=== PATIENT | female | born 1940 | race Caucasian/White ===

== ENCOUNTER 2018-07-23 13:27 | Outpatient (CLI) | payer MEDICARE, OTHER, SELFPAY ==
--- NOTE | 2018-07-23 11:10 | DI.RAD_ITS ---
SYMPTOMS/DIAGNOSIS: SHORTNESS OF BREATH, COPD, J44.9 PA AND LATERAL CHEST: Comparison 02/19/17 and 09/08/17. The heart size and pulmonary vasculature are within normal limits. The lungs appear hyperinflated suggesting underlying COPD. No focal infiltrates, effusions or pneumothoraces are identified. There is a question of a nodular density to the left of the hilum. This may represent a summation of shadows but pulmonary nodule can not be excluded. CT scan should be considered for further evaluation. Degenerative changes are seen in the spine. IMPRESSION: 1. Question of a pulmonary nodule in the left mid lung. CT scan is recommended for further evaluation. 2. COPD.
== END 2018-07-23 13:47 ==
PROVIDERS: PCP Family Medicine; Visit Provider Family Medicine
DX: R06.02 Shortness of breath (principal); J44.9 Chronic obstructive pulmonary disease, unspecified; R91.8 Other nonspecific abnormal finding of lung field
CPT/HCPCS: 71046

== ENCOUNTER 2018-07-25 12:24 | Outpatient (CLI) | payer MEDICARE, OTHER, SELFPAY ==
[2018-07-25 14:01] LABS: CREATININE 0.98 mg/dL (0.55-1.02); Estimated GFR 55.03 (mL/min/1.73m2)
== END 2018-07-25 12:44 ==
PROVIDERS: PCP Family Medicine; Visit Provider Family Medicine
DX: R91.1 Solitary pulmonary nodule (principal); Z13.89 Encounter for screening for other disorder
CPT/HCPCS: 36415; 82565

== ENCOUNTER 2018-07-28 01:36 | Outpatient (CLI) | payer MEDICARE, OTHER, SELFPAY ==
--- NOTE | 2018-07-28 14:49 | DI.CT_ITS ---
SYMPTOM/DIAGNOSIS: F/U ABNL FINDINGS ON XRAY, LUNG NODULE CHEST CT: CT scan of the chest was performed following the uneventful administration of intravenous contrast material. Comparison chest xray is 07/23/18. The thoracic aorta is of normal caliber. No aneurysmal dilatation is seen. Heart size is within normal limits. No significant pericardial effusion is present. No significant thoracic adenopathy is appreciated. No pleural effusion or pneumothorax is identified. Centrilobular emphysematous changes are present in the lungs. There are infiltrates seen in the lower lobes. These areas may represent atelectasis or pneumonia or scarring. No pulmonary nodules are appreciated. The tracheobronchial tree is unremarkable. Dependent atelectatic changes are seen in the lung bases. There is patient motion artifact present. Upper abdominal images show the patient is status post cholecystectomy. There is mild dilatation of the extrahepatic bile ducts, similar to the prior examination. This likely reflects post cholecystectomy change. Degenerative changes are seen in the spine. IMPRESSION: 1. No evidence of a pulmonary nodule or thoracic adenopathy. 2. Centrilobular emphysema. 3. Infiltrates in the lower lobes bilaterally. This likely reflects atelectasis or scarring. Pneumonia cannot be entirely excluded. Please correlate clinically.
[2018-07-28] MEDS: Omnipaque 350 MG/ML 100 ML BTL IV (15:14)
== END 2018-07-28 01:56 ==
PROVIDERS: PCP Family Medicine; Visit Provider Family Medicine
DX: R91.8 Other nonspecific abnormal finding of lung field (principal); J43.8 Other emphysema
CPT/HCPCS: 71260; J3490

== ENCOUNTER 2018-08-22 03:06 | Outpatient (CLI) | payer MEDICARE, OTHER, SELFPAY ==
[2018-08-22] MEDS: Inhaler, Assist Device 1 EACH MC (10:54)
[2018-08-22] MEDS: Albuterol HFA 18 GM 200 PUFF INH IH (10:56)
--- NOTE | 2018-08-22 11:40 | PFT_ITS ---
PULMONARY FUNCTION TEST REPORT DATE OF SERVICE: August 22, 2018 REQUESTING PROVIDER: Ramila Tapia M.D. Spirometry shows moderately severe obstructive airways disease with significant bronchodilator response. Lung volumes show no evidence of restriction. Diffusion capacity moderately reduced, even when corrected to alveolar volume. Airways resistance elevated. IMPRESSION: Overall moderately severe obstructive airways disease with significant bronchodilator response. The diffusion capacity measurement was poorly calibrated, therefore should not be counted. Clinical correlation recommended. When this study was compared to previous ones from 12/14/05, 07/04/12, 02/01/15 and 08/30/16, the patient has a relatively stable FVC and an overall 270 cc's decline in FEV1, but again overall relatively stable. VJ/dml D/
== END 2018-08-22 03:26 ==
PROVIDERS: PCP Family Medicine; Visit Provider Family Medicine
DX: J44.9 Chronic obstructive pulmonary disease, unspecified (principal)
CPT/HCPCS: 94060; 94150; 94726; 94729

== ENCOUNTER 2018-09-15 13:02 | Emergency (ER) | payer MEDICARE, OTHER, SELFPAY ==
[2018-09-15 13:09] VITALS: BP 140/78; PULSE 93; RESP 18; TEMP 36.9; O2SAT 94
--- NOTE | 2018-09-15 14:15 | DI.US_ITS ---
SYMPTOMS/DIAGNOSIS: LEG SWELLING, PAIN BEHIND KNEE RIGHT LOWER EXTREMITY ULTRASOUND: The deep veins of the right lower extremity show normal compression, augmentation and color flow. No evidence of a deep venous thrombus is identified. The saphenofemoral junction appears unremarkable. Note is made of a 3.9 x 1 x 2 cm cyst in the popliteal region consistent with a Lopez's cyst. IMPRESSION: 1. No evidence of a right lower extremity deep venous thrombus. 2. 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 The findings were discussed with the Emergency Department on the date of the examination.
--- NOTE | 2018-09-15 14:15 | DI.RAD_ITS ---
SYMPTOM/DIAGNOSIS: FELL, PAIN LUMBAR SPINE: AP, lateral and bilateral oblique views. Comparison CT scan is 04/05/14. There is again seen a right convex curvature of the lumbar spine. No acute fracture or subluxation is seen. No spondylolysis or spondylolisthesis is present. Mild degenerative changes are seen in the lumbar spine. Suture material is seen within the abdomen. IMPRESSION: No acute abnormality. RIGHT ELBOW: Four views. No priors. No acute fracture or dislocation is seen. No radiopaque foreign bodies are seen in the soft tissues. IMPRESSION: No acute fracture or dislocation.
--- NOTE | 2018-09-15 17:23 | DI.VRAD_ITS ---
EXAM: XR Lumbosacral Spine, 4 or 5 Views EXAM DATE/TIME: 09/15/2018 3:58 PM CLINICAL HISTORY: 78 years old, female; Injury or trauma; Initial encounter; Blunt trauma (contusions or hematomas); Patient HX: Fall, TECHNIQUE: Imaging protocol: XR of the lumbosacral spine, 4 or 5 views. COMPARISON: No relevant prior studies available. FINDINGS: Vertebrae: Moderate dextrocurvature of the lumbar spine centered at L2-3. Multilevel lumbar facet arthropathy. Normal AP alignment. No acute fracture. Soft tissues: Normal. IMPRESSION: No acute abnormality. Dictated and Authenticated by: Roxane Bustamante MD. Ordering:RODRIGO Wallis MD
--- NOTE | 2018-09-15 17:23 | DI.VRAD_ITS ---
EXAM: XR Right Elbow Complete, 3 or more Views EXAM DATE/TIME: 09/15/2018 4:06 PM CLINICAL HISTORY: 78 years old, female; Pain; Elbow; Right; Patient HX: Fall TECHNIQUE: Imaging protocol: XR Right elbow. Views: 3 or more views. COMPARISON: No relevant prior studies available. FINDINGS: Bones/joints: Normal. Soft tissues: Normal. IMPRESSION: No acute abnormality. Dictated and Authenticated by: Roxane Bustamante MD. Ordering:RODRIGO Wallis MD
--- NOTE | 2018-09-15 17:25 | ED.GENADUL_ITS ---
Discharge Plan Disposition Patient Disposition: HOME Condition: Stable Discharge Details Chief Complaint: GenMedical Clinical Impression: Skin tear of elbow without complication, Contusion, multiple sites Primary Care Provider: Ramila Tapia ED Provider: Bimal Wu Home Meds and New Rx's Prescriptions: Continued latanoprost (PF) 0.005 % drops 1 drp OP QPM RF: 0 fluticasone propionate 50 mcg/actuation spray,suspension 2 spray KAY DAILY PRNRF: 0 folic acid 1 mg tablet 1 mg PO EVERY OTHER DAY Qty: 45 RF: 12 cyanocobalamin (vitamin B-12) 1,000 mcg/mL solution 1,000 mcg IM MONTHLY Qty: 3 RF: 12 codeine sulfate 30 mg tablet 30 mg PO QID MDD 4 PRN (Reason: diarrhea) Qty: 120 RF: 0 Lucy Cohesive Seals 1 EACH misc 1 ea Miscellaneous DIR RF: 0 METAMUCIL 283 GM powder 1 tsp PO QID RF: 0 BRITT 1 ea Topical DIR RF: 0 Narcan 4 MG spray,non-aerosol 4 mg NS PRN Qty: 2 RF: 0 albuterol sulfate [ProAir HFA] 8.5 GM HFA aerosol inhaler 1 - 2 puff Inhalation Q6H PRN Qty: 3 RF: 12 BD Blunt Plastic Cannula 17 x 3 mL syringe 1 ea Miscellaneous MONTHLY Qty: 12 RF: 12 Symbicort 160-4.5 mcg/actuation HFA aerosol inhaler 2 puff Inhalation BID Qty: 3 RF: 12 levothyroxine 50 mcg tablet 50 mcg PO DAILY Qty: 90 RF: 12 Spiriva with HandiHaler 18 mcg capsule, w/inhalation device 1 cap Inhalation DAILY Qty: 3 RF: 12 alprazolam 0.5 mg tablet 0.5 mg PO DIRECTED Qty: 100 RF: 0 Discharge Instructions Instructions: Contusion in Adults (ED), Skin Tear (ED) Additional Instructions: Continue to keep your wound clean and dry and if you notice signs of infection return immediately for reassessment. Otherwise continue to take your medication as prescribed and follow-up with your primary care provider as needed for reassessment Referrals: Ramila Tapia MD, [place] [Primary Care Provider] - (As needed for reassessment) Discharge Data Discharge Date/Time-TO BE ENTERED AT DEPARTURE: 09/15/18 17:43 Medical Decision Making Patient presenting the emergency department for chief complaint of fall. Patient states around 2 AM she was attempting to empty her ostomy bag when she was sitting backwards on the toilet and lost her balance slipping and falling backwards. She states that she landed on her right elbow and her buttocks. She states throughout the day she has had some elbow pain, did have a skin tear to the right elbow, and some lower back pain. Patient denies any focal neurological deficits,. Physical exam shows diffuse tenderness to the lower lumbar spine and sacrum but no obvious ecchymosis or swelling, no step-off, no crepitus. Right elbow has tenderness to the olecranon and a moderate-sized skin tear with no further bleeding but elbow does have full range of motion. There is no cervical thoracic tenderness to the back, wrist and hand are appropriate,. Patient also does state that she has noticed some mild swelling to her right ankle and some pain behind her right knee. Patient does have reproducible palpable pain to her right colored is no discoloration to the lower extremity trace swelling is noted to the ankle but is not generalized. Given popliteal space tenderness I do feel that ultrasound imaging is warranted to rule out DVT. given patient's age radiological imaging was ordered for the lumbar spine and the right elbow but otherwise patient denies any head injury, loss of consciousness, neck pain, or chest pain so I do not feel that any other imaging is warranted. For review of imaging showing no acute findings and arm staff appropriately cleaned and dressed skin tear feel that patient has multiple contusions to the fall but no acute fractures. Patient was encouraged to follow-up with her primary care provider as needed for any further reassessment. For discomfort patient was encouraged to use low-dose acetaminophen as needed. Patient was ambulatory in emergency department which I feel is reassuring as well. After discussion of diagnosis and plan of care patient and family have no further needs, questions, or concerns and states clear understanding to return to the emergency department for any worsening symptoms. HPI General Mode of arrival: ambulatory . Date/Time Provider Initiated Documentation: 09/15/18 13:14 . Limitations to Documentation: no limitations . Information obtained by: patient . History of Present Illness 78 year old F presents to the emergency department with the chief complaint of fall, described as mild, with intensity rated at 5. Quality is described as aching, and is localized to the right and upper extremity. Patient started experiencing this hour(s) (12) and it has been constant. No relieving factors improve symptom(s), Patient did receive the following treatments prior to arrival, none Related Data Home Medications Medication Instructions Recorded Confirmed Lucy Cohesive Seals ea 08/11/12 08/14/18 Metamucil 1 tsp PO QID 08/11/12 09/15/18 Narcan 4 mg NS PRN #2 spray 02/18/17 08/14/18 albuterol sulfate [ProAir HFA] 1 - 2 puff INHALATION Q6H PRN #3 10/03/17 09/15/18 inhaler syringe with cannula, disposable #12 ndl 03/19/18 08/14/18 17 x 3 mL latanoprost (PF) 0.005 % eye drops 1 drp OP QPM 05/19/18 09/15/18 budesonide-formoterol HFA 160 2 puff INHALATION BID #3 inhaler 07/05/18 09/15/18 mcg-4.5 mcg/actuation aerosol inhaler levothyroxine 50 mcg tablet 50 mcg PO DAILY #90 tab-cap 07/05/18 09/15/18 tiotropium bromide 18 mcg capsule 1 cap INHALATION DAILY #3 packet 07/16/18 09/15/18 with inhalation device codeine sulfate 30 mg tablet 30 mg PO QID PRN #120 tab MDD 4 08/14/18 08/14/18 cyanocobalamin (vit B-12) 1,000 1,000 mcg IM MONTHLY #3 vial 08/14/18 09/15/18 mcg/mL injection solution fluticasone propionate 50 2 spray KAY DAILY PRN gm 08/14/18 09/15/18 mcg/actuation nasal spray,suspension folic acid 1 mg tablet 1 mg PO EVERY OTHER DAY #45 tab-cap 08/14/18 09/15/18 alprazolam 0.5 mg tablet 0.5 mg PO DIRECTED #100 tab-cap 09/12/18 09/15/18 Previous Rx's Medication Instructions Recorded Narcan 4 mg NS PRN #2 spray 02/18/17 albuterol sulfate [ProAir HFA] 1 - 2 puff INHALATION Q6H PRN #3 10/03/17 inhaler syringe with cannula, disposable #12 ndl 03/19/18 17 x 3 mL budesonide-formoterol HFA 160 2 puff INHALATION BID #3 inhaler 07/05/18 mcg-4.5 mcg/actuation aerosol inhaler levothyroxine 50 mcg tablet 50 mcg PO DAILY #90 tab-cap 07/05/18 tiotropium bromide 18 mcg capsule 1 cap INHALATION DAILY #3 packet 07/16/18 with inhalation device codeine sulfate 30 mg tablet 30 mg PO QID PRN #120 tab MDD 4 08/14/18 cyanocobalamin (vit B-12) 1,000 1,000 mcg IM MONTHLY #3 vial 08/14/18 mcg/mL injection solution folic acid 1 mg tablet 1 mg PO EVERY OTHER DAY #45 tab-cap 08/14/18 alprazolam 0.5 mg tablet 0.5 mg PO DIRECTED #100 tab-cap 09/12/18 Allergies Allergy/AdvReac Type Severity Reaction Status Date / Time Penicillins Allergy Intermediate Verified 09/15/18 13:12 clindamycin AdvReac Mild Verified 09/15/18 13:12 doxycycline AdvReac Mild Verified 09/15/18 13:12 levofloxacin AdvReac Verified 09/15/18 13:12 nitrofurazone AdvReac Stomach Verified 09/15/18 13:12 pains Tetanus Vaccines and Toxoid AdvReac Verified 09/15/18 13:12 General Stated Complaint: GenMedical KAVEH: 3 Review of Systems Constitutional Denies chills, Denies fever(s), Denies frequent falls, Denies headache(s) and Denies malaise ENT Denies vertigo, Denies dizziness, Denies headache(s) and Denies neck pain Cardiovascular Denies chest pain and Denies dyspnea Respiratory Denies dyspnea Musculoskeletal Reports as per HPI, Reports back pain, Reports arthralgias and Denies neck pain Integumentary/Breasts Reports wounds (right elbow skin tear) Neurologic Denies vertigo, Denies dizziness, Denies frequent falls and Denies headache(s) [facility] Medical History Vitamin D deficiency (Chronic 03/19/09) Urinary incontinence (Chronic 09/09/14) Shoulder pain (Chronic 04/18/04) Sensorineural hearing loss, bilateral (Chronic 11/10/13) Pernicious anemia (Chronic) Peripheral vertigo (Chronic 03/26/13) Osteopenia (Chronic) 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, 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) Impaired renal function disorder (Chronic) Gastro-esophageal reflux disease with esophagitis (Chronic) Depressive disorder (Chronic 01/21/13) Cramps, extremity (Chronic 02/18/17) Chronic pain syndrome (Chronic) Chronic night sweats (Chronic 09/16/17) Chronic diarrhea (Chronic) Balance disorder (Chronic 06/02/15) Anxiety (Chronic 02/04/13) Essential hypertension (Chronic 04/17/13) COPD (chronic obstructive pulmonary disease) (Chronic) CAP (community acquired pneumonia) (Resolved) Dysphonia (Resolved 03/18/14) Elev transaminase/LDH (Resolved) External ear conductive hearing loss (Resolved) Hyponatremia (Resolved) Hyponatremia syndrome (Resolved 06/27/15) Impacted cerumen of both ears (Resolved 03/24/15) Mucous polyp of cervix (Resolved) Pneumonia (Resolved) Pulmonary nodule, right (Resolved) Pyloric ulcer associated with Helicobacter pylori (Resolved) Seizure (Resolved) Smoker (Resolved) Subclinical hypothyroidism (Resolved 06/07/15) Surgical History History of colon resection (Resolved) S/P cholecystectomy (Resolved) Cholecystectomy (~1996) Colostomy (~1983) Family History Mother Neoplasm Asthma Sister Neoplasm Asthma Grandmother Stroke Social History Smoking/Tobacco Use Status: Former Tobacco Use Alcohol Intake: current Alcohol Intake frequency: holidays/special occasions only Alcohol type: wine Drug use: Never Substance use type: does not use Caregiver/Support person: Yes Household members: spouse Housing: house Pets and animals: Yes Pets and animals: cat(s) Sexually active: No Do you think of yourself as: straight/heterosexual Current gender identity: female What is your relationship status?: How often do you talk on the phone with friends or family?: three or more times per week How often do you get together with friends or relatives?: twice per week How often do you attend uatsdin or mormonism services?: 4 or more times per year Do you belong to any clubs or organized social groups?: yes Panel score (0-1 are the most socially isolated patients): 4 What type of physical activity do you participate in: other Details: NOT MUCH / SUGGESTIONS PLEASE (OSTOMY IS INLCUDED) Concepción/Mandaeism: Buddhism Special concepción needs: No Do you feel safe at home: Yes Do you feel safe in your relationship?: Yes Exam Const General: cooperative, no acute distress and not ill appearing Orientation: alert, awake and oriented x3 HENMT Head: normal to inspection, normocephalic and atraumatic Resp Effort & Inspection: normal respiratory effort, able to speak in complete sentences and no respiratory distress Auscultation: clear to auscultation bilaterally Cardio Rate: regular rate Rhythm: regular rhythm Heart Sounds: S1 normal and S2 normal Back/Spine/Pelvis Cervical Spine: No cervical spinal tenderness Thoracic/Lumbar Spine: No mass, No paraspinal tenderness, No thoracic spinal tenderness and lumbar spinal tenderness Pelvis: no pain with anterior-posterior compression Sacrum: no ecchymosis, no swelling and tenderness midline Neuro General: alert, awake, oriented x3, moves all extremities and no focal motor deficits Sensory Exam: no sensory deficits noted Extrem Right upper extremity: elbow/forearm Details: tenderness Location: of the olecranon, normal ROM, abrasion (skin tear) and ecchymosis; no crepitus, wrist Details: normal to inspection and hand Details: normal to inspection Course Vital Signs Temperature 36.9 C 09/15/18 13:09 Pulse 93 H 09/15/18 13:09 Respiratory Rate 18 09/15/18 13:09 Blood Pressure 140/78 09/15/18 13:09 Pulse Oximetry 94 L 09/15/18 13:09 Temperature 36.9 C 09/15/18 13:09 Temperature Source Temporal Artery Scan 09/15/18 13:09 Pulse 93 H 09/15/18 13:09 Respiratory Rate 18 09/15/18 13:09 Respiratory Effort 09/15/18 13:28 Blood Pressure 140/78 09/15/18 13:09 Pulse Oximetry 94 L 09/15/18 13:09 Oxygen Delivery Method Room Air 09/15/18 13:09 Oxygen Flow Rate 0 09/15/18 13:09
[2018-09-15 17:29] VITALS: BP 125/56; PULSE 86; RESP 16; TEMP 37.1; O2SAT 96
[2018-09-15] MEDS: Bacitracin 1 PACKET (17:34)
[2018-09-15 17:38] VITALS: BP 125/56; PULSE 86; RESP 16; TEMP 37.1; O2SAT 96
== END 2018-09-15 17:43 | disposition home or self-care (01) ==
PROVIDERS: Emergency Provider Nurse Practitioner Family; PCP Family Medicine
DX: S51.011A Laceration without foreign body of right elbow, initial encounter (principal); M25.561 Pain in right knee; R22.41 Localized swelling, mass and lump, right lower limb; M54.5 Low back pain; W18.11XA Fall from or off toilet without subsequent striking against object, initial encounter; J44.9 Chronic obstructive pulmonary disease, unspecified; I10 Essential (primary) hypertension; Z87.891 Personal history of nicotine dependence
CPT/HCPCS: 99284; 72110; 73080; 93971

== ENCOUNTER 2018-12-16 10:37 | Outpatient (REF) | payer MEDICARE, OTHER, SELFPAY | END 2018-12-16 10:57 | LOC: LBN 10:37 | PROVIDERS: PCP Family Medicine; Visit Provider Family Medicine | DX: N39.0 Urinary tract infection, site not specified (principal) | CPT/HCPCS: 87086 ==

== ENCOUNTER 2019-05-22 01:48 | Outpatient (CLI) | payer MEDICARE, OTHER, SELFPAY ==
[2019-05-22 12:12] LABS: ALT 12 U/L (14-59); AST 20 U/L (15-37); Albumin 3.6 g/dL (3.4-5.0); Alkaline Phosphatase 106 U/L (46-116); Anion Gap 7.3 mmol/L (3-11); BUN 11 mg/dL (7-18); Bilirubin, Total 0.8 mg/dL (0.2-1.0); CO2 30.7 mmol/L (21.0-32.0); Calcium 9.2 mg/dL (8.5-10.1); Chloride 102 mmol/L (98-107); Estimated GFR 53.76 (mL/min/1.73m2); Folate 19.7 ng/mL (8.6-20.0); Glucose 78 mg/dL (74-106); Potassium 3.9 mmol/L (3.5-5.1); Sodium 140 mmol/L (136-145); TSH (W/Ref FT4) 1.92 uIU/mL (0.36-3.74); Total Protein 6.6 g/dL (6.4-8.2); Vitamin B12 932 pg/mL (193-986)
[2019-05-25 06:17] LABS: Vitamin D 25 Total 9.5 ng/ml (30-100)
== END 2019-05-22 02:08 ==
PROVIDERS: PCP Family Medicine; Visit Provider Family Medicine
DX: E55.9 Vitamin D deficiency, unspecified (principal); R53.83 Other fatigue; E03.9 Hypothyroidism, unspecified; D51.0 Vitamin B12 deficiency anemia due to intrinsic factor deficiency; K52.9 Noninfective gastroenteritis and colitis, unspecified; R19.7 Diarrhea, unspecified; K50.90 Crohn's disease, unspecified, without complications
CPT/HCPCS: 36415; 80053; 82306; 82607; 82746; 84443

== ENCOUNTER 2019-06-23 01:59 | Outpatient (CLI) | payer MEDICARE, OTHER, SELFPAY ==
--- NOTE | 2019-06-23 12:46 | DI.MAMMO_ITS ---
EXAM: MG MAMMO SCREENING CLINICAL HISTORY: screening Z12.39. TECHNIQUE: Bilateral full field digital CC and MLO mammographic images were obtained with 3D tomosyn thesis and utilizing computer aided detection (CAD). COMPARISON: Available for comparison. FINDINGS: Masses/Architectural Distortion: None seen. Stable bilateral nodules. Microcalcifications: No suspicious pleomorphic-type are seen. Skin Thickening/Nipple Retraction: None. IMPRESSION: 1. No significant interval change with no specific features of malignancy noted. 2. Unless there is more urgent need, screening mammography is recommended, as per [employer] guidelines. BI-RADS Cat 2 - Benign Findings Breast Density - Category A - Almost entirely fatty A negative radiographic report should not delay biopsy if a dominant or clinically suspicious mass is present. Up to ten percent of cancers are not identified on mammography. A negative report may reinforce clinical impression. Adenosis and dense breasts may obscure an underlying neoplasm. False positive reports average 6 to 10%. Patient will receive a letter notifying them of these results.
== END 2019-06-23 02:19 ==
PROVIDERS: PCP Family Medicine; Visit Provider Family Medicine
DX: Z12.31 Encounter for screening mammogram for malignant neoplasm of breast (principal)
CPT/HCPCS: 77063; 77067

== ENCOUNTER 2019-09-16 02:15 | Outpatient (CLI) | payer MEDICARE, OTHER, SELFPAY ==
--- NOTE | 2019-09-16 12:35 | DI.CT_ITS ---
EXAM: CT CHEST WO CLINICAL HISTORY: CHRONIC OBSTRUCTIVE LUNG DISEASE, J44.9. TECHNIQUE: Imaging protocol: Axial computed tomography images were obtained and coronal and sagittal reformatted images were created and reviewed. COMPARISON: CT chest w from 07/28/2018 FINDINGS: Tracheobronchial tree: Patent where visualized. Mediastinum and Tracy: No dominant adenopathy or fluid collection. Pulmonary parenchyma: No consolidation or dominant measurable mass. Moderately severe centrilobular e mphysematous changes are present. Calcified granuloma is seen in the right lower lobe. There is sca rring in the lung bases bilaterally. Pleura: No effusion or pneumothorax. Heart: The heart is not dilated. No coronary artery calcifications are seen. No pericardial effusion. Aorta: Thoracic aorta non-dilated. Atherosclerosis. Upper abdomen: Status post cholecystectomy. Lymph nodes: Within normal limits. Bones:Degenerative changes. IMPRESSION: 1. Moderately severe centrilobular emphysema. 2. No focal consolidating infiltrates or pulmonary masses. 3. Atherosclerosis. 4. Status post cholecystectomy. RADIATION DOSE DELIVERED: Total DLP Total DLP DATA REPOSITORY: All CT scans at this facility are submitted to the National Radiology Data Registry (NRDR) Dose Index Registry (DIR) with the [employer] (A[employer]). RADIATION OPTIMIZATION: All CT scans at this facility use at least one of these dose optimization te chniques: automated exposure control; mA and/or kV adjustment per patient size (includes targeted exa ms where dose is matched to clinical indication); or iterative reconstruction.
== END 2019-09-16 02:35 ==
PROVIDERS: PCP Family Medicine; Visit Provider Internal Medicine
DX: J44.9 Chronic obstructive pulmonary disease, unspecified (principal); J43.8 Other emphysema; Z90.49 Acquired absence of other specified parts of digestive tract
CPT/HCPCS: 71250

== ENCOUNTER 2019-11-04 02:35 | Outpatient (CLI) | payer MEDICARE, OTHER, SELFPAY ==
--- NOTE | 2019-11-04 10:30 | DI.US_ITS ---
APPROVED REPORT EXAM: Comprehensive 2D, Doppler, and color-flow Echocardiogram Patient Location: Out-Patient Operations Clerk: Paige Dietz RDCS (AE) Indications: Shortness of Breath Other Information Study Quality: Adequate Conclusion Left Ventricle : The left ventricle is normal size. The left ventricular systolic function is normal. The left ventricular ejection fraction is within the normal range. There is normal left ventricular wall thickness. There is normal LV segmental wall motion. The left ventricular diastolic function is normal. LVEF is >55%. Right Ventricle : The right ventricle is normal size. The right ventricular systolic function is norm al. The RVSP is 36.4 mmHg. Atria : The left atrium size is normal. The right atrium size is normal. Valves: There are no hemodynamically significant valvular lesions. Great Vessels : The IVC collapses <50% with inspiration. There is no prior study available for comparison. Wall motion Left Ventricle The left ventricle is normal size. The left ventricular systolic function is normal. The left ventric ular ejection fraction is within the normal range. There is normal left ventricular wall thickness. T here is normal LV segmental wall motion. The left ventricular diastolic function is normal. There is no ventricular septal defect visualized. LVEF is >55%. Right Ventricle The right ventricle is normal size. The right ventricular systolic function is normal. The RVSP is 36 .4 mmHg. Atria The left atrium size is normal. The right atrium size is normal. The interatrial septum is intact wit h no evidence for an atrial septal defect. Aortic Valve Aortic valve is trileaflet. There is no aortic valvular stenosis. No aortic regurgitation is present. Mitral Valve There is mitral annular calcification. No evidence of mitral valve stenosis. Mild mitral regurgitatio n. Tricuspid Valve The tricuspid valve is normal in structure. There is no tricuspid valve stenosis. Mild tricuspid regu rgitation. Pulmonic Valve The pulmonary valve is normal in structure. There is no pulmonic valvular stenosis. There is no pulmo fletcher valvular regurgitation. Great Vessels The aortic root is normal in size. The ascending aorta is normal in size. The IVC collapses <50% with inspiration. Pericardium There is no pericardial effusion. 2D Dimensions IVSD d PLAX 0.84 cm F: 0.6-1.0 LV Vol A2C d MOD 85.9 mL LVPW d PLAX 0.84 cm F: 0.6 - 1.0 LV Vol A4C d MOD 85.8 mL LVID d PLAX 4.38 cm F: 3.8 - 5.2 LA vol/ BSA A2C s A-L 14.2 mL/m2 LVDs 3.20 cm F: 2.2 - 3.5 LA vol/ BSA A4C s A-L 19.7 mL/m2 Ao Root d 2.58 cm F: 2.7 - 3.3 LA Vol/ BSA Biplane s A-L 18.9 mL/m2 RA Area A4C 11.73 cm2 LA Area A4C s MOD 13.06 cm2 RA Vol/ BSA A4C s A-L 16.1 mL/m2 LA Area A2C s MOD 9.82 cm2 Ao Asc Diam d 3.10 cm F: 2.3 - 3.1 LV EF A4C MOD 55.3 % LV EF Teichholz 52.4 % LV EF A2C MOD 56.1 % LVEF (Ashraf's) 53.60 % F: 54 - 74 LV EF Biplane MOD 53.6 % LV Volume 68.83 mL F: 46 - 106 SV 46.48 mL LV Volume Index 40.48 mL/m2 F: 29 - 61 SV Index 27.31 mL/m2 LV Vol Biplane MOD 86.7 mL FS 26.65 % M-Mode TAPSE 2.38 cm (M/F) >1.7 LV Diastology MV E' medial 0.119 (>0.07 m/s) E/A Ratio 0.8 LV E/e MED 7.30 (<14) MV E Vmax 0.87 (0.4-1.3 m/s) MV E' lateral 0.101 (>0.1 m/s) MV A Vmax 1.10 (0.4-1.3 m/s) LV E/e LAT 8.60 (<14) MV E/A Ratio 0.79 MV E/E' medial 7.34 MV E/E' lateral 8.65 Aortic Valve LVOT Area 2.80 cm2 AoV Area Vmax 2.38 cm2 LVOT Vmax 1.05 m/s AoV Area/ BSA (Vmax) 1.40 cm2/m2 LVOT Mean Lawrence. 0.71 m/s PATRICE Mean Lawrence. 2.13 cm2 LVOT Peak Grad 4.4 mmHg PATRICE Mean Lawrence. Index 1.25 cm2/m2 LVOT Mean Grad 2.3 mmHg LVOT VTI 0.222 m LVOT Diam s 1.85 cm AoV Vmax 1.24 m/s Velocity Ratio 0.84 AoV Mean Lawrence. 0.93 m/s AoV Peak Grad 6.2 mmHg LVOT SV 62.19 mL AoV Mean Grad 3.8 mmHg AoV VTI 0.298 m AoV Area VTI 2.09 cm2 AoV Area/ BSA (VTI) 1.23 cm/m2 Mitral Valve MV DT 165 (160-240 msec) MR Vmax 4.96 m/s MV PHT 48 msec MR VTI 1.690 m MV Area PHT 4.60 cm2 MR Peak Grad 98.5 mmHg MR Mean Grad 71.7 mmHg MR PISA Radius 0.36 cm MR EROA 0.06 cm2 MR Aliasing Velocity 0.35 m/s MR PISA 0.80 cm2 Pulmonary Valve PV Vmax 0.97 (0.5-1.5 m/s) RVOT Peak Gr. 2.28 mmHg PV Peak Grad 3.7 mmHg RVOT Mean Gr. 1.10 mmHg PV Mean Grad 2.1 mmHg RVOT VTI 0.158 m PV VTI 0.211 m RVOT Vmax 0.75 m/s Tricuspid Valve TR Peak Grad 28.4 mmHg TR Vmax 2.66 m/s RA Pressure 8.00 mmHg RVSP (TR) 36.4 mmHg
== END 2019-11-04 02:55 ==
PROVIDERS: PCP Family Medicine; Visit Provider Family Medicine
DX: R06.02 Shortness of breath (principal); I10 Essential (primary) hypertension
CPT/HCPCS: 93306

== ENCOUNTER 2019-12-23 03:58 | Outpatient (CLI) | payer MEDICARE, OTHER, SELFPAY ==
[2019-12-23 13:24] LABS: HCT 40.7 % (36.0-46.0); HGB 13.7 g/dL (11.2-15.7); MCH 31.8 pg (27.0-33.0); MCHC 33.7 % (32.0-36.0); MCV 94.4 fL (80-95); MPV 9.6 fL (8.0-11.0); Platelet Count 113 10^3/uL (130-400); RBC 4.31 10^6/uL (3.93-5.22); RDW 12.7 % (11.7-14.6); RDW-SD 44.3 fL; WBC 14.34 10^3/uL (4.4-10.8)
[2019-12-23 14:02] LABS: Iron 85 ug/dL (50-170)
[2019-12-23 14:15] LABS: Ferritin 180 ng/mL (8-252)
== END 2019-12-23 04:18 ==
PROVIDERS: PCP Family Medicine; Visit Provider Family Medicine
DX: D64.9 Anemia, unspecified (principal); R19.7 Diarrhea, unspecified; K50.90 Crohn's disease, unspecified, without complications
CPT/HCPCS: 36415; 85027; 82728; 83540

== ENCOUNTER 2020-03-17 15:50 | Outpatient (REF) | payer MEDICARE, OTHER, SELFPAY ==
[2020-03-17 21:55] LABS: *AMPHETAMINES SCREEN URINE Negative (Negative); *BARBITURATES SCREEN URINE Negative (Negative); *BENZODIAZEPINES SCREEN URINE POSITIVE (Negative); Cannabinoids THC Negative (Negative); Cocaine Screen,Urine Negative (Negative); METHADONE URINE SCREEN Negative (Negative); OPIATES URINE SCREEN POSITIVE (Negative)
[2020-03-17 22:09] LABS: Tricyclic Antidepressants Negative (Negative)
== END 2020-03-17 16:10 ==
LOC: LBN 15:50
PROVIDERS: PCP Family Medicine; Visit Provider Family Medicine
DX: G89.4 Chronic pain syndrome (principal); R30.0 Dysuria
CPT/HCPCS: 80307; 87086

== ENCOUNTER 2020-04-19 08:32 | Outpatient (CLI) | payer MEDICARE, OTHER, SELFPAY ==
[2020-04-22 03:05] LABS: Patient Race White; SARS-CoV-2 RNA Undetected (Undetected); SARS-CoV-2 Specimen Source Nasal
== END 2020-04-19 08:52 ==
PROVIDERS: PCP Family Medicine; Visit Provider Family Medicine
DX: Z20.828 Contact with and (suspected) exposure to other viral communicable diseases (principal)
CPT/HCPCS: U0003

== ENCOUNTER 2020-06-01 04:50 | Outpatient (CLI) | payer MEDICARE, OTHER, SELFPAY ==
[2020-06-01 11:14] LABS: HCT 39.9 % (36.0-46.0); HGB 13.1 g/dL (11.2-15.7); MCH 31.4 pg (27.0-33.0); MCHC 32.8 % (32.0-36.0); MCV 95.7 fL (80-95); MPV 10.1 fL (8.0-11.0); Platelet Count 107 10^3/uL (130-400); RBC 4.17 10^6/uL (3.93-5.22); RDW 12.6 % (11.7-14.6); RDW-SD 44.6 fL; WBC 13.37 10^3/uL (4.4-10.8)
[2020-06-01 12:22] LABS: ALT 22 U/L (14-59); AST 18 U/L (15-37); Albumin 3.6 g/dL (3.4-5.0); Alkaline Phosphatase 107 U/L (46-116); Anion Gap 7.5 mmol/L (3-11); BUN 17 mg/dL (7-18); Bilirubin, Total 0.8 mg/dL (0.2-1.0); CO2 28.5 mmol/L (21.0-32.0); CREATININE 0.91 mg/dL (0.55-1.02); Calcium 9.1 mg/dL (8.5-10.1); Chloride 104 mmol/L (98-107); Estimated GFR 59.79 (mL/min/1.73m2); Glucose 89 mg/dL (74-106); Potassium 3.8 mmol/L (3.5-5.1); Sodium 140 mmol/L (136-145); TSH (W/Ref FT4) 1.35 uIU/mL (0.36-3.74); Total Protein 6.3 g/dL (6.4-8.2)
[2020-06-01 12:25] LABS: Folate > 20.0 ng/mL (8.6-20.0)
[2020-06-02 04:50] LABS: Vitamin D 25 Total 37.3 ng/ml (30-100)
== END 2020-06-01 05:10 ==
PROVIDERS: PCP Family Medicine; Visit Provider Family Medicine
DX: I10 Essential (primary) hypertension (principal); D64.9 Anemia, unspecified; D51.0 Vitamin B12 deficiency anemia due to intrinsic factor deficiency; R19.7 Diarrhea, unspecified; D72.829 Elevated white blood cell count, unspecified; E55.9 Vitamin D deficiency, unspecified; F11.20 Opioid dependence, uncomplicated; R53.83 Other fatigue; J44.9 Chronic obstructive pulmonary disease, unspecified; E03.9 Hypothyroidism, unspecified; K50.90 Crohn's disease, unspecified, without complications; R06.02 Shortness of breath
CPT/HCPCS: 36415; 80053; 82306; 85027; 82746; 84443

== ENCOUNTER 2021-02-25 15:31 | Outpatient (REF) | payer MEDICARE, OTHER, SELFPAY ==
[2021-02-26 14:27] LABS: COVID-19 RT-PCR UVMMC Result Negative (Negative)
== END 2021-02-25 15:32 | disposition home or self-care (01) ==
LOC: LBN 15:31
PROVIDERS: PCP Family Medicine; Visit Provider Physician Assistant
DX: Z20.822 Contact with and (suspected) exposure to COVID-19 (principal)
CPT/HCPCS: U0003; U0005

== ENCOUNTER 2021-05-25 12:25 | Outpatient (REF) | payer MEDICARE, OTHER, SELFPAY ==
[2021-05-26 12:30] LABS: COVID-19 RT-PCR UVMMC Result Negative (Negative)
== END 2021-05-25 12:26 | disposition home or self-care (01) ==
LOC: LBN 12:25
PROVIDERS: PCP Family Medicine; Visit Provider Family Medicine
DX: J44.9 Chronic obstructive pulmonary disease, unspecified (principal); R09.81 Nasal congestion; Z20.822 Contact with and (suspected) exposure to COVID-19
CPT/HCPCS: U0003; U0005

== ENCOUNTER 2021-07-24 18:40 | Outpatient (REF) | payer MEDICARE, OTHER, SELFPAY ==
[2021-07-24 21:36] LABS: Bilirubin Negative (Negative); Blood Moderate (Negative); Clarity Sl Cloudy (Clear); Glucose Negative (Negative); Ketones Negative (Negative); Leukocyte Esterase Small (Negative); Nitrite Negative (Negative); Specific Gravity 1.025 (1.005-1.025); Urobilinogen 0.2 EU/dL (Up TO 0.2)
[2021-07-24 21:43] LABS: Bacteria Few HPF (Negative); C & S Indicated? Yes; Casts Negative LPF (Negative); Crystals Negative HPF (Negative); Epithelial Cells Few HPF (Negative); Mucus Trace (Negative); WBC >50 HPF (0-5)
== END 2021-07-24 18:41 | disposition home or self-care (01) ==
LOC: LBN 18:40
PROVIDERS: PCP Family Medicine; Visit Provider Family Medicine
DX: R35.0 Frequency of micturition (principal)
CPT/HCPCS: 81003; 81015; 87086

== ENCOUNTER 2021-07-26 04:27 | Outpatient (CLI) | payer MEDICARE, OTHER, SELFPAY ==
[2021-07-26 12:04] LABS: HCT 40.2 % (36.0-46.0); HGB 12.9 g/dL (11.2-15.7); MCH 31.3 pg (27.0-33.0); MCHC 32.1 % (32.0-36.0); MCV 97.6 fL (80-95); MPV 9.9 fL (8.0-11.0); Platelet Count 123 10^3/uL (130-400); RBC 4.12 10^6/uL (3.93-5.22); RDW 12.9 % (11.7-14.6); RDW-SD 46.6 fL; WBC 17.27 10^3/uL (4.4-10.8)
[2021-07-26 12:56] LABS: ALT 16 U/L (14-59); AST 19 U/L (15-37); Albumin 3.6 g/dL (3.4-5.0); Alkaline Phosphatase 138 U/L (46-116); Anion Gap 7.3 mmol/L (3-11); BUN 13 mg/dL (7-18); Bilirubin, Total 0.7 mg/dL (0.2-1.0); CO2 28.7 mmol/L (21.0-32.0); CREATININE 0.9 mg/dL (0.55-1.02); Calcium 9.1 mg/dL (8.5-10.1); Chloride 106 mmol/L (98-107); Glucose 85 mg/dL (74-106); Potassium 3.3 mmol/L (3.5-5.1); Sodium 142 mmol/L (136-145); Total Protein 6.5 g/dL (6.4-8.2)
== END 2021-07-26 04:28 | disposition home or self-care (01) ==
LOC: LBO 04:27
PROVIDERS: PCP Family Medicine; Visit Provider Family Medicine
DX: J43.2 Centrilobular emphysema (principal); I10 Essential (primary) hypertension; N25.9 Disorder resulting from impaired renal tubular function, unspecified; R53.83 Other fatigue
CPT/HCPCS: 36415; 80053; 85027; 84443

== ENCOUNTER 2021-08-10 03:58 | Outpatient (CLI) | payer MEDICARE, OTHER, SELFPAY | END 2021-08-10 03:59 | disposition home or self-care (01) | PROVIDERS: PCP Family Medicine; Visit Provider Student in an Organized Health Care Education/Training Program | DX: J44.9 Chronic obstructive pulmonary disease, unspecified (principal); J96.91 Respiratory failure, unspecified with hypoxia | CPT/HCPCS: 94762 ==

== ENCOUNTER 2021-09-03 14:56 | Inpatient (IN) | payer MEDICARE, OTHER, SELFPAY ==
[2021-09-03 15:01] VITALS: BP 184/80; PULSE 100; RESP 20; TEMP 37.2; O2SAT 98
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
--- NOTE | 2021-09-03 15:15 | DI.RAD_ITS ---
Exam(s) XR HAND RT COMPLETE EXAM: XR HAND RT COMPLETE CLINICAL HISTORY: cat bite. TECHNIQUE: 2D digital imaging was performed. COMPARISON: No exams were available for comparison FINDINGS: 3 views There is dorsal soft tissue swelling. No evidence of acute fracture. No radiopaque foreign body. N o radiographic evidence of osteomyelitis. Given the findings here and history one might consider MRI to determine abscess/tenosynovitis presenc e. IMPRESSION: DATA REPOSITORY: RADIATION DOSE DELIVERED:
--- NOTE | 2021-09-03 15:18 | NUR.NOTE ---
Addendum entered by Ling Wolf 09/13/21 12:54: 09/13/21 accessed pt chart to print discharge instructions for IS to compare. Sandra Wolf Addendum entered by Ling Wolf 09/03/21 18:06: Voicemail message left on home phone for [facility] Flor Herbert. [phone] 09/03/21. Ling Wolf Original Note: Nursing Note: Faxed animal bite report to [facility] for follow up. Ling Wolf
[2021-09-03 16:14] LABS: Abs Immature Grans 0.06 10^3/uL (0.0-0.06); Absolute Basophil Count 0.11 10^3/uL (0.0-0.2); Basophils % 0.5; Eosinophils % 0.5; HGB 14.5 g/dL (11.2-15.7); Immature Grans % 0.3; Lymphocytes % 56.7; MCH 31.7 pg (27.0-33.0); MCV 96.1 fL (80-95); MPV 9.9 fL (8.0-11.0); Monocytes % 4.5; Neutrophils % 37.5; Platelet Count 108 10^3/uL (130-400); RBC 4.58 10^6/uL (3.93-5.22); RDW 12.5 % (11.7-14.6); RDW-SD 44.6 fL; WBC 22.05 10^3/uL (4.4-10.8)
[2021-09-03 16:19] LABS: Absolute Eosinophil Count 0.11 10^3/uL (0.0-0.7); Absolute Neutrophil Count 8.27 10^3/uL (1.2-6.7)
[2021-09-03 16:20] LABS: Absolute Monocyte Count 0.99 10^3/uL (0.1-0.8)
--- NOTE | 2021-09-03 16:34 | DI.VRAD_ITS ---
PROCEDURE INFORMATION: Exam: XR Right Hand Exam date and time: 09/03/2021 4:20 PM Age: 81 years old Clinical indication: Swelling; Hand; Right TECHNIQUE: Imaging protocol: XR Right hand. Views: 3 or more views. COMPARISON: CR XR elbow RT complete 09/15/2018 3:36 PM FINDINGS: Bones/joints: No acute fracture or dislocation. Minimal CPPD at the wrist. Soft tissues: Soft tissue swelling. IMPRESSION: Nonspecific soft tissue swelling without acute bony findings. Dictated and Authenticated by: Mumtaz Morocho MD. Ordering:MADHAVI Rice MD
[2021-09-03 16:39] LABS: ALT 20 U/L (14-59); AST 18 U/L (15-37); Albumin 3.7 g/dL (3.4-5.0); Alkaline Phosphatase 144 U/L (46-116); BUN 10 mg/dL (7-18); Bilirubin, Total 1.4 mg/dL (0.2-1.0); CREATININE 0.9 mg/dL (0.55-1.02); Calcium 9.4 mg/dL (8.5-10.1); Chloride 104 mmol/L (98-107); Glucose 88 mg/dL (74-106); Potassium 3.6 mmol/L (3.5-5.1); Sodium 138 mmol/L (136-145); Total Protein 7.2 g/dL (6.4-8.2)
[2021-09-03 17:07] LABS: Diff Comment Diff Reviewed; RBC Morphology Normal
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
[2021-09-03 17:28] LABS: Lactate 0.7 mmol/L (0.6-1.4)
[2021-09-03] MEDS: AMPICILLIN/SULBACTAM 3 GM in Normal Saline 100 ML IVPB (18:23)
[2021-09-03 18:40] VITALS: BP 190/73; PULSE 91; RESP 20; TEMP 36.9; O2SAT 95
[2021-09-03 18:45] VITALS: BP 190/73
[2021-09-03 18:50] VITALS: BP 182/69; PULSE 91; RESP 20; TEMP 36.9; O2SAT 95
[2021-09-03 19:29] LABS: Source Nasal/Nares
[2021-09-03 19:44] LABS: COVID-19 PCR Negative (Negative)
--- NOTE | 2021-09-03 19:49 | NUR.NOTE ---
Pt arrived via stretcher from the ER to room 216 with diagnosis of cellulitis due to a cat bite. See shift assesment for arrival assesment details.
[2021-09-03] MEDS: ERTAPENEM 1 GM in Normal Saline 50 ML IVPB (20:13)
[2021-09-03 20:27] VITALS: BP 176/75; PULSE 91; RESP 20; TEMP 37.3; O2SAT 96
[2021-09-03] MEDS: Budesonide/Formoterol 160/4.5 6 GM 60 PUFF INH IH (21:55)
[2021-09-03] MEDS: Latanoprost 0.005% 2.5 ML BTL OP (21:56)
[2021-09-03] MEDS: Albuterol HFA 8 GM 60 PUFF INH IH (23:43)
--- NOTE | 2021-09-04 | DI.US_ITS ---
Exam(s) US SOFT TISSUE EXTREMITY EXAM: US SOFT TISSUE EXTREMITY CLINICAL HISTORY: right hand cellulitis, ? abscess. TECHNIQUE: Ultrasound was performed using standard protocol. COMPARISON: No exams were available for comparison FINDINGS: Sonographic assessment utilizing grayscale and color Doppler imaging was performed and targeted to th e area of clinical concern. Edema is noted throughout the forearm. There is no drainable collection or evidence of abscess. Vas cular structures not evaluated. IMPRESSION: Cellulitis. No evidence of abscess or drainable collection. DATA REPOSITORY:
[2021-09-04 04:25] VITALS: BP 135/86; PULSE 93; RESP 18; TEMP 37.8; O2SAT 95
[2021-09-04 05:36] VITALS: BP 150/74; PULSE 90; RESP 18; TEMP 37.1; O2SAT 94
[2021-09-04] MEDS: Levothyroxine 50 MCG TAB PO (05:39)
[2021-09-04] MEDS: Albuterol HFA 8 GM 60 PUFF INH IH ×2 (07:21→21:08)
[2021-09-04] MEDS: Budesonide/Formoterol 160/4.5 6 GM 60 PUFF INH IH ×2 (07:22→19:37)
[2021-09-04] MEDS: Tiotropium Bromide-Respimat 10 PUFF INH IH (09:28)
[2021-09-04] MEDS: ALPRAZolam 0.5 MG TAB PO (09:31)
--- NOTE | 2021-09-04 09:43 | W.PM.PROGNOT ---
Date of Service Date of service: 09/04/21 Time of Service: 09:46 Objective Last Vital Signs Temp 37.1 C 09/04/21 05:36 Pulse 90 09/04/21 05:36 Resp 18 09/04/21 05:36 BP 150/74 H 09/04/21 05:36 Pulse Ox 94 09/04/21 05:36 Laboratory Results - last 24 hr 09/03/21 09/03/21 09/03/21 15:30 16:00 16:07 WBC 22.05 H RBC 4.58 Hgb 14.5 Hct 44.0 MCV 96.1 H MCH 31.7 MCHC 33.0 RDW 12.5 Plt Count 108 L MPV 9.9 Immature Gran % 0.3 Neutrophils % 37.5 Lymphocytes % 56.7 Monocytes % 4.5 Eosinophils % 0.5 Basophils % 0.5 Nucleated RBC % 0.0 Absolute Neutrophils 8.27 H Absolute Lymphocytes 12.50 H Absolute Monocytes 0.99 H Absolute Eosinophils 0.11 Absolute Basophils 0.11 RBC Morphology Normal VBG Lactate Sodium Cancelled 138 Potassium Cancelled 3.6 Chloride Cancelled 104 Carbon Dioxide Cancelled 26.0 Anion Gap Cancelled 8.0 BUN Cancelled 10 Creatinine Cancelled 0.9 Estimated GFR/1.73 m2 Cancelled >= 60.00 Glucose Cancelled 88 Calcium Cancelled 9.4 Total Bilirubin Cancelled 1.4 H AST Cancelled 18 ALT Cancelled 20 Alkaline Phosphatase Cancelled 144 H Total Protein Cancelled 7.2 Albumin Cancelled 3.7 COVID-19 Source SARS-CoV-2 (PCR) 09/03/21 09/03/21 17:20 17:30 WBC RBC Hgb Hct MCV MCH MCHC RDW Plt Count MPV Immature Gran % Neutrophils % Lymphocytes % Monocytes % Eosinophils % Basophils % Nucleated RBC % Absolute Neutrophils Absolute Lymphocytes Absolute Monocytes Absolute Eosinophils Absolute Basophils RBC Morphology VBG Lactate 0.7 Sodium Potassium Chloride Carbon Dioxide Anion Gap BUN Creatinine Estimated GFR/1.73 m2 Glucose Calcium Total Bilirubin AST ALT Alkaline Phosphatase Total Protein Albumin COVID-19 Source Nasal/Nares SARS-CoV-2 (PCR) Negative
[2021-09-04 10:14] LABS: Abs Immature Grans 0.06 10^3/uL (0.0-0.06); Absolute Eosinophil Count 0.05 10^3/uL (0.0-0.7); Absolute Lymphocyte Count 9.15 10^3/uL (1.2-3.4); Basophils % 0.2; Eosinophils % 0.3; HCT 38.3 % (36.0-46.0); HGB 12.9 g/dL (11.2-15.7); Immature Grans % 0.3; MCH 31.2 pg (27.0-33.0); MCHC 33.7 % (32.0-36.0); MPV 10.6 fL (8.0-11.0); Monocytes % 4.6; Neutrophils % 42.3; Platelet Count 106 10^3/uL (130-400); RBC 4.14 10^6/uL (3.93-5.22); RDW 12.4 % (11.7-14.6); RDW-SD 42.2 fL; WBC 17.49 10^3/uL (4.4-10.8)
[2021-09-04 10:16] LABS: Absolute Basophil Count 0.03 10^3/uL (0.0-0.2); MCV 92.5 fL (80-95)
[2021-09-04 10:23] LABS: Anion Gap 7.6 mmol/L (3-11); BUN 8 mg/dL (7-18); CO2 26.4 mmol/L (21.0-32.0); CREATININE 0.9 mg/dL (0.55-1.02); Chloride 104 mmol/L (98-107); Glucose 109 mg/dL (74-106); Potassium 3.1 mmol/L (3.5-5.1); Sodium 138 mmol/L (136-145)
[2021-09-04 10:30] LABS: Diff Comment Agrees w/ Instrument
[2021-09-04 10:31] LABS: RBC Morphology Normal
[2021-09-04 10:32] LABS: Lymphocytes % 52.3
--- NOTE | 2021-09-04 14:01 | W.PM.PROGNOT ---
Date of Service Date of service: 09/04/21 Time of Service: 14:01 Assessment and Plan Assessment and plan (1) Cellulitis of hand, right: Start date: 09/04/21 Start time: 14:19 Status: Acute Assessment and plan: Blood cultures still pending; continue ertapenem, US of right hand for abscess is negative, RUE not as warm, decreased swelling, decreased pain 4/10, redness is dissipating, now a dark red 2/3 up the arm circumferential. Will check CBC 09/05/21 (2) Hypokalemia: Status: Acute Assessment and plan: Potassium 3.1, added magnesium to this am's labs - 4 doses of 20 meq potassium ordered; will reassess BMP 09/04/21 am (3) COPD (chronic obstructive pulmonary disease): Status: Chronic Assessment and plan: stable oxygen dependent continue home inhalers. Qualifiers: COPD type: emphysema Emphysema type: centrilobular Qualified Code(s): J43.2 - Centrilobular emphysema (4) Hypothyroidism: Status: Chronic Assessment and plan: continue levothyroxine (5) Anxiety: Status: Chronic Assessment and plan: continue home alprazolam as directed (6) Code status needs review: Status: Acute Assessment and plan: patient previously filled out DNR/DNI paperwork but now having second thoughts and would like to be a full code at this point. will place palliative care consult for further discussion and clarification. (7) Discharge planning issues: Status: Acute Assessment and plan: plan on discharge to home with no services once medically stable. discussed with DR Hubbard Subjective Subjective Patient reports: no new complaints, still having pain, tolerating a regular diet and afebrile Exam Const General: cooperative, healthy appearing, comfortable and no acute distress Nutritional Appearance: thin Orientation: alert and awake [facility] Head: normal to inspection, normocephalic and atraumatic Mouth: moist mucous membranes Eyes General: appearance normal, both eyes and all related structures Conjunctivae: conjunctivae normal Neck Neck: normal visual inspection, trachea midline and supple Resp Effort & Inspection: normal respiratory effort and able to speak in complete sentences Auscultation: diminished lung sounds bilaterally in the lower lung lord Cardio Rate: regular rate Rhythm: regular rhythm Skin General skin exam: erythema (area of erythema to right hand extends to forearm approx 2/3 up, marked ) Neuro General: patient alert, patient awake, moves all extremities and no focal motor deficits Cognition: normal cognition Speech: speech normal Gait: normal gait Motor: muscle tone normal throughout and strength 5/5 throughout Sensory Exam: no sensory deficits noted Extrem General: capillary refill normal and edema (hand) Laterality: right Psych Appearance: grossly normal Mental Status: mental status grossly normal Objective Last Vital Signs Temp 37.1 C 09/04/21 05:36 Pulse 90 09/04/21 05:36 Resp 18 09/04/21 05:36 BP 150/74 H 09/04/21 05:36 Pulse Ox 94 09/04/21 05:36 Laboratory Results - last 24 hr 09/03/21 09/03/21 09/03/21 15:30 16:00 16:07 WBC 22.05 H RBC 4.58 Hgb 14.5 Hct 44.0 MCV 96.1 H MCH 31.7 MCHC 33.0 RDW 12.5 Plt Count 108 L MPV 9.9 Immature Gran % 0.3 Neutrophils % 37.5 Lymphocytes % 56.7 Monocytes % 4.5 Eosinophils % 0.5 Basophils % 0.5 Nucleated RBC % 0.0 Absolute Neutrophils 8.27 H Absolute Lymphocytes 12.50 H Absolute Monocytes 0.99 H Absolute Eosinophils 0.11 Absolute Basophils 0.11 RBC Morphology Normal VBG Lactate Sodium Cancelled 138 Potassium Cancelled 3.6 Chloride Cancelled 104 Carbon Dioxide Cancelled 26.0 Anion Gap Cancelled 8.0 BUN Cancelled 10 Creatinine Cancelled 0.9 Estimated GFR/1.73 m2 Cancelled >= 60.00 Glucose Cancelled 88 Calcium Cancelled 9.4 Total Bilirubin Cancelled 1.4 H AST Cancelled 18 ALT Cancelled 20 Alkaline Phosphatase Cancelled 144 H C-Reactive Protein Total Protein Cancelled 7.2 Albumin Cancelled 3.7 COVID-19 Source SARS-CoV-2 (PCR) 09/03/21 09/03/21 09/04/21 17:20 17:30 10:00 WBC RBC Hgb Hct MCV MCH MCHC RDW Plt Count MPV Immature Gran % Neutrophils % Lymphocytes % Monocytes % Eosinophils % Basophils % Nucleated RBC % Absolute Neutrophils Absolute Lymphocytes Absolute Monocytes Absolute Eosinophils Absolute Basophils RBC Morphology VBG Lactate 0.7 Sodium 138 Potassium 3.1 L Chloride 104 Carbon Dioxide 26.4 Anion Gap 7.6 BUN 8 Creatinine 0.9 Estimated GFR/1.73 m2 >= 60.00 Glucose 109 H Calcium 9.0 Total Bilirubin AST ALT Alkaline Phosphatase C-Reactive Protein 1.90 H Total Protein Albumin COVID-19 Source Nasal/Nares SARS-CoV-2 (PCR) Negative 09/04/21 10:00 WBC 17.49 H RBC 4.14 Hgb 12.9 Hct 38.3 MCV 92.5 D MCH 31.2 MCHC 33.7 RDW 12.4 Plt Count 106 L MPV 10.6 Immature Gran % 0.3 Neutrophils % 42.3 Lymphocytes % 52.3 Monocytes % 4.6 Eosinophils % 0.3 Basophils % 0.2 Nucleated RBC % 0.0 Absolute Neutrophils 7.40 H Absolute Lymphocytes 9.15 H Absolute Monocytes 0.80 Absolute Eosinophils 0.05 Absolute Basophils 0.03 RBC Morphology Normal VBG Lactate Sodium Potassium Chloride Carbon Dioxide Anion Gap BUN Creatinine Estimated GFR/1.73 m2 Glucose Calcium Total Bilirubin AST ALT Alkaline Phosphatase C-Reactive Protein Total Protein Albumin COVID-19 Source SARS-CoV-2 (PCR) Reviewed Pertinent PMH: Yes
--- NOTE | 2021-09-04 14:49 | INITIAL_ITS ---
- If Service Date Differs Date of service: 09/04/21 Time of Service: 14:49 Care Management Initial Assess REASON FOR HOSPITALIZATION:: Cellulites of hand PAST MEDICAL HISTORY/PAST SURGICAL HISTORY:: All Active Problems (Updated 09/04/21 @ 12:46 by Karolina Carrera NP). Discharge planning issues (Acute). Code status needs review (Acute). Cellulitis of hand, right (Acute). Respiratory failure with hypoxia (Acute). Conductive hearing loss, external ear (Acute). Impacted cerumen, bilateral (Acute). Chronic rhinitis (Acute). Leukocytosis (Acute). Thrombocytopenia (Chronic). Anemia (Chronic). DNI (do not intubate) (Acute). Physician orders for life-sustaining treatment (POLST) form indicates patient wish for limited interventions status (Acute). DO NOT INTUBATE. ok with chest compressions and shock. Shortness of breath (Acute). DNI (do not intubate) (Acute). per discussion 08/25/2019. Conductive hearing loss, external ear (Acute). Dysphonia (Acute 03/18/14). Elevation of level of transaminase and lactic acid dehydrogenase (LDH) (Acute). External ear conductive hearing loss (Acute 03/24/15). Mucous polyp of cervix (Acute). Nodule of right lung (Acute 04/05/14). Crohns disease (Chronic 01/21/13). surgery in 1975 w/ removal of intestines and colostomy. on codeine tid chronically to control diarrhea. Hypothyroidism (Chronic). Vitamin D deficiency (Chronic 03/19/09). Urinary incontinence (Chronic 09/09/14). Shoulder pain (Chronic 04/18/04). frozen shoulder. 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 Phonak Ana S V SP (R: [id number]) out of warranty, fit September 2009. Pernicious anemia (Chronic). B12 injections. Peripheral vertigo (Chronic 03/26/13). Osteopenia (Chronic). T-scores-2.0, - 1.3, -1.0; 09/23. 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 on chronic codeine for years to control diarrhea. Only med which works. ENds up in hospital if diarrhea not well controlled. Mixed hearing loss, 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). Phonak Ana S V SP (R: [id number]) out of warranty, fit September 2009. Impaired renal function disorder (Chronic). Gastro-esophageal reflux disease with esophagitis (Chronic). nodule mid portion of vocal cord. Fatigue (Chronic 10/27/13). Depressive disorder (Chronic 01/21/13). Colostomy status (Chronic). Chronic pain syndrome (Chronic). Chronic night sweats (Chronic 09/16/17). Chronic diarrhea (Chronic). CONTROLLED SUBSTANCE AGREEMENT 09/05/15-USES CODEINE. 02/18/17 CONTROLLED SUBSTANCE AGREEMENT~RENEWED. Balance disorder (Chronic 06/02/15). Anxiety (Chronic 02/04/13). Essential hypertension (Chronic 04/17/13). COPD (chronic obstructive pulmonary disease) (Chronic). Medical History . Bilateral impacted cerumen (03/24/15). CAP (community acquired pneumonia). COPD with exacerbation. Cramps, extremity (02/18/17). Dysphonia (03/18/14). Hoarseness. Elev transaminase/LDH. 05/20/83. External ear conductive hearing loss. 03/24/15. Hyponatremia. 11/16/05 w/hospitalization. Hyponatremia (11/16/05). Hyponatremia syndrome (06/27/15). Impacted cerumen (03/18/14). Impacted cerumen of both ears (03/24/15). Mucous polyp of cervix. Pneumonia. HX of LLL. Pneumonia. Pulmonary nodule, right. 04/05/14 repeat negative. Pyloric ulcer associated with Helicobacter pylori. 04/18/06. Pyloric ulcer associated with Helicobacter pylori (04/18/06). Seizure. secondary to decreased calcium, magnesium, and sodium. Seizure. Smoker. quit smoking-2001. Smoker. Subclinical hypothyroidism (06/07/15). NIGHT SWEATS ON MED-JMD. Surgical History . Cholecystectomy (~1996). Colostomy (~1983). CHRON'S DISEASE. History of colectomy. History of colon resection. Chron's disease; colostomy in place. S/P cholecystectomy. 05/20/96. Status post cholecystectomy PREVIOUS FUNCTIONAL STATUS/SOCIAL/FAMILY SUPPORTS:: Aleida lives in [place] with her [employer]. She drives and is independent at baseline. She is independent with her ostomy, although she will need assistance with it until her right hand is functional. CURRENT FUNCTIONAL STATUS:: Aleida was lying in bed when CM met with him. She was alert, oriented and easy to engage in conversation. Aleida requires IV ABX and went down for a US of her right hand this afternoon. ADVANCE DIRECTIVES:: On File, [facility] is Candice Alarcon. Has patient been provided with info about the portal/API?: Yes Did the patient sign up for the portal?: Yes (Prior to admission) CODE STATUS:: Full Code INSURANCE COVERAGE / FINANCIAL ISSUES:: Medicare. [facility] CURRENT HOME/COMMUNITY SERVICES/EQUIPMENT:: Has her own ostomy supplies from home. PRIMARY CARE PHYSICIAN:: [facility] PATIENT/FAMILY EDUCATION NEEDS:: Review discharge instructions, limitations, medications and plan to follow up with community providers. ask me three. TRANSPORTATION:: via private vehicle with family. PLAN:: Aleida requires wound management, evaluation, IV ABX and has cultures pending. Repeat labs will be done in the morning. Anticipate, Aleida will discharge home when medically ready per M.D. She will follow up with community providers and discharge plan of care as prescribed.
[2021-09-04 15:06] LABS: Lab Add On Test DONE
[2021-09-04] MEDS: Potassium Chloride 20 MEQ TABCR PO ×2 (15:11→16:19)
[2021-09-04 15:15] LABS: Magnesium 1.6 mg/dL (1.8-2.4)
[2021-09-04 15:30] VITALS: BP 135/86; PULSE 80; RESP 18; TEMP 37.8; O2SAT 95
[2021-09-04 16:50] VITALS: TEMP 37.4
[2021-09-04] MEDS: ERTAPENEM 1 GM in Normal Saline 50 ML IVPB (19:37)
[2021-09-04] MEDS: Normal Saline Flush 10 ML SYR IVP (19:38)
[2021-09-04] MEDS: Latanoprost 0.005% 2.5 ML BTL OP (21:07)
[2021-09-04 22:39] VITALS: BP 108/68; PULSE 97; RESP 20; TEMP 37.3; O2SAT 87
[2021-09-04 22:42] VITALS: O2SAT 93
[2021-09-05] MEDS: Levothyroxine 50 MCG TAB PO (06:10)
[2021-09-05 06:37] LABS: Abs Immature Grans 0.05 10^3/uL (0.0-0.06); Absolute Basophil Count 0.06 10^3/uL (0.0-0.2); Absolute Neutrophil Count 6.08 10^3/uL (1.2-6.7); Basophils % 0.3; Eosinophils % 0.6; HGB 13.1 g/dL (11.2-15.7); Immature Grans % 0.3; MCHC 32.8 % (32.0-36.0); MCV 94.8 fL (80-95); MPV 10.7 fL (8.0-11.0); Neutrophils % 32.2; Platelet Count 100 10^3/uL (130-400); RBC 4.22 10^6/uL (3.93-5.22); RDW 12.3 % (11.7-14.6); RDW-SD 43.1 fL; WBC 18.89 10^3/uL (4.4-10.8)
[2021-09-05 06:40] LABS: Absolute Eosinophil Count 0.11 10^3/uL (0.0-0.7); Absolute Lymphocyte Count 11.64 10^3/uL (1.2-3.4); Absolute Monocyte Count 0.94 10^3/uL (0.1-0.8)
[2021-09-05 06:44] LABS: Anion Gap 8.8 mmol/L (3-11); BUN 16 mg/dL (7-18); CO2 26.2 mmol/L (21.0-32.0); Calcium 9.1 mg/dL (8.5-10.1); Chloride 104 mmol/L (98-107); Estimated GFR 53.35 (mL/min/1.73m2); Glucose 87 mg/dL (74-106); Potassium 3.6 mmol/L (3.5-5.1); Sodium 139 mmol/L (136-145)
[2021-09-05 06:57] LABS: Diff Comment Agrees w/ Instrument; Lymphocytes % 61.6; RBC Morphology Normal
[2021-09-05 07:25] VITALS: BP 124/71; PULSE 94; RESP 20; TEMP 37.2; O2SAT 92
[2021-09-05] MEDS: Budesonide/Formoterol 160/4.5 6 GM 60 PUFF INH IH ×2 (07:30→21:22)
[2021-09-05] MEDS: Tiotropium Bromide-Respimat 10 PUFF INH IH (07:31)
[2021-09-05] MEDS: Potassium Chloride 20 MEQ TABCR PO ×2 (08:54→12:36)
[2021-09-05] MEDS: MAGNESIUM SULFATE 2 GM/50 ML BAG IVPB (08:56)
[2021-09-05] MEDS: Normal Saline Flush 10 ML SYR IVP ×4 (08:56→21:27)
--- NOTE | 2021-09-05 08:58 | W.PM.PROGNOT ---
Date of Service Date of service: 09/05/21 Time of Service: 08:15 Assessment and Plan Assessment and plan (1) Hypomagnesemia: Status: Acute Assessment and plan: Magnesium = 1.6 Supplementation ordered will recheck level in am (2) Cellulitis of hand, right: Status: Acute Assessment and plan: bit by her cat 3 days ago, placed on Augmentin, reports worsening significantly over past 24 hours. blood cultures no growth at 24 hours; WBC 18.9 trending up from 17.49 Will stop Ertapenem change back to Unasyn Will continue acidophillus PO Elevate as much as possible above heart; redness to upper arm due to dependent position (3) COPD (chronic obstructive pulmonary disease): Status: Chronic Assessment and plan: No exacerbation overnight oxygen dependent, will continue continue home regimen: budesonide/formoterol (Symbicort), albuterol, tiotropium bromide inhalers. Qualifiers: COPD type: emphysema Emphysema type: centrilobular Qualified Code(s): J43.2 - Centrilobular emphysema (4) Hypothyroidism: Status: Chronic Assessment and plan: will continue home dose of levothyroxine 50 mcg oral daily AM (5) Anxiety: Status: Chronic Assessment and plan: will continue alprazolam 0.5 mg oral PRN as per home regimen (6) Code status needs review: Status: Acute Assessment and plan: patient previously filled out DNR/DNI paperwork but now having second thoughts and would like to be a full code at this point. will place palliative care consult for further discussion and clarification; consult still pending (7) Pain: Status: Acute Assessment and plan: Pain 2/10 to right hand with use, 0/10 when not mobilized. Ibuprofen oral PRN (8) Colostomy care: Status: Acute Assessment and plan: Will continue home management with Codeine/APA 30/300 mg to decrease GI motility (9) Discharge planning issues: Status: Acute Assessment and plan: plan on discharge to home with no services; probable discharge 24 to 48 hours on oral antibiotics. I have independently evaluated patient and am in agreement with documentation and assessment and plan discussed with DR Hubbard Subjective Subjective Patient reports: no new complaints, still having pain, tolerating a regular diet and afebrile Exam Const General: cooperative, healthy appearing, comfortable and no acute distress Nutritional Appearance: thin Orientation: alert and awake HENOR Head: normal to inspection, normocephalic and atraumatic Mouth: moist mucous membranes Eyes General: appearance normal, both eyes and all related structures Alignment and Position: alignment normal and position normal Neck Neck: normal visual inspection Chest Chest: normal inspection of the chest Resp Effort & Inspection: normal respiratory effort, able to speak in complete sentences and no cough Auscultation: diminished lung sounds bilaterally in the lower lung lord Cardio Jugular venous pressure: no JVD Rate: regular rate Rhythm: regular rhythm Heart Sounds: S1 normal and S2 normal Pulses: radial pulses present and dorsalis pedis present GI Inspection: other (Colostomy in place to ABD; patent.) Palpation: soft and nontender Auscultation: normal bowel sounds Skin General skin exam: dry skin and ecchymosis (to left leg with bumping into stuff) Neuro General: patient alert, patient awake, moves all extremities and no focal motor deficits Cognition: normal cognition Speech: speech normal Gait: normal gait Motor: muscle tone normal throughout and strength 5/5 throughout Sensory Exam: no sensory deficits noted Extrem General: edema (hand) Laterality: right Right upper extremity: full ROM, normal capillary refill, edema (position dependent.) and elbow/forearm (redness that is position dependent) Details: warmth Psych Appearance: grossly normal Mental Status: mental status grossly normal Speech and Movement: speech and movement normal Mood: congruent mood Affect: normal affect Attitude: cooperative Thought Process: normal Thought Content: normal Insight: insight good Judgment: judgment good Objective Last Vital Signs Temp 99.0 F 09/05/21 07:25 Pulse 94 H 09/05/21 07:25 Resp 20 09/05/21 07:25 BP 124/71 09/05/21 07:25 Pulse Ox 92 09/05/21 07:25 Laboratory Results - last 24 hr 09/04/21 09/04/21 09/04/21 10:00 10:00 10:00 WBC 17.49 H RBC 4.14 Hgb 12.9 Hct 38.3 MCV 92.5 D MCH 31.2 MCHC 33.7 RDW 12.4 Plt Count 106 L MPV 10.6 Immature Gran % 0.3 Neutrophils % 42.3 Lymphocytes % 52.3 Monocytes % 4.6 Eosinophils % 0.3 Basophils % 0.2 Nucleated RBC % 0.0 Absolute Neutrophils 7.40 H Absolute Lymphocytes 9.15 H Absolute Monocytes 0.80 Absolute Eosinophils 0.05 Absolute Basophils 0.03 RBC Morphology Normal Sodium 138 Potassium 3.1 L Chloride 104 Carbon Dioxide 26.4 Anion Gap 7.6 BUN 8 Creatinine 0.9 Estimated GFR/1.73 m2 >= 60.00 Glucose 109 H Calcium 9.0 Magnesium C-Reactive Protein 1.90 H Add-On Test Request DONE 09/04/21 09/05/21 09/05/21 10:00 06:10 06:10 WBC 18.89 H RBC 4.22 Hgb 13.1 Hct 40.0 MCV 94.8 MCH 31.0 MCHC 32.8 RDW 12.3 Plt Count 100 L MPV 10.7 Immature Gran % 0.3 Neutrophils % 32.2 Lymphocytes % 61.6 Monocytes % 5.0 Eosinophils % 0.6 Basophils % 0.3 Nucleated RBC % 0.0 Absolute Neutrophils 6.08 Absolute Lymphocytes 11.64 H Absolute Monocytes 0.94 H Absolute Eosinophils 0.11 Absolute Basophils 0.06 RBC Morphology Normal Sodium 139 Potassium 3.6 Chloride 104 Carbon Dioxide 26.2 Anion Gap 8.8 BUN 16 D Creatinine 1.0 Estimated GFR/1.73 m2 53.35 Glucose 87 Calcium 9.1 Magnesium 1.6 L C-Reactive Protein Add-On Test Request
[2021-09-05] MEDS: ALPRAZolam 0.5 MG TAB PO (09:17)
[2021-09-05 10:10] LABS: C-Reactive Protein 1.98 mg/dL (0.0-0.3)
[2021-09-05] MEDS: AMPICILLIN/SULBACTAM 3 GM in Normal Saline 100 ML IVPB ×3 (10:16→21:24)
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
--- NOTE | 2021-09-05 14:23 | CHAPLAIN ---
Aleida was in a chair by the window when I visited. She is a member of the [employer] in [place] and hasn't attended regularly since LANCE. She was close to the previous compounder sterile products and does not know the current one as well. Aleida's cat bit her recently and the bite became infected so she was brought in to have IV antibiotics, and she may go home tomorrow. She's in touch with her daughter who works at the [employer]. Aleida's , who is in his early nineties, is home alone. He doesn't drive so he has not been able to visit or get to some of the places he would like go.
[2021-09-05 14:42] VITALS: BP 114/63; PULSE 79; RESP 17; TEMP 37.3; O2SAT 90
[2021-09-05] MEDS: Folic Acid 1 MG TAB PO (17:26)
--- NOTE | 2021-09-05 17:53 | CMPROGNOTE_ITS ---
- If Service Date Differs Date of service: 09/05/21 Time of Service: 17:53 Care Management Progress Note S/O:Aleida was lying in bed when CM met with him. She was alert, oriented and easy to engage in conversation. Aleida requires hospitalization for IV ABX. Anticipate she will discharge home tomorrow. A: 81 year old female admitted to [facility] on 09/03/21 for cellulites Right hand P: Aleida requires wound management, evaluation, IV ABX and has cultures pending. Anticipate, Aleida will discharge home when medically ready per M.D. She will follow up with community providers and discharge plan of care as prescribed.
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
[2021-09-05] MEDS: Albuterol HFA 8 GM 60 PUFF INH IH (21:23)
[2021-09-05] MEDS: Latanoprost 0.005% 2.5 ML BTL OP (21:26)
[2021-09-05 23:21] VITALS: BP 101/52; PULSE 91; RESP 20; TEMP 37.1; O2SAT 92
[2021-09-06] MEDS: AMPICILLIN/SULBACTAM 3 GM in Normal Saline 100 ML IVPB ×2 (03:58→10:54)
[2021-09-06] MEDS: Levothyroxine 50 MCG TAB PO (06:09)
[2021-09-06] MEDS: Normal Saline Flush 10 ML SYR IVP ×4 (07:36→19:46)
[2021-09-06] MEDS: Tiotropium Bromide-Respimat 10 PUFF INH IH (07:50)
[2021-09-06] MEDS: Budesonide/Formoterol 160/4.5 6 GM 60 PUFF INH IH ×2 (07:50→19:46)
[2021-09-06 08:25] VITALS: BP 109/66; PULSE 82; RESP 20; TEMP 36.6; O2SAT 91
--- NOTE | 2021-09-06 09:31 | PDOC.CMPRO ---
- If Service Date Differs Date of service: 09/06/21 Time of Service: 09:31 Care Management Progress Note S/O: Aleida was sitting up in bed when CM met with her. She was alert, oriented and easy to engage in conversation. Aleida will transition to oral abx today. Anticipate she will discharge home later this evening or tomorrow. Hospitalist will consult Dr. Smith today. A: 81 year old female admitted to [facility] on 09/03/21 for cellulites Right hand P: Aleida requires wound management, evaluation, IV ABX and has cultures pending. Anticipate, Aleida will discharge home when medically ready per M.D. She will follow up with community providers and discharge plan of care as prescribed.
[2021-09-06] MEDS: ALPRAZolam 0.5 MG TAB PO (10:18)
[2021-09-06] MEDS: Ketorolac 15 MG/ML VIAL IVP (12:47)
[2021-09-06 15:11] VITALS: BP 108/61; PULSE 82; RESP 20; TEMP 37.2; O2SAT 91
--- NOTE | 2021-09-06 18:40 | W.PM.PROGNOT ---
Date of Service Date of service: 09/06/21 Time of Service: 18:41 Assessment and Plan Assessment and plan (1) Cellulitis of hand, right: Status: Acute Assessment and plan: bit by her cat, improving significantly on unasyn. downstepped to augmentin today. . blood cultures negative to date elevate as much as possible above heart. continue pain management, will add toradol. orthopedics following (2) COPD (chronic obstructive pulmonary disease): Status: Chronic Assessment and plan: stable oxygen dependent continue home inhalers. Qualifiers: COPD type: emphysema Emphysema type: centrilobular Qualified Code(s): J43.2 - Centrilobular emphysema (3) Hypothyroidism: Status: Chronic Assessment and plan: continue levothyroxine (4) Anxiety: Status: Chronic Assessment and plan: continue home alprazolam as directed (5) Code status needs review: Status: Acute Assessment and plan: patient previously filled out DNR/DNI paperwork but now having second thoughts and would like to be a full code at this point. will place palliative care consult for further discussion and clarification. full code per her wishes (6) Discharge planning issues: Status: Acute Assessment and plan: plan on discharge to home with no services tomorrow is she remains stable on oral augmentin. will f/u outpatient with Dr Smith discussed with DR Hubbard Subjective Subjective Patient reports: no new complaints, feels better, tolerating liquids well, tolerating a regular diet and afebrile Interval history since last seen: decreased erythema and edema. now reporting increased pain at site now swelling improved. moving hand well, good ROM and strength. Exam Const General: cooperative, healthy appearing, comfortable and no acute distress Nutritional Appearance: thin Orientation: alert and awake [facility] Head: normal to inspection, normocephalic and atraumatic Mouth: moist mucous membranes Eyes General: appearance normal, both eyes and all related structures Neck Neck: normal visual inspection Resp Effort & Inspection: normal respiratory effort and able to speak in complete sentences Auscultation: diminished lung sounds bilaterally in the lower lung lord Cardio Rate: regular rate Rhythm: regular rhythm Skin General skin exam: erythema (markedly improved, with decreased swelling. ) and no fluctuance Neuro General: patient alert, patient awake, moves all extremities and no focal motor deficits Cognition: normal cognition Speech: speech normal Gait: normal gait Motor: muscle tone normal throughout and strength 5/5 throughout Sensory Exam: no sensory deficits noted Extrem General: edema (hand) Laterality: right Psych Appearance: grossly normal Mental Status: mental status grossly normal Objective Last Vital Signs Temp 37.2 C 09/06/21 15:11 Pulse 82 09/06/21 15:11 Resp 20 09/06/21 15:11 BP 108/61 09/06/21 15:11 Pulse Ox 91 L 09/06/21 15:11
[2021-09-06] MEDS: Amoxicillin 875/Clav. 125 TAB PO (19:46)
[2021-09-06] MEDS: Albuterol HFA 8 GM 60 PUFF INH IH (19:46)
[2021-09-06] MEDS: Latanoprost 0.005% 2.5 ML BTL OP (22:02)
[2021-09-06 23:20] VITALS: BP 123/66; PULSE 82; RESP 20; TEMP 36.6; O2SAT 92
[2021-09-07] MEDS: Levothyroxine 50 MCG TAB PO (06:16)
[2021-09-07 06:52] LABS: HCT 41.6 % (36.0-46.0); HGB 13.6 g/dL (11.2-15.7); MCH 31.6 pg (27.0-33.0); MCHC 32.7 % (32.0-36.0); MCV 96.7 fL (80-95); MPV 10.7 fL (8.0-11.0); Platelet Count 142 10^3/uL (130-400); RDW 12.2 % (11.7-14.6); RDW-SD 43.7 fL; WBC 19.69 10^3/uL (4.4-10.8)
[2021-09-07 07:05] LABS: BUN 32 mg/dL (7-18); CREATININE 1.1 mg/dL (0.55-1.02); Calcium 9.2 mg/dL (8.5-10.1); Chloride 101 mmol/L (98-107); Estimated GFR 47.79 (mL/min/1.73m2); Glucose 90 mg/dL (74-106); Potassium 4.4 mmol/L (3.5-5.1); Sodium 133 mmol/L (136-145)
[2021-09-07 07:08] LABS: Absolute Lymphocyte Count 12.01 10^3/uL (1.2-3.4); Absolute Neutrophil Count 7.48 10^3/uL (1.2-6.7); Atypical Lymphocytes % 5
[2021-09-07] MEDS: Tiotropium Bromide-Respimat 10 PUFF INH IH (07:08)
[2021-09-07] MEDS: Budesonide/Formoterol 160/4.5 6 GM 60 PUFF INH IH (07:08)
[2021-09-07 07:09] LABS: Diff Comment Manual Differential; RBC Morphology Normal
[2021-09-07] MEDS: Normal Saline Flush 10 ML SYR IVP (07:33)
[2021-09-07] MEDS: Amoxicillin 875/Clav. 125 TAB PO (07:33)
[2021-09-07 07:54] VITALS: BP 115/65; PULSE 76; RESP 20; TEMP 36.3; O2SAT 98
[2021-09-07] MEDS: ALPRAZolam 0.5 MG TAB PO (09:28)
--- NOTE | 2021-09-07 10:58 | W.PM.DS.N ---
Date of service: 09/07/21 Time of Service: 10:59 DS: Diagnosis Discharge Diagnosis (1) Cat bite of right hand: Status: Acute (2) Cellulitis of hand, right: Status: Acute Asessment and Plan: Improving - home on oral abx (3) Anxiety: Status: Chronic Asessment and Plan: Decreased; situational (4) Hypomagnesemia: Status: Acute Asessment and Plan: last magnesium 2.0 (5) COPD (chronic obstructive pulmonary disease): Status: Chronic Asessment and Plan: stable (6) Hypothyroidism: Status: Chronic Asessment and Plan: stable (7) Pain: Status: Acute Asessment and Plan: Discussed - no decisions Discharge Plan Disposition Patient Disposition: HOME Condition: Improving Discharge Details Reason For Visit: Cellulitis Hand Bite Admit Date/Time: 09/03/21 17:27 Admit Provider: Dwayne Hubbard Attending Provider: Dwayne Hubbard Primary Care Provider: Ramila Tapia [facility] Hospital Course: Ms Woodson is an 81 y/o female who presented to [facility] ED on 09/03/2021 c/o 2d prior being bitten on the right hand by her own healthy, vaccinated cat. She went to [facility] care and was put on Augmentin. She had only 2 doses, and developed increased pain, redness, swelling and overall feeling unwell. In the ED, her WBC was 22,000, lactate was negative, BC were collected. Xray and US neg for abscess, no FB, no margo abnormality. She was given Unasyn in the ED, admitted for IV abx. Abx was changed to ertipenem on admission, and the following day it was changed back to Unasyn per orthopedic recommendations. Blood cultures remained negative. She improved and was started on Augmentin on 09/06/21. Her leucocytosis is chronic and is not felt to represent failure of antibiotics. She continues to improve and will be discharged home on Augmentin for 10 days. She will need to follow up with her PCP in 1-2 weeks. She should have a repeat CBC w/ diff as an outpatient upon completion of her antibiotics. PCP to consider a referral to hematology if leucocytosis persists. Home Meds and New Rx's Prescriptions: New ibuprofen 200 mg tablet 400 mg PO Q6H PRN (Reason: pain) Qty: 30 0RF Continued latanoprost (PF) 0.005 % drops 1 drp OP QPM 0RF budesonide-formoterol [Symbicort] 160-4.5 mcg/actuation HFA aerosol inhaler 2 puff Inhalation BID Qty: 3 12RF alprazolam 0.5 mg tablet 0.5 mg PO DIRECTED Qty: 180 1RF Rx Instructions: 1 TAB QAM; 0.5 TAB PM PRN cyanocobalamin (vitamin B-12) 1,000 mcg/mL solution 1,000 mcg IM MONTHLY Qty: 3 12RF Rx Instructions: dispense with needles BRITT POUCH See Rx Instructions topical .COMPLEX Qty: 30 4RF Rx Instructions: 1 topical; levothyroxine 50 mcg tablet 50 mcg PO DAILY Qty: 90 12RF (DME) BD Blunt Plastic Cannula 17 x 3 mL syringe 1 ea Miscellaneous MONTHLY Qty: 12 12RF Rx Instructions: 25 guage X 1 ULTRA FINE;903941 Spiriva with HandiHaler 18 mcg capsule, w/inhalation device 1 cap Inhalation DAILY Qty: 90 12RF (DME) Lucy Cohesive Seals 1 EACH misc 1 ea Miscellaneous DIR 0RF Label Comments: #[id number] CODE; V44.3 Rx Instructions: 323635 V44.3 BRITT 1 ea Topical DIR 0RF Rx Instructions: DRAINABLE POUCH; 3228; V44.3 folic acid 1 mg tablet 1 mg PO EVERY OTHER DAY Qty: 45 12RF acetaminophen-codeine 300-30 mg tablet 1 tab PO Q6H Qty: 120 3RF Rx Instructions: chronic diarrhea. albuterol sulfate 90 mcg/actuation HFA aerosol inhaler 2 puff inhalation Q8H Qty: 8.5 4RF Rx Instructions: Must be HFA. J44.9 ergocalciferol (vitamin D2) 1,250 mcg (50,000 unit) capsule 50,000 unit PO QWEEK Qty: 13 4RF Rx Instructions: Must be gel capsule amoxicillin-pot clavulanate 875-125 mg tablet 1 tab PO BID 0RF Discharge Instructions Instructions: Cellulitis (DC) Additional Instructions: Return to the ED with any fever, increased redness, swelling or pain. Finish antibiotics as prescribed. Follow up with PCP in 1-2 weeks. Stand Alone Forms: Nursing Discharge Form Referrals: Antwan Green MD [ [facility] STAFF PHYSICIAN] - 09/12/21 2:00 pm Activity:: Activity as Tolerated Equipment/Supplies:: No Equipment Needed Diet:: As Tolerated Discharge Orders Discharge Orders: Discharge Order (Routine); Ordered 09/07/21 Ordered By: Sheri Amor Other Ambulatory Orders: Complete Blood Count w/Diff (Routine) Timeframe: 2 Weeks Facility: [facility] - Location: Laboratory Outpatient Ordered By: Sheri Amor DS: Summary Time Spent with Patient providing and/or coordinating discharge services: Greater than 30 minutes Status at Discharge Functional status at discharge: independent ambulation Overall status at discharge: patient is progressing back to baseline Mental Status: mental status grossly normal Speech and Movement: speech and movement normal Mood: congruent mood Affect: normal affect Exam Const General: cooperative, healthy appearing, comfortable and no acute distress Nutritional Appearance: thin Orientation: alert and awake HENMT Head: normal to inspection, normocephalic and atraumatic Mouth: moist mucous membranes Eyes General: appearance normal, both eyes and all related structures Conjunctivae: conjunctivae normal Neck Neck: normal visual inspection, trachea midline and supple Chest Chest: normal inspection of the chest Resp Effort & Inspection: normal respiratory effort and able to speak in complete sentences Auscultation: diminished lung sounds bilaterally in the lower lung lord Cardio Rate: regular rate Rhythm: regular rhythm Skin General skin exam: turgor normal and erythema (area of erythema to right hand disipating - now at wrist ) Neuro General: patient alert, patient awake, moves all extremities and no focal motor deficits Cognition: normal cognition Speech: speech normal Gait: normal gait Motor: muscle tone normal throughout and strength 5/5 throughout Sensory Exam: no sensory deficits noted Extrem General: full ROM, capillary refill normal and edema (right dorsal hand now only slight) Laterality: right Psych Appearance: grossly normal Mental Status: mental status grossly normal Speech and Movement: speech and movement normal Mood: congruent mood Affect: normal affect DS: Data Vitals/I&O Vitals and I&O: Vital Signs Temperature 36.3 C L 09/07/21 07:54 Temperature Source Tympanic 09/07/21 07:54 Pulse 76 09/07/21 07:54 Pulse Rhythm Regular 09/07/21 07:39 Respiratory Rate 20 09/07/21 07:54 Respiratory Effort Non-Labored 09/07/21 07:39 Respiratory Depth Normal 09/07/21 07:39 Respiratory Pattern Normal 09/07/21 07:39 Blood Pressure 115/65 09/07/21 07:54 Blood Pressure Position Sitting 09/03/21 15:01 Pulse Oximetry 98 09/07/21 07:54 Oxygen Delivery Method Nasal Cannula 09/07/21 07:54 Oxygen Flow Rate 2 09/07/21 07:54 Pain Level 0 09/07/21 07:54 Comment 09/04/21 05:36 Intake & Output 09/06/21 09/06/21 09/07/21 11:59 23:59 11:59 Intake Total 580 / 920 340 / 920 480 / 480 Balance 580 / 920 340 / 920 480 / 480 Intake: IV 100 / 200 100 / 200 Oral 480 / 720 240 / 720 480 / 480 Other: Urine Color Yellow Yellow Urine Odor Normal Comment Could not measure void voided independently Voiding Methods Toilet Toilet Toilet Data Completed and Pending Labs on day of discharge: Labs from last 24 hours 09/07/21 09/07/21 06:25 06:25 WBC 19.69 H RBC 4.30 Hgb 13.6 Hct 41.6 MCV 96.7 H MCH 31.6 MCHC 32.7 RDW 12.2 Plt Count 142 MPV 10.7 Immature Gran % 0.0 Neutrophils % 38.0 Lymphocytes % 56.0 Atypical Lymphs % 5 Monocytes % 1.0 Eosinophils % 0.0 Basophils % 0.0 Nucleated RBC % 0.0 Absolute Neutrophils 7.48 H Absolute Lymphocytes 12.01 H Absolute Monocytes 0.20 Absolute Eosinophils 0.00 Absolute Basophils 0.00 RBC Morphology Normal Sodium 133 L Potassium 4.4 D Chloride 101 Carbon Dioxide 27.0 Anion Gap 5.0 BUN 32 H D Creatinine 1.1 H Estimated GFR/1.73 m2 47.79 Glucose 90 Calcium 9.2 Magnesium 2.0 Preliminary micro results at discharge 09/03/21 18:05 Blood Culture - Preliminary Blood NO GROWTH 72 HOURS 09/03/21 17:20 Blood Culture - Preliminary Blood NO GROWTH 72 HOURS Additional Comments Additional comments: XR R hand: There is dorsal soft tissue swelling.? No evidence of acute fracture.? No radiopaque foreign body.? No radiographic evidence of osteomyelitis. Given the findings here and history one might consider MRI to determine abscess/tenosynovitis presence. US RUE: Cellulitis.? No evidence of abscess or drainable collection.? ? PFSH All Active Problems (Updated 09/07/21 @ 11:40 by Sheri Amor NP) Cat bite of right hand (Acute) Colostomy care (Acute) Pain (Acute) Cellulitis of right upper extremity (Acute) Hypomagnesemia (Acute) Hypokalemia (Acute) Discharge planning issues (Acute) Code status needs review (Acute) Cellulitis of hand, right (Acute) Respiratory failure with hypoxia (Acute) Conductive hearing loss, external ear (Acute) Impacted cerumen, bilateral (Acute) Chronic rhinitis (Acute) Leukocytosis (Acute) Thrombocytopenia (Chronic) Anemia (Chronic) DNI (do not intubate) (Acute) Physician orders for life-sustaining treatment (POLST) form indicates patient wish for limited interventions status (Acute) DO NOT INTUBATE ok with chest compressions and shock Shortness of breath (Acute) DNI (do not intubate) (Acute) per discussion 08/25/2019 Conductive hearing loss, external ear (Acute) Dysphonia (Acute 03/18/14) Elevation of level of transaminase and lactic acid dehydrogenase (LDH) (Acute) External ear conductive hearing loss (Acute 03/24/15) Mucous polyp of cervix (Acute) Nodule of right lung (Acute 04/05/14) Crohns disease (Chronic 01/21/13) surgery in 1975 w/ removal of intestines and colostomy on codeine tid chronically to control diarrhea Hypothyroidism (Chronic) Vitamin D deficiency (Chronic 03/19/09) Urinary incontinence (Chronic 09/09/14) Shoulder pain (Chronic 04/18/04) frozen shoulder Sensorineural hearing loss, bilateral (Chronic 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 Only med which works. ENds up in hospital if diarrhea not well controlled Mixed hearing loss, 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) Phonak Ana S V SP (R: [id number]) out of warranty, fit September 2009. Impaired renal function disorder (Chronic) Gastro-esophageal reflux disease with esophagitis (Chronic) nodule mid portion of vocal cord Fatigue (Chronic 10/27/13) Depressive disorder (Chronic 01/21/13) Colostomy status (Chronic) Chronic pain syndrome (Chronic) Chronic night sweats (Chronic 09/16/17) Chronic diarrhea (Chronic) CONTROLLED SUBSTANCE AGREEMENT 09/05/15-USES CODEINE 02/18/17 CONTROLLED SUBSTANCE AGREEMENT~RENEWED Balance disorder (Chronic 06/02/15) Anxiety (Chronic 02/04/13) Essential hypertension (Chronic 04/17/13) COPD (chronic obstructive pulmonary disease) (Chronic) Medical History Bilateral impacted cerumen (03/24/15) CAP (community acquired pneumonia) COPD with exacerbation Cramps, extremity (02/18/17) Dysphonia (03/18/14) Hoarseness Elev transaminase/LDH 05/20/83 External ear conductive hearing loss 03/24/15 Hyponatremia 11/16/05 w/hospitalization Hyponatremia (11/16/05) Hyponatremia syndrome (06/27/15) Impacted cerumen (03/18/14) Impacted cerumen of both ears (03/24/15) Mucous polyp of cervix Pneumonia HX of LLL Pneumonia Pulmonary nodule, right 04/05/14 repeat negative Pyloric ulcer associated with Helicobacter pylori 04/18/06 Pyloric ulcer associated with Helicobacter pylori (04/18/06) 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 Seizure Smoker quit smoking-2001 Smoker Subclinical hypothyroidism (06/07/15) NIGHT SWEATS ON MED-JMD Surgical History Cholecystectomy (~1996) Colostomy (~1983) CHRON'S DISEASE History of colectomy History of colon resection Chron's disease; colostomy in place S/P cholecystectomy 05/20/96 Status post cholecystectomy Family History Mother , 76 Neoplasm OVARIAN Asthma Cancer Sister Asthma Breast cancer Maternal Grandmother Stroke AT CHILDBIRTH Daughter No problems noted. Social History Smoking/Tobacco Use Status: Former Tobacco Use tobacco type: cigarettes Tobacco: How many years used: 40 Second Hand Exposure: Yes Smoking risk assessment performed?: Yes Alcohol Intake: current Alcohol Intake frequency: holidays/special occasions only Alcohol type: wine Drug use: Never Substance use type: does not use Household members: spouse Housing: house Communication Needs: Hard of Hearing Do you need help understanding health information?: Never Pets and animals: Yes Pets and animals: cat(s) Sexually active: No Do you think of yourself as: straight/heterosexual Current gender identity: female What is your relationship status?: How often do you talk on the phone with friends or family?: three or more times per week How often do you get together with friends or relatives?: decline to answer How often do you attend yarsanism or scientology services?: decline to answer Do you belong to any clubs or organized social groups?: no Panel score (0-1 are the most socially isolated patients): 2 What type of physical activity do you participate in: walking Duration: < 15 minutes/day Frequency: 1-2 times per week Concepción/Zoroastrianism: Jehovah'S Witness Special concepción needs: No Seatbelt use: always Helmet use: No Drive intox or ride w/intox stake driver: No Do you feel safe at home: Yes Do you feel safe in your relationship?: Yes Victim of physical abuse: No Victim of emotional abuse: Yes (sometimes)
[2021-09-07] MEDS: Bacitracin 1 PACKET (12:50)
--- NOTE | 2021-09-07 16:40 | PDOC.CMDIS ---
- If Service Date Differs Date of service: 09/07/21 Time of Service: 16:40 LACE Index Scoring Tool - Questions: Length of Stay (in days): 4 - 6 Acuity (Admit via E.D.?): Yes Comorbidities: Chronic Pulmonary Disease E.D. Visits: 1 - Answers: Total Score: 10 Risk of Readmission: High Risk Care Management Discharge Reason for Hospitalization: Cellulites of hand Discharge Plan: Aleida returned home today with no new services. She drove herself home, as her car is in the parking lot. She will follow up with her PCP and discharge plan of care. She is happy to be going home. Patient/Family Education Needs: Review discharge instructions regarding activity levels and medications, discussion of self care needs including ask me three.
== END 2021-09-07 13:28 | disposition home or self-care (01) | DRG 603 ==
LOC: ER 16:21 → MS 18:33
PROVIDERS: Nurse Practitioner Acute Care; Nurse Practitioner Family; Physician Assistant; Admitting Provider Internal Medicine; Emergency Provider Physician Assistant; PCP Family Medicine; Visit Provider Internal Medicine
DX: L03.113 Cellulitis of right upper limb (principal); F11.20 Opioid dependence, uncomplicated; S61.451S Open bite of right hand, sequela; J43.2 Centrilobular emphysema; F41.9 Anxiety disorder, unspecified; Z66 Do not resuscitate; Z99.81 Dependence on supplemental oxygen; D69.6 Thrombocytopenia, unspecified; D64.9 Anemia, unspecified; E55.9 Vitamin D deficiency, unspecified; R32 Unspecified urinary incontinence; H90.6 Mixed conductive and sensorineural hearing loss, bilateral; F32.9 Major depressive disorder, single episode, unspecified; I10 Essential (primary) hypertension; G89.4 Chronic pain syndrome; K21.00 Gastro-esophageal reflux disease with esophagitis, without bleeding; Z93.3 Colostomy status; E87.6 Hypokalemia; W55.01XD Bitten by cat, subsequent encounter
CPT/HCPCS: 36410; 36415; 76881; 80048; 80053; 87040; 87635; 94640; 96374; 99223; 99285; 73130; 83605; 83735; 85025; 86140; 99233; 99239; J0295; J1335; J1885

== ENCOUNTER 2021-10-03 02:02 | Outpatient (CLI) | payer MEDICARE, OTHER, SELFPAY ==
[2021-10-03 14:37] LABS: Abs Immature Grans 0.03 10^3/uL (0.0-0.06); Absolute Basophil Count 0.06 10^3/uL (0.0-0.2); Absolute Eosinophil Count 0.17 10^3/uL (0.0-0.7); Absolute Lymphocyte Count 9.46 10^3/uL (1.2-3.4); Absolute Neutrophil Count 5.43 10^3/uL (1.2-6.7); Basophils % 0.4; Eosinophils % 1.1; HCT 39.4 % (36.0-46.0); HGB 12.8 g/dL (11.2-15.7); Immature Grans % 0.2; Lymphocytes % 60.3; MCH 31.7 pg (27.0-33.0); MCHC 32.5 % (32.0-36.0); MCV 98 fL (80-95); MPV 10.1 fL (8.0-11.0); Monocytes % 3.4; Neutrophils % 34.6; Platelet Count 114 10^3/uL (130-400); RBC 4.04 10^6/uL (3.93-5.22); RDW 12.8 % (11.7-14.6); RDW-SD 45.9 fL; WBC 15.69 10^3/uL (4.4-10.8)
[2021-10-03 15:17] LABS: Absolute Monocyte Count 0.53 10^3/uL (0.1-0.8)
[2021-10-03 15:18] LABS: Diff Comment Diff Reviewed; RBC Morphology Normal
[2021-10-03 15:48] LABS: Anion Gap 7.4 mmol/L (3-11); BUN 17 mg/dL (7-18); CO2 26.6 mmol/L (21.0-32.0); CREATININE 0.9 mg/dL (0.55-1.02); Calcium 8.8 mg/dL (8.5-10.1); Chloride 105 mmol/L (98-107); Glucose 80 mg/dL (74-106); Potassium 4.1 mmol/L (3.5-5.1); Sodium 139 mmol/L (136-145)
== END 2021-10-03 02:03 | disposition home or self-care (01) ==
LOC: LBO 02:02
PROVIDERS: PCP Family Medicine; Visit Provider Family Medicine
DX: D72.829 Elevated white blood cell count, unspecified (principal); L03.113 Cellulitis of right upper limb; S61.451A Open bite of right hand, initial encounter; W55.01XA Bitten by cat, initial encounter
CPT/HCPCS: 36415; 80048; 85025

== ENCOUNTER 2021-11-24 21:10 | Emergency (ER) | payer MEDICARE, OTHER, SELFPAY ==
[2021-11-24] VITALS (10 sets, daily range): BP systolic 162; BP diastolic 68–80; PULSE 101–143; RESP 12–28; TEMP 36.2; O2SAT 90–99
--- NOTE | 2021-11-24 21:15 | RT.EKG_ITS ---
APPROVED REPORT Exam: Resting ECG Reason for Exam: sob Patient Location: E HR:104 bpm ECG Measurements Heart Rate 104 AXIS MS 142 P 89 QRSd 82 QRS 32 QT 331 T 79 QTc 436 Conclusion Sinus tachycardia...rate> 99 Probable left atrial enlargement...P >50mS, <-0.10mV V1 Nonspecific T abnormalities, lateral leads...T <-0.10mV, I aVL V5 V6 sinus tach, normal axis, normal intverals, consider inferiorlateral st depressions
--- NOTE | 2021-11-24 21:30 | DI.RAD_ITS ---
Exam(s) XR PORTABLE CHEST AP EXAM: XR PORTABLE CHEST AP CLINICAL HISTORY: sob, hx of copd TECHNIQUE: 2D digital imaging was performed of the chest. One image was obtained. An AP view was ob tained. COMPARISON: CR Chest from 07/23/2018 FINDINGS: MEDIASTINUM: Normal. HEART: Normal. PULMONARY VASCULATURE: Normal. LUNGS: Linear atelectasis seen in the lung bases. The lungs are otherwise clear. PLEURAL SPACE: No pleural effusion or pneumothorax. BONE:Within normal limits for the patient's age. OTHER FINDINGS:Normal. IMPRESSION: No definite acute pulmonary findings. Follow-up as clinically appropriate. DATA REPOSITORY: RADIATION DOSE DELIVERED:
[2021-11-24] MEDS: Ipratropium 0.5 MG/2.5 ML UPD VIAL UPD (21:43)
[2021-11-24] MEDS: Albuterol 2.5 MG/3 ML INH SOLN VIAL UPD (21:44)
[2021-11-24] MEDS: Dexamethasone 10 MG/ML VIAL IVP (21:59)
[2021-11-24] MEDS: Normal Saline 500 ML 1000 ML IV (22:06)
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
[2021-11-24 22:25] LABS: HCT 41.6 % (36.0-46.0); HGB 13.9 g/dL (11.2-15.7); MCH 31.5 pg (27.0-33.0); MCHC 33.4 % (32.0-36.0); MCV 94 fL (80-95); MPV 10.6 fL (8.0-11.0); Nucleated RBC 0.1 % (0.0-0.3); RBC 4.41 10^6/uL (3.93-5.22); RDW 12.9 % (11.7-14.6); WBC 24.64 10^3/uL (4.4-10.8)
[2021-11-24 22:30] LABS: INR 1.1 (0.9-1.1); PTT Activated 25.9 sec (21.0-27.5); Prothrombin Time 10.7 sec (9.3-11.0)
[2021-11-24 22:36] LABS: ALT 22 U/L (14-59); AST 22 U/L (15-37); Albumin 3.5 g/dL (3.4-5.0); Alkaline Phosphatase 122 U/L (46-116); Anion Gap 8.8 mmol/L (3-11); BUN 18 mg/dL (7-18); Bilirubin, Total 1.5 mg/dL (0.2-1.0); CO2 29.2 mmol/L (21.0-32.0); CREATININE 1.1 mg/dL (0.55-1.02); Calcium 9.2 mg/dL (8.5-10.1); Chloride 103 mmol/L (98-107); Estimated GFR 47.79 (mL/min/1.73m2); Glucose 129 mg/dL (74-106); Potassium 3.3 mmol/L (3.5-5.1); Sodium 141 mmol/L (136-145); Total Protein 6.7 g/dL (6.4-8.2)
[2021-11-24 22:40] LABS: Absolute Monocyte Count 0.25 10^3/uL (0.1-0.8); Absolute Neutrophil Count 13.55 10^3/uL (1.2-6.7); Atypical Lymphocytes % 5; Bands % 1; Diff Comment Manual Differential; Metamyelocytes % 1
[2021-11-24 22:41] LABS: Platelet Count 86 10^3/uL (130-400)
[2021-11-24 22:42] LABS: Troponin I < 50 ng/L (<or=60)
[2021-11-24 23:03] LABS: NT-proBNP 210 pg/mL (<300)
--- NOTE | 2021-11-24 23:05 | DI.VRAD_ITS ---
PROCEDURE INFORMATION: Exam: XR Chest Exam date and time: 11/24/2021 10:11 PM Age: 81 years old Clinical indication: Other: SOB, HX of copd TECHNIQUE: Imaging protocol: Radiologic exam of the chest. Views: 1 view. COMPARISON: CT CHEST WO 09/16/2019 12:31 PM FINDINGS: Lungs: Lungs are adequately inflated. There are streaky opacities within the medial lung bases. Otherwise no focal consolidation or pulmonary edema. Pleural spaces: No visible pleural effusion. No pneumothorax. Heart/Mediastinum: Cardiomediastinal contours within normal limits. Diaphragm: Mild asymmetric elevation of the right hemidiaphragm, appears similar to comparison given differences in imaging technique. Bones/joints: No acute osseous finding. IMPRESSION: 1. Streaky opacities within the medial lung bases favored to represent subsegmental atelectasis and/or scarring but nonspecific. 2. Otherwise no acute findings. Dictated and Authenticated by: Lui Mayen MD. Ordering:ISA Hsu MD
--- NOTE | 2021-11-24 23:26 | W.EDPROG ---
Date of service: 11/24/21 Time of Service: 23:32 Medical Decision Making pt signed out to me pending reassessment, labs show no acute findings, xray shows small pleural effusions no obvious infiltrate. She is currently sleeping and awakens easily when I enter the room. She states she feels better and requests discharge, is currently on 2L and states she normally runs at this and has o2 at home she states she can use. She will f/u with her pcp and return precautions given Sign Out Sign Out Data: Sign Out Comment: pending labs, reassessment of respiratory status (COPD exac.) Last updated by Shadi Klein MD at 11/24/21 23:02 Discharge Plan Disposition Patient Disposition: HOME Condition: Stable Discharge Details Clinical Impression: Shortness of breath, Asthma exacerbation in COPD Primary Care Provider: Ramial Tapia ED Provider: Ernie Amin Home Meds and New Rx's Prescriptions: New azithromycin 250 mg tablet 250 mg PO DAILY 4 Days Qty: 4 0RF Rx Instructions: start on day 2 of therapy prednisone 20 mg tablet 60 mg PO DAILY 4 Days Qty: 12 0RF Continued latanoprost (PF) 0.005 % drops 1 drp OP QPM alprazolam 0.5 mg tablet 0.5 mg PO DIRECTED Qty: 180 1RF Rx Instructions: 1 TAB QAM; 0.5 TAB PM PRN cyanocobalamin (vitamin B-12) 1,000 mcg/mL solution 1,000 mcg IM MONTHLY Qty: 3 12RF Rx Instructions: dispense with needles BRITT POUCH See Rx Instructions topical .COMPLEX Qty: 30 4RF Rx Instructions: 1 topical; levothyroxine 50 mcg tablet 50 mcg PO DAILY Qty: 90 12RF (DME) BD Blunt Plastic Cannula 17 x 3 mL syringe 1 ea Miscellaneous MONTHLY Qty: 12 12RF Rx Instructions: 25 guage X 1 ULTRA FINE;[id number] Spiriva with HandiHaler 18 mcg capsule, w/inhalation device 1 cap Inhalation DAILY Qty: 90 12RF (DME) Lucy Cohesive Seals 1 EACH misc 1 ea Miscellaneous DIR Label Comments: #[id number] CODE; V44.3 Rx Instructions: 891269 V44.3 BRITT 1 ea Topical DIR 0RF Rx Instructions: DRAINABLE POUCH; 3228; V44.3 folic acid 1 mg tablet 1 mg PO EVERY OTHER DAY Qty: 45 12RF acetaminophen-codeine 300-30 mg tablet 1 tab PO Q6H Qty: 120 3RF Rx Instructions: chronic diarrhea. ergocalciferol (vitamin D2) 1,250 mcg (50,000 unit) capsule 50,000 unit PO QWEEK Qty: 13 4RF Rx Instructions: Must be gel capsule budesonide-formoterol [Symbicort] 160-4.5 mcg/actuation HFA aerosol inhaler 2 puff Inhalation BID Qty: 3 12RF albuterol sulfate 90 mcg/actuation HFA aerosol inhaler 2 puff inhalation Q8H Qty: 8.5 4RF Rx Instructions: Must be HFA. J amoxicillin-pot clavulanate 875-125 mg tablet 1 tab PO BID ibuprofen 200 mg tablet 400 mg PO Q6H PRN (Reason: pain) Qty: 30 0RF Discharge Instructions Instructions: COPD (Chronic Obstructive Pulmonary Disease) (ED) Additional Instructions: You were treated for a COPD exacerbation with good improvement follow up with your primary care provider within 1 week if you feel more ill, have worsening trouble breathing or chest pain return to the emergency department
[2021-11-25] MEDS: Azithromycin 250 MG TAB 500 MG PO (00:01)
--- NOTE | 2021-11-25 11:45 | NUR.NOTE ---
Nursing Note: Prescriptions called in to [facility], due to [facility] not open.
== END 2021-11-24 23:58 | disposition home or self-care (01) ==
PROVIDERS: Emergency Medicine; Emergency Provider Emergency Medicine; PCP Family Medicine
DX: J45.901 Unspecified asthma with (acute) exacerbation (principal); J44.9 Chronic obstructive pulmonary disease, unspecified; R06.02 Shortness of breath; D69.6 Thrombocytopenia, unspecified
CPT/HCPCS: 36415; 80053; 93005; 96361; 96374; 99284; 71045; 83880; 84484; 85025; 85610; 85730; 93010; J1100; J7613; J7644

== ENCOUNTER 2021-11-29 05:58 | Inpatient (IN) | payer MEDICARE, OTHER, SELFPAY ==
[2021-11-29] VITALS (186 sets, daily range): BP systolic 139–180; BP diastolic 58–95; PULSE 88–124; RESP 8–31; TEMP 37–38.1; O2SAT 90–100
--- NOTE | 2021-11-29 05:45 | RT.EKG_ITS ---
APPROVED REPORT Exam: Resting ECG Reason for Exam: short of breath Patient Location: E HR:115 bpm ECG Measurements Heart Rate 115 AXIS KS 145 P 84 QRSd 78 QRS 23 QT 311 T 79 QTc 430 Conclusion Sinus tachycardia...rate> 99 Probable left atrial enlargement...P >50mS, <-0.10mV V1
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
[2021-11-29] MEDS: Albuterol/Ipratropium 3 ML UPD VIAL UPD ×3 (06:20→11:57)
[2021-11-29 06:41] LABS: Abs Immature Grans 0.29 10^3/uL (0.0-0.06); HGB 13.9 g/dL (11.2-15.7); MCH 31.3 pg (27.0-33.0); MCHC 33.1 % (32.0-36.0); MCV 95 fL (80-95); MPV 10.3 fL (8.0-11.0); RBC 4.44 10^6/uL (3.93-5.22); RDW 12.9 % (11.7-14.6); RDW-SD 44.5 fL
[2021-11-29 06:44] LABS: WBC 38.41 10^3/uL (4.4-10.8)
[2021-11-29 07:02] LABS: ALT 27 U/L (14-59); AST 18 U/L (15-37); Albumin 3.2 g/dL (3.4-5.0); Alkaline Phosphatase 120 U/L (46-116); Anion Gap 6.5 mmol/L (3-11); BUN 16 mg/dL (7-18); CO2 27.5 mmol/L (21.0-32.0); CREATININE 0.8 mg/dL (0.55-1.02); Calcium 9.6 mg/dL (8.5-10.1); Chloride 101 mmol/L (98-107); Glucose 113 mg/dL (74-106); NT-proBNP 824 pg/mL (<300); Potassium 3.6 mmol/L (3.5-5.1); Sodium 135 mmol/L (136-145); Total Protein 6.8 g/dL (6.4-8.2); Troponin I < 50 ng/L (<or=60)
--- NOTE | 2021-11-29 07:02 | DI.RAD_ITS ---
Exam(s) XR PORTABLE CHEST AP EXAM: XR PORTABLE CHEST AP CLINICAL HISTORY: cough, sob. TECHNIQUE: 2D digital imaging was performed. COMPARISON: CR,XR XR PORTABLE CHEST AP from 11/24/2021 FINDINGS: Single AP portable view. Heart size is upper normal. The mediastinum is not widened. COPD findings. However, there are no obvious confluent infiltrates nor pleural effusions. No pneumo thorax. IMPRESSION: No confluent infiltrates. No pleural effusions. No pulmonary edema. DATA REPOSITORY: RADIATION DOSE DELIVERED: All CT scans at this facility use at least one of these dose optimization techniques: automated exposure control; mA and/or kV adjustment per patient size (includes targeted e xams where dose is matched to clinical indication); or iterative reconstruction.
[2021-11-29 07:16] LABS: COVID-19 PCR Negative (Negative); Influenza A PCR Negative (Negative); Influenza B PCR Negative (Negative); RSV PCR Negative (Negative)
[2021-11-29 07:17] LABS: Absolute Basophil Count 0.38 10^3/uL (0.0-0.2); Absolute Eosinophil Count 0.38 10^3/uL (0.0-0.7); Absolute Lymphocyte Count 21.51 10^3/uL (1.2-3.4); Absolute Monocyte Count 3.46 10^3/uL (0.1-0.8); Absolute Neutrophil Count 12.68 10^3/uL (1.2-6.7); Bands % 2; Diff Comment Manual Differential; Platelet Count 147 10^3/uL (130-400); RBC Morphology Normal
--- OUTSIDE RECORDS SUMMARY | 2021-11-29 08:56 | XMS_ITS | Encounter Summary ---
:1940 Author Organization [place] [id number] Care Team Providers Name Role Phone Ramila Tapia MD Primary Care Provider Encounter Details Date Type Department Care Team Description 04/02/2016 Office Visit Ophthalmology at [facility] C Rhys Paz, S/P cataract [facility] [place] [address] [place] [address] intraocular lens, OPHTHALMOLOGY right DEPT. [place], [place] [address] Social History Tobacco Use Types Packs/Day Years Used Date Former Smoker Cigarettes 0.5 Quit: 06/21/19 02 Alcohol Use Standard Drinks/Week Comments No 0 (1 standard drink = 0.6 oz pure alcoho l) Sex Assigned at Date Recorded Not on file documented as of this encounter Progress Notes Rhys Paz MD - 04/02/2016 12:30 PM EST Assessment/Plan: 1. 1 week s/p CE/IOL OD Doing well with normal postop appearance Suture removal (topical proparacaine, BD gtts, sterile Supersharp blade, jewellers forceps. No complications) Stop Vigamox drops Decrease prednisolone and ketorolac drops to 2x/day for 2 weeks and d/c 2. 1 month s/p CE/IOL OS Doing well off drops with a normal post operative appearance. 3. PXF glaucoma OU - low IOP Continue Eleno dickinson/steffen per Dr. Evans Follow up: 1 month DMM, for final postop visit and glasses Rx documented in this encounter Plan of Treatment Not on filedocumented as of this encounter Visit Diagnoses Diagnosis S/P cataract extraction and insertion of intraocular lens, right documented in this encounter Care Teams Vp Cardiovascular Relationship Specialty Start Date End Date Ramila Tapia MD PCP - General 04/11/[address] [place] [address] documented as of this encounter
--- OUTSIDE RECORDS SUMMARY | 2021-11-29 08:56 | XMS_ITS | Encounter Summary ---
:1940 Author Organization [facility] [place] [address] Care Team Providers Name Role Phone Ramila Tapia MD Primary Care Provider Reason for Visit Reason Comments Pre-op Exam Encounter Details Date Type Department Care Team Description 03/27/2016 Office Visit Internal Medicine at [facility], Robert Garcia, CKD (chronic kidney [facility] MD disease), unspecified [facility] [place] GENERAL INTERNAL [id number] MEDICINE [phone] [place], [place] [address] (Wo rk) Social History Tobacco Use Types Packs/Day Years Used Date Former Smoker Cigarettes 0.5 Quit: 06/21/19 02 Alcohol Use Standard Drinks/Week Comments No 0 (1 standard drink = 0.6 oz pure alcoho l) Sex Assigned at Date Recorded Not on file documented as of this encounter Last Filed Vital Signs Vital Sign Reading Time Taken Comments Blood Pressure 118/70 03/27/2016 10:48 AM EST Pulse 81 03/27/2016 10:11 AM EST Temperature 36.6 ??C (97.9 ??F) 03/27/2016 10:11 AM EST Respiratory Rate 18 03/27/2016 10:11 AM EST Oxygen Saturation 99% 03/27/2016 10:11 AM EST Inhaled Oxygen Concentration - - Weight 69.2 kg (152 lb 9.6 oz) 03/27/2016 10:11 AM EST Height 160 cm (5' 2.99) 03/27/2016 10:11 AM EST Body Mass Index 27.04 03/27/2016 10:11 AM EST documented in this encounter Progress Notes Robert Zapata MD - 03/27/2016 10:30 AM EST [facility] Clinic Note Patient Active Problem List Diagnosis Code ??? Eczematous dermatitis L30.9 HPI: Aleida Woodson is a 75 y.o. female with a PMH of Crohn's disease, COPD and KRISTEN on CPAP presenting to clinic today for pre-operative evaluation prior to cataract surgery this afternoon. Aleida has a history of Crohn's disease s/p colectomy with end ileostomy many years ago. She has COPD (not on home O2) for which she is on flovent, spiriva, and albuterol as needed. She uses albuterol prior to using her maintenance inhalers to aid absorption, but rarely uses it for rescue (~1 time in the last year). She is on CPAP for obstructive sleep apnea. She is not terribly active at baseline,but is able to walk up a flight of stairs, though she experiences some shortness of breath and has to rest afterwards. She denies chest pain or palpitations. No history of chronic kidney disease of hypertension. She quit smoking in 2001. She denies etoh or illicit drug use. PHQ9 Depression Screening: No flowsheet data found. Review of Systems (positives bolded) Constitutional: appetite change, fatigue, fevers, chills, night sweats, unexpected weight change. HEENT: visual changes, oral irritation, sores, dysphagia, odynophagia, tinnitus, hearing problems. Respiratory: cough, wheeze, shortness of breath. Cardiovascular: chest pain, paroxysmal nocturnal dyspnea, dyspnea on exertion, orthopnea, palpitations, leg swelling, calf cramping Gastrointestinal: heartburn, abdominal pain, nausea, vomitting, diarrhea, constipation, blood in stool, melena. Genitourinary: dysuria, urgency, frequency, hematuria Skin: rash. Muskuloskeletal: arthralgia, myalgia. Neurological: headaches, dizziness, lightheadedness, tingling, numbness, weakness, facial weakness, speech abnormalities, Hematological: adenopathy, easy bruising Current Facility-Administered Medications on File Prior to Visit Medication Dose Route Frequency Provider Last Rate Last Dose ??? sodium chloride 0.9 % flush 5 mL 5 mL Intravenous Q12H Rhys Paz MD ??? sodium chloride 0.9 % flush 5-20 mL 5-20 mL Intravenous Q1 Min PRN Rhys Paz MD ??? lidocaine (XYLOCAINE) 10 mg/mL (1 %) injection 3 mg 0.3 mL Subcutaneous Once PRN Rhys Paz MD ??? lactated ringers infusion 1,000 mL 1,000 mL Intravenous Continuous Rhys Paz MD 100 mL/hr at 03/27/16 1215 1,000 mL at 03/27/16 1215 ??? labetalol (NORMODYNE,TRANDATE) injection 2.5 mg 2.5 mg Intravenous Q5 Min PRN Rhys Paz MD ??? atropine injection 0.4 mg 0.4 mg Intravenous Q5 Min PRN Rhys Paz MD ??? [COMPLETED] cyclopentolate (CYCLODRYL) 1 % ophthalmic solution 1 drop 1 drop Right Eye Q5 Min Rhys Paz MD 1 drop at 03/27/16 1224 ??? [COMPLETED] PHENYLephrine (MYDFRIN) 2.5 % ophthalmic solution 1 drop 1 drop Right Eye Q5 Min Rhys Paz MD 1 drop at 03/27/16 1216 ??? [] moxifloxacin (VIGAMOX) 0.5 % ophthalmic solution 1 drop 1 drop Right Eye Q5 Min Rhys Paz MD ??? [COMPLETED] prednisoLONE acetate (PRED FORTE) 1 % ophthalmic suspension 1 drop 1 drop Right Eye Once Rhys Paz MD 1 drop at 03/27/16 1228 ??? [COMPLETED] ketorolac tromethamine (ACULAR) 0.5 % ophthalmic solution 1 drop 1 drop Right Eye Once Rhys Paz MD 1 drop at 03/27/16 1231 ??? midazolam (PF) (VERSED) 1 mg/mL multi-dose injection 0.25-1 mg 0.25-1 mg Intravenous Q5 Min PRN Rhys Paz MD ??? fentaNYL 50 mcg/mL multi-dose injection 25 mcg Intravenous Q5 Min PRN Rhys Paz MD ??? naloxone (NARCAN) injection 0.1 mg 0.1 mg Intravenous Q2 Min PRN Rhys Paz MD Current Outpatient Prescriptions on File Prior to Visit Medication Sig Dispense Refill ??? bimatoprost (LUMIGAN) 0.01 % Drops Place 1 drop into both eyes nightly. ??? tiotropium (SPIRIVA WITH HANDIHALER) 18 mcg Capsule, w/Inhalation Device Inhale 18 mcg into the lungs daily. ??? fluticasone (FLOVENT HFA) 110 mcg/actuation HFA Aerosol Inhaler Inhale 1 puff into the lungs 2 times daily. ??? codeine 30 mg tablet 30mg, PO, Four times daily ??? ALPRAZolam (XANAX) 0.5 mg tablet 0.5mg, PO, Once daily ??? folic acid (FOLVITE) 1 mg tablet 1MG, PO, Every other day ??? cyanocobalamin, vitamin B-12, 1,000 mcg/mL injection 1000MCG/1ML, IM, Q MONTH ??? albuterol (PROVENTIL HFA;VENTOLIN HFA) 90 mcg/Actuation inhaler ??? Psyllium (METAMUCIL) Powd ??? [DISCONTINUED] fluticasone-salmeterol (ADVAIR DISKUS) 250-50 mcg/dose diskus inhaler 1 Disk(s), Inh, Twice daily (Patient not taking: No sig reported) VITAL SIGNS: Blood pressure 118/70, pulse 81, temperature 36.6 ??C (97.9 ??F), temperature source Oral, resp. rate 18, height 160 cm (5' 2.99), weight 69.2 kg (152 lb 9.6 oz), SpO2 99 %. Last 3 BP's: BP Readings from Last 3 Encounters: 03/27/16 141/82 03/27/16 118/70 02/28/16 136/67 PHYSICAL EXAM: Gen: Pleasant elderly female, NAD HEENT: MMM CV: RRR, no m/g/r Pulm: CTAB Abd: soft, nt, nd, Nabs Ext: WWP Neuro: No focal deficits grossly BMP results Recent Labs 03/27/16 1120 NA 137 K 3.4* CL 98 CO2 26 BUN 11 CREATININE 0.98 ASSESSMENT/PLAN: Orders Placed This Encounter Procedures ??? Basic Metabolic Panel (non-fasting) 1. CKD (chronic kidney disease), unspecified stage Aleida Woodson is a 75 y.o. female with a PMH of Crohn's disease, COPD and KRISTEN on CPAP presenting to clinic today for pre-operative evaluation prior to cataract surgery this afternoon. She is doing welland has no worrying symptoms that would put her at increased german-operative risk. She does have mildsystemic disease, but her COPD is well controlled. She reportedly had kidney impairment in her OSH records but her Cr on our check is normal. She is overall a low risk candidate for this low risk surgery (german-operative cardiac risk < 0.5% and respiratory failure risk <0.2%). RTC as needed. ROBERT ZAPATA MD PGY-3 Luisana Nick MD - 03/27/2016 10:30 AM EST The case was discussed at the time of the visit or immediately after the visit. The assessment and plan were formulated in discussion with me and I agree with them as documented. I have reviewed the history, physical exam, assessment and plan with the resident. Major issues discussed today: 75 year old woman here for 2nd cataract repair, scheduled for this morning, had prior cataract done 33 days ago but preop from pcp , seen by outside pcp ROS: walks without chest pain although can have exertional dyspnea if does not use prn albuterol PMH: COPD on prn albuterol, flovent and spiriva KRISTEN on cpap Crohn's total colectomy with ileostomy Anxiety on xanax OA: codeine Transaminitis Mild CKD Malabsorption on im B12, po folic acid SH: smoker, quit in 2001 PE: BP 118/70 (BP Location (NBP): Left arm) Pulse 81 Temp 36.6 ??C (97.9 ??F) (Oral) Resp 18 Ht 160 cm (5' 2.99) Wt 69.2 kg (152 lb 9.6 oz) SpO2 99% BMI 27.04 kg/m2 EKG from prior preop NSR without acute ST-T wave changes No labs available Plan: 1. Pre-op for cataract: Low risk for low risk surgery. Would check creat stat prior to surgery today Follow up with pcp documented in this encounter Plan of Treatment Not on filedocumented as of this encounter Procedures Procedure Name Priority Date/Time Associated Diagnosis Comme nts BASIC METABOLIC Routine 03/27/2016 11:20 AM CKD (chronic kidne y Results for this PANEL (NON-FASTING) EST disease), procedur e are in unspecified stage the result s section. documented in this encounter Results (ABNORMAL) Basic Metabolic Panel (non-fasting) (03/27/2016 11:20 AM EST) athologist Signature Glucose Lvl 97 65 - 199 [facility] mg/dL [facility] Comment: Diabetes: >=200 mg/dL plus symp toms BUN 11 8 - 18 mg/dL [facility] Creatinine 0.98 0.70 - 1.20 mg/dL [facility] Comment: Please note that the pediatric reference intervals supplied above were not validated at [facility]. Results from pediatri c patients should be interpreted in conjunction to the patient's age, height and muscle mass. Sodium 137 135 - 145 mmol/L [facility] Potassium 3.4 (L) 3.5 - 5.0 mmol/L [facility] Comment: Please note: ??Patients with WBC >100,00 0 may have falsely elevated Potassium levels. ??For accurate Potassium quantif ication in these patients send serum separator tube (gold top) for subsequent determinations. ??Contact the Clinical Chemistry Laboratory if there are any qu estions. Chloride 98 98 - 107 mmol/L [facility] CO2 26 22 - 31 mmol/L [facility] Anion Gap 13 5 - 15 mmol/L [facility] Calcium 9.3 8.5 - 10.5 mg/dL [facility] Estimated GFR 55 (L) >=60 [facility] Comment: This estimated GFR (eGFR) value was calc ulated using the MDRD equation which has been validated on patients between t he ages of 18 and 70. The MDRD should not be used to assess kidney function in patients < 18 years of age or in patients with extremes of body mass, or in patients with acute kidney failure. This value should be multiplied by 1.2 f or patients. For further information please copy and past e the following links into your internet browser. http://Encoding.com/DHnkdep http://Encoding.com/DHMCnkf Specimen Anatomical Collection Method Collection Time Receive d Time (Source) Location / / Volume Laterality Blood specimen 03/27/2016 11:20 6 (specimen) AM EST 11:28 AM EST Resulting Agency Comment Spec In Lab Luisana Nick MD CHEMISTRY ORDERABLES Performing Organization Address City/State/[place] [address] documented in this encounter Visit Diagnoses Diagnosis CKD (chronic kidney disease), unspecifie d stage documented in this encounter Care Teams Human Resources Benefits Coordinator Relationship Specialty Start Date End Date Ramila Tapia MD PCP - General 04/11/[address] [place] [address] documented as of this encounter
--- OUTSIDE RECORDS SUMMARY | 2021-11-29 08:56 | XMS_ITS | Encounter Summary ---
:1940 [place] [address] Care Team Providers Name Role Phone Ramila Tapia MD Primary Care Provider Reason for Visit Reason Comments Post Op CE/IOL OD 1day s/p Encounter Details Date Type Department Care Team Description 03/28/2016 Office Visit Ophthalmology at [facility] C Rhys Paz, S/P cataract [facility] [place] [address] [place] [address] intraocular lens, [facility] [place] [id number] Social History Tobacco Use Types Packs/Day Years Used Date Former Smoker Cigarettes 0.5 Quit: 06/21/19 02 Alcohol Use Standard Drinks/Week Comments No 0 (1 standard drink = 0.6 oz pure alcoho l) Sex Assigned at Date Recorded Not on file documented as of this encounter Progress Notes Rhys Paz MD - 03/28/2016 12:45 PM EST Assessment/Plan: 1. 1 day s/p cataract surgery OD Doing well with a normal post operative appearance. - Prednisolone acetate 1% 3x/d in operative eye - Moxifloxicin 3x/d in operative eye - Ketorolac 3x/d in operative eye - Post op precaution sheet reviewed and given to patient 2. 4 weeks s/p cataract surgery OS Doing well off drops 3. PXF glaucoma OU - good IOP Continue [facility] hs/hs Follow up: - 1 week DMM, sooner as needed. - Refract (prelim), dilate prn documented in this encounter Plan of Treatment Not on filedocumented as of this encounter Visit Diagnoses Diagnosis S/P cataract extraction and insertion of intraocular lens, right documented in this encounter Care Teams Driller And Reamer Relationship Specialty Start Date End Date Ramila Tapia MD PCP - General 04/11/[address] [place] [address] documented as of this encounter
--- OUTSIDE RECORDS SUMMARY | 2021-11-29 08:56 | XMS_ITS | Encounter Summary ---
:1940 Author Organization [facility] [place] [address] Care Team Providers Name Role Phone Ramila Tapia MD Primary Care Provider Reason for Visit Reason Comments Post Op Encounter Details Date Type Department Care Team Description 04/16/2016 Office Visit Ophthalmology at [facility] C Rhys Paz, Pseudophakia of both [facility] eyes (OS - 02/28/16 & [facility] OD - 03/27/16) [place] [address] CENTER [phone] OPHTHALMOLOGY DEPT. [place], [place] [address] Social History Tobacco Use Types Packs/Day Years Used Date Former Smoker Cigarettes 0.5 Quit: 06/21/19 02 Alcohol Use Standard Drinks/Week Comments No 0 (1 standard drink = 0.6 oz pure alcoho l) Sex Assigned at Date Recorded Not on file documented as of this encounter Progress Notes Rhys Paz MD - 04/16/2016 1:15 PM EST Assessment/Plan: 1. 1 month s/p CE/IOL OD Doing well with normal post-op appearance, off drops 2. 2 month s/p CE/IOL OS Doing well off drops with a normal post operative appearance. 3. PXF glaucoma Good IOP on drops OTC readers. Counselled re safety and possible PCO in future. Follow up: With Dr. Evans in 4 months. Patient to call for appointment documented in this encounter Plan of Treatment Not on filedocumented as of this encounter Visit Diagnoses Diagnosis Pseudophakia of both eyes (OS - 02/28/16 & OD - 03/27/16) Lens replaced by other means documented in this encounter Care Teams Industrial Cook Relationship Specialty Start Date End Date Ramila Tapia MD PCP - General 04/11/[address] [place] [address] documented as of this encounter
--- OUTSIDE RECORDS SUMMARY | 2021-11-29 08:56 | XMS_ITS | Clinical Summary ---
:1940 Author Organization [facility] Address [address] [place] [address] Care Team Providers Name Role Phone Unavailable Primary Care Provider Unavailable Social History Tobacco Use Types Packs/Day Years Used Date Never Assessed Sex Assigned at Date Recorded Not on file Plan of Treatment Health Maintenance Due Date Last Done Comments Fall Risk Screening 2006
--- OUTSIDE RECORDS SUMMARY | 2021-11-29 08:56 | XMS_ITS | Encounter Summary ---
:1940 Author Organization [facility] [place] [address] Care Team Providers Name Role Phone Ramila Tapia MD Primary Care Provider Reason for Visit Reason Comments Post Op 1 week post-operative exam Encounter Details Date Type Department Care Team Description 03/05/2016 Office Visit Ophthalmology at [facility] C Rhys Paz, Age-related nuclear cataract of right eye; [facility] S/P cataract extraction and insertion of intraocular lens, [place] [address] [place] [address] OPHTHALMOLOGY DEPT. [place], [place] [address] Social History Tobacco Use Types Packs/Day Years Used Date Former Smoker Quit: 06/21/19 16 Alcohol Use Standard Drinks/Week Comments No 0 (1 standard drink = 0.6 oz pure alcoho l) Sex Assigned at Date Recorded Not on file documented as of this encounter Progress Notes Rhys Paz MD - 03/05/2016 12:30 PM EDT Assessment/Plan: 1. 1 week s/p CE/IOL OS Doing well with normal postop appearance Stop Vigamox drops Decrease prednisolone and ketorolac drops to 2x/day for 2 weeks and d/c 2. Cataract OD - visually significant Re-reviewed R/B/Alt to cataract surgery, chance of complications, option of waiting. Lens options and refractive target reviewed. Questions answered. Ms. Woodson expresses understanding, requests cataract surgery OD. 3. PXF glaucoma Continue [facility] hs/hs Follow up: Cataract surgery right eye, 2 weeks documented in this encounter Plan of Treatment Not on filedocumented as of this encounter Visit Diagnoses Diagnosis Age-related nuclear cataract of right ey e Senile nuclear sclerosis S/P cataract extraction and insertion of intraocular lens, left documented in this encounter Care Teams Munitions Handler Relationship Specialty Start Date End Date Ramila Tapia MD PCP - General 04/11/[address] [place] [address] documented as of this encounter
--- OUTSIDE RECORDS SUMMARY | 2021-11-29 08:56 | XMS_ITS | Encounter Summary ---
:1940 Author Organization [place] [address] Care Team Providers Name Role Phone Ramila Tapia MD Primary Care Provider Reason for Visit Reason Comments Procedure Here for POM, anticipating C E Encounter Details Date Type Department Care Team Description 12/20/2015 Procedure visit Ophthalmology at [facility] C Combined forms of [facility] D rivlion [place] [address] both eyes [phone] Social History Tobacco Use Types Packs/Day Years Used Date Former Smoker Quit: 06/21/19 16 Alcohol Use Standard Drinks/Week Comments No 0 (1 standard drink = 0.6 oz pure alcoho l) Sex Assigned at Date Recorded Not on file documented as of this encounter Miscellaneous Notes Addendum Note - Dhara De La Cruz MD - 12/26/2015 8:12 AM EDT Addended by: DHARA DE LA CRUZ on: 12/26/2015 08:12 AM Modules accepted: Level of Service documented in this encounter Plan of Treatment Not on filedocumented as of this encounter Procedures Procedure Name Priority Date/Time Associated Comments Diagnosis [id number] CALC Routine 12/20/2015 1:27 PM Combined for ms of Results for this BY LASER INTERFEROMETRY EDT age-related proc edure are in - OU - BOTH EYES cataract of both the res ults eyes section. documented in this encounter Results [id number] CALC BY LASER [id number] EYES (12/20/2015 1:27 PM EDT) Anatomical Region Laterality Modality Other Specimen (Source) Anatomical Location Collection Method / Collectio n Time Received Time / Laterality Volume Narrative 12/26/2015 8:12 AM EDT POM reviewed. IOLMaster: ??good quality scans K's: ?? 0.71 D cyl OD, 0.40D cyl OS See paper POM form for IOL calculations. Average IOL-M K's OD ??41.72 @ ??113 / 4 2.35 @ 023 ?OS ??42.51 @ 175 / 43.16 @ 085 Lenstar K's ?OD 41.60 @ 114 / 42.31 @ 024 ?OS 42.3 8 @ 171 / 42.78 @ 081 Target: OD ??-0.25 ?OS ??-0.25 HWTW: OD 12.9 ?OS 13.0 ACD: OD 3.20 ?OS 3.47 Axial Length ? IOL-M ??OD 24.08 ? OS 24.04 ??Lenstar or ?OD 24.08 ?? 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
--- OUTSIDE RECORDS SUMMARY | 2021-11-29 08:56 | XMS_ITS | Encounter Summary ---
:1940 Author Organization [facility] [place] [address] Care Team Providers Name Role Phone Ramila Tapia MD Primary Care Provider Reason for Visit Reason Comments Skin Problem Encounter Details Date Type Department Care Team Description 04/23/2011 Office Visit Dermatology Fernando Wolf, Irritant dermatitis [address] [facility] (Primary Dx) [address] [place], [place] DERMATOLOGY [address] [place] [address] [phone] (Wo rk) Social History Tobacco Use Types Packs/Day Years Used Date Never Smoker Sex Assigned at Date Recorded Not on file documented as of this encounter Progress Notes Fernando Wolf MD - 04/23/2011 5:27 PM EST Problem: Ileostomy inflammation. Aleida follows up after last being seen in September of 2008. She had some good initial results with the Clobetasol Gel that I gave her. She comes back because she is again getting inflammation at about the 9 o'clock position of the stoma and has been unable to clear this with her current products. However upon further questioning she has not been using the Clobetasol Gel much at all. In fact she shows me the tube that she has had since 2008 and the tube is mostly still full. The patient has not been able to heal this area using Triamcinolone 0.1% Cream and Nystatin Powder. The patient is fully aware of and does comply with sensitive skincare precautions when she cleanses the area around the stoma using fragrance free soap and minimizing mechanical abrasion of this site, et cetera. She changes her stoma bag once every two days. Physical examination reveals an erythema at about the 9 o'clock position of the ileostomy today. Assessment & Plan: Peristomal inflammation in a patient with a history of Crohn's disease. a. Patient's Crohn's disease is currently inactive. b. Do not think that the ileostomy inflammation represents extra cutaneous Crohn's. c. Recommended that today this be injected with Kenalog 5mg/cc and I discussed the safety of using the Clobetasol Gel more liberally for short busts as necessary. d. After obtaining patient consent, 1cc of 5mg/cc Kenalog was injected. The patient tolerated well. e. RTC p.r.n. Copy: Ramila Tapia MD documented in this encounter Plan of Treatment Not on filedocumented as of this encounter Visit Diagnoses Diagnosis Irritant dermatitis - Primary Contact dermatitis and other eczema, due to unspecified cause documented in this encounter Care Teams Senior Support Analyst Relationship Specialty Start Date End Date Ramila Tapia MD PCP - General 04/11/[address] [place] [address] documented as of this encounter
--- OUTSIDE RECORDS SUMMARY | 2021-11-29 08:56 | XMS_ITS | Encounter Summary ---
:1940 Author Organization [place] [address] Care Team Providers Name Role Phone Ramila Tapia MD Primary Care Provider Reason for Visit Reason Onset Date Comments Other 03/26/2016 Nury from [facility] Manage ment @ [place] would like a call when a resolution has been made to this as well. She can be contacted @ [phone] Encounter Details Date Type Department Care Team Description 03/26/[address] [facility] [place]ys Paz, Other (Nury from [facility] Bashir simpson MD Management @ [place] [address] [place] [address] would like [phone] DR a call when a OPHTHALMOLOGY resolution has been DEPT. made to this as well. [place], [place] [address] She can be contacted @ [phone] ) (Work) Social History Tobacco Use Types Packs/Day Years Used Date Former Smoker Quit: 06/21/19 16 Alcohol Use Standard Drinks/Week Comments No 0 (1 standard drink = 0.6 oz pure alcoho l) Sex Assigned at Date Recorded Not on file documented as of this encounter Miscellaneous Notes Telephone Encounter - Karina Torre - 03/26/2016 2:52 PM EST Called internal medicine, pt will have a PREOP tomorrow 03/27 at 1015am, relayed info to patient. Telephone Encounter - Sara Tillman - 03/26/2016 12:14 PM EST Nury from Care Management @ [place] would like a call when a resolution has been made to this as well. She can be contacted @ [phone] Telephone Encounter - Karina Torre - 03/26/2016 11:37 AM EST Pt had preop 02/19 for cataract surgery scheduled for 02/27 & 03/27. I called patients primary care office to get pt in today or tomorrow am, they are unable to fit patient in. documented in this encounter Plan of Treatment Not on filedocumented as of this encounter Visit Diagnoses Not on filedocumented in this encounter Care Teams Client Server Developer Relationship Specialty Start Date End Date Ramila Tapia MD PCP - General 04/11/[address] [place] [address] documented as of this encounter
--- OUTSIDE RECORDS SUMMARY | 2021-11-29 08:56 | XMS_ITS | Encounter Summary ---
:1940 Author Organization [facility] [place] [address] Care Team Providers Name Role Phone Ramila Tapia MD Primary Care Provider Encounter Details Date Type Department Care Team Description 02/28/2016 Hospital Encounter [facility] MD [facility]-related cataract [facility] [place] [phone] Social History Tobacco Use Types Packs/Day Years Used Date Former Smoker Quit: 06/21/19 16 Alcohol Use Standard Drinks/Week Comments No 0 (1 standard drink = 0.6 oz pure alcoho l) Sex Assigned at Date Recorded Not on file documented as of this encounter Last Filed Vital Signs Vital Sign Reading Time Taken Comments Blood Pressure 136/67 02/28/2016 12:45 PM EDT Pulse 82 02/28/2016 12:45 PM EDT Temperature 36.8 ??C (98.2 ??F) 02/28/2016 12:45 PM EDT Respiratory Rate 14 02/28/2016 12:45 PM EDT Oxygen Saturation 96% 02/28/2016 12:45 PM EDT Inhaled Oxygen Concentration - - Weight 68 kg (150 lb) 02/28/2016 11:04 AM EDT Height 160 cm (5' 3) 02/28/2016 11:04 AM EDT Body Mass Index 26.57 02/28/2016 11:04 AM EDT documented in this encounter Discharge Instructions Discharge Mary Camarena RN - 02/28/2016 11:17 AM EDT Home Care Instructions after Cataract Surgery Do not remove the eye patch or shield, unless instructed to do so. Take it easy today. Avoid strenuous activities. Bring your eye drops and the Eye Care Kit with you to each visit after your surgery. Resume all your regular medicines. It is normal to have a scratchy sensation or mild pain in your eye. If you develop vomiting or severe pain not relieved with medication please call. Your appointment with Dr. Paz is in the Eye Clinic Desk 4-I tomorrow. You may have received medication before and/or during your procedure, which affect your judgement and reaction time therefore for the next 24 hours: You may be unsteady on your feet, be careful on stairs. Do not smoke if you are alone. Do not drink alcoholic beverages. Do not drive or operate any type of machinery. Do not make important legal decisions. If you are having any problems or additional concerns or questions please call: [phone] 8am to 5pm. After 5pm, please call [phone] and ask for opthalmology MD power generation technician. documented in this encounter Medications at Time of Discharge Medication Sig Dispensed Refills Start Date End Date bimatoprost (LUMIGAN) Place 1 drop into 0 0.01 % Drops both eyes nightly. tiotropium (SPIRIVA WITH Inhale 18 mcg into 0 HANDIHALER) 18 mcg the lungs daily. Capsule, w/Inhalation Device fluticasone (FLOVENT HFA) Inhale 1 puff into 0 110 mcg/actuation HFA the lungs 2 times Aerosol Inhaler daily. codeine 30 mg tablet 30mg, PO, Four times 0 06/17 daily ALPRAZolam (XANAX) 0.5 mg 0.5mg, PO, Once 0 06/17 tablet daily folic acid (FOLVITE) 1 mg 1MG, PO, Every other 0 06/17/2006 tablet day cyanocobalamin, vitamin 1000MCG/1ML, IM, Q 0 05/21 B-12, 1,000 mcg/mL MONTH injection albuterol (PROVENTIL 0 06/17/2006 HFA;VENTOLIN HFA) 90 mcg/Actuation inhaler Psyllium (METAMUCIL) Powd 0 06/17/2006 fluticasone-salmeterol 1 Disk(s), Inh, 0 06/17/19 07 03/27/2016 (ADVAIR DISKUS) 250-50 Twice daily mcg/dose diskus inhaler documented as of this encounter Progress Notes Mary Woodson RN - 02/28/2016 12:50 PM EDT Pt tolerated procedure well but extremely anxious during entire case. Mary Woodson RN - 02/28/2016 12:18 PM EDT Pt instructed to squeeze RN's hand if having pain, need to cough, etc. Pt instructed not to talk during procedure. Pain assessment unable to verbalize (non-verbal) but will indicate pain with hand squeeze, ask surgeon to pause and verbally assess pt. Mary Woodson RN - 02/28/2016 11:21 AM EDT Discharge instructions and medications reviewed with patient and escort. All questions answered and written copy sent home with patient. documented in this encounter H&P Notes Rhys Paz MD - 02/28/2016 11:27 AM EDT Aleida Woodson was examined in the preoperative area. She reports no new symptoms or other change in her health since her preoperative history and physical exam was performed less than 30 days ago. Her exam reveals no significant changes. She is breathing comfortably, without cyanosis or use of accessory muscles. Vital signs are within acceptable parameters. The eyes are quiet without discharge or other signs of active infection. Mal: 2 ASA: 2 The sedation plan was reviewed with Aleida Woodson and she expressed understanding and agreement. Rhys Paz MD - 02/28/2016 11:27 AM EDT See H&P from Dr. Tapia documented in this encounter Miscellaneous Notes Op Note - Rhys Paz MD - 02/28/2016 12:43 PM EDT Pre-op diagnosis: 1. Nuclear sclerotic cataract, left eye 2. Pseudoexfoliation Glaucoma, left eye Post-op diagnosis: Same Surgeon: Rhys Paz MD Name of procedure: Phacoemulsification of cataract with posterior chamber intraocular lens implant, left eye Anesthesia: Subtenons retrobulbar block, IV sedation Description of procedure: The left eye was marked preoperatively. A latex-free procedure was performed. The patient was brought into the operating suite, positioned in the supine position, and the patient's identity was verified by the surgeon and operative team. Monitors were placed by the clearing supervisor. Topical anaesthetic was placed in the left eye. The patient's left eye was prepped with Betadine, including a drop of Betadine in the cul-de-sac. The eye was draped in the usual fashion for intraocular surgery, isolating the eyelashes from the surgical field. An open wire lid speculum was placed. The operating microscope was positioned. A buttonhole incision was made in conjunctiva and tenons capsule in the inferonasal quadrant. Bleeders cauterized. Subtenons retrobulbar anesthesia was administered through a cannula with 2.5cc of 2% lidocaine mixed 50-50 with 0.75% bupivicaine. Adequate anesthesia was obtained. A limbal stab incision was made at 2:00. The eye was entered through clear cornea at the 95 degree meridian with a 2.4mm keratome. Viscoat and then Provisc was instilled in the AC in an Arshinoff-shelltechnique. A continuous curvilinear capsulorhexis was made with a cystotome. The lens was loosened with hydrodissection. The nucleus was emulsified with the phacoemulsification handpiece in a sikktj-ugb-xmyqgut fashion. Residual cortical material was removed with the automated irrigation/aspiration unit. The posterior capsule was vacuum-polished. The capsular bag was inflated with viscoelastic. An Chavo Model SN60WF posterior chamber lens with a 6mm acrylic optic was inspected and found to be without defects, placed in the [place] III hygiene assistant cartridge, and injected into the capsular bag without difficulty. The lens was secure and well- centered. Viscoelastic was thoroughly removed with the irrigation/aspiration handpiece. The anterior chamber was filled with BSS to normal intraocular pressure. The corneal phaco wound was closed with 10-0 nylon; the knot was buried. Miostat was instilled in the AC. The wounds were checked for leakage and there was none. A subconjunctival injection of dexamethasone was given inferiorly. One drop of Vigamox, Cosopt, and Maxitrol ointment were instilled, followedby a patch and shield over the operated eye. The patient was taken to [facility] in stable condition. Lens: Chavo SN60WF +21.5 diopter PCIOL EBL <1cc Specimen Removed: None (cataract emulsified, not saved as specimen) Drains: None Surgical Closure: Primary Complications: None Attestation: I performed this procedure without the involvement of a resident. 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 Start day of surgery, Day of Surgery (Day of Procedure), Routine Given 02/28/2016 11:23 AM EDT 1 drop Given 02/28/2016 11:12 AM EDT 1 drop ketorolac tromethamine (ACULAR) 0.5 % Given 02/28/2016 11:12 AM EDT 1 drop ophthalmic solution 1 drop 1 drop, Left Eye, ONCE, 1 dose, On Sat02/28/16 at 1115, 1 drop to the operative eye once, start on day of surgery, Day of Surgery (Day of Procedure), Routine lactated ringers infusion 1,000 New Bag 02/28/2016 11:33 AM ED T 1,000 mLs 100 mL/hr mL 1,000 mL, at 100 mL/hr, Intravenous, CONTINUOUS, Starting on Sat02/28/16 at 1115, Until Sat02/28/16 at 1253, Day of Surgery (Day of Procedure) moxifloxacin (VIGAMOX) 0.5 % ophthalmic Given 02/28/2016 11:32 A M EDT 1 drop solution 1 drop 1 drop, Left Eye, EVERY 5 MIN, 3 doses, First dose on Sat02/28/16 at 1115, Last dose on Sat02/28/16 at 1125, 1 drop to the operative eye every 5 minutes times 3. Start on the day of surgery., Day of Surgery (Day of Procedure), Routine Given 02/28/2016 11:23 AM EDT 1 drop Given 02/28/2016 11:12 AM EDT 1 drop PHENYLephrine (MYDFRIN) 2.5 % ophthalmic Given 02/28/2016 11:32 AM EDT 1 drop solution 1 drop 1 drop, Left Eye, EVERY 5 MIN, 3 doses, First dose on Sat02/28/16 at 1115, Last dose on Sat02/28/16 at 1125, 1 drop to the operative eye every 5 minutes times 3. Start on the day of surgery., Day of Surgery (Day of Procedure), Routine Given 02/28/2016 11:23 AM EDT 1 drop Given 02/28/2016 11:12 AM EDT 1 drop prednisoLONE acetate (PRED FORTE) 1 % Given 02/28/2016 11:12 AM EDT 1 drop ophthalmic suspension 1 drop 1 drop, Left Eye, ONCE, 1 dose, On Sat02/28/16 at 1115, 1 drop to the operative eye once, start on day of surgery, Day of Surgery (Day of Procedure), Routine documented in this encounter Active and Recently Administered Medications Times are shown in EDT. Scheduled Medication Order 02/26/2016 02/27/2016 02/28/2016 cyclopentolate (CYCLODRYL) 1 % ophthalmic solution 1 drop (COMPL ETED) 1112 (Given - Provider: Mary Woodson RN)1123 (Given - Provider: Mary Woodson RN)1132 (Given - Provider: Mary Woodson RN) 1 drop, Left Eye, EVERY 5 MIN, 3 doses, First dose on Sat02/28/16 at 1115, Last dose on Sat02/28/16 at 1125, 1 drop to the operative eye every 5 minutes times 3. Start day of surgery, Day of Surgery (Day of Procedure), Routine ketorolac tromethamine (ACULAR) 0.5 % ophthalmic solution 1 drop (COMPLETED) 111 (Given - Provider: Mary Woodson RN) 1 drop, Left Eye, ONCE, 1 dose, 02/17 at 1115, 1 drop to the operative eye once, start on day of surgery, Day of Surgery (Day of Procedure), Routine moxifloxacin (VIGAMOX) 0.5 % ophthalmic solution 1 drop (COMPLET ED) 1112 (Given - Provider: Mary Woodson RN)1123 (Given - Provider: Mary Woodson RN)1132 (Given - Provider: Mary Woodson RN) 1 drop, Left Eye, EVERY 5 MIN, 3 doses, First dose on Sat02/28/16 at 1115, Last dose on Sat02/28/16 at 1125, 1 drop to the operative eye every 5 minutes times 3. Start on the day of surgery., Day of Surgery (Day of Procedure), Routine PHENYLephrine (MYDFRIN) 2.5 % ophthalmic solution 1 drop (COMPLE PAPO) 1112 (Given - Provider: Mary Woodson RN)1123 (Given - Provider: Mary Woodson RN)1132 (Given - Provider: Mary Woodson RN) 1 drop, Left Eye, EVERY 5 MIN, 3 doses, First dose on Sat02/28/16 at 1115, Last dose on Sat02/28/16 at 1125, 1 drop to the operative eye every 5 minutes times 3. Start on the day of surgery., Day of Surgery (Day of Procedure), Routine prednisoLONE acetate (PRED FORTE) 1 % ophthalmic suspension 1 drop (COMPLETED) 1112 (Given - Provider: Sharri Hartmann N) 1 drop, Left Eye, ONCE, 1 dose, 02/17 at 1115, 1 drop to the operative eye once, start on day of surgery, Day of Surgery (Day of Procedure), Routine sodium chloride 0.9 % flush 5 mL 1115 (Due) 5 mL, Intravenous, EVERY 12 HOURS, First dose on Sat02/28/16 at 1115, Until Discontinued, Day of Surgery (Day of Procedure), Routine Continuous Medication Order 02/26/2016 02/27/2016 02/28/2016 lactated ringers infusion 1,000 mL 1133 (New Bag - Provider: Mary Woodson RN)1248 (Stopped - Provider: Mary Woodson RN) 1,000 mL, at 100 mL/hr, Intravenous, CON TINUOUS, Starting Sat02/28/16 at 1115, Until Sat02/28/16 at 1253, Day of Surgery (Day of Procedure) PRN Medication Order 02/26/2016 02/27/2016 02/28/2016 acetaminophen (TYLENOL) tablet 650 mg 650 mg, Oral, ONCE PRN, 1 dose, Starting Sat02/28/16 at 1251, Until Sat02/28/16 at 1457, Pain, Maximum dose of acetaminophen is 4000 mg from all sources in 24 hours., Recovery (Recovery-Hospital Unit), Routine atropine injection 0.4 mg 0.4 mg, Intravenous, EVERY 5 MIN PRN, 2 doses, Starting Sat02/28/16 at 1054, Until Sat02/28/16 at 1253, for heart rate less than 40 beats per minute, For 2 doses, Intra-Operative (Intra-Procedure), Routine fentaNYL 50 mcg/mL multi-dose injection 1223 (Given - Provider: Mary Woodson RN)1230 (Given - Provider: Mary Woodson RN) 25 mcg, Intravenous, EVERY 5 MIN PRN, St arting e 02/28/16 at 1054, Until 02/28/16 at 1253, Pain, For use in the Operating Room (OR), [facility]patient [facility] Center ([facility])C, or Special Procedure Room o nly under direct provider supervision an d verbal order. Hold for respiratory rate less than 8 breaths per minute. (maximum dose 100 mcg), Intra-Operative (Intra-Procedure), Routine labetalol (NORMODYNE,TRANDATE) injection 2.5 mg 2.5 mg, Intravenous, EVERY 5 MIN PRN, 4 doses, Starting e 02/28/16 at 1054, Until 02/28/16 at 1253, High Blood Pressure, systolic blood pressure greater than 180 mmHg, Hold for heart rate less aubrie n 55 beats per minute. Call MD if ineffe ctive after 4 doses., Intra-Operative (Intra-Procedure), Routine lidocaine (XYLOCAINE) 10 mg/mL (1 %) injection 3 mg 3 mg (0.3 mL), Subcutaneous, ONCE PRN, 1 dose, Starting e 02/28/16 at 1054, Until 02/28/16 at 1253, for discomfort with PIV insertion, Day of Surgery (Day of Procedure), Routine midazolam (PF) (VERSED) 1 mg/mL multi-dose injection 0.25-1 mg 1215 (Given - Provider: Mary Woodson RN)1220 (Given - Provider: Mary Woodson RN)1225 (Given - Provider: Mary Woodson RN)1230 (Given - Provider: Mary Woodson RN)1236 (Given - Provider: Mary Woodson RN) 0.25-1 mg, Intravenous, EVERY 5 MIN PRN, Starting e 02/28/16 at 1054, Until 02/28/16 at 1253, Anxiety, For use in the Operating Room (OR), [facility] Center ([facility]) or Special Procedure room only with direct provider supervision a nd verbal order. Hold for delirium/agitation. (Maximum dose 4 mg), Intra-Operative (Intra-Procedure), Routine naloxone (NARCAN) injection 0.1 mg 0.1 mg, Intravenous, EVERY 2 MIN PRN, St arting e 02/28/16 at 1054, Until Sat02/28/16 at 1253, Opioid Reversal, For opiate induced oversedation or respiratory depression. (maximum dose of 0.8 mg), Intra-Operative (Intra- Procedure), Routine sodium chloride 0.9 % flush 5-20 mL 5-20 mL, Intravenous, EVERY 1 MIN PRN, S tarting Sat02/28/16 at 1054, Until Sat02/28/16 at 1253, flush, Flush pertains to all indwelling lines. Flush per protocol found in the job aid using the link pr ovided on this medication record., Day of Surgery (Day of Proced ure), Routine documented in this encounter Care Teams Contour Sander Relationship Specialty Start Date End Date Ramila Tapia MD PCP - General 04/11/[address] [place] [address] [address] [facility] [address] [place] [address] documented as of this encounter
--- OUTSIDE RECORDS SUMMARY | 2021-11-29 08:56 | XMS_ITS | Encounter Summary ---
:1940 [place] [address] Care Team Providers Name Role Phone Ramila Tapia MD Primary Care Provider Encounter Details Date Type Department Care Team Description 02/28/2016 Surgery Outpatient Surgery Ayan Paz MD CATARACT EXTRACTION, [facility] EXTRACAPSULAR, WITH [facility] DR LENS INSERTION, [facility] OPHTHALMOLOGY DEPT. (WRVU 03.27) [place] [address] [place] [address] [phone] Social History Tobacco Use Types Packs/Day Years Used Date Former Smoker Quit: 06/21/19 16 Alcohol Use Standard Drinks/Week Comments No 0 (1 standard drink = 0.6 oz pure alcoho l) Sex Assigned at Date Recorded Not on file documented as of this encounter Last Filed Vital Signs Vital Sign Reading Time Taken Comments Blood Pressure 151/68 02/28/2016 11:04 AM EDT Pulse 79 02/28/2016 11:04 AM EDT Temperature 36.9 ??C (98.4 ??F) 02/28/2016 11:04 AM EDT Respiratory Rate 20 02/28/2016 11:04 AM EDT Oxygen Saturation 94% 02/28/2016 11:04 AM EDT Inhaled Oxygen Concentration - - Weight [...] or additional concerns or questions please call: [phone] 8am to 5pm. After 5pm, please call [phone] and ask for opthalmology MD electronic sensing equipment assembler. documented in this encounter Medications at Time [...] operative team. Monitors were placed by the ultrasound technologist sonographer. Topical anaesthetic was placed in the left [...] emulsified with the phacoemulsification handpiece in a qasulo-mos-vhzzesw fashion. Residual cortical material was removed with the automated irrigation/aspiration unit. The posterior capsule was vacuum-polished. The capsular bag was inflated with viscoelastic. An Chavo Model SN60WF posterior chamber lens with a 6mm acrylic optic was inspected and found to be without defects, placed in the [place] III groundskeeper cartridge, and injected into the capsular bag [...] and combined forms of senile catar act Combined forms of age-related cataract o f [...] Given 02/28/2016 11:12 AM EDT 1 drop fentaNYL 50 mcg/mL multi-dose injection Given 02/28/2016 12:30 PM EDT 25 mcg 25 mcg, Intravenous, EVERY 5 MIN PRN, Starting on Sat02/28/16 at 1054, Until Sat02/28/16 at 1253, Pain, For use in the Operating Room (OR), [facility] ([facility])C, or Special Procedure Room only under direct provider supervision and verbal order. Hold for respiratory rate less than 8 breaths per minute. (maximum dose 100 mcg), Intra-Operative (Intra-Procedure), Routine Given 02/28/2016 12:23 PM EDT 25 mcg ketorolac tromethamine (ACULAR) 0.5 % Given 02/28/2016 [...] 1253, Day of Surgery (Day of Procedure) midazolam (PF) (VERSED) 1 mg/mL multi-dose Given 02/28/2016 12:36 PM EDT 0.5 mg injection 0.25-1 mg 0.25-1 mg, Intravenous, EVERY 5 MIN PRN, Starting on Sat02/28/16 at 1054, Until Sat02/28/16 at 1253, Anxiety, For use in the Operating Room (OR), [facility]patient [facility] Center ([facility]) or Special Procedure room only with direct provider supervision and verbal order. Hold for delirium/agitation. (Maximum dose 4 mg), Intra-Operative (Intra-Procedure), Routine Given 02/28/2016 12:30 PM EDT 0.5 mg Given 02/28/2016 12:25 PM EDT 0.5 mg moxifloxacin (VIGAMOX) 0.5 % ophthalmic Given 02/28/2016 [...] 0.5 % ophthalmic solution 1 drop (COMPLETED) 1112 (Given - Provider: Mary Woodson RN) 1 [...] % ophthalmic solution 1 drop (COMPLE PAPO) 111 (Given - Provider: Mary Woodson RN)1123 (Given [...] 1 % ophthalmic suspension 1 drop (COMPLETED) 111 (Given - Provider: Sharri Hartmann) 1 drop, Left Eye, ONCE, 1 dose, [...] Intravenous, EVERY 5 MIN PRN, St arting Sat02/28/16 at 1054, Until Sat02/28/16 at 1253, Pain, For use in the Operating Room (OR), [facility] ([facility])C, or Special Procedure Room o nly under direct provider supervision an d verbal order. Hold for respiratory rate less than 8 breaths per minute. (maximum dose 100 mcg), Intra-Operative (Intra-Procedure), Routine labetalol (NORMODYNE,TRANDATE) injection 2.5 mg 2.5 mg, Intravenous, EVERY 5 MIN PRN, 4 doses, Starting Sat02/28/16 at 1054, Until Sat02/28/16 at 1253, High Blood Pressure, systolic blood pressure greater than 180 mmHg, Hold for heart rate less aubrie n 55 beats per minute. Call MD if ineffe ctive after 4 doses., Intra-Operative (Intra-Procedure), Routine lidocaine (XYLOCAINE) 10 mg/mL (1 %) injection 3 mg 3 mg (0.3 mL), Subcutaneous, ONCE PRN, 1 dose, Starting 02/28/16 at 1054, Until 02/28/16 at 1253, for discomfort with PIV insertion, Day of Surgery (Day of Procedure), Routine midazolam (PF) (VERSED) 1 mg/mL multi-dose injection 0.25-1 mg 1215 (Given - Provider: Mary Woodson, [place])1220 (Given - Provider: Mary Woodson, RN)1225 (Given - Provider: Mary Woodson, RN)1230 (Given - Provider: Mary Woodson RN)1236 [...] 02/28/16 at 1054, Until 02/28/16 at 1253, Opioid Reversal, For opiate induced oversedation or respiratory depression. (maximum dose of 0.8 mg), Intra-Operative (Intra- Procedure), Routine sodium chloride 0.9 % flush 5-20 mL 5-20 mL, Intravenous, EVERY 1 MIN PRN, S tarting e 02/28/16 at 1054, Until 02/28/16 at 1253, flush, Flush pertains to all indwelling lines. Flush per protocol found in the job aid using the link pr ovided on this medication record., Day of Surgery (Day of Proced ure), Routine documented in this encounter Care Teams Accounts Specialist Relationship Specialty Start Date End Date Ramila Tapia MD PCP - General 04/11/[address] [place] [address] documented as of this encounter
--- OUTSIDE RECORDS SUMMARY | 2021-11-29 08:56 | XMS_ITS | Encounter Summary ---
:1940 Author Organization [facility] [place] [address] Care Team Providers Name Role Phone Ramila Tapia MD Primary Care Provider Encounter Details Date Type Department Care Team Description 03/27/2016 Surgery Outpatient Surgery Ayan Paz MD CATARACT EXTRACTION, [facility] EXTRACAPSULAR, W/ [facility] DR INSERTION (WRVU 8.52) [facility] OPHTHALMOLOGY DEPT. [place] [id number] [place] [phone] Social History Tobacco Use Types Packs/Day Years Used Date Former Smoker Cigarettes 0.5 Quit: 06/21/19 02 Alcohol Use Standard Drinks/Week Comments No 0 (1 standard drink = 0.6 oz pure alcoho l) Sex Assigned at Date Recorded Not on file documented as of this encounter Last Filed Vital Signs Vital Sign Reading Time Taken Comments Blood Pressure 147/74 03/27/2016 1:29 PM EST Pulse 94 03/27/2016 1:29 PM EST Temperature 36.8 ??C (98.2 ??F) 03/27/2016 12:02 PM EST Respiratory Rate 12 03/27/2016 1:29 PM EST Oxygen Saturation 100% 03/27/2016 1:29 PM EST Inhaled Oxygen Concentration - - Weight 69.4 kg (153 lb) 03/27/2016 12:02 PM EST Height 160 cm (5' 3) 03/27/2016 12:02 PM EST Body Mass Index 27.1 03/27/2016 12:02 PM EST documented in this encounter Discharge Instructions Discharge InstructionsPamela Anne RN - 03/27/2016 11:52 AM EST Home Care Instructions after Cataract Surgery Do [...] or additional concerns or questions please call: [phone] 8am to 5pm. After 5pm, please call [phone] and ask for opthalmology MD exceptional student education aide. documented in this encounter Medications at Time of Discharge Medication Sig Dispensed Refills Start Date End Date bimatoprost (LUMIGAN) 0.01 Place 1 drop into 0 % Drops both eyes nightly. tiotropium (SPIRIVA WITH Inhale 18 mcg into 0 HANDIHALER) 18 mcg the lungs daily. Capsule, w/Inhalation Device fluticasone (FLOVENT HFA) Inhale 1 puff into 0 110 mcg/actuation HFA the lungs 2 times Aerosol Inhaler daily. codeine 30 mg tablet 30mg, PO, Four times 0 06/17 daily ALPRAZolam (XANAX) 0.5 mg 0.5mg, PO, Once daily 0 06/17/2006 tablet folic acid (FOLVITE) 1 mg 1MG, PO, Every other 0 06/17/2006 tablet day cyanocobalamin, vitamin 1000MCG/1ML, IM, Q 0 05/21 B-12, 1,000 mcg/mL MONTH injection albuterol (PROVENTIL 0 06/17/2006 HFA;VENTOLIN HFA) 90 mcg/Actuation inhaler Psyllium (METAMUCIL) Powd 0 06/17/2006 documented as of this encounter H&P Notes Rhys Paz MD - 03/27/2016 12:59 PM EST See H&P from Marko Zapata MD (Luisana Nick, attending) - done today Mal: 2 ASA: 2 ?? The sedation plan was reviewed with Aleida Tadeo Chintan and she expressed understanding and agreement. She has cataract OD; today's is her second cataract surgery. Rhys Paz MD - 03/27/2016 12:58 PM EST See H&P from Marko Zapata MD (Luisana Nick, attending) - done today documented in this encounter Miscellaneous Notes Op Note - Rhys Paz MD - 03/27/2016 1:36 PM EST Pre-op diagnosis: 1. Nuclear sclerotic cataract, right eye 2. Pseudoexfoliation Glaucoma, right eye Post-op diagnosis: Same Surgeon: Rhys Paz MD Name of procedure: Phacoemulsification of cataract with posterior chamber intraocular lens implant, right eye Anesthesia: Subtenons retrobulbar block, IV sedation Description of procedure: The right eye was marked preoperatively. A latex-free procedure was performed. The patient was brought into the operating suite, positioned in the supine position, and the patient's identity was verified by the surgeon and operative team. Monitors were placed by the milk powder grinder. Topical anaesthetic was placed in the right eye. The patient's right eye was prepped with Betadine, including a drop of Betadine in the cul-de-sac. The eye was draped in the usual fashion for intraocular surgery, isolating the eyelashes from the surgical field. An open wire lid speculum was placed. Theoperating microscope was positioned. A buttonhole incision was made in conjunctiva and tenons capsule in the inferonasal quadrant. Bleeders cauterized. Subtenons retrobulbar anesthesia was administered through a cannula with 2.0cc of 2% lidocaine mixed 50-50 with 0.75% [...] emulsified with the phacoemulsification handpiece in a jiyvyl-ziw-waqysqe fashion. Residual cortical material was removed with the automated irrigation/aspiration unit. The posterior capsule was vacuum-polished. The capsular bag was inflated with viscoelastic. An Chavo Model SN60WF posterior chamber lens with a 6mm acrylic optic was inspected and found to be without defects, placed in the [place] III relief mate cartridge, and injected into the capsular bag [...] Recovery in stable condition. Lens: Chavo SN60WF +22.0 diopter PCIOL EBL <1cc Specimen Removed: None (cataract emulsified, not saved as specimen) Drains: None Surgical Closure: Primary Complications: None Attestation: I performed this procedure without the involvement of a resident. 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 Start day of surgery, Day of Surgery (Day of Procedure), Routine Given 03/27/2016 12:21 PM EST 1 drop Given 03/27/2016 12:17 PM EST 1 drop fentaNYL 50 mcg/mL multi-dose injection Given 03/27/2016 1:17 PM EST 25 mcg 25 mcg, Intravenous, EVERY 5 MIN PRN, Starting on Sat03/27/16 at 1152, Until Sat03/27/16 at 1344, Pain, For use in the Operating Room (OR), Outpatient Surgical Center (OSXC)C, or Special Procedure Room only under direct provider supervision and verbal order. Hold for respiratory rate less than 8 breaths per minute. (maximum dose 100 mcg), Intra-Operative (Intra-Procedure), Routine Given 03/27/2016 1:11 PM EST 25 mcg ketorolac tromethamine (ACULAR) 0.5 % Given 03/27/2016 12:31 PM EST 1 drop ophthalmic solution 1 drop 1 drop, Right Eye, ONCE, 1 dose, On Sat03/27/16 at 1215, 1 drop to the operative eye once, start on day of surgery, Day of Surgery (Day of Procedure), Routine lactated ringers infusion 1,000 New Bag 03/27/2016 12:15 PM ES T 1,000 mLs 100 mL/hr mL 1,000 mL, at 100 mL/hr, Intravenous, CONTINUOUS, Starting on Sat03/27/16 at 1215, Until Sat03/27/16 at 1344, Day of Surgery (Day of Procedure) midazolam (PF) (VERSED) 1 mg/mL multi-dose Given 03/27/2016 1:20 PM EST 1 mg injection 0.25-1 mg 0.25-1 mg, Intravenous, EVERY 5 MIN PRN, Starting on Sat03/27/16 at 1152, Until Sat03/27/16 at 1344, Anxiety, For use in the Operating Room (OR), Outpatient Surgery Center (OSC) or Special Procedure room only with direct provider supervision and verbal order. Hold for delirium/agitation. (Maximum dose 4 mg), Intra-Operative (Intra-Procedure), Routine Given 03/27/2016 1:10 PM EST 1 mg moxifloxacin (VIGAMOX) 0.5 % ophthalmic Given 03/27/2016 12:43 P M EST 1 drop solution 1 drop 1 drop, Right Eye, EVERY 5 MIN, 3 doses, First dose on Sat03/27/16 at 1215, Last dose on Sat03/27/16 at 1225, 1 drop to the operative eye every 5 minutes times 3. Start on the day of surgery., Day of Surgery (Day of Procedure), Routine Given 03/27/2016 12:36 PM EST 1 drop Given 03/27/2016 12:31 PM EST 1 drop PHENYLephrine (MYDFRIN) 2.5 % ophthalmic Given 03/27/2016 12:16 PM EST 1 drop solution 1 drop 1 drop, Right Eye, EVERY 5 MIN, 3 doses, First dose on Sat03/27/16 at 1215, Last dose on Sat03/27/16 at 1225, 1 drop to the operative eye every 5 minutes times 3. Start on the day of surgery., Day of Surgery (Day of Procedure), Routine Given 03/27/2016 12:13 PM EST 1 drop Given 03/27/2016 12:08 PM EST 1 drop prednisoLONE acetate (PRED FORTE) 1 % Given 03/27/2016 12:28 PM EST 1 drop ophthalmic suspension 1 drop 1 drop, Right Eye, ONCE, 1 dose, On Sat03/27/16 at 1215, 1 drop to the operative eye once, start on day of surgery, Day of Surgery (Day of Procedure), Routine documented in this encounter Active and Recently Administered Medications Due to Daylight Saving Time, this section may contain times in both EDT and EST. Scheduled Medication Order 03/25/2016 03/26/2016 03/27/2016 cyclopentolate (CYCLODRYL) 1 % ophthalmic solution 1 drop (COMPL ETED) 1217 (Given - Provider: Ros Knight RN)1221 (Given - Provider: Ros Knight RN)1224 (Given - Provider: Ros Knight RN) 1 drop, Right Eye, EVERY 5 MIN, 3 doses, First dose on Sat03/27/16 at 1215, Last dose on Sat03/27/16 at 1225, 1 drop to the operative eye every 5 minutes times 3. Start day of surgery, Day of Surgery (Day of Procedure), Routine ketorolac tromethamine (ACULAR) 0.5 % ophthalmic solution 1 drop (COMPLETED) 1231 (Given - Provider: Ros Knight RN) 1 drop, Right Eye, ONCE, 1 dose, 01/02 at 1215, 1 drop to the operative eye once, start on day of surgery, Day of Surgery (Day of Procedure), Routine moxifloxacin (VIGAMOX) 0.5 % ophthalmic solution 1 drop (COMPLET ED) 1231 (Given - Provider: Ros Knight RN)1236 (Given - Provider: Ros Knight RN)1243 (Given - Provider: Ros Knight RN) 1 drop, Right Eye, EVERY 5 MIN, 3 doses, First dose on Sat03/27/16 at 1215, Last dose on Sat03/27/16 at 1225, 1 drop to the operative eye every 5 minutes times 3. Start on the day of surgery., Day of Surgery (Day of Procedure), Routine PHENYLephrine (MYDFRIN) 2.5 % ophthalmic solution 1 drop (COMPLE PAPO) 1208 (Given - Provider: Ros Knight RN)1213 (Given - Provider: Ros Knight RN)1216 (Given - Provider: Ros Knight RN) 1 drop, Right Eye, EVERY 5 MIN, 3 doses, First dose on Sat03/27/16 at 1215, Last dose on Sat03/27/16 at 1225, 1 drop to the operative eye every 5 minutes times 3. Start on the day of surgery., Day of Surgery (Day of Procedure), Routine prednisoLONE acetate (PRED FORTE) 1 % ophthalmic suspension 1 drop (COMPLETED) 1228 (Given - Provider: Ros canseco, RN) 1 drop, Right Eye, ONCE, 1 dose, 01/02 at 1215, 1 drop to the operative eye once, start on day of surgery, Day of Surgery (Day of Procedure), Routine sodium chloride 0.9 % flush 5 mL 1215 (Due) 5 mL, Intravenous, EVERY 12 HOURS, First dose on Sat03/27/16 at 1215, Until Discontinued, Day of Surgery (Day of Procedure), Routine Continuous Medication Order 03/25/2016 03/26/2016 03/27/2016 lactated ringers infusion 1,000 mL 1215 (New Bag - Provider: Ros Knight RN) 1,000 mL, at 100 mL/hr, Intravenous, CON TINUOUS, Starting Sat03/27/16 at 1215, Until Sat03/27/16 at 1344, Day of Surgery (Day of Procedure) PRN Medication Order 03/25/2016 03/26/2016 03/27/2016 acetaminophen (TYLENOL) tablet 650 mg 650 mg, Oral, ONCE PRN, 1 dose, Starting Sat03/27/16 at 1340, Until Sat03/27/16 at 1552, Pain, Maximum dose of acetaminophen is 4000 mg from all sources in 24 hours., Recovery (Recovery-Hospital Unit), Routine atropine injection 0.4 mg 0.4 mg, Intravenous, EVERY 5 MIN PRN, 2 doses, Starting Sat03/27/16 at 1152, Until Sat03/27/16 at 1344, for heart rate less than 40 beats per minute, For 2 doses, Intra-Operative (Intra-Procedure), Routine fentaNYL 50 mcg/mL multi-dose injection 1311 (Given - Provider: Ros Knight RN)1317 (Given - Provider: Ros Knight, CLAYTON) 25 mcg, Intravenous, EVERY 5 MIN PRN, St arting Sat03/27/16 at 1152, Until Sat03/27/16 at 1344, Pain, For use in the Operating Room (OR), Outpatient Surgical Center (OSXC)C, or Special Procedure Room onl y under direct provider supervision and verbal order. Hold for respiratory rate less than 8 breaths per minute. (maximum dose 100 mcg), Intra-Operative (Intra- Procedure), Routine labetalol (NORMODYNE,TRANDATE) injection 2.5 mg 2.5 mg, Intravenous, EVERY 5 MIN PRN, 4 doses, Starting e 03/27/16 at 1152, Until e 03/27/16 at 1344, High Blood Pressure, systolic blood pressure greater than 180 mmHg, Hold for heart rate less than 55 beats per minute. Call MD if ineffect nishi after 4 doses., Intra-Operative (Intra-Procedure), Routine lidocaine (XYLOCAINE) 10 mg/mL (1 %) injection 3 mg 3 mg (0.3 mL), Subcutaneous, ONCE PRN, 1 dose, Starting e 03/27/16 at 1152, Until Sat03/27/16 at 1344, for discomfort with PIV insertion, Day of Surgery (Day of Procedure), Routine midazolam (PF) (VERSED) 1 mg/mL multi-dose injection 0.25-1 mg 1310 (Given - Provider: Ros Knight RN)1320 (Given - Provider: Ros Knight RN) 0.25-1 mg, Intravenous, EVERY 5 MIN PRN, Starting e 03/27/16 at 1152, Until e 03/27/16 at 1344, Anxiety, For use in the Operating Room (OR), Outpatient Surgery Center (OSC) or Special Procedure room o nly with direct provider supervision and verbal order. Hold for delirium/agitation. (Maximum dose 4 mg), Intra-Operative (Intra-Procedure), Routine naloxone (NARCAN) injection 0.1 mg 0.1 mg, Intravenous, EVERY 2 MIN PRN, St arting e 03/27/16 at 1152, Until 03/27/16 at 1344, Opioid Reversal, For opiate induced oversedation or respiratory depression. (maximum dose of 0.8 mg), Intra-Operative (Intra-Procedure), Routine sodium chloride 0.9 % flush 5-20 mL 5-20 mL, Intravenous, EVERY 1 MIN PRN, S tarting 03/27/16 at 1152, Until 03/27/16 at 1344, flush, Flush pertains to all indwelling lines. Flush per protocol found in the job aid using the link prov ided on this medication record., Day of Surgery (Day of Procedur e), Routine documented in this encounter Care Teams Oral Surgery Technician Relationship Specialty Start Date End Date Ramila Tapia MD PCP - General 04/11/[address] [place] [address] [address] [facility] [address] [place] [address] documented as of this encounter
--- OUTSIDE RECORDS SUMMARY | 2021-11-29 08:56 | XMS_ITS | Encounter Summary ---
:1940 Author Organization [place] [id number] Care Team Providers Name Role Phone Ramila Tapia MD Primary Care Provider Reason for Visit Reason Comments Post Op CE IOL OS FOR FIRST EYE Encounter Details Date Type Department Care Team Description 02/29/2016 Office Visit Ophthalmology [facility] Rhys Paz, S/P [facility] MD extraction and [facility] [place] [address] intraocular lens, OPHTHALMOLOGY left DEPT. [place], [place] [address] Social History Tobacco Use Types Packs/Day Years Used Date Former Smoker Quit: 06/21/19 16 Alcohol Use Standard Drinks/Week Comments No 0 (1 standard drink = 0.6 oz pure alcoho l) Sex Assigned at Date Recorded Not on file documented as of this encounter Progress Notes Rhys Paz MD - 02/29/2016 12:38 PM EDT Assessment/Plan: 1. 1 day s/p cataract surgery OS Doing well with a normal post operative appearance except corneal edema. - Prednisolone acetate 1% 6x/d in operative eye - Moxifloxicin 3x/d in operative eye - Ketorolac 3x/d in operative eye - Post op precaution sheet reviewed and given to patient 2. Cataract OD Anticipate CE/IOL 3 weeks 3. PXF glaucoma - good IOP Continue Lumigan hs/hs 4. Anxiety - pt tearful yesterday and today Follow up: - 1 week DMM, sooner as needed. - Refract (prelim), dilate prn, and consent 2nd eye surgery - suture removal documented in this encounter Plan of Treatment Not on filedocumented as of this encounter Visit Diagnoses Diagnosis S/P cataract extraction and insertion of intraocular lens, left documented in this encounter Care Teams Adjustment Examiner Relationship Specialty Start Date End Date Ramila Tapia MD PCP - General 04/11/[address] [place] [address] documented as of this encounter
--- OUTSIDE RECORDS SUMMARY | 2021-11-29 08:56 | XMS_ITS | Encounter Summary ---
:1940 Author Organization [facility] [place] [address] Care Team Providers Name Role Phone Ramila Tapia MD Primary Care Provider Reason for Referral Consultation (Routine) - Closed Specialty Diagnoses / Procedures Referred By Contact Refer red To Contact Hematology and Diagnoses Leukocytosis, unspecified type Thrombocytopenia, unspecified Antwan Green [facility] [address]k On[address] [address] [place] [address] Phone: Fax: Referral ID Status Reason Start Date Expiration Date Visits V isits Requested Authorized [id number] Closed Consult, Test 10/14/2021 10/14/2022 6 6 & Treat PCP Updated and/or Approved Encounter Details Date Type Department Care Team Description 10/14/2021 Transcribe Orders eDH Incoming Maco Green is, unspecified type; Referrals MD Antwan Thrombocytopenia, unspecified [phone] [place] [phone] Social History Tobacco Use Types Packs/Day Years Used Date Former Smoker Cigarettes 0.5 Quit: 06/21/19 02 Alcohol Use Standard Drinks/Week Comments No 0 (1 standard drink = 0.6 oz pure alcoho l) Sex Assigned at Date Recorded Not on file documented as of this encounter Plan of Treatment Scheduled Referrals Name Type Priority Associated Diagnoses Order S chedule Referral to Outpatient Referral Routine Leukocytosis, Ordered : Hematology and unspecified type 10/14/2021 Oncology Thrombocytopenia, unspecified documented as of this encounter Visit Diagnoses Diagnosis Leukocytosis, unspecified type Thrombocytopenia, unspecified documented in this encounter Care Teams Telecommunicator Supervisor Relationship Specialty Start Date End Date Ramila Tapia MD PCP - General 04/11/[address] [place] [address] documented as of this encounter
--- OUTSIDE RECORDS SUMMARY | 2021-11-29 08:56 | XMS_ITS | Encounter Summary ---
:1940 Author Organization [facility] [place] [address] Care Team Providers Name Role Phone Ramila Tapia MD Primary Care Provider Reason for Visit Reason Comments Skin Check Encounter Details Date Type Department Care Team Description 06/30/2013 Office Visit Dermatology at [facility] Eczemat oukeila dermatitis Eric OLEA (Primary Dx) [address] [facility] Joe B DERMATOLOGY [place], [place] [id number] [phone] Social History Tobacco Use Types Packs/Day Years Used Date Never Smoker Sex Assigned at Date Recorded Not on file documented as of this encounter Progress Notes Fernando Wolf MD - 06/30/2013 11:39 AM EST Problem: Abdominal dermatitis. Aleida follows up after last seeing me in April of 2011. She states that she, for a number of months, has had an itchy rash on the right abdomen and on the right breast. Both of these sites are distant from her ostomy site. She has only had one further episode of mild eczema there. Dr. Tapia was able to treat this with intralesional Kenalog injection and the area has been quiescent since. Her Crohn's disease is currently inactive. The patient states that she has been using some hydrocortisone cream to the rash site without benefit and thinks that she may have also been using triamcinolone cream, although I see no reference in Dr. Tapia's notes to triamcinolone. Physical examination today reveals a pleasant 72-year-old woman who has a localized 5 cm patch of eczematous dermatitis on the right lower abdomen, between two vertically oriented earlier surgical scars. She has a patchy dermatitis also of the right nipple. She complains that both of these areas feel quite itchy. Assessment and Plan: 1. Eczematous dermatitis. a. Patient given a prescription of clobetasol ointment to apply b.i.d. to affected areas until they clear and then hold, 30 grams dispensed with one refill. b. Unclear as to the trigger for eczema, but I am quite happy for her that she does not have any peristomal inflammation/dermatitis at this time. Return to clinic here p.r.n. COPY: Ramila Tapia M.D. documented in this encounter Plan of Treatment Not on filedocumented as of this encounter Visit Diagnoses Diagnosis Eczematous dermatitis - Primary Contact dermatitis and other eczema, due to unspecified cause documented in this encounter Care Teams Medical Secretary Receptionist Relationship Specialty Start Date End Date Ramila Tapia MD PCP - General 04/11/[address] [place] [address] [address] [place] [address] documented as of this encounter
--- OUTSIDE RECORDS SUMMARY | 2021-11-29 08:56 | XMS_ITS | Encounter Summary ---
:1940 Author Organization [facility] [place] [address] Care Team Providers Name Role Phone Ramila Tapia MD Primary Care Provider Encounter Details Date Type Department Care Team Description 03/27/2016 Hospital Encounter Outpatient Surgery Do nick Paz MD [facility] OPHTHALMOLOGY DEPT. [place] [id number] [place] [phone] Social History Tobacco Use Types Packs/Day Years Used Date Former Smoker Cigarettes 0.5 Quit: 06/21/19 02 Alcohol Use Standard Drinks/Week Comments No 0 (1 standard drink = 0.6 oz pure alcoho l) Sex Assigned at Date Recorded Not on file documented as of this encounter Last Filed Vital Signs Vital Sign Reading Time Taken Comments Blood Pressure 143/71 03/27/2016 1:38 PM EST Pulse 92 03/27/2016 1:38 PM EST Temperature 36.6 ??C (97.9 ??F) 03/27/2016 1:38 PM EST Respiratory Rate 12 03/27/2016 1:38 PM EST Oxygen Saturation 99% 03/27/2016 1:38 PM EST Inhaled Oxygen Concentration - - [...] or additional concerns or questions please call: [phone] 8am to 5pm. After 5pm, please call [phone] and ask for opthalmology MD reconstructive dentist. documented in this encounter Medications at Time [...] Woodson and she expressed understanding and agreement. She has cataract OD; today's is her second cataract surgery. Rhys Paz MD - 03/27/2016 12:58 PM EST See H&P from aMrko Zapata MD (Luisana Nick, attending) - done [...] operative team. Monitors were placed by the evaporator supervisor. Topical anaesthetic was placed in the right [...] emulsified with the phacoemulsification handpiece in a [id number]-[id number] fashion. Residual cortical material was removed with the automated irrigation/aspiration unit. The posterior capsule was vacuum-polished. The capsular bag was inflated with viscoelastic. An Chavo Model [id number] posterior chamber lens with a 6mm acrylic optic was inspected and found to be without defects, placed in the [place] III stick inserter cartridge, and injected into the capsular bag [...] eyes documented in this encounter Visit Diagnoses Not on filedocumented in this encounter Administered Medications Inactive Administered [...] Given 03/27/2016 12:17 PM EST 1 drop ketorolac tromethamine (ACULAR) 0.5 % Given 03/27/2016 [...] 1344, Day of Surgery (Day of Procedure) moxifloxacin (VIGAMOX) 0.5 % ophthalmic Given 03/27/2016 [...] Provider: Ros Knight RN)1224 (Given - Provider: oRs Knight RN) 1 drop, Right Eye, EVERY [...] Ros Knight RN)1216 (Given - Provider: Ros Knight, [place]) 1 drop, Right Eye, EVERY 5 MIN, 3 doses, First dose on Sat03/27/16 at 1215, Last dose on Sat03/27/16 at 1225, 1 drop to the operative eye every 5 minutes times 3. Start on the day of surgery., Day of Surgery (Day of Procedure), Routine prednisoLONE acetate (PRED FORTE) 1 % ophthalmic suspension 1 drop (COMPLETED) 1228 (Given - Provider: Ros canseco RN) 1 drop, Right Eye, ONCE, 1 [...] Ros Knight RN)1317 (Given - Provider: Ros Knight RN) 25 mcg, Intravenous, EVERY 5 MIN [...] EVERY 5 MIN PRN, 4 doses, Starting Sat03/27/16 at 1152, Until Sat03/27/16 at 1344, High Blood Pressure, systolic blood pressure greater than 180 mmHg, Hold for heart rate less than 55 beats per minute. Call MD if ineffect nishi after 4 doses., Intra-Operative (Intra-Procedure), Routine lidocaine (XYLOCAINE) 10 mg/mL (1 %) injection 3 mg 3 mg (0.3 mL), Subcutaneous, ONCE PRN, 1 dose, Starting Sat03/27/16 at 1152, Until Sat03/27/16 at 1344, for discomfort with PIV insertion, Day of Surgery (Day of Procedure), Routine midazolam (PF) (VERSED) 1 mg/mL multi-dose injection 0.25-1 mg 1310 (Given - Provider: Ros Knight RN)1320 (Given - Provider: Eneroliza J Knight, RN) 0.25-1 mg, Intravenous, EVERY 5 MIN PRN, Starting e 03/27/16 at 1152, Until 03/27/16 at 1344, Anxiety, For use in [...] EVERY 1 MIN PRN, S tarting e 03/27/16 at 1152, Until 03/27/16 at 1344, flush, Flush pertains to all indwelling lines. Flush per protocol found in the job aid using the link prov ided on this medication record., Day of Surgery (Day of Procedur e), Routine documented in this encounter Care Teams [employer] Member Other Ranks Relationship Specialty Start Date End Date Ramila Tapia MD PCP - General 04/11/[address] [place] [address] [address] [place] [address] documented as of this encounter
--- OUTSIDE RECORDS SUMMARY | 2021-11-29 08:57 | XMS_ITS | Encounter Summary ---
:1940 Author Organization [facility] Address [address] [place] [address] Care Team Providers Name Role Phone Unavailable Primary Care Provider Unavailable Encounter Details Date Type Department Care Team Description 02/25/2021 Lab Requisition [facility] Outr Resulting Lab, Pathology & Laboratory Provider [facility] [address] [id number] Social History Tobacco Use Types Packs/Day Years Used Date Never Assessed Sex Assigned at Date Recorded Not on file documented as of this encounter Plan of Treatment Not on filedocumented as of this encounter Procedures Procedure Name Priority Date/Time Associated Diagnosis Comme nts COVID-19 TEST [facility] Today 02/25/2021 11:00 LAB PCR EDT COVID-19 TESTING Routine 02/25/2021 11:00 Results for this EDT procedure are i n the results section. documented in this encounter Results COVID-19 TEST [facility] PCR (02/25/2021 11:00 EDT) Specimen Swab - Entire nasopharynx (body structur e) Performing Organization Address City/State/ZIP Code Phon e Number [facility] [address] [place] [address] SERVICES COVID-19 TESTING (02/25/2021 11:00 EDT) COVID-19 rt-PCR Negative Negative [facility] Result Comment: CENTER [facility]ORY This test has not been FDA c leared or approved. This test has been authorized by FDA under an EUA for use by authorized laboratories. This test has been authorized only for detection of nucleic acid fro SERVICES m 2019-nCoV, not for any oth er viruses or pathogens. This test is only authorized for the duration of the declaration that circumstances exist justifying the authorization of emergency use of in vitro d iagnostic tests for detectio n and/or diagnosis of 2019-nCoV under section 564(b)(1) of Act, 21 U.S.C ?? 360bbb-3(b) (1), unless the authorization is terminated or revoked sooner. Negative results do not prec lude 2019-nCoV infection and should not be used as the sole basis for treatment or other patient management decisions. Negative results must be combined with clinical observa tions, patient history, and epidemiological informatio n. Performed on the NovoDynamicsher Fusion instrument Performing Lab [place] [facility] SERVICES Specimen Swab Performing Organization Address City/State/ZIP Code Phon e Number [facility] [address] [place] [address] SERVICES documented in this encounter Visit Diagnoses Not on filedocumented in this encounter
--- OUTSIDE RECORDS SUMMARY | 2021-11-29 08:57 | XMS_ITS | Encounter Summary ---
:1940 Author Organization [facility] Address [address] [place] [address] Care Team Providers Name Role Phone Unavailable Primary Care Provider Unavailable Encounter Details Date Type Department Care Team Description 09/17/2006 Results Only [facility] - Ramila Tapia MD [employer] [address] [facility] [address] [place] [address] [place], [place] [phone] (Wo rk) Social History Tobacco Use Types Packs/Day Years Used Date Never Assessed Sex Assigned at Date Recorded Not on file documented as of this encounter Plan of Treatment Not on filedocumented as of this encounter Procedures Procedure Name Priority Date/Time Associated Diagnosis Comme nts CYTOPATHOLOGY Routine 09/17/2006 0:00 EDT Results for this procedure are i n the results section . documented in this encounter Results CYTOPATHOLOGY (09/17/2006 0:00 EDT) Pathology Report: CYTOPATHOLOGY REPORT [facility] Reports generated via electronic interface contain amarilys ginal data; however they are lacking the format of the original re port. Caution should be taken when reading/interpreting unfo rmatted reports. Name: ? ALEIDA WOODSON ? Accession #: ? [id number] : ? 1940 (Age: 66) ??F ?Collect Date: ? 05/0 05/2006 Location: ? [facility] ? Receive Date : ? 09/19/2006 Provider: ?RAMILA TAPIA MD Copy to: ? Specimen/Source: ?ThinPrep Pap Test, E ndocervix, processed on AMT ThinPrep Imaging System, with manual evaluation Last Menstrual Period: ? Other: ? HPVA - HPV testing requested if ASC-US on the current ThinPrep Pap test. ? SPECIMEN ADEQUACY ? Satisfactory for Evaluation - assessment of transformation zone component not appl icable ( e.g. atrophy, vaginal sample, hysterectomy) GENERAL CATEGORIZATION ? Negative for Intraepithelial Lesion or Malignan cy ? Document reviewed and electronically signed by: ? SHAKA Coates(ASCP) ? Report Date: ??09/23/2006 14:52 End of Report Specimen Performing Organization Address City/State/ZIP Code Phon e Number [facility] [address] [place] [address] SERVICES [facility] [address] [place] [phone] documented in this encounter Visit Diagnoses Not on filedocumented in this encounter
--- NOTE | 2021-11-29 09:05 | W.EDPROG ---
Date of service: 11/29/21 Time of Service: 09:06 Medical Decision Making 81-year-old female signed out to me by my colleague Dr. Ranegl Evans. Please refer to his HPI, physical exam, assessment and plan. Pending x-ray results at time of signout. Concern was for CHF exacerbation, COPD exacerbation, and potential infectious etiology. Patient had been on steroids and azithromycin outpatient. Work-up has returned and demonstrates a much higher than normal white count for the patient with the bandemia of 2 bands. Electrolytes stable, renal function good, proBNP 800 which is also high for the patient. Troponin normal. EKG unremarkable per Dr. Evans. COVID, flu, RSV are all negative. Chest x-ray is equivocal. On my review there does appear to be a small amount of vascular congestion, no large infiltrate, however the patient does have mild crackles on exam. After 2 breathing treatments patient was feeling better, she was initially hypoxic in the high 80s, she is now currently 93% on 3 to 4 L. She states that she does not always use her 2 L of oxygen at home, but over the last day or 2 she has needed this at all times. I suspect that the patient's symptomatology is a mixed clinical picture. I suspect there is still a component of mild CHF, COPD, and bronchitis and/or early pneumonia. Patient does have multiple antibiotic allergies, will enhance therapy to include Levaquin which she states she has tolerated intravenously before without complication or upset stomach issues. We will give 20 mg of IV Lasix for mild diuresis. Kidney function normal. We will continue on oxygenation. Discussed the case with the hospitalist Dr. Diez, he agrees with the assessment and plan. Patient will be admitted. I have extensively reviewed the treatment plan with the patient. I have addressed all patient concerns at this time. I have also discussed the plan with the admitting physician and they agree with the current assessment and plan and have agreed to assume responsibility for the patient. All parties demonstrate verbal understanding and agreement with our assessment and plan at this time. The documentation in this chart was dictated using [email or web address] dictation software. Please excuse any dictation errors. FINDINGS: Single AP portable view. Heart size is upper normal. The mediastinum is not widened. COPD findings. However, there are no obvious confluent infiltrates nor pleural effusions. No pneumothorax. IMPRESSION: No confluent infiltrates. No pleural effusions. No pulmonary edema. Sign Out Sign Out Data: Sign Out Comment: COPD vs CHF, CXR and lab results Last updated by Rangel Evans MD at 11/29/21 07:12 Discharge Plan Disposition Patient Disposition: [facility] INPATIENT Condition: Stable Discharge Details Clinical Impression: COPD exacerbation, CHF exacerbation, Bronchitis, Hypoxemia Primary Care Provider: Ramila Tapia ED Provider: Lauri Brian Home Meds and New Rx's Prescriptions: No Action latanoprost (PF) 0.005 % drops 1 drp OP QPM alprazolam 0.5 mg tablet 0.5 mg PO DIRECTED Qty: 180 1RF Rx Instructions: 1 TAB QAM; 0.5 TAB PM PRN cyanocobalamin (vitamin B-12) 1,000 mcg/mL solution 1,000 mcg IM MONTHLY Qty: 3 12RF Rx Instructions: dispense with needles BRITT POUCH See Rx Instructions topical .COMPLEX Qty: 30 4RF Rx Instructions: 1 topical; levothyroxine 50 mcg tablet 50 mcg PO DAILY Qty: 90 12RF (DME) BD Blunt Plastic Cannula 17 x 3 mL syringe 1 ea Miscellaneous MONTHLY Qty: 12 12RF Rx Instructions: 25 guage X 1 ULTRA FINE;[id number] Spiriva with HandiHaler 18 mcg capsule, w/inhalation device 1 cap Inhalation DAILY Qty: 90 12RF (DME) Lucy Cohesive Seals 1 EACH misc 1 ea Miscellaneous DIR Label Comments: #[id number] CODE; V44.3 Rx Instructions: 018816 V44.3 BRITT 1 ea Topical DIR 0RF Rx Instructions: DRAINABLE POUCH; 3228; V44.3 folic acid 1 mg tablet 1 mg PO EVERY OTHER DAY Qty: 45 12RF acetaminophen-codeine 300-30 mg tablet 1 tab PO Q6H Qty: 120 3RF Rx Instructions: chronic diarrhea. ergocalciferol (vitamin D2) 1,250 mcg (50,000 unit) capsule 50,000 unit PO QWEEK Qty: 13 4RF Rx Instructions: Must be gel capsule budesonide-formoterol [Symbicort] 160-4.5 mcg/actuation HFA aerosol inhaler 2 puff Inhalation BID Qty: 3 12RF albuterol sulfate 90 mcg/actuation HFA aerosol inhaler 2 puff inhalation Q8H Qty: 8.5 4RF Rx Instructions: Must be HFA. J amoxicillin-pot clavulanate 875-125 mg tablet 1 tab PO BID ibuprofen 200 mg tablet 400 mg PO Q6H PRN (Reason: pain) Qty: 30 0RF
--- NOTE | 2021-11-29 09:06 | PDOC.ERCMIN ---
- If Service Date Differs Date of service: 11/29/21 Time of Service: 09:06 Care Management Initial Assess REASON FOR HOSPITALIZATION:: COPD, CHF, bronchitis. PAST MEDICAL HISTORY/PAST SURGICAL HISTORY:: Active Problems: Asthma exacerbation in COPD (Acute), COPD exacerbation (Acute), CHF exacerbation (Acute), Bronchitis (Acute),. Hypoxemia (Acute), Cat bite of right hand (Acute), Colostomy care (Acute), Pain (Acute), Cellulitis of right upper extremity (Acute),. Respiratory failure with hypoxia (Acute), Conductive hearing loss, external ear (Acute), Impacted cerumen, bilateral (Acute), Chronic rhinitis (Acute),. Leukocytosis (Acute), Thrombocytopenia (Chronic), Anemia (Chronic), Physician orders for life-sustaining treatment (POLST) form indicates patient wish for limited interventions status (Acute) - DO NOT INTUBATE - ok with chest compressions and shock, Shortness of breath (Acute),. DNI (do not intubate) (Acute) - per discussion 08/25/2019, Conductive hearing loss, external ear (Acute), Dysphonia (Acute 03/18/14), Elevation of level of transaminase and lactic acid dehydrogenase (LDH) (Acute),. 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 Only med which works. Ends up in hospital if diarrhea not well controlled, Mixed hearing loss, 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) - Phonak Ana S V SP (R: [id number]) out of warranty, fit September 2009, Impaired renal function disorder (Chronic), Gastro-esophageal reflux disease with esophagitis (Chronic) - nodule mid portion of vocal cord, Fatigue (Chronic 10/27/13), Depressive disorder (Chronic 01/21/13), Chronic pain syndrome (Chronic), Chronic night sweats (Chronic 09/16/17), Chronic diarrhea (Chronic) - CONTROLLED SUBSTANCE AGREEMENT 09/05/15-USES CODEINE - 02/18/17 CONTROLLED SUBSTANCE AGREEMENT~RENEWED, Balance disorder (Chronic 06/02/15), and Essential hypertension (Chronic 04/17/13). Medical History: Anxiety (02/04/13), Bilateral impacted cerumen (03/24/15), CAP (community acquired pneumonia), COPD (chronic obstructive pulmonary disease), COPD with exacerbation, Cramps, extremity (02/18/17), Crohns disease (01/21/13) - surgery in 1975 w/ removal of intestines and colostomy - on codeine tid chronically to control diarrhea, DNI (do not intubate), Dysphonia (03/18/14) - Hoarseness,. Elev transaminase/LDH - 05/20/83, External ear conductive hearing loss -. 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 HX of LLL, Pneumonia, Pulmonary nodule, right - 04/05/14 repeat negative, Pyloric ulcer associated with Helicobacter pylori - 04/18/06, Pyloric ulcer associated with Helicobacter pylori (04/18/06), Seizure -. secondary to decreased calcium, magnesium, and sodium, Seizure, Smoker - quit smoking-2001, and Subclinical hypothyroidism (06/07/15) - NIGHT SWEATS ON MED-JMD. Surgical History: Cholecystectomy (~1996), Colostomy (~1983) - CHRON'S DISEASE, History of colectomy, History of colon resection - Chron's disease; colostomy in place, S/P cholecystectomy - 05/20/96, and Status post cholecystectomy. PREVIOUS FUNCTIONAL STATUS/SOCIAL/FAMILY SUPPORTS:: Aleida lives in [place] with her Elvis. She has an adult daughter, Candice, who lives nearby and is supportive. Aleida also has two adult grandsons and a 6-year-old granddaughter who she enjoys spending time with. 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 She enjoys reading and sewing. She is independent with her ADLs and ostomy care and still drives. CURRENT FUNCTIONAL STATUS:: Aleida is lying in bed when CM meets with her. She is pleasant and easily engages in conversation. She talks about her health issues and getting an ostomy in 1983. She also talks about her family and shares how much she misses her parents who have been for years. ADVANCE DIRECTIVES:: On file; daughter Candice Alarcon is appointed as Health Care Agent. COLST form also on file. Has patient been provided with info about the portal/API?: Yes Did the patient sign up for the portal?: Yes (Previously enrolled) CODE STATUS:: DNI INSURANCE COVERAGE / FINANCIAL ISSUES:: Medicare and [facility]. CURRENT HOME/COMMUNITY SERVICES/EQUIPMENT:: No home or community services. Aleida gets her ostomy supplies from [employer]. She also has oxygen which she uses as needed. Aleida is unable to recall the company that provides the oxygen but says it is out of [place], [place]. She has an [employer] portable oxygen concentrator, a cane, walking stick, tub seat and grab bars, dentures and hearing aids. PRIMARY CARE PHYSICIAN:: Ramila Tapia MD ([facility]). POTENTIAL DISCHARGE NEEDS:: Follow up appointments with PCP and pulmonology. PATIENT/FAMILY EDUCATION NEEDS:: Review discharge instructions re medication, limitation, and follow up plan of care; discuss Ask Me Three and self management. ANTICIPATED BARRIERS TO DISCHARGE:: No anticipated barriers at this time. TRANSPORTATION:: Via private vehicle with family. PLAN:: Aleida will likely be discharged home with no new services when medically cleared by provider. She will follow up with her PCP, weatherseal technician, and plan of care as prescribed. She will be transported home by family via private vehicle when ready. will continue to support Aleida and any discharge planning needs.
[2021-11-29] MEDS: Furosemide 20 MG/2 ML VIAL IVP (09:28)
[2021-11-29] MEDS: levoFLOXacin 750 MG/150 ML BAG 100 MG IVPB (09:30)
[2021-11-29] MEDS: Enoxaparin 40 MG/0.4 ML SYR SC (12:35)
[2021-11-29] MEDS: predniSONE 20 MG TAB 40 MG PO (15:43)
[2021-11-29] MEDS: Acetaminophen 325 MG TAB PO (15:43)
[2021-11-29] MEDS: guaiFENesin 600 MG TABCR PO ×2 (15:44→20:20)
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
[2021-11-29] MEDS: Budesonide/Formoterol 160/4.5 6 GM 60 PUFF INH IH (20:20)
[2021-11-29] MEDS: Latanoprost 0.005% 2.5 ML BTL 1 ML OP (22:22)
[2021-11-30] VITALS (10 sets, daily range): BP systolic 156–178; BP diastolic 76–84; PULSE 82–97; RESP 4–22; TEMP 36.8–37.7; O2SAT 91–99
[2021-11-30] MEDS: Normal Saline Flush 10 ML SYR IVP (06:05)
[2021-11-30] MEDS: Levothyroxine 50 MCG TAB PO (06:06)
[2021-11-30 06:30] LABS: HCT 39.3 % (36.0-46.0); HGB 13.5 g/dL (11.2-15.7); MCH 31.3 pg (27.0-33.0); MCHC 34.4 % (32.0-36.0); MCV 91 fL (80-95); MPV 10.1 fL (8.0-11.0); Platelet Count 144 10^3/uL (130-400); RBC 4.32 10^6/uL (3.93-5.22); RDW 12.4 % (11.7-14.6); RDW-SD 41.2 fL
[2021-11-30 06:40] LABS: Anion Gap 10.3 mmol/L (3-11); BUN 28 mg/dL (7-18); CO2 28.7 mmol/L (21.0-32.0); CREATININE 1.1 mg/dL (0.55-1.02); Calcium 9.2 mg/dL (8.5-10.1); Chloride 100 mmol/L (98-107); Estimated GFR 47.79 (mL/min/1.73m2); Glucose 120 mg/dL (74-106); Potassium 3.6 mmol/L (3.5-5.1); Sodium 139 mmol/L (136-145)
[2021-11-30 06:53] LABS: WBC 32.75 10^3/uL (4.4-10.8)
--- NOTE | 2021-11-30 06:58 | NUR.NOTE ---
Nursing Note: Critical value, read back, WBC 32.75, notified.
[2021-11-30 07:02] LABS: Absolute Lymphocyte Count 14.41 10^3/uL (1.2-3.4); Absolute Monocyte Count 1.64 10^3/uL (0.1-0.8); Absolute Neutrophil Count 16.38 10^3/uL (1.2-6.7)
[2021-11-30 07:03] LABS: Diff Comment Manual Differential; Metamyelocytes % 1; RBC Morphology Normal
[2021-11-30] MEDS: Tiotropium Bromide-Respimat 10 PUFF INH 2 PUFF IH (07:35)
[2021-11-30] MEDS: Budesonide/Formoterol 160/4.5 6 GM 60 PUFF INH IH ×2 (07:35→19:49)
[2021-11-30] MEDS: Pantoprazole 40 MG TABCR PO (08:42)
[2021-11-30] MEDS: guaiFENesin 600 MG TABCR PO ×2 (08:42→19:48)
[2021-11-30] MEDS: Enoxaparin 40 MG/0.4 ML SYR SC (08:43)
[2021-11-30] MEDS: predniSONE 20 MG TAB 40 MG PO (08:43)
--- NOTE | 2021-11-30 09:28 | PDOC.CMPRO ---
- If Service Date Differs Date of service: 11/30/21 Time of Service: 09:28 Care Management Progress Note S/O: Aleida is being closely monitored and treated with steroids and IV abx. Cultures are pending. Aleida uses Supplemental O2 at baseline and is currently 96% on 2L NC. A: 81 year old female admitted to [facility] on 11/29/21 for COPD, CHF, bronchitis. P: Aleida will likely be discharged home with no new services when medically cleared by provider. She will follow up with her PCP, insurance instructor, and plan of care as prescribed. She will be transported home by family via private vehicle when ready. CM will continue to support Aleida and any discharge planning needs.
[2021-11-30 09:43] LABS: Lab Add On Test DONE
[2021-11-30 10:17] LABS: Procalcitonin 4.3 ng/mL
--- NOTE | 2021-11-30 12:26 | W.PM.PROGNOT ---
Date of Service Date of service: 11/30/21 Time of Service: 12:26 Assessment and Plan Assessment and plan (1) Asthma exacerbation in COPD: Status: Acute Assessment and plan: Due to acute bronchitis, present on admission. Does have an elevated procalcitonin, so there is a role for abx - continue levofloxacin. Await sputum cx. Continue prn xopenex; I have also scheduled ipratropium in addition to spiriva. Continue symbicort. Add prn lorazepam. Add humidification to O2. (2) Bronchitis: Status: Acute Assessment and plan: As above (3) Hypoxemia: Status: Chronic Assessment and plan: The patient is normally on 2L of O2 at home and is on 2L of O2 right now. doing better. Add humidification to O2. WIll need exercise oximetry on d/c. (4) Anxiety: Assessment and plan: Prn lorazepam (the patient has not taken any xanax here). (5) DVT prophylaxis: Status: Acute Assessment and plan: Sc enoxaparin (6) Discharge planning issues: Status: Acute Assessment and plan: DNI. C/s PT. Subjective Subjective Interval history since last seen: Continues to report shortness of breath - this is actually worse than yesterday. Feels anxious when she feels this way. Breathing is worse on ambulation. States her abdomen feels funny in epigastrium - it always dose, per patient, but she has been belching, and we discussed how she might have GERD, especially now that she is on steroids. No abdominal pain. Ate a little bit and is about to try lunch. Feels cold. Describes stress in her life associated with her daughter going through a separation/custody over granddaughter. Agrees to having a prn dose of anxiety medicine if she decides she wants it. 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 Extremities: no edema BLEs Objective Last Vital Signs Temp 36.8 C 11/30/21 07:21 Pulse 85 11/30/21 07:21 Resp 20 11/30/21 07:21 BP 168/84 H 11/30/21 07:21 Pulse Ox 96 11/30/21 07:41 Laboratory Results - last 24 hr 11/30/21 11/30/21 11/30/21 06:18 06:18 06:18 WBC 32.75 H* RBC 4.32 Hgb 13.5 Hct 39.3 MCV 91 D MCH 31.3 MCHC 34.4 RDW 12.4 Plt Count 144 MPV 10.1 Immature Gran % 0.0 Neutrophils % 50.0 Lymphocytes % 44.0 Monocytes % 5.0 Eosinophils % 0.0 Basophils % 0.0 Metamyelocytes % 1 Nucleated RBC % 0.0 Absolute Neutrophils 16.38 H Absolute Lymphocytes 14.41 H Absolute Monocytes 1.64 H Absolute Eosinophils 0.00 Absolute Basophils 0.00 RBC Morphology Normal Sodium 139 Potassium 3.6 Chloride 100 Carbon Dioxide 28.7 Anion Gap 10.3 BUN 28 H Creatinine 1.1 H Estimated GFR/1.73 m2 47.79 Glucose 120 H Calcium 9.2 Procalcitonin Add-On Test Request DONE 11/30/21 06:18 WBC RBC Hgb Hct MCV MCH MCHC RDW Plt Count MPV Immature Gran % Neutrophils % Lymphocytes % Monocytes % Eosinophils % Basophils % Metamyelocytes % Nucleated RBC % Absolute Neutrophils Absolute Lymphocytes Absolute Monocytes Absolute Eosinophils Absolute Basophils RBC Morphology Sodium Potassium Chloride Carbon Dioxide Anion Gap BUN Creatinine Estimated GFR/1.73 m2 Glucose Calcium Procalcitonin 4.3 Add-On Test Request
[2021-11-30] MEDS: Ipratropium 0.5 MG/2.5 ML UPD VIAL UPD ×3 (12:44→19:49)
[2021-11-30] MEDS: Levalbuterol 0.63 MG/3 ML UPD VIAL UPD (12:45)
[2021-11-30] MEDS: Sodium Chloride-Nasal SPRAY-ADULT 44 ML BTL NS ×3 (13:12→19:48)
--- NOTE | 2021-11-30 16:41 | CHAPLAIN ---
Aleida was up in the chair when I visited. She said she is feeling a little better. She easily engaged in conversation telling me about her daughter, six year old grand daughter and two adult grandsons. Her is 92 and lives at home with her. She really enjoys the company of her family. Aleida is a member of the [employer] in [place]. Because of her COPD and weaken immune system, she said she is fearful of being inside the bahai building because of COVID, but assured me that she still loves the Lord. We talked about not needing to be inside a bahai for that. I gave her a prayer shawl. I will continue to visit.
[2021-11-30] MEDS: Latanoprost 0.005% 2.5 ML BTL 1 ML OP (21:41)
[2021-12-01] VITALS (12 sets, daily range): BP systolic 130–159; BP diastolic 73–92; PULSE 88–96; RESP 2–18; TEMP 36.8–37.7; O2SAT 91–94
[2021-12-01] MEDS: Acetaminophen 325 MG TAB PO (02:12)
[2021-12-01] MEDS: Calcium Carbonate *TUMS* 500 MG CHEW PO (02:12)
[2021-12-01] MEDS: Levothyroxine 50 MCG TAB PO (06:21)
[2021-12-01] MEDS: predniSONE 20 MG TAB 40 MG PO (07:56)
[2021-12-01] MEDS: Enoxaparin 40 MG/0.4 ML SYR SC (07:56)
[2021-12-01] MEDS: Pantoprazole 40 MG TABCR PO (07:56)
[2021-12-01] MEDS: ALPRAZolam 0.5 MG TAB PO (07:56)
[2021-12-01] MEDS: guaiFENesin 600 MG TABCR PO ×2 (07:56→20:29)
[2021-12-01 07:57] LABS: HGB 14.7 g/dL (11.2-15.7); MCH 31.1 pg (27.0-33.0); MCHC 34.2 % (32.0-36.0); MCV 91 fL (80-95); MPV 9.7 fL (8.0-11.0); Platelet Count 135 10^3/uL (130-400); RBC 4.73 10^6/uL (3.93-5.22); RDW 12.5 % (11.7-14.6); RDW-SD 41.8 fL
[2021-12-01] MEDS: Sodium Chloride-Nasal SPRAY-ADULT 44 ML BTL NS ×4 (07:57→20:31)
[2021-12-01 08:18] LABS: Absolute Lymphocyte Count 12.12 10^3/uL (1.2-3.4); Absolute Neutrophil Count 27.07 10^3/uL (1.2-6.7); Atypical Lymphocytes % 19
[2021-12-01 08:19] LABS: Absolute Monocyte Count 1.21 10^3/uL (0.1-0.8); Diff Comment Manual Differential; RBC Morphology Normal
[2021-12-01 08:20] LABS: Anion Gap 7.9 mmol/L (3-11); BUN 36 mg/dL (7-18); CO2 31.1 mmol/L (21.0-32.0); Calcium 9.5 mg/dL (8.5-10.1); Chloride 100 mmol/L (98-107); Estimated GFR 53.35 (mL/min/1.73m2); Glucose 93 mg/dL (74-106); Magnesium 1.7 mg/dL (1.8-2.4); Sodium 139 mmol/L (136-145)
[2021-12-01] MEDS: Tiotropium Bromide-Respimat 10 PUFF INH 2 PUFF IH (08:28)
[2021-12-01] MEDS: Budesonide/Formoterol 160/4.5 6 GM 60 PUFF INH IH ×2 (08:28→20:31)
[2021-12-01] MEDS: Potassium Chloride 20 MEQ TABCR 40 MEQ PO ×2 (09:22→20:29)
--- NOTE | 2021-12-01 09:35 | PDOC.CMPRO ---
- If Service Date Differs Date of service: 12/01/21 Time of Service: 09:35 Care Management Progress Note S/O: Aleida is being closely monitored and treated with steroids and IV abx. Cultures are pending. Aleida uses Supplemental O2 at baseline and is currently 91% on 2L NC. Aleida will need exercise oximetry prior to discharge. A: 81 year old female admitted to [facility] on 11/29/21 for COPD, CHF, bronchitis. P: Aleida will likely be discharged home with no new services when medically cleared by provider. She will follow up with her PCP, rewinder operator helper, and plan of care as prescribed. She will be transported home by family via private vehicle when ready. CM will continue to support Aleida and any discharge planning needs.
[2021-12-01] MEDS: MAGNESIUM SULFATE 2 GM/50 ML BAG IVPB (09:56)
[2021-12-01] MEDS: levoFLOXacin 750 MG/150 ML BAG 100 MG IVPB (10:09)
[2021-12-01] MEDS: Normal Saline Flush 10 ML SYR IVP (11:06)
[2021-12-01] MEDS: Ipratropium 0.5 MG/2.5 ML UPD VIAL UPD ×3 (13:44→20:30)
--- NOTE | 2021-12-01 16:05 | PT.INIE ---
Date of service: 12/01/21 Time of Service: 16:05 PT Notes Visit Reasons: COPD,CHF,Bronchitis Physical Therapy Inpatient Initial Evaluation Date: 12/01/2021 Referring Doctor: Stephanie Sarmiento MD PT Orders: PT CONSULT: Limited ability Precautions: Fall. Standard. Activity as tolerated. Patient Profile/Admitting Diagnosis: Aleida is an 81-year-old female who presented to the ED on 11/29/2021 due to worsening cough and shortness of breath patient is diagnosed with COPD exacerbation, asthma, bronchitis, hypoxemia, requiring 2 L of oxygen per minute, and anxiety.. PMHX: All Active Problems?(Updated 11/29/21 @ 09:05 by Lauri Brian DO) Asthma exacerbation in COPD (Acute) COPD exacerbation (Acute) CHF exacerbation (Acute) Bronchitis (Acute) Hypoxemia (Acute) Cat bite of right hand (Acute) Colostomy care (Acute) Pain (Acute) Cellulitis of right upper extremity (Acute) Respiratory failure with hypoxia (Acute) Conductive hearing loss, external ear (Acute) Impacted cerumen, bilateral (Acute) Chronic rhinitis (Acute) Leukocytosis (Acute) Thrombocytopenia (Chronic) Anemia (Chronic) Physician orders for life-sustaining treatment (POLST) form indicates patient wish for limited interventions status (Acute) DO NOT INTUBATE ok with chest compressions and shock Shortness of breath (Acute) DNI (do not intubate) (Acute) per discussion 08/25/2019Conductive hearing loss, external ear (Acute) Dysphonia (Acute 03/18/14) Elevation of level of transaminase and lactic acid dehydrogenase (LDH) (Acute) External ear conductive hearing loss (Acute 03/24/15) Mucous polyp of cervix (Acute) Nodule of right lung (Acute 04/05/14) Vitamin D deficiency (Chronic 03/19/09) Urinary incontinence (Chronic 09/09/14) Shoulder pain (Chronic 04/18/04) frozen shoulder Sensorineural hearing loss, 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 Only med which works.? ENds up in hospital if diarrhea not well controlled Mixed hearing loss, 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) Phonak Ana S V SP (R: [id number]) out of warranty, fit September 2009. Impaired renal function disorder (Chronic) Gastro-esophageal reflux disease with esophagitis (Chronic) nodule mid portion of? vocal cord Fatigue (Chronic 10/27/13) Depressive disorder (Chronic 01/21/13) Chronic pain syndrome (Chronic) Chronic night sweats (Chronic 09/16/17) Chronic diarrhea (Chronic) CONTROLLED SUBSTANCE AGREEMENT? 09/05/15-USES CODEINE 02/18/17 CONTROLLED SUBSTANCE AGREEMENT~RENEWED Balance disorder (Chronic 06/02/15) Essential hypertension (Chronic 04/17/13) Medical History? Anxiety (02/04/13) Bilateral impacted cerumen (03/24/15) CAP (community acquired pneumonia) COPD (chronic obstructive pulmonary disease) COPD with exacerbation Cramps, extremity (02/18/17) Crohns disease (01/21/13) surgery in 1975 w/ removal of intestines and colostomy on codeine tid chronically to control diarrhea DNI (do not intubate) Dysphonia (03/18/14) Hoarseness Elev transaminase/LDH 05/20/83External ear conductive hearing loss 03/24/15Hypokalemia Hypomagnesemia Hyponatremia 11/16/05 w/hospitalizationHyponatremia (11/16/05) Hyponatremia syndrome (06/27/15) Hypothyroidism Impacted cerumen (03/18/14) Impacted cerumen of both ears (03/24/15) Mucous polyp of cervix Pneumonia HX of LLLPneumonia Pulmonary nodule, right 04/05/14 repeat negativePyloric ulcer associated with Helicobacter pylori 04/18/06Pyloric ulcer associated with Helicobacter pylori (04/18/06) 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 Seizure Smoker quit smoking-2001 Subclinical hypothyroidism (06/07/15) NIGHT SWEATS ON MED-JMD Surgical History? Cholecystectomy (~1996) Colostomy (~1983) CHRON'S DISEASE History of colectomy History of colon resection Chron's disease; colostomy in place S/P cholecystectomy Social History/Home Situation: Lives with in a private ranch-style home with 2 steps to enter. Independent with all mobility ADLs without assistive device. Occasionally uses a single-point cane for outdoors Equipment Owned/DME: [facility], [facility] Subjective: Agreeable to PT consult. Reports mild shortness of breath with in room ambulation of 20 feet x 2 without an assistive device. Uses to use a walker for energy conservation. Objective: General Observation: Supine in bed. On oxygen supplementation via NC. Mental Status: Alert and oriented as to person, place, time, and purpose. Able to pay attention, focus, and respond appropriately. Pain: Denies Vital Signs: WNL as closely monitored by nursing staff. ROM: Right Upper Extremity: Shoulder Flexion lacks last 25% of AROM. Shoulder abduction lacks last 25% of AZUL. Elbow flexion WFL. Wrist flexion WFL. Functional opening and closing of hand WFL. Left Upper Extremity: Shoulder Flexion lacks last 25% of AROM. Shoulder abduction lacks last 25% of AZUL. Elbow flexion WFL. Wrist flexion WFL. Functional opening and closing of hand WFL. Right Lower Extremity: Hip flexion WFL. Hip abduction WFL. Knee flexion WFL. Ankle dorsiflexion WFL. Ankle plantarflexion WFL. Left Lower Extremity: Hip flexion WFL. Hip abduction WFL. Knee flexion WFL. Ankle dorsiflexion WFL. Ankle plantarflexion WFL. Strength: Right Upper Extremity: Shoulder flexors 3-/5. Shoulder abductors 3-/5. Elbow flexors 4-/5. Elbow extensors 4-/5. Black Pickler strong. Left Upper Extremity: Shoulder flexors 3-/5. Shoulder abductors 3-/5. Elbow flexors 4-/5. Elbow extensors 4-/5. Black Pickler strong. Right Lower Extremity: Hip flexors 4-/5. Hip abductors 4-/5. Knee flexors 4-/5. Knee extensors 54-5. Ankle dorsiflexors 4-/5. Ankle plantarflexors 4-/5. Left Lower Extremity: Hip flexors 4-/5. Hip abductors 4-/5. Knee flexors 4-/5. Knee extensors 54-5. Ankle dorsiflexors 4-/5. Ankle plantarflexors 4-/5. Bed Mobility/Transfers: Rolling independent Supine to sit independent Sit to supine independent Sit to stand independent Stand to sit independent Bed to reclining chair supervision Reclining chair to bed supervision Gait: Instructed patient with level surface ambulation of 20 feet +20 feet requiring standby assist. Risa decreased. Mild SOB that subsided with rest. Insisted on not using front wheeled walker for the walk Balance: Static Sitting: Normal Dynamic Sitting: Normal Static Standing: Good Dynamic Standing: Fair Special Tests: Mobility Limitations Standardized Measure [facility] AM-PAC 6 clicks Basic Mobility Inpatient Short Form: Raw Score: 21 CMS Score: 29% deficit Informed Consent/Education: Patient was instructed in purpose of PT consult and plan of care. Agreeable to proceed with established PT POC to achieve personal goals. Assessment: Patient presents with clinical signs and symptoms consistent with current/admitting diagnoses that have resulted to mobility limitations, gait instability, generalized weakness, and overall ADL decline as demonstrated by the following impairment level findings: 1. Decreased strength to B UE/LE major muscle groups 2. Impaired sitting/standing balance 3. Impaired activity tolerance 4. Limitation of joint range of motion in B shoulders 5. Shortness of breath 6. Swelling Impairments are contributing to the following functional limitations: 1. Decline in bed mobility skills 2. Decline in transfer skills 3. Difficulty with ambulation without assistive device and physical assistance 4. Increased completion time for mobility ADL performance 5. Increased risk for falls 6. Difficulty with managing steps alone safely Patient is assessed as a 45754 moderate complexity based on the following: History: 81-year-old female with past medical history as indicated above Examination: Demonstrable impairment in strength, balance, and mobility level with underlying impairments and functional limitations as exhibited above as well as deficit score of 29% utilizing the [facility] Mobility Inpatient Short Form Presentation: Evolving Decision Makin moderate complexity Goals: Goals X1 week 1. Bed-Chair independent with no AD 2. Chair-Bed independent with no AD 3. Independent gait on level surface with use of no AD for at least 100 feet without report of pain nor dyspnea 4. Independent stair negotiation while holding onto B rails for at least 5 steps without report of pain nor dyspnea 5. Good static and dynamic standing balance/tolerance Plan of Care/Treatment Plan: 1-2x/day, 7 days/week x 1 week. Plan of care has been reviewed with the [employer] HELPER providing the service under Physical Therapy direction. Initiate Physical Therapy intervention for pain management as needed, strengthening, bed mobility, transfers, gait, stairs, balance training, and use of assistive device. With DISCHARGE RECOMMENDATIONS: [X] Home with no services. Home when medically cleared by hospitalist. No services needed at this time. Refuses use front wheeled walker for energy conservation at this time. [] Home with services [specify] [] Home with outpatient PT [] [] SNF for continued rehabilitation [] [] [facility] [] [] SNF versus LTC based on ability to participate and progress [] TREATMENT CODE/TIME: 9716 2 x 25 minutes, 30485 x 16 minutes beginning at 16:05 PM. Thank you for the opportunity to participate in the care of this patient. Marilee Brooks PT, DPT, CLT [facility] [place], [place]
--- NOTE | 2021-12-01 16:32 | PGE_ITS ---
Date of Service Date of service: 12/01/21 Time of Service: 16:32 Assessment and Plan Assessment and plan (1) Asthma exacerbation in COPD: Status: Acute Assessment and plan: Does have an elevated procalcitonin, continue levofloxacin. Sputum - moderate white cells, rare epithelli, few mixed gram + Continue prn xopenex, continue scheduled ipratropium in addition to spiriva. Co ntinue symbicort. Has not taken any prn lorazepam. (2) Bronchitis: Status: Acute Assessment and plan: As above (3) Hypoxemia: Status: Chronic Assessment and plan: The patient is normally on 2L of O2 at home and is on 2L of O2 right now. WIll need exercise oximetry on d/c. (4) DVT prophylaxis: Status: Acute Assessment and plan: Subcutaneous enoxaparin (5) Discharge planning issues: Status: Acute Assessment and plan: DNI. PT Subjective Subjective Patient reports: no new complaints Interval history since last seen: Reports poor sleep. Reports decreased appetite. Breathing is better. Reports a nonproductive cough. Reports back pain from the bed. No CP, nausea. Good ostomy output. Exam Narrative Exam Narrative: Aleida states she is improving; she is able to speak full sentences and able to eat with out becoming short of breath. Const General: cooperative, comfortable, no acute distress and frail appearing HENME Head: normal to inspection Eyes General: appearance normal, both eyes and all related structures Neck Neck: normal visual inspection Chest Chest: normal inspection of the chest Resp Effort & Inspection: normal respiratory effort and able to speak in complete sentences Cardio Jugular venous pressure: no JVD GI Inspection: normal to inspection Palpation: soft Auscultation: normal bowel sounds General: bimanual renal exam normal bilaterally Back/Spine/Pelvis Back: no CVA tenderness Skin General skin exam: no rashes or lesions noted Neuro General: patient alert, patient awake and patient oriented x3 Extrem General: normal to inspection Objective Last Vital Signs Temp 37.5 C 12/01/21 14:21 Pulse 88 12/01/21 14:21 Resp 18 12/01/21 14:21 BP 130/80 12/01/21 14:21 Pulse Ox 92 12/01/21 14:21 Laboratory Results - last 24 hr 12/01/21 12/01/21 07:18 07:18 WBC 40.40 H* RBC 4.73 Hgb 14.7 Hct 43.0 MCV 91 MCH 31.1 MCHC 34.2 RDW 12.5 Plt Count 135 MPV 9.7 Immature Gran % 0.0 Neutrophils % 67.0 Lymphocytes % 11.0 Atypical Lymphs % 19 Monocytes % 3.0 Eosinophils % 0.0 Basophils % 0.0 Nucleated RBC % 0.0 Absolute Neutrophils 27.07 H Absolute Lymphocytes 12.12 H Absolute Monocytes 1.21 H Absolute Eosinophils 0.00 Absolute Basophils 0.00 RBC Morphology Normal Sodium 139 Potassium 3.0 L Chloride 100 Carbon Dioxide 31.1 Anion Gap 7.9 BUN 36 H Creatinine 1.0 Estimated GFR/1.73 m2 53.35 Glucose 93 Calcium 9.5 Magnesium 1.7 L Reviewed Pertinent PMH: Yes
--- NOTE | 2021-12-01 17:15 | CHAPLAIN ---
Aleida said she believes she is getting better. She explained that being in the hospital makes her anxious, so that adds not feeling well. She seems to be well supported by family, her daughter and grandsons, especially. Aleida said her is older, and his son dropped into to bring chicken soup for his dad and will be checking on him. Aleida is a member of the [facility] [employer], although she hasn't attended due to COVID and concerns for her respiratory issues.
[2021-12-01] MEDS: Latanoprost 0.005% 2.5 ML BTL 1 ML OP (22:56)
[2021-12-02] VITALS (8 sets, daily range): BP systolic 143–148; BP diastolic 76–81; PULSE 89–106; RESP 2–24; TEMP 36.9–37.5; O2SAT 92–98
[2021-12-02] MEDS: Levothyroxine 50 MCG TAB PO (05:54)
[2021-12-02] MEDS: Calcium Carbonate *TUMS* 500 MG CHEW PO (05:55)
[2021-12-02 06:48] LABS: HCT 48.1 % (36.0-46.0); HGB 16.8 g/dL (11.2-15.7); MCH 31.5 pg (27.0-33.0); MCHC 34.9 % (32.0-36.0); MCV 90 fL (80-95); MPV 9.7 fL (8.0-11.0); Platelet Count 144 10^3/uL (130-400); RBC 5.34 10^6/uL (3.93-5.22); RDW 12.8 % (11.7-14.6); RDW-SD 42.5 fL
[2021-12-02 07:07] LABS: Anion Gap 9.2 mmol/L (3-11); BUN 41 mg/dL (7-18); CO2 28.8 mmol/L (21.0-32.0); CREATININE 1.1 mg/dL (0.55-1.02); Calcium 9.7 mg/dL (8.5-10.1); Chloride 99 mmol/L (98-107); Estimated GFR 47.79 (mL/min/1.73m2); Glucose 112 mg/dL (74-106); Potassium 3.9 mmol/L (3.5-5.1); Sodium 137 mmol/L (136-145)
[2021-12-02 07:08] LABS: Absolute Monocyte Count 0.55 10^3/uL (0.1-0.8); Absolute Neutrophil Count 36.26 10^3/uL (1.2-6.7); WBC 54.94 10^3/uL (4.4-10.8)
[2021-12-02 07:09] LABS: Absolute Lymphocyte Count 18.13 10^3/uL (1.2-3.4); Atypical Lymphocytes % 11; Diff Comment Manual Differential; RBC Morphology Normal
[2021-12-02] MEDS: Budesonide/Formoterol 160/4.5 6 GM 60 PUFF INH IH ×2 (07:40→20:26)
[2021-12-02] MEDS: Ipratropium 0.5 MG/2.5 ML UPD VIAL UPD ×4 (07:40→20:26)
[2021-12-02] MEDS: Tiotropium Bromide-Respimat 10 PUFF INH 2 PUFF IH (07:40)
[2021-12-02 07:46] LABS: Procalcitonin 1.8 ng/mL
[2021-12-02] MEDS: Enoxaparin 40 MG/0.4 ML SYR SC (08:15)
[2021-12-02] MEDS: ALPRAZolam 0.5 MG TAB PO (08:15)
[2021-12-02] MEDS: guaiFENesin 600 MG TABCR PO ×2 (08:15→20:26)
[2021-12-02] MEDS: Potassium Chloride 20 MEQ TABCR 40 MEQ PO (08:15)
[2021-12-02] MEDS: predniSONE 20 MG TAB 40 MG PO (08:15)
[2021-12-02] MEDS: Pantoprazole 40 MG TABCR PO (08:15)
[2021-12-02] MEDS: Sodium Chloride-Nasal SPRAY-ADULT 44 ML BTL NS ×3 (08:16→20:26)
--- NOTE | 2021-12-02 09:54 | PGE_ITS ---
Date of Service Date of service: 12/02/21 Time of Service: 09:54 Assessment and Plan Assessment and plan (1) Asthma exacerbation in COPD: Status: Acute Assessment and plan: Improving. Procalcitonin decreasing 4.3 to 1.8; Afebrile, continue levofloxacin (day 4). Sputum - moderate white cells, rare epithelli, few mixed gram + Expiratory wheezes; continue prn xopenex, continue scheduled ipratropium in addition to spiriva. Continue symbicort. At baseline oxygen requirement. (2) Bronchitis: Status: Acute Assessment and plan: As above (3) Hypoxemia: Status: Chronic Assessment and plan: The patient is normally on 2L of O2 at home and is on 2L of O2 right now. SPO2 98% - will titrate O2 down. Willl need exercise oximetry on d/c. (4) Leukocytosis: Status: Acute Assessment and plan: WBC 38 on 11/29 - 54 on 12/02 ? CML - await pathology review of the diff. Consider intpatient vs outpatient consult with jw. Was previously referred as outpatient, but was not interested in follow up. (5) DVT prophylaxis: Status: Acute Assessment and plan: Subcutaneous enoxaparin (6) Discharge planning issues: Status: Acute Assessment and plan: DNI. PT Plan to go home Saturday if continues to improve PT does not recommend home health services. Discussed with Dr Sarmiento Subjective Subjective Patient reports: no new complaints, voiding w/o difficulty, shortness of breath and other (with exertion.) Exam Narrative Exam Narrative: Hospital day 2 COPD; improving, decreased WOB, VSS, SPO2 2 LPM NC, continues to have SOB with exertion. Const General: cooperative, comfortable, no acute distress and frail appearing [facility] Head: normal to inspection Eyes General: appearance normal, both eyes and all related structures Neck Neck: normal visual inspection Chest Chest: normal inspection of the chest Resp Effort & Inspection: normal respiratory effort, able to speak in complete sentences and audible wheezes (Expiratory - bilateral) Cardio Jugular venous pressure: no JVD Rate: tachycardic Rhythm: regular rhythm Heart Sounds: S1 normal and S2 normal GI Inspection: normal to inspection Palpation: soft Auscultation: normal bowel sounds General: bimanual renal exam normal bilaterally Other: voiding Back/Spine/Pelvis Back: no CVA tenderness Skin General skin exam: no rashes or lesions noted Neuro General: patient alert, patient awake and patient oriented x3 Extrem General: normal to inspection Objective Last Vital Signs Temp 37.5 C 12/02/21 07:30 Pulse 98 H 12/02/21 07:42 Resp 19 12/02/21 07:42 BP 148/76 H 12/02/21 07:30 Pulse Ox 98 12/02/21 07:42 Laboratory Results - last 24 hr 12/02/21 12/02/21 12/02/21 06:25 06:25 06:25 WBC 54.94 H* RBC 5.34 H Hgb 16.8 H D Hct 48.1 H MCV 90 MCH 31.5 MCHC 34.9 RDW 12.8 Plt Count 144 MPV 9.7 Immature Gran % 0.0 Neutrophils % 66.0 Lymphocytes % 22.0 Atypical Lymphs % 11 Monocytes % 1.0 Eosinophils % 0.0 Basophils % 0.0 Nucleated RBC % 0.0 Absolute Neutrophils 36.26 H Absolute Lymphocytes 18.13 H Absolute Monocytes 0.55 Absolute Eosinophils 0.00 Absolute Basophils 0.00 RBC Morphology Normal Sodium 137 Potassium 3.9 Chloride 99 Carbon Dioxide 28.8 Anion Gap 9.2 BUN 41 H Creatinine 1.1 H Estimated GFR/1.73 m2 47.79 Glucose 112 H Calcium 9.7 Magnesium 2.0 Procalcitonin 1.8 Reviewed Pertinent PMH: Yes Objective Narrative Objective Narrative: No accessory muscle use; wheezes clear with nebs
--- NOTE | 2021-12-02 12:28 | PT.INTREAT ---
PT Notes Visit Reasons: COPD,CHF,Bronchitis Inpatient Physical Therapy Treatment Note [facility] Date: 12/02/21 SUBJECTIVE: I dont even know what they are treating me for. OBJECTIVE: BED MOBILITY/TRANSFERS Supine-sit: I Sit-supine: I Sit-stand: I Stand-sit:I Bed-Chair:SBA GAIT Assistive Device: no device Weight bearing: full Assist: SBA Distance: 15' THEREX: global LE strength in chair including AP's, LAQ, heel slides, SLR and hip abd x 10 ea. ASSESSMENT: tolerated session well. relatively independent with mobility. PLAN: will continue to work on endurance and strength TREATMENT CODE/TIME: 15 min 46525x4
[2021-12-02] MEDS: Levalbuterol 0.63 MG/3 ML UPD VIAL UPD (13:12)
[2021-12-02] MEDS: Simethicone 80 MG CHEW 160 MG PO (17:31)
[2021-12-02 18:51] LABS: C Diff PCR Negative (Negative)
[2021-12-02] MEDS: Latanoprost 0.005% 2.5 ML BTL 1 ML OP (22:27)
--- NOTE | 2021-12-03 | DI.RAD_ITS ---
Exam(s) XR ABDOMEN FLAT UPRIGHT EXAM: XR ABDOMEN FLAT UPRIGHT CLINICAL HISTORY: Bilat upper quad abdominal pain; colostomy. TECHNIQUE: 2D digital imaging was performed. COMPARISON: CR ABD FLAT UPRIGHT PA CHEST from 11/21/2010 FINDINGS: 3 views Multiples densities from anterior abdominal wall hernia repair. Scoliosis convex right. Bowel gas p attern is nonspecific in the supine position. No free air evident on the upright view. No obvious b owel obstruction. If clinically indicated follow-up CT scan can be performed IMPRESSION: DATA REPOSITORY: RADIATION DOSE DELIVERED:
[2021-12-03 00:10] VITALS: BP 148/69; PULSE 83; RESP 16; TEMP 37.1; O2SAT 95
[2021-12-03] MEDS: Levothyroxine 50 MCG TAB PO (06:17)
[2021-12-03 06:33] LABS: HCT 50.1 % (36.0-46.0); HGB 16.7 g/dL (11.2-15.7); MCH 30.9 pg (27.0-33.0); MCHC 33.3 % (32.0-36.0); MCV 93 fL (80-95); MPV 10.2 fL (8.0-11.0); Platelet Count 171 10^3/uL (130-400); RDW-SD 43.9 fL
[2021-12-03 06:38] LABS: WBC 71.63 10^3/uL (4.4-10.8)
[2021-12-03 06:44] LABS: Absolute Neutrophil Count 40.83 10^3/uL (1.2-6.7)
[2021-12-03 06:45] LABS: Absolute Lymphocyte Count 27.94 10^3/uL (1.2-3.4); Absolute Monocyte Count 1.43 10^3/uL (0.1-0.8); Atypical Lymphocytes % 1; Diff Comment Manual Differential; Other Cells % 2; RBC Morphology Normal
[2021-12-03 06:46] LABS: Anion Gap 10.4 mmol/L (3-11); BUN 52 mg/dL (7-18); CO2 25.6 mmol/L (21.0-32.0); CREATININE 1.3 mg/dL (0.55-1.02); Calcium 9.8 mg/dL (8.5-10.1); Chloride 98 mmol/L (98-107); Estimated GFR 39.41 (mL/min/1.73m2); Glucose 125 mg/dL (74-106); Magnesium 2.1 mg/dL (1.8-2.4); Potassium 4.7 mmol/L (3.5-5.1); Sodium 134 mmol/L (136-145)
[2021-12-03 07:30] VITALS: BP 121/76; PULSE 96; RESP 22; TEMP 36.6; O2SAT 93
[2021-12-03] MEDS: Tiotropium Bromide-Respimat 10 PUFF INH 2 PUFF IH (08:06)
[2021-12-03] MEDS: Budesonide/Formoterol 160/4.5 6 GM 60 PUFF INH IH ×2 (08:06→19:33)
[2021-12-03 08:13] VITALS: PULSE 88; PULSE 90; RESP 18; RESP 2; RESP 8; O2SAT 94; O2SAT 98
[2021-12-03] MEDS: Ipratropium 0.5 MG/2.5 ML UPD VIAL UPD ×2 (08:13→19:33)
[2021-12-03] MEDS: guaiFENesin 600 MG TABCR PO ×2 (08:58→19:45)
[2021-12-03] MEDS: Enoxaparin 40 MG/0.4 ML SYR SC (08:58)
[2021-12-03] MEDS: Pantoprazole 40 MG TABCR PO (08:58)
[2021-12-03] MEDS: ALPRAZolam 0.5 MG TAB PO (08:58)
[2021-12-03] MEDS: Sodium Chloride-Nasal SPRAY-ADULT 44 ML BTL NS ×4 (08:59→19:33)
[2021-12-03] MEDS: levoFLOXacin 750 MG/150 ML BAG 100 MG IVPB (10:20)
--- NOTE | 2021-12-03 11:47 | DI.VRAD_ITS ---
PROCEDURE INFORMATION: Exam: XR Abdomen Exam date and time: 12/03/2021 11:19 AM Age: 81 years old Clinical indication: Other: Bilat upper quad abdominal pain; Prior surgery; Surgery date: 6+ months; Surgery type: Colostomy-1984 TECHNIQUE: Imaging protocol: Radiologic exam of the abdomen. Views: 2 Views. Upright and supine views. COMPARISON: CR XR PORTABLE CHEST AP 11/29/2021 6:47 AM FINDINGS: Tubes, catheters and devices: Surgical clips noted within the abdomen and pelvis. Gastrointestinal tract: Normal. No bowel dilation. Intraperitoneal space: Normal. No free air. Bones/joints: Dextroscoliosis. IMPRESSION: No acute findings. Dictated and Authenticated by: Kenan Morales MD. Ordering:JAYSHREE Wade MD
--- NOTE | 2021-12-03 12:24 | PT.INTREAT ---
PT Notes Visit Reasons: COPD,CHF,Bronchitis Inpatient Physical Therapy Treatment Note [facility] Date: 12/03/21 SUBJECTIVE: I feel like an old lady today. I'd like to push myself with walking today. OBJECTIVE: BED MOBILITY/TRANSFERS Supine-sit: I Sit-supine: I Sit-stand: I Stand-sit:I Bed-Chair:SBA GAIT Assistive Device: pushed IV pole Weight bearing: full Assist: CGA Distance: approx 200' in room, making several laps from door to window. ASSESSMENT: tolerated session well. Required standing rest breaks leaning against the wall after each pass. Slightly unsteady but no LOB. PLAN: will continue to work on endurance and strength TREATMENT CODE/TIME: 15 min [id number]
--- NOTE | 2021-12-03 13:58 | W.PM.PROGNOT ---
Date of Service Date of service: 12/03/21 Time of Service: 13:58 Assessment and Plan Assessment and plan (1) Asthma exacerbation in COPD: Status: Acute Assessment and plan: Improving. Afebrile, continue levofloxacin (day 5). Sputum - moderate white cells, rare epithelli, few mixed gram + Expiratory wheezes; continue prn xopenex, continue scheduled ipratropium in addition to spiriva. Continue symbicort. At baseline oxygen requirement continues to be stable on 2 lpm nc (2) Bronchitis: Status: Acute Assessment and plan: As above (3) Hypoxemia: Status: Chronic Assessment and plan: The patient is normally on 2L of O2 at home and is on 2L with SPO2 95-98%, will attempt to tritrate down Willl need exercise oximetry on d/c. (4) Leukocytosis: Status: Acute Assessment and plan: WBC 71.63: ?CML - await pathology review of the diff. Consider outpatient consult with jw. Was previously referred as outpatient, but was not interested in follow up. (5) High output ileostomy: Status: Acute Assessment and plan: Large output from iliostomy - > 2000/24h - loperamide prn; started her back on tylenol with codeine that she normally takes AC & HS @ home; Abd xray negative; C-diff negative (6) DVT prophylaxis: Status: Acute Assessment and plan: Subcutaneous enoxaparin (7) Discharge planning issues: Status: Acute Assessment and plan: DNI. PT Plan to go home Saturday if continues to improve PT does not recommend home health services. Discussed with Dr Sarmiento Subjective Subjective Interval history since last seen: Hospital day 4 COPD; improving, decreased WOB, VSS, SPO2 2 LPM NC, continues to have SOB with exertion, working with PT, using IS and acapella.Aleida reports she slept well last night. Continued abdominal pain fullness above her ililostomy site band like. She reports she has not taken her usually scheduled Tylenol w Codeine. Abdominal xray negative. On reassessment she had improved and pain had dissipated. She reports the output from her ililostomy was again more volume than usual but she feels with restarting the tylenol with codeine it should decrease. Exam Narrative Exam Narrative: General: Awake, alert, conversant - speaking in full sentences without increased WOB HEENT: EOMI, MMM Heart: RRR, no m/r/g Lungs: Expiratory wheezing bilaterally. Abdomen: soft, nontender, nondistended; iliostomy LLQ. Extremities: no edema BLEs Const General: cooperative, comfortable, no acute distress and frail appearing [facility] Head: normal to inspection Eyes General: appearance normal, both eyes and all related structures Neck Neck: normal visual inspection Chest Chest: normal inspection of the chest Resp Effort & Inspection: normal respiratory effort, able to speak in complete sentences and audible wheezes (Expiratory - bilateral) Cardio Jugular venous pressure: no JVD Rate: tachycardic Rhythm: regular rhythm Heart Sounds: S1 normal and S2 normal GI Inspection: normal to inspection Palpation: soft Auscultation: normal bowel sounds Other: voiding Back/Spine/Pelvis Back: no CVA tenderness Skin General skin exam: no rashes or lesions noted Neuro General: patient alert, patient awake and patient oriented x3 Extrem General: normal to inspection Objective Last Vital Signs Temp 36.6 C 12/03/21 07:30 Pulse 90 12/03/21 08:13 Resp 18 12/03/21 08:13 BP 121/76 12/03/21 07:30 Pulse Ox 98 12/03/21 08:13 Laboratory Results - last 24 hr 12/02/21 12/03/21 12/03/21 17:58 06:10 06:10 WBC 71.63 H* RBC 5.40 H Hgb 16.7 H Hct 50.1 H MCV 93 MCH 30.9 MCHC 33.3 RDW 13.0 Plt Count 171 MPV 10.2 Immature Gran % 0.0 Neutrophils % 57.0 Lymphocytes % 38.0 Atypical Lymphs % 1 Monocytes % 2.0 Eosinophils % 0.0 Basophils % 0.0 Other Cells % 2 Nucleated RBC % 0.0 Absolute Neutrophils 40.83 H Absolute Lymphocytes 27.94 H Absolute Monocytes 1.43 H Absolute Eosinophils 0.00 Absolute Basophils 0.00 RBC Morphology Normal Sodium 134 L Potassium 4.7 Chloride 98 Carbon Dioxide 25.6 Anion Gap 10.4 BUN 52 H Creatinine 1.3 H Estimated GFR/1.73 m2 39.41 Glucose 125 H Calcium 9.8 Magnesium 2.1 Stl C.difficile Tox PCR Negative Reviewed Pertinent PMH: Yes
[2021-12-03 15:35] VITALS: BP 100/65; PULSE 94; RESP 16; TEMP 36.6; O2SAT 94
[2021-12-03] MEDS: Loperamide 2 MG CAP PO (15:35)
[2021-12-03] MEDS: Lactated Ringers 250 ML IV (18:12)
[2021-12-03] MEDS: Normal Saline Flush 10 ML SYR IVP (19:33)
[2021-12-03] MEDS: Latanoprost 0.005% 2.5 ML BTL 1 ML OP (19:33)
[2021-12-03 20:03] VITALS: RESP 8
[2021-12-03 23:27] VITALS: BP 133/68; PULSE 95; RESP 20; TEMP 36.7; O2SAT 93
[2021-12-04] VITALS (7 sets, daily range): BP systolic 110; BP diastolic 69; PULSE 83–108; RESP 8–20; TEMP 36.7; O2SAT 86–94
[2021-12-04] MEDS: Levothyroxine 50 MCG TAB PO (07:33)
[2021-12-04] MEDS: guaiFENesin 600 MG TABCR PO (07:33)
[2021-12-04] MEDS: ALPRAZolam 0.5 MG TAB PO (07:34)
[2021-12-04] MEDS: Pantoprazole 40 MG TABCR PO (07:34)
[2021-12-04] MEDS: Enoxaparin 40 MG/0.4 ML SYR SC (07:34)
[2021-12-04 07:59] LABS: HCT 45.1 % (36.0-46.0); HGB 15.2 g/dL (11.2-15.7); MCH 30.8 pg (27.0-33.0); MCHC 33.7 % (32.0-36.0); MCV 91 fL (80-95); MPV 10.7 fL (8.0-11.0); Platelet Count 149 10^3/uL (130-400); RBC 4.94 10^6/uL (3.93-5.22); RDW 12.9 % (11.7-14.6); RDW-SD 42.6 fL
[2021-12-04 08:00] LABS: Anion Gap 7.5 mmol/L (3-11); BUN 53 mg/dL (7-18); CO2 26.5 mmol/L (21.0-32.0); CREATININE 1.3 mg/dL (0.55-1.02); Chloride 96 mmol/L (98-107); Estimated GFR 39.41 (mL/min/1.73m2); Glucose 91 mg/dL (74-106); Potassium 4.2 mmol/L (3.5-5.1); Sodium 130 mmol/L (136-145)
[2021-12-04 08:04] LABS: WBC 59.12 10^3/uL (4.4-10.8)
[2021-12-04 08:16] LABS: Absolute Lymphocyte Count 23.65 10^3/uL (1.2-3.4); Absolute Neutrophil Count 34.88 10^3/uL (1.2-6.7); Atypical Lymphocytes % 3
[2021-12-04 08:17] LABS: Diff Comment Manual Differential; RBC Morphology Normal
[2021-12-04] MEDS: Tiotropium Bromide-Respimat 10 PUFF INH 2 PUFF IH (08:34)
[2021-12-04] MEDS: Budesonide/Formoterol 160/4.5 6 GM 60 PUFF INH IH (08:35)
[2021-12-04] MEDS: Ipratropium 0.5 MG/2.5 ML UPD VIAL UPD ×2 (08:35→13:09)
--- NOTE | 2021-12-04 09:08 | PDOC.CMPRO ---
- If Service Date Differs Date of service: 12/04/21 Time of Service: 09:08 Care Management Progress Note S/O: Aleida is being closely monitored and treated with steroids and IV abx. Cultures are pending. Aleida uses Supplemental O2 at baseline and is currently 91% on 2L NC. Aleida will need exercise oximetry prior to discharge. A: 81 year old female admitted to [facility] 11/29/21 for COPD, CHF, bronchitis. P: Aleida will likely be discharged home with no new services when medically cleared by provider. She will follow up with her PCP, finance insurance manager, and plan of care as prescribed. She will be transported home by family via private vehicle when ready. CM will continue to support Aleida and any discharge planning needs.
[2021-12-04 09:33] LABS: Lab Add On Test DONE
--- NOTE | 2021-12-04 11:36 | PGE_ITS ---
Date of Service Date of service: 12/04/21 Time of Service: 11:36 Assessment and Plan Assessment and plan (1) Bronchitis: Status: Acute Assessment and plan: Exp wheezes, SOB w exertions, continue inhalers, nebs, steroids, abx - use IS (2) Hypoxemia: Status: Chronic Assessment and plan: The patient is normally on 2L of O2 at home and is on 2L with SPO2 >90% here. Willl need exercise oximetry on d/c. (3) Leukocytosis: Status: Acute Assessment and plan: WBC 71.63: ?CML - pathology review of the diff. will follow up with PCP out patient with results Consider outpatient consult with heme - continues to decline Was previously referred as outpatient, but was not interested in follow up. (4) High output ileostomy: Status: Acute Assessment and plan: iliostomy output has decreased and thickened, she reports this is back to it's usual output and consistency. Subjective Subjective Patient reports: no new complaints, feels better, tolerating a regular diet and shortness of breath (not increased) Interval history since last seen: Exercise oximetry was performed, up to 4 lpm with walking to maintain SPO2 > 92%. Continues to be stable @ 2 LPM when at rest. She states she is anxious to go home, she lives with her . Her iliostomy output has decreased and the liquid has thickened. Exam Narrative Exam Narrative: General: Awake, alert, conversant - speaking in full sentences without increased WOB HEENT: EOMI, MMM Heart: RRR, no m/r/g Lungs: Expiratory wheezing bilaterally. Abdomen: soft, nontender, nondistended; iliostomy LLQ. Extremities: no edema BLEs Const General: cooperative, comfortable, no acute distress and frail appearing [facility] Head: normal to inspection Eyes General: appearance normal, both eyes and all related structures Neck Neck: normal visual inspection Chest Chest: normal inspection of the chest Resp Effort & Inspection: normal respiratory effort, able to speak in complete sentences and audible wheezes (Expiratory - bilateral) Cardio Jugular venous pressure: no JVD Rate: tachycardic Rhythm: regular rhythm Heart Sounds: S1 normal and S2 normal GI Inspection: normal to inspection Palpation: soft Auscultation: normal bowel sounds Other: voiding Back/Spine/Pelvis Back: no CVA tenderness Skin General skin exam: no rashes or lesions noted Neuro General: patient alert, patient awake and patient oriented x3 Extrem General: normal to inspection Objective Last Vital Signs Temp 36.7 C 12/04/21 07:40 Pulse 83 12/04/21 07:40 Resp 20 12/04/21 07:40 BP 110/69 12/04/21 07:40 Pulse Ox 94 12/04/21 07:40 Laboratory Results - last 24 hr 12/04/21 12/04/21 12/04/21 06:42 06:42 06:42 WBC 59.12 H* RBC 4.94 Hgb 15.2 Hct 45.1 MCV 91 MCH 30.8 MCHC 33.7 RDW 12.9 Plt Count 149 MPV 10.7 Immature Gran % 0.0 Neutrophils % 59.0 Lymphocytes % 37.0 Atypical Lymphs % 3 Monocytes % 0.0 Eosinophils % 0.0 Basophils % 0.0 Nucleated RBC % 0.0 Absolute Neutrophils 34.88 H Absolute Lymphocytes 23.65 H Absolute Monocytes 0.00 L Absolute Eosinophils 0.00 Absolute Basophils 0.00 RBC Morphology Normal Sodium 130 L Potassium 4.2 Chloride 96 L Carbon Dioxide 26.5 Anion Gap 7.5 BUN 53 H Creatinine 1.3 H Estimated GFR/1.73 m2 39.41 Glucose 91 Calcium 9.0 Add-On Test Request DONE 12/04/21 Unknown WBC RBC Hgb Hct MCV MCH MCHC RDW Plt Count MPV Immature Gran % Neutrophils % Lymphocytes % Atypical Lymphs % Monocytes % Eosinophils % Basophils % Nucleated RBC % Absolute Neutrophils Absolute Lymphocytes Absolute Monocytes Absolute Eosinophils Absolute Basophils RBC Morphology Sodium Potassium Chloride Carbon Dioxide Anion Gap BUN Creatinine Estimated GFR/1.73 m2 Glucose Calcium Add-On Test Request Cancelled Reviewed Pertinent PMH: Yes
--- NOTE | 2021-12-04 12:07 | DSE_ITS ---
Date of service: 12/04/21 Time of Service: 12:07 DS: Diagnosis Discharge Diagnosis (1) Bronchitis: Status: Acute (2) Hypoxemia: Status: Chronic (3) Leukocytosis: Status: Acute (4) High output ileostomy: Status: Acute Discharge Plan Disposition Patient Disposition: HOME Condition: Stable Discharge Details Reason For Visit: COPD,CHF,Bronchitis Admit Date/Time: 11/29/21 09:25 Admit Provider: Shadi Mccullough Attending Provider: Shadi Mccullough Primary Care Provider: Ramila Tapia [facility] Course Hospital Course: This is an 81 yo female with a PMH of COPD, asthma, chronic diastolic CHF with pulmonary hypertension, chronic leucocytosis, that the patient chose not to work up in the past, depression/anxiety, anemia, HTN.? She presented to the [facility] Emergency Department via EMS on 11/29/21 with approximately 1 day of increased coughing with thick sputum. Her SPO2 was 88%. No hemoptysis.? She endorsed shortness of breath. ? She uses 2L supplemental O2 at home on an as needed basis, and her oxygen requirement in the ED was also 2L.? A chest xray in the ED showed no infiltrates, effusions or edema.? WBC count was elevated at 38.41.? Hgb normal. Na 135. K normal.? Troponin neg.? NTProBNP 824; normal range for her age.? The patient was diagnosed with bronchitis with COPD exacerbation. She was admitted to the medical surgical unit under the hospitalist service. Her procalcitoinin was elevated and she was started on levofloxacin, steroids, scheduled and prn nebs. Her anxiety was treated with prn benzodiazepines. Her WBC was significantly elevated throughout her stay. She has evidence of smudge cells on her peripheral smear. Per recommendation of pathology, I did order a CLL flow cytrometry; it is a send out test. She did have a referral to Heme specialist at [facility] in the past and declined. She states she does not want to have it looked in to. She lives with her and was eager to go home. She was at her baseline resting SPO2 on 2 LPM NC, >90%, however with exertion she required 4 LPM to maintain her SPO2 greater than 90%. She has been using the incentive spirometer and working her way up a little more each time. She states she will use it at home. Her WBC's did decline during her stay, they went from 71-59 prior to departure. She was encouraged to follow up with her PCP regarding the results of the CLL flow cytometry and options. She will follow up with pulmonology, she is an established patient of their's. She was discharged with one day left of levofloxacin and to continue pantoprazole due to some reports of epigastric discomfort on this admission. Discussed with Dr Sarmiento Patient care and documentation 45 min Home Meds and New Rx's Prescriptions: New pantoprazole 40 mg Tablet,Delayed Release (Dr/Ec) 40 mg PO DAILY@30 Qty: 14 0RF levofloxacin 750 mg tablet 750 mg PO DAILY Qty: 1 0RF Rx Instructions: Take 12/05/2021 Continued latanoprost (PF) 0.005 % drops 1 drp OP QPM alprazolam 0.5 mg tablet 0.5 mg PO DIRECTED Qty: 180 1RF Rx Instructions: 1 TAB QAM; 0.5 TAB PM PRN cyanocobalamin (vitamin B-12) 1,000 mcg/mL solution 1,000 mcg IM MONTHLY Qty: 3 12RF Rx Instructions: dispense with needles BRITT POUCH See Rx Instructions topical .COMPLEX Qty: 30 4RF Rx Instructions: 1 topical; levothyroxine 50 mcg tablet 50 mcg PO DAILY Qty: 90 12RF Spiriva with HandiHaler 18 mcg capsule, w/inhalation device 1 cap Inhalation DAILY Qty: 90 12RF BRITT 1 ea Topical DIR 0RF Rx Instructions: DRAINABLE POUCH; 3228; V44.3 folic acid 1 mg tablet 1 mg PO EVERY OTHER DAY Qty: 45 12RF acetaminophen-codeine 300-30 mg tablet 1 tab PO Q6H Qty: 120 3RF Rx Instructions: chronic diarrhea. ergocalciferol (vitamin D2) 1,250 mcg (50,000 unit) capsule 50,000 unit PO QWEEK Qty: 13 4RF Rx Instructions: Must be gel capsule budesonide-formoterol [Symbicort] 160-4.5 mcg/actuation HFA aerosol inhaler 2 puff Inhalation BID Qty: 3 12RF albuterol sulfate 90 mcg/actuation HFA aerosol inhaler 2 puff inhalation Q8H Qty: 8.5 4RF Rx Instructions: Must be HFA. J Discontinued azithromycin 250 mg tablet See Rx Instructions PO .COMPLEX Qty: 6 0RF Rx Instructions: For 250 mg dose pack: take 500 mg today (day 1), then 250 mg for 4 days (days 2-5) PO prednisone 20 mg tablet See Rx Instructions PO DAILY Qty: 11 0RF Rx Instructions: 2 tabs daily for 3 days; 1 tab daily for 3 days; 0.5 tab daily for 4 days amoxicillin-pot clavulanate 875-125 mg tablet 1 tab PO BID ibuprofen 200 mg tablet 400 mg PO Q6H PRN (Reason: pain) Qty: 30 0RF No Action (DME) BD Blunt Plastic Cannula 17 x 3 mL syringe 1 ea Miscellaneous MONTHLY Qty: 12 12RF Rx Instructions: 25 guage X 1 ULTRA FINE;864529 (DME) Lucy Cohesive Seals 1 EACH misc 1 ea Miscellaneous DIR Label Comments: #[id number] CODE; V44.3 Rx Instructions: 583182 V44.3 Discharge Instructions Instructions: How to Use an Incentive Spirometer (DC), Using Oxygen at Home (DC), Chronic Lung Disease and Infection Prevention (DC), Pulse Oximetry (DC), Energy Conservation Techniques (DC), Nutrition Guidelines for People with COPD (DC) Additional Instructions: Respiratory therapy has increased your oxygen to 4 LPM with exertion. Continue 2 LPM when at rest. Use the insentive spirometer. Stand Alone Forms: Nursing Discharge Form Referrals: Ramila Tapia [place], [place] [Primary Care Provider] - (Please call to make a follow up appointment for 2 weeks Increased WBC during in-patient visit - CLL flow cytology pending. Declined heme referral ) Haydee Daly MD [ [facility] STAFF PHYSICIAN] - (1-2 weeks) Activity:: Activity as Tolerated Equipment/Supplies:: Oxygen (L/min Below) Diet:: As Tolerated Discharge Orders Discharge Orders: Discharge Order (Routine); Ordered 12/04/21 Ordered By: Sheri Amor Discharge Data Discharge Date/Time-TO BE ENTERED AT DEPARTURE: 12/04/21 14:08 DS: Summary Time Spent with Patient providing and/or coordinating discharge services: Less than 30 minutes Status at Discharge Functional status at discharge: independent ambulation Overall status at discharge: patient is progressing back to baseline Mental Status: mental status grossly normal Speech and Movement: speech and movement normal Mood: congruent mood Affect: normal affect Exam Narrative Exam Narrative: General: Awake, alert, conversant - speaking in full sentences without increased WOB HEENT: EOMI, MMM Heart: RRR, no m/r/g Lungs: Expiratory wheezing bilaterally. (decreased) Abdomen: soft, nontender, nondistended; iliostomy LLQ. Extremities: no edema BLEs Const General: cooperative, comfortable, no acute distress and frail appearing [facility] Head: normal to inspection Eyes General: appearance normal, both eyes and all related structures Neck Neck: normal visual inspection Chest Chest: normal inspection of the chest Resp Effort & Inspection: normal respiratory effort, able to speak in complete sentences and audible wheezes (Expiratory - bilateral) Cardio Jugular venous pressure: no JVD Rate: tachycardic Rhythm: regular rhythm Heart Sounds: S1 normal and S2 normal GI Inspection: normal to inspection Palpation: soft Auscultation: normal bowel sounds Other: voiding Back/Spine/Pelvis Back: no CVA tenderness Skin General skin exam: no rashes or lesions noted Neuro General: patient alert, patient awake and patient oriented x3 Extrem General: normal to inspection Psych Mental Status: mental status grossly normal Speech and Movement: speech and movement normal Mood: congruent mood Affect: normal affect DS: Data Vitals/I&O Vitals and I&O: Vital Signs Temperature 36.7 C 12/04/21 07:40 Temperature Source Tympanic 12/04/21 07:40 Pulse 83 12/04/21 07:40 Pulse Rhythm Regular 12/04/21 10:32 Respiratory Rate 20 12/04/21 07:40 Respiratory Effort Short of Breath 12/04/21 10:32 Respiratory Depth Normal 12/04/21 10:32 Respiratory Pattern Normal 12/04/21 10:32 Blood Pressure 110/69 12/04/21 07:40 Blood Pressure Position Sitting 11/29/21 05:57 Pulse Oximetry 94 12/04/21 07:40 Oxygen Delivery Method Nasal Cannula 12/04/21 08:35 Oxygen Flow Rate 2 12/04/21 08:35 Pain Level 0 12/03/21 23:27 Comment 11/30/21 16:15 Intake & Output 12/03/21 12/04/21 12/04/21 23:59 11:59 23:59 Intake Total 490 / 1190 Output Total 1100 / 1700 400 / 400 Balance -610 / -510 -400 / -400 Weight 57.9 kg Intake: IV 250 / 400 Oral 240 / 790 Output: Urine 450 / 750 300 / 300 Stool 650 / 950 100 / 100 Other: Urine Color Yellow Yellow Comment voids independently Voiding Methods Toilet Data Completed and Pending Labs on day of discharge: Labs from last 24 hours 12/04/21 12/04/21 12/04/21 Unknown 06:42 06:42 WBC RBC Hgb Hct MCV MCH MCHC RDW Plt Count MPV Immature Gran % Neutrophils % Lymphocytes % Atypical Lymphs % Monocytes % Eosinophils % Basophils % Nucleated RBC % Absolute Neutrophils Absolute Lymphocytes Absolute Monocytes Absolute Eosinophils Absolute Basophils RBC Morphology Sodium Potassium Chloride Carbon Dioxide Anion Gap BUN Creatinine Estimated GFR/1.73 m2 Glucose Calcium Lymph/Leukemia Panel Pending Add-On Test Request Cancelled DONE 12/04/21 12/04/21 06:42 06:42 WBC 59.12 H* RBC 4.94 Hgb 15.2 Hct 45.1 MCV 91 MCH 30.8 MCHC 33.7 RDW 12.9 Plt Count 149 MPV 10.7 Immature Gran % 0.0 Neutrophils % 59.0 Lymphocytes % 37.0 Atypical Lymphs % 3 Monocytes % 0.0 Eosinophils % 0.0 Basophils % 0.0 Nucleated RBC % 0.0 Absolute Neutrophils 34.88 H Absolute Lymphocytes 23.65 H Absolute Monocytes 0.00 L Absolute Eosinophils 0.00 Absolute Basophils 0.00 RBC Morphology Normal Sodium 130 L Potassium 4.2 Chloride 96 L Carbon Dioxide 26.5 Anion Gap 7.5 BUN 53 H Creatinine 1.3 H Estimated GFR/1.73 m2 39.41 Glucose 91 Calcium 9.0 Lymph/Leukemia Panel Add-On Test Request PFSH All Active Problems (Updated 12/05/21 @ 00:08 by LUCIANA GREY) High output ileostomy (Acute) COPD exacerbation (Acute) CHF exacerbation (Acute) Bronchitis (Acute) Hypoxemia (Chronic) Cat bite of right hand (Acute) Colostomy care (Acute) Pain (Acute) Cellulitis of right upper extremity (Acute) Respiratory failure with hypoxia (Acute) Conductive hearing loss, external ear (Acute) Impacted cerumen, bilateral (Acute) Chronic rhinitis (Acute) Leukocytosis (Acute) Thrombocytopenia (Chronic) Anemia (Chronic) Physician orders for life-sustaining treatment (POLST) form indicates patient wish for limited interventions status (Acute) DO NOT INTUBATE ok with chest compressions and shock Shortness of breath (Acute) DNI (do not intubate) (Acute) per discussion 08/25/2019 Conductive hearing loss, external ear (Acute) Dysphonia (Acute 03/18/14) Elevation of level of transaminase and lactic acid dehydrogenase (LDH) (Acute) External ear conductive hearing loss (Acute 03/24/15) Mucous polyp of cervix (Acute) Nodule of right lung (Acute 04/05/14) Vitamin D deficiency (Chronic 03/19/09) Urinary incontinence (Chronic 09/09/14) Shoulder pain (Chronic 04/18/04) frozen shoulder Sensorineural hearing loss, 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 Only med which works. ENds up in hospital if diarrhea not well controlled Mixed hearing loss, 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) Phonak Ana S V SP (R: [id number]) out of warranty, fit September 2009. Impaired renal function disorder (Chronic) Gastro-esophageal reflux disease with esophagitis (Chronic) nodule mid portion of vocal cord Fatigue (Chronic 10/27/13) Depressive disorder (Chronic 01/21/13) Chronic pain syndrome (Chronic) Chronic night sweats (Chronic 09/16/17) Chronic diarrhea (Chronic) CONTROLLED SUBSTANCE AGREEMENT 09/05/15-USES CODEINE 02/18/17 CONTROLLED SUBSTANCE AGREEMENT~RENEWED Balance disorder (Chronic 06/02/15) Essential hypertension (Chronic 04/17/13) Medical History Anxiety (02/04/13) Bilateral impacted cerumen (03/24/15) CAP (community acquired pneumonia) COPD (chronic obstructive pulmonary disease) COPD with exacerbation Cramps, extremity (02/18/17) Crohns disease (01/21/13) surgery in 1975 w/ removal of intestines and colostomy on codeine tid chronically to control diarrhea DNI (do not intubate) Dysphonia (03/18/14) Hoarseness Elev transaminase/LDH 05/20/83 External ear conductive hearing loss 03/24/15 Hypokalemia Hypomagnesemia Hyponatremia 11/16/05 w/hospitalization Hyponatremia (11/16/05) Hyponatremia syndrome (06/27/15) Hypothyroidism Impacted cerumen (03/18/14) Impacted cerumen of both ears (03/24/15) Mucous polyp of cervix Pneumonia HX of LLL Pneumonia Pulmonary nodule, right 04/05/14 repeat negative Pyloric ulcer associated with Helicobacter pylori 04/18/06 Pyloric ulcer associated with Helicobacter pylori (04/18/06) 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 Seizure Smoker quit smoking-2001 Smoker Subclinical hypothyroidism (06/07/15) NIGHT SWEATS ON MED-JMD Surgical History Cholecystectomy (~1996) Colostomy (~1983) CHRON'S DISEASE History of colectomy History of colon resection Chron's disease; colostomy in place S/P cholecystectomy 05/20/96 Status post cholecystectomy Family History Mother , 76 Neoplasm OVARIAN Asthma Cancer Sister Asthma Breast cancer Maternal Grandmother Stroke AT CHILDBIRTH Daughter No problems noted. Social History Smoking/Tobacco Use Status: Former Tobacco Use tobacco type: cigarettes Tobacco: How many years used: 40 Second Hand Exposure: Yes Smoking risk assessment performed?: Yes Alcohol Intake: current Alcohol Intake frequency: holidays/special occasions only Alcohol type: wine Drug use: Never Substance use type: does not use Household members: spouse Housing: house Communication Needs: Hard of Hearing Do you need help understanding health information?: Never Pets and animals: Yes Pets and animals: cat(s) Sexually active: No Do you think of yourself as: straight/heterosexual Current gender identity: female What is your relationship status?: How often do you talk on the phone with friends or family?: three or more times per week How often do you get together with friends or relatives?: decline to answer How often do you attend latter-day or lutheran services?: decline to answer Do you belong to any clubs or organized social groups?: no Panel score (0-1 are the most socially isolated patients): 2 What type of physical activity do you participate in: walking Duration: < 15 minutes/day Frequency: 1-2 times per week Concepción/Anabaptism: Religious Special concepción needs: No Seatbelt use: always Helmet use: No Drive intox or ride w/intox intermodal owner operator truck driver: No Do you feel safe at home: Yes Do you feel safe in your relationship?: Yes Victim of physical abuse: No Victim of emotional abuse: Yes (sometimes)
--- NOTE | 2021-12-04 12:54 | PT.INTREAT ---
Date of service: 12/04/21 Time of Service: 11:38 PT Notes Visit Reasons: COPD,CHF,Bronchitis Inpatient Physical Therapy Treatment Note [facility] Date: 12/04/2021 PRECAUTIONS: Activity as tolerated, fall SUBJECTIVE: Aleida is pleasant and agreeable to participating in PT. She reports that she is feeling a little better today. She reports that she is feeling weaker than her baseline. OBJECTIVE: PAIN: No c/o pain BED MOBILITY/TRANSFERS Sit-stand: S Stand-sit: S GAIT Assistive Device: No AD Weight bearing: Full Assist: Supervision Distance: 200' Deviation: Slow pacing, occasional holding wall for stability, no path deviation, standing rest x3 due to fatigue and minimal SOB, 2L O2. VITALS: Attempted to monitor HR and SaO2, but was unable to attain reliable reading. ASSESSMENT: Patient tolerated session well with minimal complaint of increased fatigue with gait training. Patient was able to tolerate a progression in gait distance, requiring supervision only for transfers and gait training, and several standing rests due to fatigue and minimal SOB. PLAN: Continue with global strengthening and general conditioning for continued progression toward baseline level of function. TREATMENT CODE/TIME: 19 minutes; [id number] (11:38)
--- NOTE | 2021-12-04 16:50 | PDOC.CMDIS ---
- If Service Date Differs Date of service: 12/04/21 Time of Service: 16:50 LACE Index Scoring Tool - Questions: Length of Stay (in days): 4 - 6 Acuity (Admit via E.D.?): Yes Comorbidities: Chronic Pulmonary Disease E.D. Visits: 3 - Answers: Total Score: 12 Risk of Readmission: High Risk Care Management Discharge Reason for Hospitalization: COPD, CHF, bronchitis. Discharge Plan: Aleida is discharged home via private vehicle with family. New RX for lovofloxacin is printed and new RX for pantoprazole is transmitted to [facility]. No new [facility] services are ordered at time of discharge. Please call your PCP and Pulmonary office to schedule follow up appointments, within the next 1-2 weeks. 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 ask me three.
--- NOTE | 2021-12-04 18:35 | PT.INDS ---
Date of service: 12/04/21 PT Notes Visit Reasons: COPD,CHF,Bronchitis Physical Therapy Inpatient Discharge Summary Date: 12/04/2021 Dates of service: 12/01/2021 through 12/04/2021 This is a clinical summary of care provided for the duration of dates listed above. No charge was made in the completion of this documentation. Referring Doctor: Stephanie Sarmiento MD PT Orders: PT CONSULT: Limited ability Precautions: Fall. Standard. Activity as tolerated. Patient Profile/Admitting Diagnosis: Aleida is an 81-year-old female who presented to the ED on 11/29/2021 due to worsening cough and shortness of breath patient is diagnosed with COPD exacerbation, asthma, bronchitis, hypoxemia, requiring 2 L of oxygen per minute, and anxiety..? PMHX: All Active Problems?(Updated 11/29/21 @ 09:05 by Lauri Brian DO) Asthma exacerbation in COPD (Acute) COPD exacerbation (Acute) CHF exacerbation (Acute) Bronchitis (Acute) Hypoxemia (Acute) Cat bite of right hand (Acute) Colostomy care (Acute) Pain (Acute) Cellulitis of right upper extremity (Acute) Respiratory failure with hypoxia (Acute) Conductive hearing loss, external ear (Acute) Impacted cerumen, bilateral (Acute) Chronic rhinitis (Acute) Leukocytosis (Acute) Thrombocytopenia (Chronic) Anemia (Chronic) Physician orders for life-sustaining treatment (POLST) form indicates patient wish for limited interventions status (Acute) DO NOT INTUBATE ok with chest compressions and shock Shortness of breath (Acute) DNI (do not intubate) (Acute) per discussion 08/25/2019Conductive hearing loss, external ear (Acute) Dysphonia (Acute 03/18/14) Elevation of level of transaminase and lactic acid dehydrogenase (LDH) (Acute) External ear conductive hearing loss (Acute 03/24/15) Mucous polyp of cervix (Acute) Nodule of right lung (Acute 04/05/14) Vitamin D deficiency (Chronic 03/19/09) Urinary incontinence (Chronic 09/09/14) Shoulder pain (Chronic 04/18/04) frozen shoulder Sensorineural hearing loss, bilateral (Chronic 11/10/13) Karyna Perez S Heath SP (R: [id number]) out of warranty, fit September 2009. 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 Only med which works.? ENds up in hospital if diarrhea not well controlled Mixed hearing loss, 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) Phonak Ana S V SP (R: [id number]) out of warranty, fit September 2009. Impaired renal function disorder (Chronic) Gastro-esophageal reflux disease with esophagitis (Chronic) nodule mid portion of? vocal cord Fatigue (Chronic 10/27/13) Depressive disorder (Chronic 01/21/13) Chronic pain syndrome (Chronic) Chronic night sweats (Chronic 09/16/17) Chronic diarrhea (Chronic) CONTROLLED SUBSTANCE AGREEMENT? 09/05/15-USES CODEINE 02/18/17 CONTROLLED SUBSTANCE AGREEMENT~RENEWED Balance disorder (Chronic 06/02/15) Essential hypertension (Chronic 04/17/13) Medical History? Anxiety (02/04/13) Bilateral impacted cerumen (03/24/15) CAP (community acquired pneumonia) COPD (chronic obstructive pulmonary disease) COPD with exacerbation Cramps, extremity (02/18/17) Crohns disease (01/21/13) surgery in 1975 w/ removal of intestines and colostomy on codeine tid chronically to control diarrhea DNI (do not intubate) Dysphonia (03/18/14) Hoarseness Elev transaminase/LDH 05/20/83External ear conductive hearing loss 03/24/15Hypokalemia Hypomagnesemia Hyponatremia 11/16/05 w/hospitalizationHyponatremia (11/16/05) Hyponatremia syndrome (06/27/15) Hypothyroidism Impacted cerumen (03/18/14) Impacted cerumen of both ears (03/24/15) Mucous polyp of cervix Pneumonia HX of LLLPneumonia Pulmonary nodule, right 04/05/14 repeat negativePyloric ulcer associated with Helicobacter pylori 04/18/06Pyloric ulcer associated with Helicobacter pylori (04/18/06) 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 Seizure Smoker quit smoking-2001 Subclinical hypothyroidism (06/07/15) NIGHT SWEATS ON MED-JMD Surgical History? Cholecystectomy (~1996) Colostomy (~1983) CHRON'S DISEASE History of colectomy History of colon resection Chron's disease; colostomy in place S/P cholecystectomy Social History/Home Situation: Lives with in a private ranch-style home with 2 steps to enter.? Independent with all mobility ADLs without assistive device.? Occasionally uses a single-point cane for outdoors Equipment Owned/DME: [facility], [facility] Subjective: NT. See most recent INDEPENDENT DISTRIBUTOR notes. Objective: General Observation: NT. See most recent INDEPENDENT DISTRIBUTOR notes. Mental Status: NT. See most recent INDEPENDENT DISTRIBUTOR notes. Pain: NT. See most recent INDEPENDENT DISTRIBUTOR notes. Vital Signs: NT. See most recent INDEPENDENT DISTRIBUTOR notes. ROM: Right Upper Extremity: ? Shoulder Flexion lacks last 25% of AROM. Shoulder abduction lacks last 25% of AZUL. Elbow flexion WFL. Wrist flexion WFL. Functional opening and closing of hand WFL. Left Upper Extremity:? Shoulder Flexion lacks last 25% of AROM. Shoulder abduction lacks last 25% of AZUL. Elbow flexion WFL. Wrist flexion WFL. Functional opening and closing of hand WFL. Right Lower Extremity: Hip flexion WFL. Hip abduction WFL. Knee flexion WFL. Ankle dorsiflexion WFL. Ankle plantarflexion WFL. Left Lower Extremity: Hip flexion WFL. Hip abduction WFL. Knee flexion WFL. Ankle dorsiflexion WFL. Ankle plantarflexion WFL. Strength: Right Upper Extremity: Shoulder flexors 3-/5. Shoulder abductors 3-/5. Elbow flexors 4-/5. Elbow extensors 4-/5. Insurance Special Agent strong. Left Upper Extremity: Shoulder flexors 3-/5. Shoulder abductors 3-/5. Elbow flexors 4-/5. Elbow extensors 4-/5. Insurance Special Agent strong. Right Lower Extremity: Hip flexors 4-/5. Hip abductors 4-/5. Knee flexors 4-/5. Knee extensors 54-5. Ankle dorsiflexors 4-/5. Ankle plantarflexors 4-/5. Left Lower Extremity: Hip flexors 4-/5. Hip abductors 4-/5. Knee flexors 4-/5. Knee extensors 54-5. Ankle dorsiflexors 4-/5. Ankle plantarflexors 4-/5. Bed Mobility/Transfers: Rolling independent Supine to sit independent Sit to supine independent Sit to stand independent Stand to sit independent Bed to reclining chair supervision Reclining chair to bed supervision Gait: Instructed patient with level surface ambulation of 200 feet requiring supervision. Risa decreased.? Mild SOB that subsided with rest.? Insisted on not using front wheeled walker for the walk. Balance: Static Sitting: Normal Dynamic Sitting: Normal Static Standing: Good Dynamic Standing: Fair Assessment: Patient presents with clinical signs and symptoms consistent with current/admitting diagnoses that have resulted to mobility limitations, gait instability, generalized weakness, and overall ADL decline as demonstrated by the following impairment level findings: 1.? Decreased strength to B UE/LE major muscle groups 2.? Impaired sitting/standing balance 3.? Impaired activity tolerance 4.? Limitation of joint range of motion in B shoulders 5.? Shortness of breath 6.? Swelling Impairments are contributing to the following functional limitations: 1.? Decline in bed mobility skills 2.? Decline in transfer skills 3.? Difficulty with ambulation without assistive device and physical assistance 4.? Increased completion time for mobility ADL performance 5.? Increased risk for falls 6.? Difficulty with managing steps alone safely Goals: Goals X1 week 1. Bed-Chair independent with no AD NOT MET 2. Chair-Bed independent with no AD NOT MET 3. Independent gait on level surface with use of no AD for at least 100 feet without report of pain nor dyspnea NOT MET 4. Independent stair negotiation while holding onto B rails for at least 5 steps without report of pain nor dyspnea NOT MET 5. Good static and dynamic standing balance/tolerance NOT MET With DISCHARGE RECOMMENDATIONS: [X] ? Home with no services.? Home when medically cleared by hospitalist.? No services needed at this time.? Refuses use front wheeled walker for energy conservation at this time. [] ? Home with services [specify] [] ? Home with outpatient PT [] [] ? SNF for continued rehabilitation [] [] ? Group Home Care [] [] ? SNF versus LTC based on ability to participate and progress [] TREATMENT CODE/TIME: [place] Thank you for the opportunity to participate in the care of this patient. Marilee Brooks PT, DPT, CLT [facility], [place]
[2021-12-08 12:47] LABS: Leukemia/Lymphoma by FC (Blood (See below)
== END 2021-12-04 14:08 | disposition home or self-care (01) | DRG 202 ==
LOC: ER 09:05 → MS 10:47
PROVIDERS: Emergency Medicine; Internal Medicine; Nurse Practitioner Family; Admitting Provider Family Medicine; Emergency Provider Student in an Organized Health Care Education/Training Program; PCP Family Medicine; Visit Provider Family Medicine
DX: J20.9 Acute bronchitis, unspecified (principal); F11.20 Opioid dependence, uncomplicated; J44.0 Chronic obstructive pulmonary disease with (acute) lower respiratory infection; K94.13 Enterostomy malfunction; J44.1 Chronic obstructive pulmonary disease with (acute) exacerbation; R09.02 Hypoxemia; I11.0 Hypertensive heart disease with heart failure; F32.A Depression, unspecified; F41.9 Anxiety disorder, unspecified; I50.9 Heart failure, unspecified; Z99.81 Dependence on supplemental oxygen; D64.9 Anemia, unspecified; D69.6 Thrombocytopenia, unspecified; R74.01 Elevation of levels of liver transaminase levels; E55.9 Vitamin D deficiency, unspecified; R32 Unspecified urinary incontinence; D51.0 Vitamin B12 deficiency anemia due to intrinsic factor deficiency; K21.00 Gastro-esophageal reflux disease with esophagitis, without bleeding; N28.9 Disorder of kidney and ureter, unspecified; G89.4 Chronic pain syndrome; Z87.891 Personal history of nicotine dependence
CPT/HCPCS: 36415; 80048; 80053; 84145; 87493; 87637; 88185; 93005; 94640; 96365; 96375; 97110; 97162; 97530; 99285; J1650; 71045; 74019; 83735; 83880; 84484; 85025; 87070; 87205; 88184; 88189; 93010; 94664; 94760; 99222; 99232; 99239; J1941; J1956; J7512; J7614; J7620; J7644

== ENCOUNTER 2022-01-24 04:14 | Outpatient (CLI) | payer MEDICARE, OTHER, SELFPAY ==
[2022-01-24 12:19] LABS: Abs Immature Grans 0.03 10^3/uL (0.0-0.06); HCT 36.8 % (36.0-46.0); HGB 12.5 g/dL (11.2-15.7); MCH 32.4 pg (27.0-33.0); MCV 95 fL (80-95); MPV 9.6 fL (8.0-11.0); RBC 3.86 10^6/uL (3.93-5.22); RDW 13.2 % (11.7-14.6); WBC 14.97 10^3/uL (4.4-10.8)
[2022-01-24 12:27] LABS: Prothrombin Time 10.5 sec (9.3-11.0)
[2022-01-24 13:01] LABS: ALT 21 U/L (14-59); AST 34 U/L (15-37); Albumin 3.5 g/dL (3.4-5.0); Alkaline Phosphatase 100 U/L (46-116); Anion Gap 2.6 mmol/L (3-11); BUN 11 mg/dL (7-18); Bilirubin, Total 0.8 mg/dL (0.2-1.0); CO2 29.4 mmol/L (21.0-32.0); Calcium 9.5 mg/dL (8.5-10.1); Chloride 103 mmol/L (98-107); Estimated GFR 56.95 (mL/min/1.73m2); Glucose 98 mg/dL (74-106); LDH 132 U/L (81-234); Potassium 3.9 mmol/L (3.5-5.1); Sodium 135 mmol/L (136-145); TSH (W/Ref FT4) 0.86 uIU/mL (0.36-3.74); Total Protein 6.6 g/dL (6.4-8.2)
[2022-01-24 13:02] LABS: Absolute Basophil Count 0.15 10^3/uL (0.0-0.2); Absolute Eosinophil Count 0.45 10^3/uL (0.0-0.7); Absolute Lymphocyte Count 7.34 10^3/uL (1.2-3.4); Absolute Neutrophil Count 5.99 10^3/uL (1.2-6.7); Atypical Lymphocytes % 1; Platelet Count 114 10^3/uL (130-400)
[2022-01-24 13:03] LABS: RBC Morphology Normal
[2022-01-24 13:04] LABS: Diff Comment Manual Differential
[2022-01-25 11:33] LABS: IgA 224 mg/dL (85-499); IgG 756 mg/dL (610-1,616); IgM 84 mg/dL (35-242)
[2022-01-25 14:56] LABS: Albumin 61.2 % (55.8-66.1); Albumin g/dL 3.7 g/dL (3.6-5.2)
== END 2022-01-24 04:15 | disposition home or self-care (01) ==
LOC: LBO 04:14
PROVIDERS: PCP Family Medicine; Visit Provider Family Medicine
DX: D72.829 Elevated white blood cell count, unspecified (principal); E87.1 Hypo-osmolality and hyponatremia; I50.9 Heart failure, unspecified
CPT/HCPCS: 36415; 80053; 82784; 83615; 84165; 84443; 85025; 85610

== ENCOUNTER → 2022-02-14 02:13 | Outpatient (CLI) | payer MEDICARE, OTHER, SELFPAY ==
--- NOTE | 2022-02-14 10:30 | DI.US_ITS ---
APPROVED REPORT EXAM: Comprehensive 2D, Doppler, and color-flow Echocardiogram Patient Location: Out-Patient Publication Specialist: Paige Dietz RDCS (AE) Indications: Edema, CHF Other Information Study Quality: Fair. Technically limited study due to body habitus. Conclusion Technically difficult but adequate study Normal left ventricular wall thickness and chamber size. Estimated ejection fraction is 55%. Wall m otion appears normal Grossly normal right ventricular size and systolic function Both atria are normal in size The aortic valve is probably trileaflet without stenosis or regurgitation Mild mitral annular calcification. Mild mitral regurgitation Normal tricuspid valve with trace to mild regurgitation. Estimated right ventricular systolic pressu re is 37 mmHg Wall motion Left Ventricle The left ventricle is normal size. The left ventricular systolic function is normal. The left ventric ular ejection fraction is within the normal range. There is normal left ventricular wall thickness. T here is normal LV segmental wall motion. There is no ventricular septal defect visualized. LVEF is 55 %. Right Ventricle Right ventricle is grossly normal in size. Right ventricular systolic function is grossly normal. The RVSP is 36.7mmHg. Atria The left atrium size is normal. The right atrium size is normal. The interatrial septum is intact wit h no evidence for an atrial septal defect. Aortic Valve The aortic valve is normal in structure. Aortic valve is probably trileaflet. There is no aortic valv ular stenosis. No aortic regurgitation is present. Mitral Valve Mild mitral annular calcification. No evidence of mitral valve stenosis. Mild mitral regurgitation. Tricuspid Valve The tricuspid valve is normal in structure. There is no tricuspid valve stenosis. Trace tricuspid reg urgitation. Pulmonic Valve Pulmonic valve is not well visualized. There is no pulmonic valvular stenosis. There is no pulmonic v alvular regurgitation. Great Vessels The aortic root is normal in size. The ascending aorta is normal in size. IVC is normal in size and c ollapses >50% with inspiration. Pericardium There is no pericardial effusion. 2D Dimensions IVSD d PLAX 0.79 cm F: 0.6-1.0 LV Vol A2C d MOD 66.6 mL LVPW d PLAX 0.78 cm F: 0.6 - 1.0 LV Vol A4C d MOD 67.0 mL LVID d PLAX 4.25 cm F: 3.8 - 5.2 LV EF A4C MOD 55.1 % LVDs 3.05 cm F: 2.2 - 3.5 LV EF A2C MOD 55.8 % Ao Root d 2.78 cm F: 2.7 - 3.3 LV EF Biplane MOD 55.9 % RA Area A4C 7.10 cm2 SV 38.03 mL RA Vol/ BSA A4C s A-L 7.1 mL/m2 SV Index 23.77 mL/m2 Ao Asc Diam d 3.11 cm F: 2.3 - 3.1 LV EF Teichholz 54.4 % LVEF (Ashraf's) 55.91 % F: 54 - 74 LV Volume 55.27 mL F: 46 - 106 LV Volume Index 34.54 mL/m2 F: 29 - 61 LV Vol Biplane MOD 68.0 mL FS 27.90 % M-Mode TAPSE 2.61 cm (M/F) >1.7 LV Diastology MV E' medial 0.090 (>0.07 m/s) E/A Ratio 1.0 LV E/e MED 10.15 (<14) MV E Vmax 0.92 (0.4-1.3 m/s) MV E' lateral 0.103 (>0.1 m/s) MV A Vmax 0.95 (0.4-1.3 m/s) LV E/e LAT 8.95 (<14) MV E/A Ratio 0.92 MV E/E' medial 10.18 MV E/E' lateral 8.97 Aortic Valve LVOT Area 2.73 cm2 AoV Area Vmax 2.22 cm2 LVOT Vmax 1.28 m/s AoV Area/ BSA (Vmax) 1.39 cm2/m2 LVOT Mean Lawrence. 0.85 m/s PATRICE Mean Lawrence. 2.17 cm2 LVOT Peak Grad 6.5 mmHg PATRICE Mean Lawrence. Index 1.36 cm2/m2 LVOT Mean Grad 3.4 mmHg LVOT VTI 0.259 m LVOT Diam s 1.85 cm AoV Vmax 1.57 m/s Velocity Ratio 0.81 AoV Mean Lawrence. 1.07 m/s AoV Peak Grad 9.9 mmHg LVOT SV 70.74 mL AoV Mean Grad 5.2 mmHg AoV VTI 0.323 m AoV Area VTI 2.19 cm2 AoV Area/ BSA (VTI) 1.37 cm/m2 Mitral Valve MV DT 191 (160-240 msec) MV PHT 55 msec MV Area PHT 3.98 cm2 MV VTI 0.312 m MV Area VTI 2.27 (4.0-6.0 cm2) Pulmonary Valve PV Vmax 0.96 (0.5-1.5 m/s) RVOT Peak Gr. 2.63 mmHg PV Peak Grad 3.7 mmHg RVOT Mean Gr. 1.35 mmHg PV Mean Grad 2.1 mmHg RVOT VTI 0.157 m PV VTI 0.195 m RVOT Vmax 0.81 m/s Tricuspid Valve TR Peak Grad 33.6 mmHg TR Vmax 2.90 m/s RA Pressure 3.00 mmHg RVSP (TR) 36.7 mmHg
== END ==
PROVIDERS: PCP Family Medicine; Visit Provider Family Medicine
DX: I50.9 Heart failure, unspecified (principal); R60.9 Edema, unspecified
CPT/HCPCS: 93306

== ENCOUNTER 2022-04-05 13:30 | Outpatient (CLI) | payer MEDICARE, OTHER, SELFPAY ==
[2022-04-05 13:16] LABS: Abs Immature Grans 0.05 10^3/uL (0.0-0.06); HCT 39.5 % (36.0-46.0); MCH 32.3 pg (27.0-33.0); MCHC 32.9 % (32.0-36.0); MCV 98 fL (80-95); MPV 10.2 fL (8.0-11.0); Platelet Count 117 10^3/uL (130-400); RBC 4.02 10^6/uL (3.93-5.22); RDW 13.2 % (11.7-14.6); RDW-SD 47.7 fL; WBC 19.33 10^3/uL (4.4-10.8)
[2022-04-05 13:27] LABS: ALT 20 U/L (14-59); AST 20 U/L (15-37); Albumin 3.6 g/dL (3.4-5.0); Alkaline Phosphatase 128 U/L (46-116); Anion Gap 5.5 mmol/L (3-11); BUN 22 mg/dL (7-18); Bilirubin, Total 0.5 mg/dL (0.2-1.0); CO2 28.5 mmol/L (21.0-32.0); CREATININE 1.2 mg/dL (0.55-1.02); Calcium 9.6 mg/dL (8.5-10.1); Chloride 106 mmol/L (98-107); Estimated GFR 45.76 (mL/min/1.73m2); Glucose 99 mg/dL (74-106); LDH 148 U/L (81-234); Potassium 4.5 mmol/L (3.5-5.1); Sodium 140 mmol/L (136-145); Total Protein 6.9 g/dL (6.4-8.2)
[2022-04-05 13:36] LABS: Absolute Eosinophil Count 0.39 10^3/uL (0.0-0.7); Absolute Lymphocyte Count 12.18 10^3/uL (1.2-3.4); Absolute Monocyte Count 0.77 10^3/uL (0.1-0.8); Absolute Neutrophil Count 5.99 10^3/uL (1.2-6.7); Atypical Lymphocytes % 18; Bands % 0
[2022-04-05 13:37] LABS: Diff Comment Manual Differential; RBC Morphology Normal
[2022-04-06 11:05] LABS: IgA 243 mg/dL (85-499); IgG 677 mg/dL (610-1616); IgM 108 mg/dL (35-242)
[2022-04-06 12:37] LABS: Albumin 61.2 % (55.8-66.1); Albumin g/dL 3.9 g/dL (3.6-5.2); Total Protein 6.4 g/dL (6.3-8.2)
== END 2022-04-05 13:31 | disposition home or self-care (01) ==
LOC: LBO 13:36
PROVIDERS: PCP Family Medicine; Visit Provider Internal Medicine Hematology & Oncology
DX: C91.10 Chronic lymphocytic leukemia of B-cell type not having achieved remission (principal)
CPT/HCPCS: 36415; 80053; 82784; 83615; 84165; 85025

== ENCOUNTER 2022-05-06 11:41 | Emergency (ER) | payer MEDICARE, OTHER, SELFPAY ==
[2022-05-06] VITALS (24 sets, daily range): BP systolic 143–190; BP diastolic 68–98; PULSE 82–103; RESP 8–39; TEMP 36.6–36.7; O2SAT 97–100
--- NOTE | 2022-05-06 11:45 | RT.EKG_ITS ---
APPROVED REPORT Exam: Resting ECG Reason for Exam: increased sob Patient Location: E HR:94 bpm ECG Measurements Heart Rate 94 AXIS MO 137 P 82 QRSd 82 QRS 18 QT 354 T 60 QTc 443 Conclusion Sinus rhythm...normal P axis, V-rate 60- 99 Physician: no stemi
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
[2022-05-06 13:14] LABS: HCT 38.3 % (36.0-46.0); HGB 12.5 g/dL (11.2-15.7); MCH 31.6 pg (27.0-33.0); MCHC 32.6 % (32.0-36.0); MCV 97 fL (80-95); MPV 10.4 fL (8.0-11.0); Platelet Count 100 10^3/uL (130-400); RBC 3.95 10^6/uL (3.93-5.22); RDW 13.1 % (11.7-14.6); WBC 15.44 10^3/uL (4.4-10.8)
[2022-05-06 13:27] LABS: PTT Activated 26.7 sec (21.0-27.5); Prothrombin Time 10.2 sec (9.3-11.0)
[2022-05-06 13:35] LABS: ALT 22 U/L (14-59); AST 27 U/L (15-37); Albumin 3.5 g/dL (3.4-5.0); Alkaline Phosphatase 132 U/L (46-116); Anion Gap 6.7 mmol/L (3-11); BUN 16 mg/dL (7-18); Bilirubin, Total 0.9 mg/dL (0.2-1.0); CO2 28.3 mmol/L (21.0-32.0); Calcium 9.4 mg/dL (8.5-10.1); Chloride 105 mmol/L (98-107); Estimated GFR 56.95 (mL/min/1.73m2); Glucose 88 mg/dL (74-106); Lipase 77 U/L (73-393); NT-proBNP 185 pg/mL (<300); Potassium 3.7 mmol/L (3.5-5.1); Sodium 140 mmol/L (136-145); Total Protein 6.6 g/dL (6.4-8.2); Troponin I < 50 ng/L (<or=60)
[2022-05-06 13:48] LABS: Absolute Lymphocyte Count 7.72 10^3/uL (1.2-3.4); Absolute Monocyte Count 0.15 10^3/uL (0.1-0.8); Absolute Neutrophil Count 7.57 10^3/uL (1.2-6.7)
[2022-05-06 13:49] LABS: Diff Comment Manual Differential; RBC Morphology Normal
[2022-05-06 13:50] LABS: D-Dimer 741 ng/mlFEU (<500)
[2022-05-06] MEDS: Sulfameth/Trimeth DS, 2 TABS/BTL 1 TAB PO (15:20)
[2022-05-06] MEDS: Sulfameth/Trimeth DS TAB 1 TAB PO (15:20)
--- NOTE | 2022-05-06 19:13 | NUR.NOTE ---
Requisition faxed to [facility] for RLE venous US to be done 05/07/22. Patient will f/u in ED after test.Nursing Note:
== END 2022-05-06 15:27 | disposition home or self-care (01) ==
PROVIDERS: Emergency Provider Physician Assistant; PCP Family Medicine
DX: L03.115 Cellulitis of right lower limb (principal); J44.0 Chronic obstructive pulmonary disease with (acute) lower respiratory infection; I11.0 Hypertensive heart disease with heart failure; I50.9 Heart failure, unspecified; G40.909 Epilepsy, unspecified, not intractable, without status epilepticus; J45.901 Unspecified asthma with (acute) exacerbation; J18.9 Pneumonia, unspecified organism; J44.1 Chronic obstructive pulmonary disease with (acute) exacerbation; Z87.891 Personal history of nicotine dependence; Z87.19 Personal history of other diseases of the digestive system; Z86.718 Personal history of other venous thrombosis and embolism
CPT/HCPCS: 36415; 80053; 83690; 87637; 93005; 99283; 83880; 84484; 85025; 85379; 85610; 85730; 93010; 99282

== ENCOUNTER → 2022-05-07 08:48 | Outpatient (CLI) | payer MEDICARE, OTHER, SELFPAY ==
--- NOTE | 2022-05-07 | DI.US_ITS ---
Exam(s) US LOWER EXTREMITY VENOUS RT EXAM: US LOWER EXTREMITY VENOUS RT CLINICAL HISTORY: RLE PAIN/SWELLING. TECHNIQUE: Lower extremity venous ultrasound performed using grayscale, color-flow, and spectral Do ppler analysis. COMPARISON: No exams were available for comparison FINDINGS: The common femoral, femoral and popliteal veins demonstrate normal compressibility, augmentation, and color Doppler. The posterior tibial veins are patent. No saphenous vein thrombosis or other superfi cial venous thrombosis is seen. No hematoma or Lopez's cyst is seen. Calf edema noted. IMPRESSION: Calf edema. No evidence of DVT. DATA REPOSITORY:
== END ==
PROVIDERS: PCP Family Medicine; Visit Provider Physician Assistant
DX: M79.661 Pain in right lower leg (principal); R60.0 Localized edema; M79.89 Other specified soft tissue disorders
CPT/HCPCS: 93971

== ENCOUNTER 2022-05-07 12:30 | Emergency (ER) | payer MEDICARE, OTHER, SELFPAY ==
[2022-05-07 12:38] VITALS: BP 138/65; PULSE 91; RESP 18; TEMP 36.8; O2SAT 97
[2022-05-07 12:57] VITALS: BP 137/75; PULSE 86; RESP 20; TEMP 36.9; O2SAT 95
[2022-05-07 14:30] VITALS: BP 140/74; PULSE 68; RESP 20; TEMP 37.4; O2SAT 96
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
--- NOTE | 2022-05-07 14:44 | NUR.NOTE ---
Nursing Note: Referral faxed to PCP for right lower extremity cellulitis within 1 week.
== END 2022-05-07 14:53 | disposition home or self-care (01) ==
PROVIDERS: Emergency Provider Student in an Organized Health Care Education/Training Program; PCP Family Medicine
DX: L03.115 Cellulitis of right lower limb (principal)

== ENCOUNTER 2022-06-18 02:55 | Outpatient (CLI) | payer MEDICARE, OTHER, SELFPAY | END 2022-06-18 02:56 | disposition home or self-care (01) | LOC: LBO 02:55 | PROVIDERS: PCP Family Medicine; Visit Provider Family Medicine | DX: F32.89 Other specified depressive episodes (principal) | CPT/HCPCS: 36415; 84439; 84443 ==

== ENCOUNTER 2022-07-07 16:04 | Outpatient (REF) | payer MEDICARE, OTHER, SELFPAY ==
[2022-07-07 16:23] LABS: Abs Immature Grans 0.05 10^3/uL (0.0-0.06); Absolute Basophil Count 0.11 10^3/uL (0.0-0.2); Absolute Lymphocyte Count 14.87 10^3/uL (1.2-3.4); Basophils % 0.5; Eosinophils % 1.4; HCT 43.4 % (36.0-46.0); Immature Grans % 0.2; Lymphocytes % 68.9; MCH 31.2 pg (27.0-33.0); MCHC 32.3 % (32.0-36.0); MCV 97 fL (80-95); MPV 10.8 fL (8.0-11.0); Monocytes % 3.8; Neutrophils % 25.2; Platelet Count 142 10^3/uL (130-400); RBC 4.49 10^6/uL (3.93-5.22); RDW 12.9 % (11.7-14.6); RDW-SD 46.5 fL; WBC 21.58 10^3/uL (4.4-10.8)
[2022-07-07 16:24] LABS: ESR 9 mm/hr (0-30)
[2022-07-07 16:24] LABS: Absolute Monocyte Count 0.82 10^3/uL (0.1-0.8); Absolute Neutrophil Count 5.44 10^3/uL (1.2-6.7); Diff Comment Agrees w/ Instrument
[2022-07-07 16:25] LABS: RBC Morphology Normal
[2022-07-07 16:40] LABS: ALT 19 U/L (14-59); AST 26 U/L (15-37); Albumin 4.1 g/dL (3.4-5.0); Alkaline Phosphatase 182 U/L (46-116); BUN 18 mg/dL (7-18); Bilirubin, Total 0.8 mg/dL (0.2-1.0); CREATININE 1.1 mg/dL (0.55-1.02); Chloride 98 mmol/L (98-107); Glucose 97 mg/dL (74-106); Potassium 4.5 mmol/L (3.5-5.1); Sodium 135 mmol/L (136-145); TSH (W/Ref FT4) 8.32 uIU/mL (0.36-3.74); Total Protein 6.8 g/dL (6.4-8.2)
[2022-07-07 16:56] LABS: FREE T4 0.82 ng/dL (0.76-1.46)
[2022-07-07 21:29] LABS: Lab Add On Test DONE
== END 2022-07-07 16:05 | disposition home or self-care (01) ==
LOC: LBN 16:04
PROVIDERS: PCP Family Medicine; Visit Provider Nurse Practitioner Family
DX: E03.9 Hypothyroidism, unspecified (principal); B99.9 Unspecified infectious disease
CPT/HCPCS: 80053; 85652; 86141; 84439; 84443; 85025; 86140

== ENCOUNTER 2022-07-09 12:25 | Outpatient (CLI) | payer MEDICARE, OTHER, SELFPAY ==
--- NOTE | 2022-07-09 08:15 | DI.US_ITS ---
Exam(s) US LOWER EXTREMITY VENOUS LT EXAM: US LOWER EXTREMITY VENOUS LT CLINICAL HISTORY: evaluate DVT, LT LEG SWELLING, M79.89 OTHER SPECIFIED SOFT TISSUE DISORDER. TECHNIQUE: Lower extremity venous ultrasound performed using grayscale, color-flow, and spectral Do ppler analysis. COMPARISON: No exams were available for comparison FINDINGS: The common femoral, femoral and popliteal veins demonstrate normal compressibility, augmentation, and color Doppler. The posterior tibial veins are patent. No saphenous vein thrombosis or other superfi cial venous thrombosis is seen. No hematoma or Lopez's cyst is seen. IMPRESSION: Negative lower extremity ultrasound. No evidence of DVT. DATA REPOSITORY:
== END 2022-07-09 12:45 ==
LOC: DI 12:26
PROVIDERS: PCP Family Medicine; Visit Provider Nurse Practitioner Family
DX: M79.89 Other specified soft tissue disorders (principal); R22.42 Localized swelling, mass and lump, left lower limb
CPT/HCPCS: 93971

== ENCOUNTER 2022-07-13 00:52 | Outpatient (CLI) | payer MEDICARE, OTHER, SELFPAY ==
--- NOTE | 2022-07-13 | DI.US_ITS ---
Exam(s) US BREAST RT LIMITED MG MAMMO DIAGNOSTIC BI EXAM: MAMMO DIAGNOSTIC BI CLINICAL HISTORY: Right breast rash,NIPPLE DISCHARGE,N64.52. COMPARISON: 2013 through 2019 TECHNIQUE: Craniocaudal and mediolateral oblique Full Field Digital Mammography views of both breast s with Computer Aided Diagnosis followed by Tomosynthesis and right breast ultrasound. FINDINGS: Mammography/Tomosynthesis: Masses/Architectural Distortion: None seen. Microcalcifications: No suspicious pleomorphic-type are seen. Skin Thickening/Nipple Retraction: New skin thickening seen in the subareolar region. Right breast US: Echotexture: Normal appearance of the glandular tissue. Shadowing: No suspicious foci. Cyst: None. Solid lesions: None seen. Ductal dilation: Mild subareolar ductal dilatation. Thickening and hyperemia of the subareolar skin. IMPRESSION: 1. No evidence of malignancy is noted. 2. Clinical follow-up of right breast skin thickening recommended. . BI-RADS Category 2 - Benign Findings Breast Density - Category B - Scattered areas of fibroglandular density A negative radiographic report should not delay biopsy if a dominant or clinically suspicious mass is present. Up to ten percent of cancers are not identified on mammography. A negative report may reinforce clinical impression. Adenosis and dense breasts may obscure an underlying neoplasm. False positive reports average 6 to 10%. Patient will receive a letter notifying them of these results.
== END 2022-07-13 01:12 ==
LOC: DI 00:52
PROVIDERS: PCP Family Medicine; Visit Provider Family Medicine
DX: N64.52 Nipple discharge (principal); R92.8 Other abnormal and inconclusive findings on diagnostic imaging of breast
CPT/HCPCS: 76642; 77062; 77066; G0279

== ENCOUNTER 2022-10-23 13:53 | Outpatient (CLI) | payer MEDICARE, OTHER, SELFPAY ==
[2022-10-23 13:02] LABS: Abs Immature Grans 0.06 10^3/uL (0.0-0.06); Absolute Basophil Count 0.08 10^3/uL (0.0-0.2); Absolute Lymphocyte Count 11.63 10^3/uL (1.2-3.4); Absolute Neutrophil Count 6.91 10^3/uL (1.2-6.7); Basophils % 0.4; Eosinophils % 0.6; HCT 39.9 % (36.0-46.0); HGB 13.1 g/dL (11.2-15.7); Immature Grans % 0.3; Lymphocytes % 60.4; MCH 31.3 pg (27.0-33.0); MCHC 32.8 % (32.0-36.0); MCV 95 fL (80-95); MPV 9.3 fL (8.0-11.0); Monocytes % 2.4; Neutrophils % 35.9; Platelet Count 140 10^3/uL (130-400); RBC 4.19 10^6/uL (3.93-5.22); RDW 13.8 % (11.7-14.6); RDW-SD 48.1 fL; WBC 19.26 10^3/uL (4.4-10.8)
[2022-10-23 13:04] LABS: Absolute Eosinophil Count 0.12 10^3/uL (0.0-0.7); Absolute Monocyte Count 0.46 10^3/uL (0.1-0.8)
[2022-10-23 13:54] LABS: Diff Comment Agrees w/ Instrument; RBC Morphology Normal
== END 2022-10-23 13:54 | disposition home or self-care (01) ==
LOC: LBO 13:55
PROVIDERS: PCP Family Medicine; Visit Provider Internal Medicine Hematology & Oncology
DX: C91.10 Chronic lymphocytic leukemia of B-cell type not having achieved remission (principal)
CPT/HCPCS: 36415; 85025

== ENCOUNTER 2022-12-06 13:02 | Emergency (ER) | payer MEDICARE, OTHER, SELFPAY ==
[2022-12-06 13:10] VITALS: BP 157/73; PULSE 85; RESP 18; TEMP 36.9; O2SAT 96
--- NOTE | 2022-12-06 13:30 | DI.RAD_ITS ---
Exam(s) XR ELBOW LT COMPLETE EXAM: XR ELBOW LT COMPLETE CLINICAL HISTORY: Fall. TECHNIQUE: 2D digital imaging was performed. Three views. COMPARISON: No exams were available for comparison FINDINGS: BONES: No acute fracture is present. No bony destructive lesion is seen. JOINTS: The elbow is normally aligned. No joint effusion is seen. SOFT TISSUE: Normal. IMPRESSION: Unremarkable radiographs of the left elbow. DATA REPOSITORY: RADIATION DOSE DELIVERED:
--- NOTE | 2022-12-06 13:30 | DI.RAD_ITS ---
Exam(s) XR PELVIS AP EXAM: XR PELVIS AP CLINICAL HISTORY: Fall. TECHNIQUE: 2D digital imaging was performed. One image was obtained. COMPARISON: No exams were available for comparison FINDINGS: BONES: No acute fracture is present. No bony destructive lesion is seen. JOINTS: No dislocation present. The sacroiliac joints are well maintained. SOFT TISSUE: Suture material seen in the soft tissues. IMPRESSION: There is no acute fracture or dislocation. DATA REPOSITORY: RADIATION DOSE DELIVERED:
--- NOTE | 2022-12-06 13:30 | DI.CT_ITS ---
Exam(s) CT HEAD CERV SPINE FACIAL WO EXAM: CT HEAD CERV SPINE FACIAL WO CLINICAL HISTORY: Fall, Head Injury. TECHNIQUE: Imaging Protocol: Axial computed tomography images with coronal and sagittal reformatted images were created and reviewed COMPARISON: No exams were available for comparison FINDINGS: CT Head: Ventricles and Extra axial spaces: Normal in size and morphology for the patient's age. Hemorrhage: None. Cerebral parenchyma: There is no acute territorial infarct. There are areas of decreased attenuation consistent with small vessel ischemic disease. 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 Midline shift: None. Brainstem/Cerebellum: Normal. Calvarium: Normal. Visualized Paranasal sinuses/Mastoids: Clear. Soft Tissues: Unremarkable. CT Face: Facial Bones: No definite fracture is noted in facial bones. Sinuses and Mastoids: Unremarkable. Globes, extraocular muscles, optic nerves and retrobulbar fat: Normal. Upper aerodigestive tract: Normal. Mandible and bilateral temporomandibular joints: Normal. Soft tissues: There is mild soft tissue swelling over the left cheek. CT Cervical Spine: Bones: No acute fracture or subluxation. Degenerative changes are seen in the spine. Soft Tissues: Unremarkable. Lung Apices: Clear. IMPRESSION: 1. No acute intracranial process. 2. No acute fracture or subluxation in the cervical spine. 3. No acute facial fracture. 4. Soft tissue swelling over the left cheek. 5. Findings were discussed with the emergency department at 3:07 p.m. on 12/06/2022. RADIATION DOSE DELIVERED: Total DLP DATA REPOSITORY: All CT scans at this facility are submitted to the National Radiology Data Registry (NRDR) Dose Index Registry (DIR) with the [employer] ([employer]). RADIATION OPTIMIZATION: All CT scans at this facility use at least one of these dose optimization te chniques: automated exposure control; mA and/or kV adjustment per patient size (includes targeted exa ms where dose is matched to clinical indication); or iterative reconstruction.
--- NOTE | 2022-12-06 13:30 | DI.RAD_ITS ---
Exam(s) XR CHEST 2V PA LATERAL EXAM: XR CHEST 2V PA LATERAL CLINICAL HISTORY: Fall TECHNIQUE: 2D digital imaging was performed of the chest. Two images were obtained. PA and lateral views were obtained. COMPARISON: CR XR PORTABLE CHEST AP from 11/29/2021 FINDINGS: MEDIASTINUM: Normal. HEART: Normal. PULMONARY VASCULATURE: Normal. LUNGS: Clear. PLEURAL SPACE: No pleural effusion or pneumothorax. BONE:Within normal limits for the patient's age. OTHER FINDINGS:Normal. IMPRESSION: No acute pulmonary findings. DATA REPOSITORY: RADIATION DOSE DELIVERED:
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
[2022-12-06] MEDS: Lidocaine/Epinephri/Tetracaine Topical Gel 3 ML TP (13:57)
--- NOTE | 2022-12-06 14:55 | DI.RAD_ITS ---
Exam(s) XR KNEE LT 4V AP,LAT,RIVKA,PAT XR KNEE RT 4V AP,LAT,RIVKA,PAT EXAM: XR KNEE bilateral 4V AP,LAT,RIVKA,PAT CLINICAL HISTORY: Fall, Laceration. TECHNIQUE: 2D digital imaging was performed of the right knee. Seven views obtained. Merchant, AP, l ateral and PA tunnel views were obtained. COMPARISON: There are no priors for comparison. FINDINGS: BONES: There is an acute transverse fracture through the midpole of the right patella. There is mini mal distraction of the fracture. No bony destructive lesion is seen. JOINTS: The knee is normally aligned. There is a right knee joint effusion. There is chondrocalcinos is bilaterally. SOFT TISSUE: Normal. IMPRESSION: 1. Mildly distracted fracture through the midpole of the right patella. Right knee joint effusion. 2. No acute fracture or dislocation in the left knee. DATA REPOSITORY: RADIATION DOSE DELIVERED:
[2022-12-06 17:08] VITALS: BP 171/86; PULSE 97; RESP 20; TEMP 37.1; O2SAT 92
== END 2022-12-06 17:19 | disposition home or self-care (01) ==
PROVIDERS: Emergency Provider Registered Nurse Emergency; PCP Family Medicine
DX: S00.83XA Contusion of other part of head, initial encounter (principal); S09.90XA Unspecified injury of head, initial encounter; S82.024A Nondisplaced longitudinal fracture of right patella, initial encounter for closed fracture; J44.9 Chronic obstructive pulmonary disease, unspecified; I27.20 Pulmonary hypertension, unspecified; E03.9 Hypothyroidism, unspecified; Z93.3 Colostomy status; W10.8XXA Fall (on) (from) other stairs and steps, initial encounter; Y93.01 Activity, walking, marching and hiking; Y92.89 Other specified places as the place of occurrence of the external cause; Y99.9 Unspecified external cause status
CPT/HCPCS: 99284; 70450; 70486; 71046; 72125; 72170; 73080; 73564; 99283

== ENCOUNTER 2022-12-18 15:54 | Outpatient (CLI) | payer MEDICARE, OTHER, SELFPAY ==
--- NOTE | 2022-12-18 15:44 | DI.RAD_ITS ---
Exam(s) XR KNEE RT 2V AP,LAT EXAM: XR KNEE RT 2V AP,LAT INDICATION: RIGHT PATELLA F/U. COMPARISON: CR XR KNEE LT 4V AP,LAT,RIVKA,PAT from 12/06/2022 CR XR KNEE RT 4V AP,LAT,RIVKA,PAT from 12/06/2022 TECHNIQUE: 2D digital imaging was performed. Two views. FINDINGS: There has been no change in the alignment of the patellar fracture. The amount of joint effusion has decreased. The bones appear osteopenic. No new findings.. DATA REPOSITORY: RADIATION DOSE DELIVERED:
== END 2022-12-18 15:55 | disposition home or self-care (01) ==
LOC: DIORS 15:54
PROVIDERS: PCP Family Medicine; Referring Provider Family Medicine; Visit Provider Student in an Organized Health Care Education/Training Program
DX: S82.024D Nondisplaced longitudinal fracture of right patella, subsequent encounter for closed fracture with routine healing (principal); S80.211D Abrasion, right knee, subsequent encounter; W19.XXXD Unspecified fall, subsequent encounter
CPT/HCPCS: 99204; 99214; 73560

== ENCOUNTER 2022-12-20 19:01 | Outpatient (REF) | payer MEDICARE, OTHER, SELFPAY | END 2022-12-20 19:02 | disposition home or self-care (01) | LOC: LBN 19:01 | PROVIDERS: Visit Provider Nurse Practitioner Family | DX: S82.024D Nondisplaced longitudinal fracture of right patella, subsequent encounter for closed fracture with routine healing; R35.0 Frequency of micturition; S80.211D Abrasion, right knee, subsequent encounter | CPT/HCPCS: 87070; 87086; 87205 ==

== ENCOUNTER 2023-01-15 14:58 | Outpatient (CLI) | payer MEDICARE, OTHER, SELFPAY ==
--- NOTE | 2023-01-15 14:30 | DI.RAD_ITS ---
Exam(s) XR KNEE RT 2V AP,LAT EXAM: XR KNEE RT 2V AP,LAT CLINICAL HISTORY: patella fx f/u. TECHNIQUE: 2D digital imaging was performed of the right knee. Two views obtained. AP and lateral views were obtained. COMPARISON: CR XR KNEE RT 2V AP,LAT from 12/18/2022 FINDINGS: BONES: There has been no change in alignment of the patellar fracture. No new fractures identified. The bones are osteopenic. No bony destructive lesion is seen. JOINTS: The knee is normally aligned. There is chondrocalcinosis in the femoral tibial joint. SOFT TISSUE: Normal. IMPRESSION: Stable patellar fracture. DATA REPOSITORY: RADIATION DOSE DELIVERED:
== END 2023-01-15 14:59 | disposition home or self-care (01) ==
LOC: DIORS 14:59
PROVIDERS: PCP Family Medicine; Referring Provider Family Medicine; Visit Provider Student in an Organized Health Care Education/Training Program
DX: S82.001D Unspecified fracture of right patella, subsequent encounter for closed fracture with routine healing (principal); X58.XXXD Exposure to other specified factors, subsequent encounter
CPT/HCPCS: 99213; 73560

== ENCOUNTER 2023-02-26 14:34 | Outpatient (CLI) | payer MEDICARE, OTHER, SELFPAY ==
--- NOTE | 2023-02-26 13:45 | DI.RAD_ITS ---
Exam(s) XR KNEE RT 2V AP,LAT EXAM: XR KNEE RT 2V AP,LAT CLINICAL HISTORY: F/U FRACTURE. TECHNIQUE: 2D digital imaging was performed of the right knee. Two views obtained. AP and lateral views were obtained. COMPARISON: CR XR KNEE RT 2V AP,LAT from 01/15/2023 FINDINGS: BONES: There has been no change in alignment of the patellar fracture. The fracture is less well vis ualized suggesting some interval healing. No bony destructive lesion is seen. The bones are osteopen ic. JOINTS: The knee is normally aligned. There is chondrocalcinosis in the femoral tibial joint. There does appear to be a tiny suprapatellar joint effusion. SOFT TISSUE: Normal. IMPRESSION: Stable alignment of the patellar fracture. DATA REPOSITORY: RADIATION DOSE DELIVERED:
== END 2023-02-26 14:35 | disposition home or self-care (01) ==
LOC: DIORS 14:34
PROVIDERS: PCP Family Medicine; Referring Provider Family Medicine; Visit Provider Student in an Organized Health Care Education/Training Program
DX: S82.001D Unspecified fracture of right patella, subsequent encounter for closed fracture with routine healing (principal); X58.XXXD Exposure to other specified factors, subsequent encounter
CPT/HCPCS: 99213; 73560

== ENCOUNTER → 2023-04-16 10:30 | Outpatient (BNVA) | payer MEDICARE, OTHER, SELFPAY | PROVIDERS: PCP Family Medicine; Referring Provider Family Medicine; Visit Provider Physician Assistant Surgical | DX: J43.2 Centrilobular emphysema (principal); Z79.51 Long term (current) use of inhaled steroids; Z79.899 Other long term (current) drug therapy; J96.91 Respiratory failure, unspecified with hypoxia; Z87.891 Personal history of nicotine dependence; I27.20 Pulmonary hypertension, unspecified | CPT/HCPCS: 99214 ==

== ENCOUNTER 2023-05-23 04:06 | Outpatient (CLI) | payer MEDICARE, OTHER, SELFPAY ==
[2023-05-23 10:06] LABS: HCT 42.8 % (36.0-46.0); HGB 14.2 g/dL (11.2-15.7); MCH 31.3 pg (27.0-33.0); MCHC 33.2 % (32.0-36.0); MCV 94 fL (80-95); MPV 9.5 fL (8.0-11.0); Platelet Count 153 10^3/uL (130-400); RBC 4.54 10^6/uL (3.93-5.22); RDW 12.4 % (11.7-14.6); RDW-SD 43.2 fL; WBC 21.57 10^3/uL (4.4-10.8)
[2023-05-23 10:20] LABS: ALT 15 U/L (14-59); AST 17 U/L (15-37); Albumin 3.3 g/dL (3.4-5.0); Alkaline Phosphatase 123 U/L (46-116); Anion Gap 7.8 mmol/L (3-11); BUN 18 mg/dL (7-18); Bilirubin, Total 0.8 mg/dL (0.2-1.0); CO2 29.2 mmol/L (21.0-32.0); CREATININE 1.1 mg/dL (0.55-1.02); Chloride 97 mmol/L (98-107); Estimated GFR 50.48 (mL/min/1.73m2); Glucose 105 mg/dL (74-106); LDH 172 U/L (81-234); Potassium 4.6 mmol/L (3.5-5.1); Sodium 134 mmol/L (136-145); Total Protein 7.2 g/dL (6.4-8.2)
[2023-05-23 10:34] LABS: Absolute Eosinophil Count 0.22 10^3/uL (0.0-0.7); Absolute Lymphocyte Count 15.31 10^3/uL (1.2-3.4); Absolute Monocyte Count 0.65 10^3/uL (0.1-0.8); Absolute Neutrophil Count 5.39 10^3/uL (1.2-6.7); Diff Comment Manual Differential; RBC Morphology Normal
== END 2023-05-23 04:07 | disposition home or self-care (01) ==
PROVIDERS: PCP Family Medicine; Visit Provider Nurse Practitioner Family
DX: C91.10 Chronic lymphocytic leukemia of B-cell type not having achieved remission (principal)
CPT/HCPCS: 36415; 80053; 83615; 85025

== ENCOUNTER 2023-06-18 16:30 | Outpatient (REF) | payer MEDICARE, OTHER, SELFPAY ==
[2023-06-18 20:41] LABS: Bilirubin Negative (Negative); Blood Moderate (Negative); Clarity Turbid (Clear); Glucose Negative (Negative); Ketones Negative (Negative); Leukocyte Esterase Large (Negative); Nitrite Negative (Negative); Specific Gravity 1.025 (1.005-1.025); Urobilinogen 0.2 mg/dL (Up to 0.2); pH 5.5 (5-8)
[2023-06-18 20:59] LABS: C & S Indicated? Yes; WBC >50 HPF (0-5)
== END 2023-06-18 16:31 | disposition home or self-care (01) ==
LOC: LBN 16:30
PROVIDERS: PCP Family Medicine; Visit Provider Family Medicine
DX: R32 Unspecified urinary incontinence (principal); R82.998 Other abnormal findings in urine
CPT/HCPCS: 87077; 81003; 81015; 87086; 87186

== ENCOUNTER → 2023-07-16 10:58 | Outpatient (BNVA) | payer MEDICARE, OTHER, SELFPAY | PROVIDERS: PCP Family Medicine; Referring Provider Family Medicine; Visit Provider Student in an Organized Health Care Education/Training Program | DX: J43.2 Centrilobular emphysema (principal); J96.91 Respiratory failure, unspecified with hypoxia; I27.20 Pulmonary hypertension, unspecified; Z87.891 Personal history of nicotine dependence | CPT/HCPCS: 99214 ==

== ENCOUNTER 2023-08-03 14:43 | Emergency (ER) | payer MEDICARE, OTHER, SELFPAY ==
[2023-08-03 14:46] VITALS: BP 178/95; PULSE 98; RESP 18; TEMP 36.4; O2SAT 94
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
[2023-08-03 15:11] VITALS: BP 187/97; PULSE 106; TEMP 36.2; O2SAT 94
== END 2023-08-03 15:17 | disposition home or self-care (01) ==
PROVIDERS: Emergency Provider Emergency Medicine; PCP Family Medicine
DX: M79.604 Pain in right leg (principal); S80.11XA Contusion of right lower leg, initial encounter; W23.1XXA Caught, crushed, jammed, or pinched between stationary objects, initial encounter
CPT/HCPCS: 99284; 99283

== ENCOUNTER 2023-09-16 15:09 | Outpatient (REF) | payer MEDICARE, OTHER, SELFPAY ==
[2023-09-16 13:03] LABS: Bilirubin Negative (Negative); Blood Small (Negative); Clarity Sl Cloudy (Clear); Glucose Negative (Negative); Ketones Negative (Negative); Leukocyte Esterase Moderate (Negative); Nitrite Negative (Negative); Specific Gravity 1.015 (1.005-1.025); Urobilinogen 0.2 mg/dL (Up to 0.2); pH 6.5 (5-8)
[2023-09-16 13:16] LABS: C & S Indicated? Yes; WBC >50 HPF (0-5)
== END 2023-09-16 15:10 | disposition home or self-care (01) ==
LOC: LBN 15:09
PROVIDERS: PCP Family Medicine; Visit Provider Family Medicine
DX: R30.0 Dysuria (principal)
CPT/HCPCS: 81003; 81015; 87086

== ENCOUNTER 2023-09-18 05:25 | Outpatient (CLI) | payer MEDICARE, OTHER, SELFPAY ==
[2023-09-18 12:39] LABS: AST 20 U/L (15-37); Albumin 3.7 g/dL (3.4-5.0); Alkaline Phosphatase 116 U/L (46-116); Anion Gap 6.2 mmol/L (3-11); BUN 17 mg/dL (7-18); CO2 29.8 mmol/L (21.0-32.0); Calcium 9.7 mg/dL (8.5-10.1); Chloride 100 mmol/L (98-107); Estimated GFR 56.25 (mL/min/1.73m2); Glucose 97 mg/dL (74-106); Potassium 4.5 mmol/L (3.5-5.1); Sodium 136 mmol/L (136-145); TSH (W/Ref FT4) 3.58 uIU/mL (0.36-3.74)
[2023-09-18 12:59] LABS: ALT 19 U/L (14-59); Total Protein 6.8 g/dL (6.4-8.2)
== END 2023-09-18 05:26 | disposition home or self-care (01) ==
PROVIDERS: PCP Family Medicine; Visit Provider Family Medicine
DX: I10 Essential (primary) hypertension (principal); R30.0 Dysuria; E03.9 Hypothyroidism, unspecified; R82.89 Other abnormal findings on cytological and histological examination of urine
CPT/HCPCS: 36415; 80053; 84443

== ENCOUNTER 2023-10-24 05:13 | Outpatient (CLI) | payer MEDICARE, OTHER, SELFPAY ==
[2023-10-24 10:02] LABS: Abs Immature Grans 0.07 10^3/uL (0.0-0.06); HCT 41.5 % (36.0-46.0); HGB 13.6 g/dL (11.2-15.7); MCH 31.3 pg (27.0-33.0); MCHC 32.8 % (32.0-36.0); MCV 96 fL (80-95); MPV 9.4 fL (8.0-11.0); Platelet Count 109 10^3/uL (130-400); RBC 4.34 10^6/uL (3.93-5.22); RDW-SD 45.9 fL; WBC 23.87 10^3/uL (4.4-10.8)
[2023-10-24 10:12] LABS: ALT 22 U/L (14-59); AST 17 U/L (15-37); Albumin 3.6 g/dL (3.4-5.0); Alkaline Phosphatase 106 U/L (46-116); Anion Gap 6.6 mmol/L (3-11); BUN 20 mg/dL (7-18); Bilirubin, Total 0.5 mg/dL (0.2-1.0); CO2 29.4 mmol/L (21.0-32.0); CREATININE 1.2 mg/dL (0.55-1.02); Calcium 9.7 mg/dL (8.5-10.1); Chloride 102 mmol/L (98-107); Estimated GFR 45.19 (mL/min/1.73m2); Glucose 102 mg/dL (74-106); Potassium 4.2 mmol/L (3.5-5.1); Sodium 138 mmol/L (136-145); Total Protein 6.7 g/dL (6.4-8.2)
[2023-10-24 10:26] LABS: Absolute Monocyte Count 0.24 10^3/uL (0.1-0.8); Absolute Neutrophil Count 8.83 10^3/uL (1.2-6.7); Atypical Lymphocytes % 3 %; Bands % 1 %; Diff Comment Manual Differential; RBC Morphology Normal
== END 2023-10-24 05:14 | disposition home or self-care (01) ==
LOC: LBO 05:13
PROVIDERS: Nurse Practitioner Family; PCP Family Medicine; Visit Provider Internal Medicine Hematology & Oncology
DX: C91.10 Chronic lymphocytic leukemia of B-cell type not having achieved remission (principal)
CPT/HCPCS: 36415; 80053; 85025

== ENCOUNTER → 2024-01-15 12:42 | Outpatient (BNVA) | payer MEDICARE, OTHER, SELFPAY | PROVIDERS: PCP Family Medicine; Referring Provider Family Medicine; Visit Provider Physician Assistant Surgical | DX: J43.2 Centrilobular emphysema (principal); J96.91 Respiratory failure, unspecified with hypoxia; I27.20 Pulmonary hypertension, unspecified; Z87.891 Personal history of nicotine dependence | CPT/HCPCS: 99214 ==

== ENCOUNTER 2024-01-23 03:22 | Outpatient (CLI) | payer MEDICARE, OTHER, SELFPAY ==
[2024-01-23 09:21] LABS: Abs Immature Grans 0.05 10^3/uL (0.0-0.06); HCT 40.7 % (36.0-46.0); HGB 13.6 g/dL (11.2-15.7); Immature Grans % 0.2 %; MCH 31.9 pg (27.0-33.0); MCHC 33.4 % (32.0-36.0); MCV 95 fL (80-95); MPV 9.8 fL (8.0-11.0); Platelet Count 103 10^3/uL (130-400); RBC 4.27 10^6/uL (3.93-5.22); RDW-SD 45.2 fL; WBC 23.01 10^3/uL (4.4-10.8)
[2024-01-23 09:35] LABS: ALT 14 U/L (14-59); AST 20 U/L (15-37); Albumin 3.5 g/dL (3.4-5.0); Alkaline Phosphatase 110 U/L (46-116); Anion Gap 4.9 mmol/L (3-11); BUN 8 mg/dL (7-18); Bilirubin, Total 0.89 mg/dL (0.2-1.0); CO2 30.1 mmol/L (21.0-32.0); Calcium 9.5 mg/dL (8.5-10.1); Chloride 99 mmol/L (98-107); Estimated GFR 56.25 (mL/min/1.73m2); Glucose 94 mg/dL (74-106); Potassium 3.3 mmol/L (3.5-5.1); Sodium 134 mmol/L (136-145); Total Protein 6.6 g/dL (6.4-8.2)
[2024-01-23 09:46] LABS: Absolute Lymphocyte Count 15.42 10^3/uL (1.2-3.4); Absolute Monocyte Count 0.23 10^3/uL (0.1-0.8); Absolute Neutrophil Count 7.13 10^3/uL (1.2-6.7)
== END 2024-01-23 03:23 | disposition home or self-care (01) ==
PROVIDERS: PCP Family Medicine; Visit Provider Nurse Practitioner Family
DX: C91.10 Chronic lymphocytic leukemia of B-cell type not having achieved remission (principal)
CPT/HCPCS: 36415; 80053; 85025

== ENCOUNTER 2024-03-25 22:13 | Outpatient (REF) | payer MEDICARE, OTHER, SELFPAY ==
[2024-03-25 22:20] LABS: Bilirubin Negative (Negative); Blood Trace-intact (Negative); Clarity Clear (Clear); Glucose Negative (Negative); Ketones Negative (Negative); Leukocyte Esterase Moderate (Negative); Nitrite Negative (Negative); Urobilinogen 0.2 mg/dL (Up to 0.2); pH 6.5 (5-8)
[2024-03-25 22:28] LABS: Bacteria Moderate HPF (Negative); C & S Indicated? Yes; Casts Negative LPF (Negative); Crystals Negative HPF (Negative); Epithelial Cells Few HPF (Negative); Mucus Negative (Negative); RBC 0-2 HPF (0-2); WBC 20-50 HPF (0-5)
== END 2024-03-25 22:14 | disposition home or self-care (01) ==
LOC: LBN 22:13
PROVIDERS: PCP Family Medicine; Visit Provider Family Medicine
DX: R32 Unspecified urinary incontinence (principal); L98.9 Disorder of the skin and subcutaneous tissue, unspecified; J43.2 Centrilobular emphysema
CPT/HCPCS: 81003; 81015; 87086

== ENCOUNTER 2024-04-10 09:29 | Outpatient (REF) | payer MEDICARE, OTHER, SELFPAY | END 2024-04-10 09:30 | disposition home or self-care (01) | LOC: LBN 09:29 | PROVIDERS: PCP Family Medicine; Visit Provider Surgery | DX: C44.622 Squamous cell carcinoma of skin of right upper limb, including shoulder (principal) | CPT/HCPCS: 88305 ==

== ENCOUNTER 2024-05-04 15:42 | Outpatient (REF) | payer MEDICARE, OTHER, SELFPAY ==
--- NOTE | 2024-05-04 12:15 | SKI_PTH ---
PATIENT: Aleida Woodson LOC: [facility] U#:[id number] AGE/SX: 83/F ROOM: RE05/04/[address]: Oscar Shay MD : 1940 BED: DIS: 05/04/2024 SPEC #: [id number] RECD: 05/04/24 17:05 STATUS: VAUGHN RESaima #: [id number] [place]: 05/04/24 12:[address]: Oscar Shay DEPT: Surgical Specimen RECD BY: Bess Newsome ENTERED: 05/04/24 17:06 SP TYPE: BERNARDO FERNÁNDEZ DR: Ramila Tapia MD, DC Tissues: 1 - SKIN BIOPSY(SHAVE/PUNCH) Procedures: SKIN LEVEL 4 Comments: [id number]
== END 2024-05-04 15:43 | disposition home or self-care (01) ==
LOC: LBN 15:42
PROVIDERS: PCP Family Medicine; Referring Provider Family Medicine; Visit Provider Otolaryngology
DX: L98.9 Disorder of the skin and subcutaneous tissue, unspecified (principal); C44.91 Basal cell carcinoma of skin, unspecified; D22.9 Melanocytic nevi, unspecified
CPT/HCPCS: 88305

== ENCOUNTER 2024-05-25 15:26 | Inpatient (IN) | payer MEDICARE, OTHER, SELFPAY ==
[2024-05-25] VITALS (59 sets, daily range): BP systolic 121–213; BP diastolic 60–79; PULSE 70–131; RESP 2–29; TEMP 37.1–37.3; O2SAT 85–100
--- NOTE | 2024-05-25 15:30 | RT.EKG_ITS ---
APPROVED REPORT Exam: Resting ECG Reason for Exam: tachy Patient Location: E HR:110 bpm ECG Measurements Heart Rate 110 AXIS LA 147 P 81 QRSd 77 QRS 16 QT 331 T 64 QTc 447 Conclusion Sinus tachycardia, rate 110 No interval abnormalities No STEMI Significant baseline artifact Nonspecific ST changes, diffuse
--- NOTE | 2024-05-25 15:45 | DI.RAD_ITS ---
Exam(s) XR PORTABLE CHEST AP EXAM: XR PORTABLE CHEST AP CLINICAL HISTORY: COPD exacerbation, eval PNA. TECHNIQUE: 2D digital imaging was performed. COMPARISON: CR XR CHEST 2V PA LATERAL from 12/06/2022 FINDINGS: Single AP portable view. Heart size is upper normal. The mediastinum is not widened. Mildly increased reticular markings in both lower lung lord but no confluent infiltrates nor pleura l effusions. No obvious pulmonary edema. No pneumothorax. No fractures. IMPRESSION: Mildly increased reticular in pattern in both lung lord although exhibiting minimal change compare d to 12/06/2022 DATA REPOSITORY: RADIATION DOSE DELIVERED:
[2024-05-25] MEDS: Albuterol/Ipratropium 3 ML UPD VIAL UPD ×2 (15:57→22:45)
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
[2024-05-25 16:19] LABS: Abs Immature Grans 0.15 10^3/uL (0.0-0.06); HCT 45.2 % (36.0-46.0); HGB 15.5 g/dL (11.2-15.7); MCH 31.2 pg (27.0-33.0); MCHC 34.3 % (32.0-36.0); MCV 91 fL (80-95); MPV 9.8 fL (8.0-11.0); Platelet Count 142 10^3/uL (130-400); RBC 4.97 10^6/uL (3.93-5.22); RDW 12.8 % (11.7-14.6); RDW-SD 42.3 fL
--- NOTE | 2024-05-25 16:30 | DI.CT_ITS ---
Exam(s) CT CHEST PE CTA EXAM: CT CHEST PE CTA CLINICAL HISTORY: Eval PE, PNA. Hx COPD, tachy, hypoxic. TECHNIQUE: Imaging Protocol: CT angiography of the chest was performed using pulmonary embolus clinton col. Multi planar reconstructions were performed. CONTRAST MATERIAL: Intravenous: Omnipaque 350 Contrast volume: 65 cc COMPARISON: CT CT CHEST WO from 09/16/2019 CR XR PORTABLE CHEST AP from 05/25/2024 FINDINGS: CHEST: PULMONARY ARTERIES: There are no intraluminal filling defects to suggest acute pulmonary emboli. LUNGS: There is predominately pleural based infiltrate in the posterior and lateral basal segments of the left lower lobe. Lesser amount of similar infiltrate is noted in the posterior basal segment of the right lower lobe. There are no pleural effusions. These findings are superimposed upon COPD fi ndings.. There are no new infiltrates evident in the upper lobes nor in the right middle lobe nor wi thin the lingular segment of the left lung. There is also sparing of the superior segments of both l ower lobes. MEDIASTINUM: There is mild left adenopathy and there is subcarinal adenopathy evident. There is no ad enopathy in the anterior mediastinal fat. There is no retrocrural adenopathy.Visualized thyroid unrem arkable. CARDIAC: Heart size is upper normal. There is no pericardial effusion.Caliber of the thoracic aorta is within normal limits. No evidence of aortic dissection. There is no significant shift of the inte rventricular septum. PARTIALLY VISUALIZED UPPERMOST ABDOMEN: Hepatic steatosis. No adrenal masses seen. OSSEOUS: No significant osseous lesions.No fractures.. IMPRESSION: 1. There is pleural based infiltrate in the posterior basal segments of both lower lobes, more promin ent on the left side, not associated with pleural effusions nor rib destruction.There is, however, le ft hilar and subcarinal adenopathy evident. These lung and mediastinal findings were not evident on prior CT scan of 09/16/2019. 2. Evidence of pulmonary embolus. 3. No evidence of aortic dissection nor significant pericardial effusion. Discussed by phone with ER physician 05/25/2024 at 5:30 p.m. RADIATION DOSE DELIVERED: 62.04mGy.cm Total DLP DATA REPOSITORY: All CT scans at this facility are submitted to the National Radiology Data Registry (NRDR) Dose Index Registry (DIR) with the [employer] (ACR). RADIATION OPTIMIZATION: All CT scans at this facility use at least one of these dose optimization te chniques: automated exposure control; mA and/or kV adjustment per patient size (includes targeted exa ms where dose is matched to clinical indication); or iterative reconstruction.
[2024-05-25 16:40] LABS: Absolute Neutrophil Count 17.28 10^3/uL (1.2-6.7); Bands % 0 %
[2024-05-25 16:41] LABS: Absolute Monocyte Count 0.32 10^3/uL (0.1-0.8); Atypical Lymphocytes % 9 %; Diff Comment Manual Differential; RBC Morphology Normal
[2024-05-25 16:51] LABS: ALT 12 U/L (14-59); AST 21 U/L (15-37); Albumin 2.8 g/dL (3.4-5.0); Alkaline Phosphatase 115 U/L (46-116); Anion Gap 6.1 mmol/L (3-11); BUN 10 mg/dL (7-18); CO2 28.9 mmol/L (21.0-32.0); CREATININE 1.1 mg/dL (0.55-1.02); Calcium 8.3 mg/dL (8.5-10.1); Chloride 98 mmol/L (98-107); Estimated GFR 50.17 (mL/min/1.73m2); Glucose 99 mg/dL (74-106); Magnesium 1.1 mg/dL (1.8-2.4); NT-proBNP 223 pg/mL (<300); Potassium 3.7 mmol/L (3.5-5.1); Sodium 133 mmol/L (136-145); Total Protein 6.3 g/dL (6.4-8.2); Troponin I 11 ng/L (<or=51)
[2024-05-25] MEDS: Normal Saline - Diluent 50 ML VIAL IJ (16:52)
[2024-05-25] MEDS: MAGNESIUM SULFATE 2 GM/50 ML BAG IV_INF ×2 (16:53→22:39)
[2024-05-25] MEDS: methylPREDNISolone SUCC 125 MG VIAL IVP (16:53)
[2024-05-25] MEDS: Omnipaque 350 MG/ML 100 ML BTL IJ (16:56)
[2024-05-25 17:05] LABS: COVID-19 PCR Negative (Negative); Influenza A PCR Negative (Negative); Influenza B PCR Negative (Negative); RSV PCR Negative (Negative); Source NASOPHARYNX
[2024-05-25] MEDS: cefTRIAXone 1 GM/50 ML BAG IVPB (17:43)
[2024-05-25] MEDS: AZITHROMYCIN 500 MG in Normal Saline 250 ML 250 MG IVPB (18:08)
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
[2024-05-25 20:22] LABS: BE (Venous) 2 mmol/L (-2-3); HCO3 (Venous) 27 mmol/L (23-28); O2 Sat (Venous) 81 %; TCO2 (Venous) 24 mmol/L (24-29); pCO2 (Venous) 43 mmHg (41-51); pO2 (Venous) 46 mmHg
--- NOTE | 2024-05-25 21:14 | W.PC.ACHO ---
Registration Status: Primary Language: Preferred Language: ED Information & Data Chief Complaint RespSymp 05/25/24 16:01 Triage Note SOB/wheezing/cough, tachy to 05/25/24 15:35 134, HTN, no meds today. Medical / Surgical History (Last Reviewed 05/11/24 @ 13:17 by Oscar Shay MD) Mixed hearing loss, bilateral Edema Bronchitis COPD exacerbation Asthma exacerbation in COPD Cat bite of right hand Colostomy care Pain Cellulitis of right upper extremity Hypomagnesemia Hypokalemia Respiratory failure with hypoxia Impacted cerumen, bilateral Chronic rhinitis Leukocytosis Thrombocytopenia Anemia DNI (do not intubate) Shortness of breath Conductive hearing loss, external ear Bilateral impacted cerumen (03/24/15) Elevation of level of transaminase and lactic acid dehydrogenase (LDH) External ear conductive hearing loss (03/24/15) Pyloric ulcer associated with Helicobacter pylori (04/18/06) Hyponatremia (11/16/05) Impacted cerumen (03/18/14) Mucous polyp of cervix Seizure Smoker COPD with exacerbation Mucous polyp of cervix Pneumonia Seizure Smoker Elev transaminase/LDH Hyponatremia Pyloric ulcer associated with Helicobacter pylori Pulmonary nodule, right External ear conductive hearing loss Hypothyroidism Subclinical hypothyroidism (06/07/15) Sensorineural hearing loss, bilateral (11/10/13) Peripheral vertigo (03/26/13) Impacted cerumen of both ears (03/24/15) Hyponatremia syndrome (06/27/15) Fatigue (10/27/13) Dysphonia (03/18/14) Crohns disease (01/21/13) Cramps, extremity (02/18/17) Chronic pain syndrome Anxiety (02/04/13) CAP (community acquired pneumonia) (Last Reviewed 05/11/24 @ 13:17 by Oscar Shay MD) History of colectomy Status post cholecystectomy History of colon resection S/P cholecystectomy Colostomy (~1983) Cholecystectomy (~1996) Most Recent Vital Signs Temperature 37.1 C 05/25/24 17:32 Temperature Source Temporal Artery Scan 05/25/24 17:32 Pulse 97 H 05/25/24 21:00 Pulse 106 H 05/25/24 16:50 Respiratory Rate 23 05/25/24 17:32 Blood Pressure 135/68 05/25/24 21:00 Blood Pressure Mean 88 05/25/24 21:00 Blood Pressure Position Supine 05/25/24 17:32 Pulse Oximetry 93 05/25/24 21:01 Oxygen Delivery Method Nasal Cannula 05/25/24 17:32 Oxygen Flow Rate 2 05/25/24 17:32 Pain Level 8 05/25/24 17:32 Comment 3l 05/25/24 15:35 Allergies Penicillins Allergy (Intermediate, Verified 05/25/24 15:35) redness and shaking clindamycin Adverse Reaction (Mild, Verified 05/25/24 15:35) stomach pains doxycycline Adverse Reaction (Mild, Verified 05/25/24 15:35) stomach pains levofloxacin Adverse Reaction (Verified 05/25/24 15:35) Other (See Comment) abd pain nitrofurazone Adverse Reaction (Verified 05/25/24 15:35) Stomach pains Tetanus Vaccines and Toxoid Adverse Reaction (Verified 05/25/24 15:35) Contraindicated Precautions Isolation PUI 05/25/24 15:37 Active Medications Generic Name Dose Route Start Last Admin Trade Name Nguyễn PRN Reason Stop Dose Admin Iohexol 100 ml 05/25/24 17:00 05/25/24 16:56 Omnipaque 350 Mg/Ml 100 Ml Btl IJ 06/24/24 23:59 65 ml DIRECTED IMAN Administration Sodium Chloride 50 ml 05/25/24 17:00 05/25/24 16:52 Normal Saline - Diluent 50 Ml Vial IJ 50 ml .FOR DI USE IMAN Administration IV IV Catheter Type [Right Saline Lock Antecubital] IV Catheter Gauge [Right 20 Antecubital] Diagnostics 05/25/24 05/25/24 05/25/24 Range/Units 20:19 18:45 16:45 WBC (4.4-10.8) 10^3/uL RBC (3.93-5.22) 10^6/uL Hgb (11.2-15.7) g/dL Hct (36.0-46.0) % MCV (80-95) fL MCH (27.0-33.0) pg MCHC (32.0-36.0) % RDW (11.7-14.6) % Plt Count (130-400) 10^3/uL MPV (8.0-11.0) fL Immature Gran % % Neutrophils % % Band Neutrophils % % Lymphocytes % % Atypical Lymphs % % Monocytes % % Eosinophils % % Basophils % % Nucleated RBC % (0.0-0.3) % Absolute Neutrophils (1.2-6.7) 10^3/uL Absolute Lymphocytes (1.2-3.4) 10^3/uL Absolute Monocytes (0.1-0.8) 10^3/uL Absolute Eosinophils (0.0-0.7) 10^3/uL Absolute Basophils (0.0-0.2) 10^3/uL RBC Morphology VBG pH 7.40 (7.31-7.41) VBG pCO2 43 (41-51) mmHg VBG pO2 46 mmHg VBG HCO3 27 (23-28) mmol/L VBG Total CO2 24 (24-29) mmol/L VBG O2 Saturation 81 % VBG Base Excess 2 (-2-3) mmol/L Sodium (136-145) mmol/L Potassium (3.5-5.1) mmol/L Chloride (98-107) mmol/L Carbon Dioxide (21.0-32.0) mmol/L Anion Gap (3-11) mmol/L BUN (7-18) mg/dL Creatinine (0.55-1.02) mg/dL Est GFR (CKD-EPI 2020) (mL/min/1.73m2) Glucose (74-106) mg/dL Calcium (8.5-10.1) mg/dL Magnesium (1.8-2.4) mg/dL Total Bilirubin (0.2-1.0) mg/dL AST (15-37) U/L ALT (14-59) U/L Alkaline Phosphatase (46-116) U/L Troponin I Cancelled Cancelled (<or=51) ng/L NT-Pro-B Natriuret Pep (<300) pg/mL Total Protein (6.4-8.2) g/dL Albumin (3.4-5.0) g/dL COVID-19 Source SARS-CoV-2 (PCR) (Negative) Influenza Type A (PCR) (Negative) Influenza Type B (PCR) (Negative) RSV (PCR) (Negative) 05/25/24 Range/Units 16:05 WBC 32.00 H* (4.4-10.8) 10^3/uL RBC 4.97 (3.93-5.22) 10^6/uL Hgb 15.5 (11.2-15.7) g/dL Hct 45.2 (36.0-46.0) % MCV 91 (80-95) fL MCH 31.2 (27.0-33.0) pg MCHC 34.3 (32.0-36.0) % RDW 12.8 (11.7-14.6) % Plt Count 142 (130-400) 10^3/uL MPV 9.8 (8.0-11.0) fL Immature Gran % 0.0 % Neutrophils % 54.0 % Band Neutrophils % 0 % Lymphocytes % 36.0 % Atypical Lymphs % 9 % Monocytes % 1.0 % Eosinophils % 0.0 % Basophils % 0.0 % Nucleated RBC % 0.0 (0.0-0.3) % Absolute Neutrophils 17.28 H (1.2-6.7) 10^3/uL Absolute Lymphocytes 14.40 H (1.2-3.4) 10^3/uL Absolute Monocytes 0.32 (0.1-0.8) 10^3/uL Absolute Eosinophils 0.00 (0.0-0.7) 10^3/uL Absolute Basophils 0.00 (0.0-0.2) 10^3/uL RBC Morphology Normal VBG pH (7.31-7.41) VBG pCO2 (41-51) mmHg VBG pO2 mmHg VBG HCO3 (23-28) mmol/L VBG Total CO2 (24-29) mmol/L VBG O2 Saturation % VBG Base Excess (-2-3) mmol/L Sodium 133 L (136-145) mmol/L Potassium 3.7 (3.5-5.1) mmol/L Chloride 98 (98-107) mmol/L Carbon Dioxide 28.9 (21.0-32.0) mmol/L Anion Gap 6.1 (3-11) mmol/L BUN 10 (7-18) mg/dL Creatinine 1.1 H (0.55-1.02) mg/dL Est GFR (CKD-EPI 2020) 50.17 (mL/min/1.73m2) Glucose 99 (74-106) mg/dL Calcium 8.3 L (8.5-10.1) mg/dL Magnesium 1.1 L (1.8-2.4) mg/dL Total Bilirubin 0.90 (0.2-1.0) mg/dL AST 21 (15-37) U/L ALT 12 L (14-59) U/L Alkaline Phosphatase 115 (46-116) U/L Troponin I 11 (<or=51) ng/L NT-Pro-B Natriuret Pep 223 (<300) pg/mL Total Protein 6.3 L (6.4-8.2) g/dL Albumin 2.8 L (3.4-5.0) g/dL COVID-19 Source NASOPHARYNX SARS-CoV-2 (PCR) Negative (Negative) Influenza Type A (PCR) Negative (Negative) Influenza Type B (PCR) Negative (Negative) RSV (PCR) Negative (Negative) 05/25/24 17:35 Blood Culture - Pending Blood 05/25/24 16:25 Blood Culture - Pending Blood Intake and Output - 24 Hour Total 05/25/24 15:26 thru 05/25/24 18:08 Intake Total 110 Balance 110 Weight 60 kg Intake: IV 110 Falls Risk Assessment History of Falls Previous History 05/25/24 17:32 Contributing Factors Unstable 05/25/24 17:32 Ambulatory Aids Independent 05/25/24 17:32 Tubes/Lines None 05/25/24 17:32 Gait Evaluation No gait disturbance 05/25/24 17:32 Cognition No cognitive impairment 05/25/24 17:32 Fall Total Score 18 05/25/24 17:32 Level of Risk Standard/Low Risk 05/25/24 17:32 Problems (Last Reviewed 05/11/24 @ 13:17 by Oscar Shay MD) Pneumonia (Acute) Acute hypoxic respiratory failure (Acute) COPD (chronic obstructive pulmonary disease) (Chronic) Pulmonary hypertension (Chronic) Hypothyroid (Chronic) Anxiety (Chronic) CLL (chronic lymphocytic leukemia) (Chronic) Essential hypertension (Chronic 04/17/13) v v v v v v v v v Sending and/or Receiving Nurses: Please use comment section below to note any information pertinent to the patient hand-off not included above. Information / Comments: pt came from home with increased SOB, work of breathing, suspected infectious process. pt is [place], 1 assist, possible use of cane/walker. pt tachycardic and tachypneic. baseline not using O2 unless overexerted used 2L. pt reported to be A+Ox3. Report received from: jyotsna roberto
[2024-05-25 22:17] LABS: TSH (W/Ref FT4) 1.18 uIU/mL (0.36-3.74)
[2024-05-25] MEDS: Normal Saline Flush 10 ML SYR IVP (22:39)
[2024-05-25] MEDS: Mirtazapine 15 MG TAB 7.5 MG PO (22:39)
--- NOTE | 2024-05-25 22:54 | RESPIRATORY ---
pt. informed she uses 2l/min NC PRN at baseline. pt. is unsure of DME.
--- NOTE | 2024-05-25 22:55 | RESPIRATORY ---
Pt. stated uses O2 2l/min NC PRN and nocturnally at baseline. Pt. is unsure of DME.
[2024-05-25] MEDS: Enoxaparin 40 MG/0.4 ML SYR SC (23:06)
[2024-05-25 23:37] LABS: Bilirubin Negative (Negative); Blood Small (Negative); Clarity Sl Cloudy (Clear); Glucose Negative (Negative); Ketones 15 mg/dL (Negative); Leukocyte Esterase Small (Negative); Nitrite Negative (Negative); Urobilinogen 0.2 mg/dL (Up to 0.2)
[2024-05-25] MEDS: Budesonide/Formoterol 160/4.5 6 GM 60 PUFF INH IH (23:45)
[2024-05-25 23:51] LABS: Bacteria Few HPF (Negative); C & S Indicated? Yes; Casts Negative LPF (Negative); Crystals Negative HPF (Negative); Epithelial Cells Few HPF (Negative); Mucus Trace (Negative); WBC 20-50 HPF (0-5)
[2024-05-26] VITALS (14 sets, daily range): BP systolic 109–130; BP diastolic 57–63; PULSE 93–105; RESP 3–20; TEMP 36.4–36.6; O2SAT 90–99
[2024-05-26] MEDS: methylPREDNISolone SUCC 40 MG VIAL IVP (00:45)
[2024-05-26] MEDS: Levothyroxine 25 MCG TAB PO (05:12)
[2024-05-26] MEDS: Albuterol 2.5 MG/3 ML INH SOLN VIAL UPD (06:15)
--- NOTE | 2024-05-26 06:16 | NUR.NOTE ---
ambulated pt to bedside commode where she dropped her O2 saturation to 76% on 2L NC. increased O2 to 6L NC and paged respiratory for breathing treatment. pt slowly recovered to 88-89% on 6L NC while waiting for respiratory. Resiratory at bedside now giving breathing treatment
[2024-05-26 06:43] LABS: HCT 42.8 % (36.0-46.0); HGB 14.7 g/dL (11.2-15.7); MCH 31.6 pg (27.0-33.0); MCHC 34.3 % (32.0-36.0); MCV 92 fL (80-95); MPV 9.8 fL (8.0-11.0); Platelet Count 175 10^3/uL (130-400); RBC 4.65 10^6/uL (3.93-5.22); RDW 12.9 % (11.7-14.6); RDW-SD 43.2 fL
[2024-05-26 06:48] LABS: WBC 44.63 10^3/uL (4.4-10.8)
[2024-05-26 07:01] LABS: ALT 7 U/L (14-59); AST 14 U/L (15-37); Albumin 2.9 g/dL (3.4-5.0); Alkaline Phosphatase 123 U/L (46-116); Anion Gap 7.1 mmol/L (3-11); BUN 18 mg/dL (7-18); Bilirubin, Total 0.62 mg/dL (0.2-1.0); CO2 27.9 mmol/L (21.0-32.0); CREATININE 1.6 mg/dL (0.55-1.02); Calcium 9.3 mg/dL (8.5-10.1); Chloride 95 mmol/L (98-107); Glucose 209 mg/dL (74-106); Magnesium 2.9 mg/dL (1.8-2.4); Potassium 4.1 mmol/L (3.5-5.1); Sodium 130 mmol/L (136-145); Total Protein 6.7 g/dL (6.4-8.2)
[2024-05-26] MEDS: Budesonide/Formoterol 160/4.5 6 GM 60 PUFF INH IH ×2 (08:18→20:03)
--- NOTE | 2024-05-26 08:44 | PDOC.CMIN ---
Date of service: 05/26/24 Time of Service: 08:44 Care Management Initial Assmt Initial Assessment Reason for Hospitalization: Respiratory Failure COPD and Bilateral Pneumonia Functional Status/Living Situation Patient Presentation: Aleida was sitting up in a chair when CM met with her. She was pleasant in manner and agreeable to conversation. Aleida was very talkative and at times rambled during the conversation. She informed that she uses 2L/min of nasal oxygen at home. She is currently receiving nasal O2 at 3.5-5 L/min and is saturating in the upper 80s to low 90s. Aleida lives in a single family home in [place] with her Elvis. Elvis has 3 children, 2 of which live out of state. He has one son, Jina, who lives in [place] and Aleida has a daughter Candice who lives in [place]. Aleida noted that they don't see Elvis's children a lot but that his son Jina is very helpful. 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 She is independent at baseline and does not receive any community services. Town of Residence: [place] Resides with: Spouse ( Elvis) Significant Other/Family: Out of area (stepson in [place] and stepdaughter in [place]) Employment Status: Retired Instrumental Activities of Daily Living (ADLs): Independent Medications Medication Management: No Issues/Barriers identified Physical Functioning/Mobility Assistive Device: none does have home oxygen at 2L/min Advance Directives Advance Directives: Do you have an Advance Directive: Y 07/20/21 13:22 AD On File at [facility]: Y 07/20/21 13:22 Date Asked 05/04/24 05/04/24 13:15 AD Date Reviewed 01/22/24 02/06/24 14:33 COLST On File at [facility] Yes 09/04/21 08:29 COLST Date Scanned 12/07/21 12/07/21 03:51 Code Status Resuscitation Status DNI Insurance Coverage/Financial Issues Insurance: Medicare [employer] Care Team Visit Care Team Role Provider Type Ramila Tapia MD, [place] Primary Care Provider , [facility] Susanna Gibson MD Emergency Provider [facility] STAFF PHYSICIAN Carrillo Parr Admit Provider NON-[facility] STAFF PHYSICIAN Attending Provider Discharge Potential Discharge Needs: PCP F/U Appt Anticipated Barriers to Discharge: None Identified Patient/Family Education Needs: Review discharge instructions, discuss Ask Me Three Transportation: Private vehicle Plan: Anticipate Aleida will be discharged home with no new services when medically stable. She will follow up with her PC)P and plan of care and transport with family. CM will follow and continue to assess for discharge planning concerns. Social Determinants of Health Screening Social Determinants of Health last assessed: 05/26/24 Will the Patient Participate in the Screening?: Yes Do you worry about having a steady place to live?: no Problems where you live: no known problems In the past 12 months, have you had to go without electric, gas, oil or water in your home?: no Have you or anyone in your house had to go without enough food to eat?: no Has lack of transportation kept you from medical appointments or from doing things needed for daily living?: no Has anyone in your life made you feel unsafe or unsupported?: no How hard is it for you to pay for the very basics like food, housing, medical care, and heating? Would you say it is:: Not hard at all Do you want help finding or keeping work or a job?: I do not need or want help If for any reason you need help with day-to-day activities such as bathing, preparing meals, shopping, managing finances, etc., do you get the help you need?: I could use a little more help How often do you feel lonely or isolated from those around you?: Sometimes Do you speak a language other than [place] at home?: No Does the patient want assistance with any of the above?: Yes Health Related Social Needs Health related social needs: problems with daily activities (Z73.9) and feeling lonely/isolated (Z60.8) [facility] All Active Problems (Updated 05/26/24 @ 09:43 by Shade Mayo MD) Sepsis (Acute) Acute on chronic respiratory failure with hypoxia (Acute) Pneumonia (Acute) Pneumonia (Acute) Acute hypoxic respiratory failure (Acute) Basal cell carcinoma of dorsum of nose (Acute) Lesion of skin of nose (Acute) Arm skin lesion, right (Acute) Incontinence (Acute) Impacted cerumen, left ear (Acute) Open wound of right knee (Acute) Closed fracture of right patella (Chronic 12/06/22) COPD (chronic obstructive pulmonary disease) (Chronic) Pulmonary hypertension (Chronic) Former smoker (Acute) Breast discharge (Acute) Infection (Acute) Hypothyroid (Chronic) Anxiety (Chronic) CLL (chronic lymphocytic leukemia) (Chronic) Hyponatremia (Acute) High output ileostomy (Acute) CHF exacerbation (Acute) Conductive hearing loss, external ear (Acute) Physician orders for life-sustaining treatment (POLST) form indicates patient wish for limited interventions status (Acute) DO NOT INTUBATE ok with chest compressions and shock DNI (do not intubate) (Acute) per discussion 08/25/2019 Dysphonia (Acute 03/18/14) Nodule of right lung (Acute 04/05/14) Vitamin D deficiency (Chronic 03/19/09) Urinary incontinence (Chronic 09/09/14) Shoulder pain (Chronic 04/18/04) frozen shoulder Pernicious anemia (Chronic) B12 injections Osteopenia (Chronic) T-scores-2.0, -1.3, -1.0; 09/23 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 Only med which works. ENds up in hospital if diarrhea not well controlled Mixed hearing loss, 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) Phonak Ana S V SP (R: [id number]) out of warranty, fit September 2009. Impaired renal function disorder (Chronic) Gastro-esophageal reflux disease with esophagitis (Chronic) nodule mid portion of vocal cord Depressive disorder (Chronic 01/21/13) Chronic night sweats (Chronic 09/16/17) Chronic diarrhea (Chronic) CONTROLLED SUBSTANCE AGREEMENT 09/05/15-USES CODEINE 02/18/17 CONTROLLED SUBSTANCE AGREEMENT~RENEWED Balance disorder (Chronic 06/02/15) Essential hypertension (Chronic 04/17/13) Medical History Mixed hearing loss, bilateral Edema Bronchitis COPD exacerbation Asthma exacerbation in COPD Cat bite of right hand Colostomy care Pain Cellulitis of right upper extremity Hypomagnesemia Hypokalemia Respiratory failure with hypoxia Impacted cerumen, bilateral Chronic rhinitis Leukocytosis Thrombocytopenia Anemia DNI (do not intubate) Shortness of breath Conductive hearing loss, external ear Bilateral impacted cerumen (03/24/15) Elevation of level of transaminase and lactic acid dehydrogenase (LDH) External ear conductive hearing loss (03/24/15) Pyloric ulcer associated with Helicobacter pylori (04/18/06) Hyponatremia (11/16/05) Impacted cerumen (03/18/14) Mucous polyp of cervix Pneumonia Seizure Smoker COPD with exacerbation Mucous polyp of cervix Pneumonia HX of LLL 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 Smoker quit smoking-2001 Elev transaminase/LDH 05/20/83 Hyponatremia 11/16/05 w/hospitalization Pyloric ulcer associated with Helicobacter pylori 04/18/06 Pulmonary nodule, right 04/05/14 repeat negative External ear conductive hearing loss 03/24/15 Hypothyroidism Subclinical hypothyroidism (06/07/15) NIGHT SWEATS ON MED-JMD Sensorineural hearing loss, bilateral (11/10/13) Phonak Ana S V SP (R: [id number]) out of warranty, fit September 2009. Peripheral vertigo (03/26/13) Impacted cerumen of both ears (03/24/15) Hyponatremia syndrome (06/27/15) Fatigue (10/27/13) Dysphonia (03/18/14) Hoarseness Crohns disease (01/21/13) surgery in 1975 w/ removal of intestines and colostomy on codeine tid chronically to control diarrhea Cramps, extremity (02/18/17) Chronic pain syndrome Anxiety (02/04/13) CAP (community acquired pneumonia) Surgical History History of colectomy Status post cholecystectomy History of colon resection Chron's disease; colostomy in place S/P cholecystectomy 05/20/96 Colostomy (~1983) CHRON'S DISEASE Cholecystectomy (~1996) Family History Mother , 76 Neoplasm OVARIAN Asthma Cancer Sister Asthma Breast cancer Maternal Grandmother Stroke AT CHILDBIRTH Daughter No problems noted. Social History Smoking/Tobacco Use Status: Former Tobacco Use tobacco type: cigarettes Quit Date: 06/21/01 Second Hand Exposure: Yes Smoking risk assessment performed?: Yes Alcohol Intake: current Alcohol Intake frequency: holidays/special occasions only Alcohol type: wine Drug use: Never Substance use type: does not use Household members: spouse Housing: house Communication Needs: Hard of Hearing Do you need help understanding health information?: Never Pets and animals: Yes Pets and animals: cat(s) Sexually active: No Do you think of yourself as: straight/heterosexual Current gender identity: female What is your relationship status?: How often do you talk on the phone with friends or family?: once per week How often do you get together with friends or relatives?: once per week How often do you attend baptism or baptism services?: decline to answer Do you belong to any clubs or organized social groups?: no Panel score (0-1 are the most socially isolated patients): 1 What type of physical activity do you participate in: walking Duration: 60-90 minutes/day Frequency: daily Concepción/Anabaptism: Orthodoxy Special concepción needs: No Seatbelt use: always Helmet use: No Drive intox or ride w/intox 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
[2024-05-26] MEDS: Folic Acid 1 MG TAB PO (09:11)
[2024-05-26] MEDS: Normal Saline Flush 10 ML SYR IVP ×3 (09:11→20:02)
[2024-05-26] MEDS: predniSONE 20 MG TAB 40 MG PO (09:11)
[2024-05-26] MEDS: Azithromycin 250 MG TAB PO (09:11)
[2024-05-26] MEDS: ALPRAZolam 0.5 MG TAB PO (09:19)
--- NOTE | 2024-05-26 09:41 | PGE_ITS ---
Date of Service Date of service: 05/26/24 Time of Service: 09:41 Assessment and Plan Assessment and plan (1) Sepsis: Status: Acute Assessment and plan: - Patient met sepsis criteria on admission with heart rate in the 110s, white blood cell count of 48 (baseline usually 20 with CLL), source of infection being community-acquired pneumonia as seen on imaging; did not meet criteria for severe sepsis -Was started on ceftriaxone and azithromycin IV -Will continue IV ceftriaxone, and p.o. azithromycin (2) Pneumonia: Start date: 05/25/24 Status: Acute Assessment and plan: - Source of infection as noted above (3) COPD (chronic obstructive pulmonary disease): Status: Chronic Assessment and plan: - Patient also presented with expiratory wheezing consistent with a COPD exacerbation -Was initially on IV methylprednisolone which is since been transitioned to 40 mg p.o. prednisone daily -Will continue scheduled and as needed nebulizer treatments (4) Acute on chronic respiratory failure with hypoxia: Status: Acute Assessment and plan: - Patient normally on 2 L nasal cannula -Currently requiring 4 L nasal cannula to maintain oxygen saturation between 88 and 92% -Will wean O2 as tolerated (5) Pulmonary hypertension: Status: Chronic Assessment and plan: - Likely secondary to COPD and chronic hypoxic respiratory failure (6) CLL (chronic lymphocytic leukemia): Status: Chronic Assessment and plan: - Appears to be stable with an additional increase in white blood cell count secondary to sepsis/community-acquired pneumonia as noted above (7) Hypothyroid: Status: Chronic Assessment and plan: - Continue home levothyroxine (8) Anxiety: Status: Chronic Assessment and plan: - Continue home regimen of 0.5 mg p.o. Xanax every morning, and 0.25 mg p.o. Xanax at bedtime as needed Subjective Subjective Interval history since last seen: Patient states that she is feeling a little better as compared to admission. Otherwise she has no other complaints or concerns at this time. Exam Narrative Exam Narrative: Chronically ill-appearing older female sitting up in the chair no acute distress, ANO x 4, 4 L nasal cannula in place, heart regular rhythm, lungs with diffuse end expiratory wheezing throughout, abdomen soft, nontender, nondistended Objective Last Vital Signs Temp 97.7 F 05/26/24 07:29 Pulse 98 H 05/26/24 07:29 Resp 16 05/26/24 07:29 BP 119/57 L 05/26/24 07:29 Pulse Ox 92 05/26/24 07:29 Laboratory Results - last 24 hr 05/25/24 05/25/24 05/25/24 16:05 16:45 18:45 WBC 32.00 H* RBC 4.97 Hgb 15.5 Hct 45.2 MCV 91 MCH 31.2 MCHC 34.3 RDW 12.8 Plt Count 142 MPV 9.8 Immature Gran % 0.0 Neutrophils % 54.0 Band Neutrophils % 0 Lymphocytes % 36.0 Atypical Lymphs % 9 Monocytes % 1.0 Eosinophils % 0.0 Basophils % 0.0 Nucleated RBC % 0.0 Absolute Neutrophils 17.28 H Absolute Lymphocytes 14.40 H Absolute Monocytes 0.32 Absolute Eosinophils 0.00 Absolute Basophils 0.00 RBC Morphology Normal VBG pH VBG pCO2 VBG pO2 VBG HCO3 VBG Total CO2 VBG O2 Saturation VBG Base Excess Sodium 133 L Potassium 3.7 Chloride 98 Carbon Dioxide 28.9 Anion Gap 6.1 BUN 10 Creatinine 1.1 H Est GFR (CKD-EPI 2020) 50.17 Glucose 99 Calcium 8.3 L Magnesium 1.1 L Total Bilirubin 0.90 AST 21 ALT 12 L Alkaline Phosphatase 115 Troponin I 11 Cancelled Cancelled NT-Pro-B Natriuret Pep 223 Total Protein 6.3 L Albumin 2.8 L TSH 1.18 Urine Color Urine Clarity Urine pH Ur Specific [place] Urine Protein Urine Ketones Urine Blood Urine Nitrite Urine Bilirubin Urine Urobilinogen Ur Leukocyte Esterase Urine RBC Urine WBC Ur Epithelial Cells Urine Crystals Urine Bacteria Urine Casts Urine Mucus Ur Culture Indicated? Urine Glucose COVID-19 Source NASOPHARYNX SARS-CoV-2 (PCR) Negative Influenza Type A (PCR) Negative Influenza Type B (PCR) Negative RSV (PCR) Negative 05/25/24 05/25/24 05/26/24 20:19 23:25 06:25 WBC 44.63 H* RBC 4.65 Hgb 14.7 Hct 42.8 MCV 92 MCH 31.6 MCHC 34.3 RDW 12.9 Plt Count 175 MPV 9.8 Immature Gran % Neutrophils % Band Neutrophils % Lymphocytes % Atypical Lymphs % Monocytes % Eosinophils % Basophils % Nucleated RBC % Absolute Neutrophils Absolute Lymphocytes Absolute Monocytes Absolute Eosinophils Absolute Basophils RBC Morphology VBG pH 7.40 VBG pCO2 43 VBG pO2 46 VBG HCO3 27 VBG Total CO2 24 VBG O2 Saturation 81 VBG Base Excess 2 Sodium 130 L Potassium 4.1 Chloride 95 L Carbon Dioxide 27.9 Anion Gap 7.1 BUN 18 Creatinine 1.6 H Est GFR (CKD-EPI 2020) 32.00 Glucose 209 H Calcium 9.3 Magnesium 2.9 H Total Bilirubin 0.62 AST 14 L ALT 7 L Alkaline Phosphatase 123 H Troponin I NT-Pro-B Natriuret Pep Total Protein 6.7 Albumin 2.9 L TSH Urine Color Yellow Urine Clarity Sl Cloudy Urine pH 6.0 Ur Specific [place] 1.010 Urine Protein 30 H Urine Ketones 15 H Urine Blood Small H Urine Nitrite Negative Urine Bilirubin Negative Urine Urobilinogen 0.2 Ur Leukocyte Esterase Small H Urine RBC 3-5 H Urine WBC 20-50 H Ur Epithelial Cells Few Urine Crystals Negative Urine Bacteria Few Urine Casts Negative Urine Mucus Trace Ur Culture Indicated? Yes Urine Glucose Negative COVID-19 Source SARS-CoV-2 (PCR) Influenza Type A (PCR) Influenza Type B (PCR) RSV (PCR) Time Spent with Patient Time Spent with Patient: >50 minutes Time was spent: preparing to see the patient(eg.review tests), obtaining and/or reviewing separately otained hiistory, ordering medications,tests, procedures, referring, communicating with other health healthcare advisory services manager, indepentently interpreting results, counseling the patient and care coordination
[2024-05-26] MEDS: Albuterol/Ipratropium 3 ML UPD VIAL UPD ×3 (10:53→23:22)
--- NOTE | 2024-05-26 10:56 | PHA.REVIEW2 ---
Pharmacy Admission Review Admission Clinical Review Admission Pharmacy Review: Sepsis (Acute) Acute on chronic respiratory failure with hypoxia (Acute) Pneumonia (Acute) Acute hypoxic respiratory failure (Acute) Penicillins Allergy (Intermediate, Verified 05/25/24 15:35) redness and shaking clindamycin Adverse Reaction (Mild, Verified 05/25/24 15:35) stomach pains doxycycline Adverse Reaction (Mild, Verified 05/25/24 15:35) stomach pains levofloxacin Adverse Reaction (Verified 05/25/24 15:35) Other (See Comment) nitrofurazone Adverse Reaction (Verified 05/25/24 15:35) Stomach pains Tetanus Vaccines and Toxoid Adverse Reaction (Verified 05/25/24 15:35) Contraindicated Resuscitation Status DNI Height 5 ft 3 in Weight 59 kg Pharmacy Admission Review Renal Dosing Renal Dosing: BUN 18 mg/dL (7-18) 05/26/24 06:25 Creatinine 1.6 mg/dL (0.55-1.02) H 05/26/24 06:25 Medications needing adjustments: Intervened (CrCl 24.65 mL/min, SCr increased from 1.1) List of meds needing interventions: Changed enoxaparin from 40mg daily to 30mg daily Anticoagulation Anticoagulation: Hgb 14.7 g/dL (11.2-15.7) 05/26/24 06:25 Hct 42.8 % (36.0-46.0) 05/26/24 06:25 Plt Count 175 10^3/uL (130-400) 05/26/24 06:25 Creatinine 1.6 mg/dL (0.55-1.02) H 05/26/24 06:25 DVT Prophylaxis: Intervened (renal adjustment) Medications: Enoxaparin (30mg daily) Relevant Labs Relevant Labs: Sodium 130 mmol/L (136-145) L 05/26/24 06:25 Potassium 4.1 mmol/L (3.5-5.1) 05/26/24 06:25 Chloride 95 mmol/L (98-107) L 05/26/24 06:25 Magnesium 2.9 mg/dL (1.8-2.4) H 05/26/24 06:25 Electrolytes, C-Reactive P, ESR: Reviewed (Na 130, Mg 2.9) Cardiac Review Cardiac Review: Troponin I Cancelled 05/25/24 18:45 NT-Pro-B Natriuret Pep 223 pg/mL (<300) 05/25/24 16:05 Blood Pressure 119/57 0729 Blood Pressure 115/57 0234 BP, HR, EF%: Reviewed (HR 99 - has been elevated all morning) QTc Review QTc: Reviewed (447 from 05/25/24) IV to PO Switch IV Medications: Reviewed (ceftriaxone) Home Meds Home Med List reviewed: Intervened Relevent Home Meds Not ordered & why?: Spiriva - brought up to provider during morning meeting, provider is looking into it Called nursing this morning regarding patients orders for vitamin D (weekly) and vitamin B (monthly). Nurse confirmed with patient that they take vitamin D on Sundays and they last administered vitamin B on 05/08/24. I changed orders to reflect this. Current Meds Current Medication Order Review: Intervened Comments: Changed IV ED access Pharmacy Antibiotic Review Relevant Labs: WBC 44.63 10^3/uL (4.4-10.8) H* 05/26/24 06:25 Temperature 36.5 C Temperature 36.4 C Pharmacy Antibiotic Activity: C/S review and Reviewed, no change Comments: Patient is on ceftriaxone and azithromycin PO, day 1, for bilateral pneumonia. WBC increased from 32, per provider patients baseline level is around 20. Blood and urine cultures are pending.
[2024-05-26] MEDS: cefTRIAXone 1 GM/50 ML BAG IVPB (13:52)
[2024-05-26] MEDS: Enoxaparin 30 MG/0.3 ML SYR SC (20:02)
[2024-05-26] MEDS: Mirtazapine 15 MG TAB 7.5 MG PO (20:03)
[2024-05-26] MEDS: Latanoprost 0.005% 2.5 ML BTL OP (20:03)
[2024-05-27] VITALS (19 sets, daily range): BP systolic 117–126; BP diastolic 53–93; PULSE 78–101; RESP 3–34; TEMP 36.2–36.9; O2SAT 90–99
[2024-05-27] MEDS: Albuterol/Ipratropium 3 ML UPD VIAL UPD ×4 (03:27→22:55)
--- NOTE | 2024-05-27 03:31 | NUR.NOTE ---
Throughout shift pt was titrated down on supplemental oxygen from 4L/min to 2L/min. At 0315 pt was ambulated across room to commode where her spO2 level dropped to 80% on 2L/min. After resting on the commode her spO2 level increased to 88-89% on 2L. After ambulating back to bed, pts spO2 dropped to 72% on 2L. Increased O2 to 4L. spO2 level increased to 93% at that time. administered scheduled neb treatment once pt was back to bed. pt tolerating treatment well.
[2024-05-27] MEDS: Levothyroxine 25 MCG TAB PO (05:42)
[2024-05-27 07:03] LABS: HCT 36.6 % (36.0-46.0); MCH 31.9 pg (27.0-33.0); MCHC 35.5 % (32.0-36.0); MCV 90 fL (80-95); MPV 10.4 fL (8.0-11.0); Platelet Count 169 10^3/uL (130-400); RBC 4.08 10^6/uL (3.93-5.22); RDW 12.4 % (11.7-14.6); RDW-SD 40.4 fL
[2024-05-27 07:21] LABS: WBC 42.79 10^3/uL (4.4-10.8)
[2024-05-27 07:34] LABS: ALT 9 U/L (14-59); AST 14 U/L (15-37); Albumin 2.8 g/dL (3.4-5.0); Alkaline Phosphatase 118 U/L (46-116); Anion Gap 9.2 mmol/L (3-11); BUN 32 mg/dL (7-18); Bilirubin, Total 0.35 mg/dL (0.2-1.0); CO2 26.8 mmol/L (21.0-32.0); CREATININE 1.7 mg/dL (0.55-1.02); Calcium 9.4 mg/dL (8.5-10.1); Chloride 90 mmol/L (98-107); Estimated GFR 29.76 (mL/min/1.73m2); Glucose 143 mg/dL (74-106); Magnesium 2.5 mg/dL (1.8-2.4); Potassium 4.1 mmol/L (3.5-5.1); Sodium 126 mmol/L (136-145); Total Protein 6.1 g/dL (6.4-8.2)
[2024-05-27] MEDS: Budesonide/Formoterol 160/4.5 6 GM 60 PUFF INH IH ×2 (08:12→20:12)
[2024-05-27] MEDS: Azithromycin 250 MG TAB PO (08:51)
[2024-05-27] MEDS: predniSONE 20 MG TAB 40 MG PO (08:51)
[2024-05-27] MEDS: ALPRAZolam 0.5 MG TAB PO (08:52)
[2024-05-27] MEDS: Normal Saline Flush 10 ML SYR IVP ×2 (08:55→20:12)
[2024-05-27] MEDS: Normal Saline 500 ML 1000 ML IV (08:57)
--- NOTE | 2024-05-27 09:23 | PDOC.CMPRO ---
Date of service: 05/27/24 Time of Service: 09:23 Care Management Progress Note Progress Note Text Progress Note Text: Aleida was sitting up in a chair when CM met with her. She remains oriented only to self and appears confused. Aleida is back to her baseline oxygen need of 2L/min and has been transitioned to oral antibiotics. She was supposed to be discharged home however her hyponatremia is worse with a sodium level of 123, down from 126 yesterday. Her sodium was 134 on admission. She will be treated overnight and hopefully discharge in the morning. Discharge Potential Discharge Needs: PCP F/U Appt Anticipated Barriers to Discharge: None Identified Patient/Family Education Needs: Review discharge instructions, discuss Ask Me Three Transportation: Private vehicle Plan: Anticipate Aleida will be discharged home with no new services when medically stable. She will follow up with her PC)P and plan of care and transport with family. CM will follow and continue to assess for discharge planning concerns. Social Determinants of Health Screening Social Determinants of Health last assessed: 05/27/24 Will the Patient Participate in the Screening?: Yes Do you worry about having a steady place to live?: no Problems where you live: no known problems In the past 12 months, have you had to go without electric, gas, oil or water in your home?: no Have you or anyone in your house had to go without enough food to eat?: no Has lack of transportation kept you from medical appointments or from doing things needed for daily living?: no Has anyone in your life made you feel unsafe or unsupported?: no How hard is it for you to pay for the very basics like food, housing, medical care, and heating? Would you say it is:: Not hard at all Do you want help finding or keeping work or a job?: I do not need or want help If for any reason you need help with day-to-day activities such as bathing, preparing meals, shopping, managing finances, etc., do you get the help you need?: I could use a little more help How often do you feel lonely or isolated from those around you?: Sometimes Do you speak a language other than Guyanese at home?: No Does the patient want assistance with any of the above?: Yes Health Related Social Needs Health related social needs: problems with daily activities (Z73.9) and feeling lonely/isolated (Z60.8)
[2024-05-27 11:38] LABS: Anion Gap 8.6 mmol/L (3-11); BUN 30 mg/dL (7-18); CO2 26.4 mmol/L (21.0-32.0); CREATININE 1.7 mg/dL (0.55-1.02); Calcium 9.3 mg/dL (8.5-10.1); Chloride 88 mmol/L (98-107); Estimated GFR 29.76 (mL/min/1.73m2); Glucose 180 mg/dL (74-106)
[2024-05-27 11:43] LABS: Sodium 123 mmol/L (136-145)
--- NOTE | 2024-05-27 13:40 | PGE_ITS ---
Date of Service Date of service: 05/27/24 Time of Service: 13:40 Assessment and Plan Assessment and plan (1) Sepsis: Status: Acute Assessment and plan: - Patient met sepsis criteria on admission with heart rate in the 110s, white blood cell count of 48 (baseline usually 20 with CLL), source of infection being community-acquired pneumonia as seen on imaging; did not meet criteria for severe sepsis -Was started on ceftriaxone and azithromycin IV -Had been on IV ceftriaxone and p.o. azithromycin which has since been transitioned to p.o. cefpodoxime and azithromycin (2) Pneumonia: Start date: 05/25/24 Status: Acute Assessment and plan: - Source of infection as noted above (3) COPD (chronic obstructive pulmonary disease): Status: Chronic Assessment and plan: - Patient also presented with expiratory wheezing consistent with a COPD exacerbation -Was initially on IV methylprednisolone which is since been transitioned to 40 mg p.o. prednisone daily -Will continue scheduled and as needed nebulizer treatments (4) Acute on chronic respiratory failure with hypoxia: Status: Acute Assessment and plan: - Patient normally on 2 L nasal cannula -Had required up to 4 L nasal cannula, now back to baseline 2 L -Will wean O2 as tolerated (5) Pulmonary hypertension: Status: Chronic Assessment and plan: - Likely secondary to COPD and chronic hypoxic respiratory failure (6) CLL (chronic lymphocytic leukemia): Status: Chronic Assessment and plan: - Appears to be stable with an additional increase in white blood cell count secondary to sepsis/community-acquired pneumonia as noted above (7) Hypothyroid: Status: Chronic Assessment and plan: - Continue home levothyroxine (8) Anxiety: Status: Chronic Assessment and plan: - Continue home regimen of 0.5 mg p.o. Xanax every morning, and 0.25 mg p.o. Xanax at bedtime as needed (9) Hyponatremia: Status: Acute Assessment and plan: -Moderate, asymptomatic with sodium being 124 -Give 500 mL normal saline bolus and sodium 123 -Patient will be fluid restricted to 1200 mL/day and will follow-up a.m. BMP Subjective Subjective Interval history since last seen: Patient states that she is feeling better today, but was not sure that she felt well enough to go home. He was explained that she is on oral antibiotics and her oxygen requirements back to her baseline. However given her new hyponatremia she will remain hospitalized for an additional night. Exam Narrative Exam Narrative: Chronically ill-appearing older female sitting up in the chair no acute distress, ANO x 4, [address] cannula in place, heart regular rhythm, lungs with diffuse end expiratory wheezing throughout, abdomen soft, nontender, nondistended Objective Last Vital Signs Temp 97.9 F 05/27/24 11:27 Pulse 99 H 05/27/24 11:27 Resp 19 05/27/24 11:27 BP 120/64 05/27/24 11:27 Pulse Ox 91 L 05/27/24 11:27 Laboratory Results - last 24 hr 05/27/24 05/27/24 06:15 11:15 WBC 42.79 H* RBC 4.08 Hgb 13.0 Hct 36.6 MCV 90 MCH 31.9 MCHC 35.5 RDW 12.4 Plt Count 169 MPV 10.4 Sodium 126 L 123 L* Potassium 4.1 4.0 Chloride 90 L 88 L Carbon Dioxide 26.8 26.4 Anion Gap 9.2 8.6 BUN 32 H 30 H Creatinine 1.7 H 1.7 H Est GFR (CKD-EPI 2020) 29.76 29.76 Glucose 143 H 180 H Calcium 9.4 9.3 Magnesium 2.5 H Total Bilirubin 0.35 AST 14 L ALT 9 L Alkaline Phosphatase 118 H Total Protein 6.1 L Albumin 2.8 L Time Spent with Patient Time Spent with Patient: >50 minutes Time was spent: preparing to see the patient(eg.review tests), obtaining and/or reviewing separately otained hiistory, ordering medications,tests, procedures, referring, communicating with other health palliative care nurse practitioner, indepentently interpreting results, counseling the patient and care coordination
[2024-05-27] MEDS: Enoxaparin 30 MG/0.3 ML SYR SC (20:11)
[2024-05-27] MEDS: Cefpodoxime 200 MG TAB PO (20:11)
[2024-05-27] MEDS: Mirtazapine 15 MG TAB 7.5 MG PO (20:11)
[2024-05-27] MEDS: Latanoprost 0.005% 2.5 ML BTL OP (20:12)
[2024-05-28] VITALS (15 sets, daily range): BP systolic 123–142; BP diastolic 57–67; PULSE 83–103; RESP 5–20; TEMP 36.5–36.8; O2SAT 87–98
[2024-05-28] MEDS: ALPRAZolam 0.5 MG TAB 0.25 MG PO ×2 (00:21→20:03)
--- NOTE | 2024-05-28 00:23 | NUR.NOTE ---
Pt is displaying s/s of increased anxiety/worry. she is needing frequent repeated redirection. PRN alprazolam given per MAR
[2024-05-28] MEDS: Albuterol/Ipratropium 3 ML UPD VIAL UPD ×4 (04:30→20:28)
[2024-05-28] MEDS: Levothyroxine 25 MCG TAB PO (06:06)
[2024-05-28 06:15] LABS: HCT 34.1 % (36.0-46.0); HGB 11.9 g/dL (11.2-15.7); MCH 31.6 pg (27.0-33.0); MCHC 34.9 % (32.0-36.0); MCV 91 fL (80-95); MPV 9.5 fL (8.0-11.0); Platelet Count 152 10^3/uL (130-400); RBC 3.77 10^6/uL (3.93-5.22); RDW 12.2 % (11.7-14.6); RDW-SD 40.6 fL
[2024-05-28 06:45] LABS: ALT 10 U/L (14-59); AST 15 U/L (15-37); Albumin 2.5 g/dL (3.4-5.0); Alkaline Phosphatase 98 U/L (46-116); Anion Gap 2.2 mmol/L (3-11); BUN 29 mg/dL (7-18); Bilirubin, Total 0.35 mg/dL (0.2-1.0); CO2 29.8 mmol/L (21.0-32.0); CREATININE 1.5 mg/dL (0.55-1.02); Calcium 8.9 mg/dL (8.5-10.1); Chloride 92 mmol/L (98-107); Estimated GFR 34.58 (mL/min/1.73m2); Glucose 149 mg/dL (74-106); Potassium 4.9 mmol/L (3.5-5.1); Total Protein 5.6 g/dL (6.4-8.2)
[2024-05-28 06:52] LABS: Sodium 124 mmol/L (136-145)
[2024-05-28] MEDS: Folic Acid 1 MG TAB PO (07:46)
[2024-05-28] MEDS: Azithromycin 250 MG TAB PO (07:46)
[2024-05-28] MEDS: predniSONE 20 MG TAB 40 MG PO (07:46)
[2024-05-28] MEDS: Normal Saline Flush 10 ML SYR IVP ×3 (07:46→20:04)
[2024-05-28] MEDS: Budesonide/Formoterol 160/4.5 6 GM 60 PUFF INH IH ×2 (08:06→20:03)
[2024-05-28] MEDS: ALPRAZolam 0.5 MG TAB PO (08:48)
--- NOTE | 2024-05-28 09:29 | PDOC.CMPRO ---
Date of service: 05/28/24 Time of Service: 09:29 Care Management Progress Note Progress Note Text Progress Note Text: Aleida was sitting up in a chair visiting with her and neighbor Omar when CM met with her. She appeared to be in good spirits but is still a bit confused. Omar Stahler, Aleida and Aleida was possibly going to be discharged home today however her sodium remains at 123 and her oxygen needs have increased again. RT attempted a walk study with her and her oxygen saturation remained between 88-89% on 2.5 L/min. Her home O2 is ordered for 2 L so will need to be increased. Per RT: Pt was tested on pulse-dose O2 at the recommendation of Sarah, her DME. Pt did not tolerate pulse-dose O2. During ambulation pt SPO2 82-86% on max 5L pulse-dose. Pt sat down and was placed back on continuous 2L NC and SPO2 climbed to 93% within 3-4 minutes. Pt will no longer be able to use pulse-dose equipment. RT reached out to her DME provider Sarah who will deliver new tanks tomorrow. Discharge Potential Discharge Needs: PCP F/U Appt Anticipated Barriers to Discharge: Medical Status (persistent hyponatremia) Patient/Family Education Needs: Review discharge instructions, discuss Ask Me Three Transportation: Private vehicle Plan: Anticipate Aleida will be discharged home with no new services when medically stable. She will follow up with her PC)P and plan of care and transport with family. CM will follow and continue to assess for discharge planning concerns. Social Determinants of Health Screening Social Determinants of Health last assessed: 05/28/24 Will the Patient Participate in the Screening?: Yes Do you worry about having a steady place to live?: no Problems where you live: no known problems In the past 12 months, have you had to go without electric, gas, oil or water in your home?: no Have you or anyone in your house had to go without enough food to eat?: no Has lack of transportation kept you from medical appointments or from doing things needed for daily living?: no Has anyone in your life made you feel unsafe or unsupported?: no How hard is it for you to pay for the very basics like food, housing, medical care, and heating? Would you say it is:: Not hard at all Do you want help finding or keeping work or a job?: I do not need or want help If for any reason you need help with day-to-day activities such as bathing, preparing meals, shopping, managing finances, etc., do you get the help you need?: I could use a little more help How often do you feel lonely or isolated from those around you?: Sometimes Do you speak a language other than [place] at home?: No Does the patient want assistance with any of the above?: Yes Health Related Social Needs Health related social needs: problems with daily activities (Z73.9) and feeling lonely/isolated (Z60.8)
[2024-05-28 12:35] LABS: Anion Gap 6.2 mmol/L (3-11); BUN 27 mg/dL (7-18); CO2 25.8 mmol/L (21.0-32.0); CREATININE 1.3 mg/dL (0.55-1.02); Calcium 9.1 mg/dL (8.5-10.1); Chloride 91 mmol/L (98-107); Estimated GFR 41.06 (mL/min/1.73m2); Glucose 187 mg/dL (74-106); Potassium 5.1 mmol/L (3.5-5.1)
[2024-05-28 12:37] LABS: Sodium 123 mmol/L (136-145)
--- NOTE | 2024-05-28 13:44 | RESPIRATORY ---
Exercise Oximetry Pt will require increase to 2.5L of O2 during ambulation from her baseline of 2L O2. Pt maintained 88-89% SPO2 on 2.5L NC during ambulation. Resting on her home O2 of 2L RR 18, SPO2 94%, HR 85 Pt was tested on pulse-dose O2 at the recommendation of Sraah, her DME. Pt did not tolerate pulse-dose O2. During ambulation pt SPO2 82-86% on max 5L pulse-dose. Pt sat down and was placed back on continuous 2L NC and SPO2 climbed to 93% within 3-4 minutes. Pt will no longer be able to use pulse-dose equipment.
--- NOTE | 2024-05-28 15:02 | PGE_ITS ---
Date of Service Date of service: 05/28/24 Time of Service: 15:02 Assessment and Plan Assessment and plan (1) Sepsis: Status: Acute Assessment and plan: - Patient met sepsis criteria on admission with heart rate in the 110s, white blood cell count of 48 (baseline usually 20 with CLL), source of infection being community-acquired pneumonia as seen on imaging; did not meet criteria for severe sepsis -Was started on ceftriaxone and azithromycin IV -Had been on IV ceftriaxone and p.o. azithromycin which has since been transitioned to p.o. cefpodoxime and azithromycin (2) Pneumonia: Start date: 05/25/24 Status: Acute Assessment and plan: - Source of infection as noted above (3) COPD (chronic obstructive pulmonary disease): Status: Chronic Assessment and plan: - Patient also presented with expiratory wheezing consistent with a COPD exacerbation -Was initially on IV methylprednisolone which is since been transitioned to 40 mg p.o. prednisone daily -Will continue scheduled and as needed nebulizer treatments (4) Acute on chronic respiratory failure with hypoxia: Status: Acute Assessment and plan: - Patient normally on 2 L nasal cannula -Had required up to 4 L nasal cannula, now back to baseline 2 L -Will wean O2 as tolerated (5) Pulmonary hypertension: Status: Chronic Assessment and plan: - Likely secondary to COPD and chronic hypoxic respiratory failure (6) CLL (chronic lymphocytic leukemia): Status: Chronic Assessment and plan: - Appears to be stable with an additional increase in white blood cell count secondary to sepsis/community-acquired pneumonia as noted above (7) Hypothyroid: Status: Chronic Assessment and plan: - Continue home levothyroxine (8) Anxiety: Status: Chronic Assessment and plan: - Continue home regimen of 0.5 mg p.o. Xanax every morning, and 0.25 mg p.o. Xanax at bedtime as needed (9) Hyponatremia: Status: Acute Assessment and plan: -Moderate, asymptomatic with sodium being 124 -Status post 500 mL normal saline bolus and sodium 123 on 05/27/2024 -Patient will be fluid restricted to 1200 mL/day -Sodium remains in low 120s as of early p.m. on 02/06/2025; urine studies currently pending, patient also with to 3 pound weight gain since hospitalization, will try 20 mg IV Lasix -Follow-up a.m. BMP Subjective Subjective Interval history since last seen: Patient states that she is feeling better today. She understands she will remain hospitalized in order to continue to work on her oxygen requirement which is significantly elevated with ambulation but at baseline at rest, as well as for low sodium though she is currently asymptomatic from her hyponatremia. Exam Narrative Exam Narrative: Chronically ill-appearing older female sitting up in the chair no acute distress, ANO x 4, 2L nasal cannula in place, heart regular rhythm, lungs with diffuse end expiratory wheezing throughout, abdomen soft, nontender, nondistended Objective Last Vital Signs Temp 97.7 F 05/28/24 11:42 Pulse 93 H 05/28/24 11:42 Resp 20 05/28/24 11:42 BP 135/60 05/28/24 11:42 Pulse Ox 93 05/28/24 11:42 Laboratory Results - last 24 hr 05/28/24 05/28/24 06:05 12:10 WBC 27.30 H* RBC 3.77 L Hgb 11.9 Hct 34.1 L MCV 91 MCH 31.6 MCHC 34.9 RDW 12.2 Plt Count 152 MPV 9.5 Sodium 124 L* 123 L* Potassium 4.9 5.1 Chloride 92 L 91 L Carbon Dioxide 29.8 25.8 Anion Gap 2.2 L 6.2 BUN 29 H 27 H Creatinine 1.5 H 1.3 H Est GFR (CKD-EPI 2020) 34.58 41.06 Glucose 149 H 187 H Calcium 8.9 9.1 Magnesium 2.0 Total Bilirubin 0.35 AST 15 ALT 10 L Alkaline Phosphatase 98 Total Protein 5.6 L Albumin 2.5 L Time Spent with Patient Time Spent with Patient: >50 minutes Time was spent: preparing to see the patient(eg.review tests), obtaining and/or reviewing separately otained hiistory, ordering medications,tests, procedures, referring, communicating with other health respiratory care technician, indepentently interpreting results, counseling the patient and care coordination
[2024-05-28] MEDS: Furosemide 20 MG/2 ML VIAL IVP (15:20)
[2024-05-28 15:35] LABS: Creatinine,Urine 72.63 mg/dL; Sodium, Urine 6 mmol/L
[2024-05-28] MEDS: Mirtazapine 15 MG TAB 7.5 MG PO (20:03)
[2024-05-28] MEDS: Enoxaparin 30 MG/0.3 ML SYR SC (20:03)
[2024-05-28] MEDS: Latanoprost 0.005% 2.5 ML BTL OP (20:03)
[2024-05-28] MEDS: Cefpodoxime 200 MG TAB PO (20:03)
[2024-05-28 20:13] LABS: Osmolality Serum 261 mOsm/kg (275-295)
[2024-05-28 22:31] LABS: Osmolality, Urine 332 mOsm/kg (150-1150)
[2024-05-29] VITALS (7 sets, daily range): BP systolic 121; BP diastolic 51–69; PULSE 81–93; RESP 3–16; TEMP 36.2–37.1; O2SAT 91–98
[2024-05-29] MEDS: Albuterol/Ipratropium 3 ML UPD VIAL UPD ×2 (03:53→10:52)
[2024-05-29] MEDS: Levothyroxine 25 MCG TAB PO (06:21)
[2024-05-29] MEDS: Budesonide/Formoterol 160/4.5 6 GM 60 PUFF INH IH (07:38)
[2024-05-29] MEDS: predniSONE 20 MG TAB 40 MG PO (08:21)
[2024-05-29] MEDS: ALPRAZolam 0.5 MG TAB PO (08:22)
[2024-05-29] MEDS: Normal Saline Flush 10 ML SYR IVP (08:22)
[2024-05-29] MEDS: Azithromycin 250 MG TAB PO (08:22)
--- NOTE | 2024-05-29 09:01 | PDOC.CMPRO ---
Date of service: 05/29/24 Time of Service: 09:01 Care Management Progress Note Discharge Potential Discharge Needs: PCP F/U Appt Anticipated Barriers to Discharge: None Identified Patient/Family Education Needs: Review discharge instructions, discuss Ask Me Three Transportation: Private vehicle Plan: Anticipate Aleida will be discharged home with no new services when medically stable. She will follow up with her PC)P and plan of care and transport with family. CM will follow and continue to assess for discharge planning concerns. Social Determinants of Health Screening Social Determinants of Health last assessed: 05/29/24 Will the Patient Participate in the Screening?: Yes Do you worry about having a steady place to live?: no Problems where you live: no known problems In the past 12 months, have you had to go without electric, gas, oil or water in your home?: no Have you or anyone in your house had to go without enough food to eat?: no Has lack of transportation kept you from medical appointments or from doing things needed for daily living?: no Has anyone in your life made you feel unsafe or unsupported?: no How hard is it for you to pay for the very basics like food, housing, medical care, and heating? Would you say it is:: Not hard at all Do you want help finding or keeping work or a job?: I do not need or want help If for any reason you need help with day-to-day activities such as bathing, preparing meals, shopping, managing finances, etc., do you get the help you need?: I could use a little more help How often do you feel lonely or isolated from those around you?: Sometimes Do you speak a language other than Bengali at home?: No Does the patient want assistance with any of the above?: Yes Health Related Social Needs Health related social needs: problems with daily activities (Z73.9) and feeling lonely/isolated (Z60.8)
[2024-05-29 09:21] LABS: HCT 36.2 % (36.0-46.0); HGB 12.2 g/dL (11.2-15.7); MCH 31.4 pg (27.0-33.0); MCHC 33.7 % (32.0-36.0); MCV 93 fL (80-95); MPV 9.8 fL (8.0-11.0); Platelet Count 143 10^3/uL (130-400); RBC 3.89 10^6/uL (3.93-5.22); RDW 12.7 % (11.7-14.6); RDW-SD 43.6 fL
[2024-05-29 09:28] LABS: ALT 15 U/L (14-59); AST 17 U/L (15-37); Albumin 2.6 g/dL (3.4-5.0); Alkaline Phosphatase 101 U/L (46-116); Anion Gap 0 mmol/L (3-11); BUN 27 mg/dL (7-18); Bilirubin, Total 0.35 mg/dL (0.2-1.0); CREATININE 1.1 mg/dL (0.55-1.02); Calcium 9.4 mg/dL (8.5-10.1); Chloride 98 mmol/L (98-107); Estimated GFR 50.17 (mL/min/1.73m2); Glucose 124 mg/dL (74-106); Potassium 4.4 mmol/L (3.5-5.1); Sodium 131 mmol/L (136-145); Total Protein 5.7 g/dL (6.4-8.2)
[2024-05-29 09:41] LABS: Absolute Lymphocyte Count 14.48 10^3/uL (1.2-3.4); Absolute Monocyte Count 1.52 10^3/uL (0.1-0.8); Diff Comment Manual Differential; RBC Morphology Normal
--- NOTE | 2024-05-29 11:15 | IN_ITS ---
PT Notes Visit Reasons: Acute hypoxic respiratory failure, Bilateral pneum Physical Therapy Initial Evaluation Date: 05/29/2024 Referring Doctor: Brynn Coe PT Orders: PT CONSULT: Safety consult for discharge Precautions: Hard of hearing, seizure history, O2 dependent currently at 2 L, standard, fluid restriction 1200 mL/day Patient Profile/Admitting Diagnosis: Patient is 83-year-old female presented to the ED with increased dyspnea and cough with thick sputum times several days. Patient is chronic O2 dependent at 2 L/min and has CLL. Workup in the ED revealed elevated WBC and increased O2 demand secondary to O2 sats at 85% on 2 L. Imaging revealed bilateral infiltrates with underlying COPD. Patient diagnosed with sepsis, pneumonia, COPD exacerbation treated with IV antibiotics, nebs and increased supplemental oxygen initially. Patient negative for flu/RSV/COVID. Transferred to [facility] unit for further medical management. Patient with noted 3 pound weight gain and was given dose of Lasix. PMHX: Mixed hearing loss, bilateral Edema Bronchitis COPD exacerbation Asthma exacerbation in COPD Cat bite of right hand Colostomy care Pain Cellulitis of right upper extremity Hypomagnesemia Hypokalemia Respiratory failure with hypoxia Impacted cerumen, bilateral Chronic rhinitis Leukocytosis Thrombocytopenia Anemia DNI (do not intubate) Shortness of breath Conductive hearing loss, external ear Bilateral impacted cerumen (03/24/15) Elevation of level of transaminase and lactic acid dehydrogenase (LDH) External ear conductive hearing loss (03/24/15) Pyloric ulcer associated with Helicobacter pylori (04/18/06) Hyponatremia (11/16/05) Impacted cerumen (03/18/14) Mucous polyp of cervix Pneumonia Seizure Smoker COPD with exacerbation Mucous polyp of cervix Pneumonia HX of LLL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Smoker quit smoking-2001Elev transaminase/LDH 05/20/83Hyponatremia 11/16/05 w/hospitalizationPyloric ulcer associated with Helicobacter pylori 04/18/06Pulmonary nodule, right 04/05/14 repeat negativeExternal ear conductive hearing loss 03/24/15Hypothyroidism Subclinical hypothyroidism (06/07/15) NIGHT SWEATS ON MED-JMD Sensorineural hearing loss, bilateral (11/10/13) Phonak Ana S V SP (R: [id number]) out of warranty, fit September 2009. Peripheral vertigo (03/26/13) Impacted cerumen of both ears (03/24/15) Hyponatremia syndrome (06/27/15) Fatigue (10/27/13) Dysphonia (03/18/14) Hoarseness Crohns disease (01/21/13) surgery in 1975 w/ removal of intestines and colostomy on codeine tid chronically to control diarrhea Cramps, extremity (02/18/17) Chronic pain syndrome Anxiety (02/04/13) CAP (community acquired pneumonia) Surgical History History of colectomy Status post cholecystectomy History of colon resection Chron's disease; colostomy in placeS/P cholecystectomy 05/20/96Colostomy (~1983) CHRON'S DISEASECholecystectomy (~1996) Social History/Home Situation: Lives with in one level home with 54-5 steps with 2 raisl through her garage. Pt reports independent ambulation without device within her home and SPC for community. Independent ADL, meal prep, driving, shopping. Pt reports she does not go to the basement. Equipment Owned/DME: SPC home oxygen pulse dose tanks from [employer]. ( Respiratory recommending change to continuous oxygen tanks) Subjective: Pt reports she is feeling better today and is hoping she can get home soon Objective: General Observation: female semi reclined in bed with breakfast tray in front of her Oxygen on 2L/min Mental Status: A + Ox4 pt is very hard of hearing cooperative motivated agreeable to participate in PT session Pain:denies Vitals: BP 121/51 heart rate 83 O2 sats at rest 92% sustained at 91% or greater on 2 L for stairs and ambulation. ROM: BUE WFL BLE WFL Strength: BUE grossly 4/5 BLE hip 3+/5, knee 4/5, ankle 3/5 Sensation: intact Bed Mobility/Transfers: Supine to sit independent Sit to stand SBA Stand to sit SBA Bed to chair CGA without device Gait:ambulates 100 feet with FWW SBA with oxygen at 2L/min. reciprocal pattern equal step length with adequate foot clearance Stairs: 5 steps with 2 rails with CGA step to pattern Balance: Static Sitting: Normal Dynamic Sitting: Good Static Standing: Good Dynamic Standing: Fair + Special Tests: 4 STAGE BALANCE TEST: Feet together 10 seconds 1/2 Stance 8 seconds Tandem stance 0 seconds Single leg stance left 5 seconds, right 3 seconds Mobility Limitations Standardized Measure [] [facility] AM-PAC 6 clicks Basic Mobility Inpatient Short Form: [] Raw Score: 23 CMS Score: 11.20% Informed Consent/Education: Patient instructed in purpose of PT consult. Treatment: Therapeutic activity 75208: -Facilitated safe and correct performance of level surface ambulation covering a distance of 200 feet using use front wheeled walker with contact-guard assist and wheelchair follow for safety. With 3 sit rest to maintain sats greater than 88%. Patient did not report of any increased pain. Denied headache, chest pain, and lightheadedness throughout activity. -Facilitated safe and correct performance on level surface ambulation without assistive device for 35 feet demonstrating reduced step length bilaterally slower becky and decreased arm swing as compared to reciprocal pattern with use of FWW. -Functional transfers surface to surface various heights with standby assist without assistive device maintaining saturation greater than 88% on 2 L/min Assessment: Patient presents with clinical signs and symptoms consistent with current/admitting diagnoses that have resulted to mobility limitations, gait instability, generalized weakness, and impairment of motor control as demonstrated by the following impairment level findings: 1. Impaired standing functional activity tolerance 2. Impaired standing balance 3. Impaired breath control/pacing techniques 4. Imapired BLE strength major muscle groups Impairments are contributing to the following functional limitations: 1. Inability to safely ambulate without assistive device 2. Increase completion time for mobility ADL performance 3. Increased fall risk Patient is assessed as a moderate complexity based on the following: History: 83-year-old female with impairment level findings, functional limitations, and past medical history as indicated above Examination: Demonstrable impairment in strength, balance, and mobility level with underlying impairments and functional limitations as documented above Presentation: evolving Decision Making: moderate Goals: 1. independent Transfers without AD 2. Independent ambulation without AD >50 feet maintaining saturation >88% and managing oxygen tubing 3. Supervision ambulating with SPC 300 feet managing oxygen tubing and keeping sats >88% 4. Supervision on 5 stairs with 2 rails to safely enter and exit her home maintaining saturation >88% Plan of Care/Treatment Plan: 1-2x/day, 7 days/week x 1 week. Plan of care has been reviewed with the WEB CONTENT MANAGER providing the service under Physical Therapy direction. Initiate Physical Therapy intervention for strengthening, bed mobility, transfers, gait, stairs, balance training, use of assistive device. DISCHARGE RECOMMENDATIONS: Home with HH PT and [facility] TREATMENT CODE/TIME: 72272 x 18 mins , 72080 x 40 mins for 3 units/ [id number] Thank you for the opportunity to participate in the care of this patient. Nury Ramey, PT [facility]
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
--- NOTE | 2024-05-29 12:48 | PDOC.HHF2F_ITS ---
Home Health Referral Home Health Orders Clinical synopsis of why skilled professionals are needed: respiratory distress pneumonia COPD Medical diagnosis necessitation home health referral: respiratory distress pneumonia COPD Registered Nurse: Check all that apply Other: check and titrate oxygen Physical Therapist: Check all that apply Increase strength & endurance for safe mobility at home: Ordered To design/establish home maintenance program: Ordered Fall reduction therapy program for patient with history of frequent falls: Ordered Home safety evaluation and teaching/gait training including stair management (if applicable): Ordered Encounter Date and Reason: I certify that a FTF encounter for this patient was performed on May 29, 2024 and that such encounter was related to the primary reason the patient requires home health services. The encounter was conducted in the following manner: * By me as the certifying physician, HOSPICE ENTRANCE ATTENDANT, PA or * By an inpatient physician, HOSPICE ENTRANCE ATTENDANT or PA during an inpatient stay who communicated findings to me, Certification And Authentication I certify that I composed the above information based on my clinical judgment relating to this patient's medical condition and, if applicable, clinical findings communicated to me by the NPP or inpatient physician who performed the FTF encounter. Name of Provider that will be monitoring home health services: Ramila Tapia
--- NOTE | 2024-05-29 15:01 | CHAPLAIN ---
Aleida was sitting up in the chair when I visited and having her vitals checked. She is a member of the [employer] in [place] and said she didn't go to hindu for a time and then searched for the right hindu for her and found it at the [facility]. Her long time friend, Hattie Orlando is a former chemical processing equipment repairer there. There currently isn't a car wash supervisor at the hindu. Aleida was very pleasant and easily engaged in a conversation. She said both she and her are hard of hearing, so they speak loudly at home, but not because they are angry with each other. She is looking forward to getting back home.
[2024-05-29 18:37] LABS: Osmolality Serum 270 mOsm/kg (275-295)
== END 2024-05-29 14:08 | disposition home or self-care (01) | DRG 871 ==
LOC: ER 20:09 → MS 21:24
PROVIDERS: Family Medicine; Hospitalist; Admitting Provider Family Medicine; Emergency Provider Emergency Medicine; PCP Family Medicine; Visit Provider Family Medicine
DX: J18.9 Pneumonia, unspecified organism (principal); J96.21 Acute and chronic respiratory failure with hypoxia; C91.10 Chronic lymphocytic leukemia of B-cell type not having achieved remission; E87.1 Hypo-osmolality and hyponatremia; J44.1 Chronic obstructive pulmonary disease with (acute) exacerbation; F11.20 Opioid dependence, uncomplicated; J44.0 Chronic obstructive pulmonary disease with (acute) lower respiratory infection; A41.9 Sepsis, unspecified organism; J43.2 Centrilobular emphysema; I27.20 Pulmonary hypertension, unspecified; I10 Essential (primary) hypertension; E03.9 Hypothyroidism, unspecified; F41.9 Anxiety disorder, unspecified; Z99.81 Dependence on supplemental oxygen; R32 Unspecified urinary incontinence; Z87.891 Personal history of nicotine dependence; R91.1 Solitary pulmonary nodule; E55.9 Vitamin D deficiency, unspecified; D51.0 Vitamin B12 deficiency anemia due to intrinsic factor deficiency; H90.6 Mixed conductive and sensorineural hearing loss, bilateral; K52.9 Noninfective gastroenteritis and colitis, unspecified; Z90.49 Acquired absence of other specified parts of digestive tract; Z93.3 Colostomy status
CPT/HCPCS: 00123; 36415; 71275; 80048; 80053; 82805; 83935; 85027; 87040; 87637; 93005; 94618; 94640; 94761; 96365; 96367; 96375; 97162; 97530; 99291; J1650; 71045; 81003; 81015; 82565; 83735; 83880; 83930; 84300; 84443; 84484; 85025; 87086; 93010; 94664; 94667; 94668; 94760; 99223; 99233; 99239; J0456; J0696; J1941; J2919; J3475; J3490; J7512; J7613; J7620

== ENCOUNTER 2024-05-31 10:16 | Emergency (ER) | payer MEDICARE, OTHER, SELFPAY ==
[2024-05-31] VITALS (29 sets, daily range): BP systolic 157–171; BP diastolic 67–81; PULSE 79–104; RESP 9–23; TEMP 36.4–36.7; O2SAT 88–98
--- NOTE | 2024-05-31 11:30 | DI.RAD_ITS ---
Exam(s) XR CHEST 2V PA LATERAL EXAM: XR CHEST 2V PA LATERAL CLINICAL HISTORY: cough, congestion TECHNIQUE: 2D digital imaging was performed of the chest. Two images were obtained. PA and lateral views were obtained. COMPARISON: CR XR CHEST 2V PA LATERAL from 12/06/2022 CR XR PORTABLE CHEST AP from 05/25/2024 FINDINGS: MEDIASTINUM: Normal. HEART: Normal. PULMONARY VASCULATURE: Normal. LUNGS: There is unchanged scarring in the right lung base. No focal consolidating infiltrates are pr esent. PLEURAL SPACE: No pleural effusion or pneumothorax. BONE:Within normal limits for the patient's age. OTHER FINDINGS:Normal. IMPRESSION: No acute pulmonary findings. DATA REPOSITORY: RADIATION DOSE DELIVERED:
--- NOTE | 2024-05-31 11:30 | DI.CT_ITS ---
Exam(s) CT HEAD WO EXAM: CT HEAD WO CLINICAL HISTORY: fall, struck head yesterday. TECHNIQUE: Imaging Protocol: Axial computed tomography images with coronal and sagittal reformatted images were created and reviewed COMPARISON: CT CT HEAD CERV SPINE FACIAL WO from 12/06/2022 FINDINGS: Ventricles and Extra axial spaces: Normal in size and morphology for the patient's age. Hemorrhage: None. Cerebral parenchyma: There are areas of decreased attenuation in the white matter consistent with chr onic microvascular ischemic disease. No evidence of an acute territorial infarct or mass effect. Midline shift: None. Brainstem/Cerebellum: Normal. Calvarium: Normal. Visualized Paranasal sinuses/Mastoids: Clear. Soft Tissues: Unremarkable. IMPRESSION: No acute intracranial process. RADIATION DOSE DELIVERED: 828.33mGy.cm Total DLP DATA REPOSITORY: All CT scans at this facility are submitted to the National Radiology Data Registry (NRDR) Dose Index Registry (DIR) with the [employer] (ACR). RADIATION OPTIMIZATION: All CT scans at this facility use at least one of these dose optimization te chniques: automated exposure control; mA and/or kV adjustment per patient size (includes targeted exa ms where dose is matched to clinical indication); or iterative reconstruction.
[2024-05-31 11:36] LABS: Lactate 1.5 mmol/L (0.6-1.4)
[2024-05-31 11:39] LABS: Abs Immature Grans 0.39 10^3/uL (0.0-0.06); Absolute Lymphocyte Count 28.16 10^3/uL (1.2-3.4); Absolute Monocyte Count 1.27 10^3/uL (0.1-0.8); Absolute Neutrophil Count 15.23 10^3/uL (1.2-6.7); Basophils % 0.3 %; HCT 44.9 % (36.0-46.0); HGB 14.9 g/dL (11.2-15.7); Immature Grans % 0.9 %; MCH 31.3 pg (27.0-33.0); MCHC 33.2 % (32.0-36.0); MCV 94 fL (80-95); MPV 9.4 fL (8.0-11.0); Monocytes % 2.8 %; Neutrophils % 33.7 %; Nucleated RBC 0.1 % (0.0-0.3); Platelet Count 161 10^3/uL (130-400); RBC 4.76 10^6/uL (3.93-5.22); RDW 13.1 % (11.7-14.6); RDW-SD 44.9 fL
--- NOTE | 2024-05-31 11:39 | W.ED.GENAD ---
Discharge Plan Disposition Patient Disposition: Home Condition: Stable Discharge Details Clinical Impression: Balance disorder, COPD (chronic obstructive pulmonary disease), Fall Primary Care Provider: Ramila Tapia ED Provider: Mylene García Home Meds and New Rx's Prescriptions: Continued mupirocin 2 % ointment 1 applic topical BID Qty: 30 0RF BRITT POUCH See Rx Instructions topical .COMPLEX Qty: 30 4RF Rx Instructions: 1 topical; triamcinolone acetonide 0.1 % cream 1 applic topical BID Qty: 80 1RF Rx Instructions: apply to foot collagenase clostridium histo. 250 unit/gram ointment 1 applic topical DAILY Qty: 90 0RF (DME) Lucy Cohesive Seals 1 EACH misc 1 ea Miscellaneous DIR Patient Comments: #[id number] CODE; V44.3 Rx Instructions: 795244 V44.3 BRITT 1 ea Topical DIR 0RF Rx Instructions: DRAINABLE POUCH; 3228; V44.3 mirtazapine 7.5 mg tablet 7.5 mg PO QHS Qty: 90 4RF budesonide-formoterol [Symbicort] 160-4.5 mcg/actuation HFA aerosol inhaler 2 puff Inhalation BID Qty: 30.6 12RF cyanocobalamin (vitamin B-12) 1,000 mcg/mL solution 1,000 mcg IM MONTHLY Qty: 3 12RF Rx Instructions: dispense with needles (DME) BD Blunt Plastic Cannula 17 x 3 mL syringe 1 ea Miscellaneous MONTHLY Qty: 12 12RF Rx Instructions: 25 guage X 1 ULTRA FINE;[id number] alprazolam 0.5 mg tablet 0.5 mg PO DIRECTED Qty: 180 1RF Rx Instructions: 1 TAB QAM; 0.5 TAB PM PRN folic acid 1 mg tablet 1 mg PO EVERY OTHER DAY Qty: 45 12RF ergocalciferol (vitamin D2) 1,250 mcg (50,000 unit) capsule 50,000 unit PO QWEEK Qty: 13 4RF Rx Instructions: Must be gel capsule acetaminophen-codeine 300-30 mg tablet 1 tab PO Q6H Qty: 120 3RF Rx Instructions: chronic diarrhea. albuterol sulfate [Ventolin HFA] 90 mcg/actuation HFA aerosol inhaler 2 puff inhalation QID PRN (Reason: shortness of breath or wheezing) Qty: 25.5 4RF levothyroxine [Euthyrox] 25 mcg tablet 25 mcg PO DAILY Qty: 90 5RF Spiriva Respimat 2.5 mcg/actuation mist See Rx Instructions .ROUTE .COMPLEX Qty: 4 8RF Dose Instruction: INHALE 2 PUFFS BY MOUTH EVERY MORNING Rx Instructions: INHALE 2 PUFFS BY MOUTH EVERY MORNING latanoprost 0.005 % drops 1 drp ophthalmic (eye) QPM Patient Comments: INSTILL 1 DROP IN BOTH EYES EVERY EVENING azithromycin 250 mg Tablet 250 mg PO DAILY Qty: 3 0RF prednisone 20 mg Tablet 20 mg PO DAILY Qty: 7 0RF Discharge Instructions Instructions: Chronic obstructive pulmonary disease (COPD), Preventing falls in adults, Going Up and Down Curbs or Stairs With a Walker or Crutches Additional Instructions: As we discussed, I do not see that your pneumonia or breathing issues have significantly worsened. However, I am worried that you are weak and still recovering from your recent admission. I encourage you to continue with hydration and increase protein intake. You may find protein shakes are of benefit. Please continue with the oxygen as previously directed. This means always having your oxygen on and using her CPAP at night. When you are walking, please use the walker as this will add stability and also will help you if you are ambulating outside of the home and using your small oxygen canisters. Please continue the medications as previously prescribed. Physical therapy, Occupational Therapy, social support as well as home health have been ordered and should be contacting you tomorrow clear. Please follow-up with your primary care in the next week for reevaluation. If you develop any new or worsening symptoms please seek care urgently once again. Referrals: Ramila Tapia MD, [place] [Primary Care Provider] - Discharge Data Discharge Date/Time-TO BE ENTERED AT DEPARTURE: 05/31/24 14:33 HPI General Date/Time Provider Initiated Documentation: 05/31/24 10:18. Limitations to Documentation: no limitations. Information obtained by: patient, family (daughter, Candice), RN notes reviewed and old records reviewed. History of Present Illness 83 year old F presents to the emergency department with the chief complaint of weakness, difficulty with oxygen at home, described as moderate, Patient started experiencing this day(s) and it has been constant. Immobilization improves symptom(s), Movement worsens symptoms . Patient notes loss of appetite, malaise and shortness of breath; denies chest pain, cough, fever/chills, headaches, nausea/vomiting, rash and syncope. Patient did receive the following treatments prior to arrival, none Related Data Home Medications ?Medication ?Instructions ?Recorded ?Confirmed ostomy supplies (Lucy Cohesive 08/11/12 05/31/24 [facility] [place]) BRITT POUCH See Rx Instructions topical 07/20/21 05/31/24 .COMPLEX #30 units mupirocin 2 % topical ointment 1 applic topical BID #30 grams 07/10/22 05/31/24 triamcinolone acetonide 0.1 % 1 applic topical BID #80 grams 08/07/22 05/31/24 topical cream collagenase clostridium histo. 250 1 applic topical DAILY #90 grams 01/04/23 05/31/24 unit/gram topical ointment mirtazapine 7.5 mg tablet 7.5 mg PO QHS #90 tabs 04/04/23 05/31/24 Symbicort 160 mcg-4.5 2 puff inhalation BID #30.6 grams 06/07/23 05/31/24 mcg/actuation HFA aerosol inhaler (budesonide-formoterol) cyanocobalamin (vitamin B-12) 1,000 mcg IM MONTHLY #3 vials 10/03/23 05/31/24 1,000 mcg/mL injection solution syringe with cannula,disposabl 17 ##12 10/03/23 05/31/24 x 3 mL (BD Blunt Plastic Cannula) alprazolam 0.5 mg tablet 0.5 mg PO DIRECTED #180 tab-caps 10/24/23 05/31/24 folic acid 1 mg tablet 1 mg PO EVERY OTHER DAY #45 11/14/23 05/31/24 tab-caps ergocalciferol (vitamin D2) 1,250 50,000 unit PO QWEEK #13 caps 01/17/24 05/31/24 mcg (50,000 unit) capsule acetaminophen 300 mg-codeine 30 mg 1 tab PO Q6H diarrhea #120 tabs 02/17/24 05/31/24 tablet albuterol sulfate 90 mcg/actuation 2 puff inhalation QID PRN 02/17/24 05/31/24 aerosol inhaler (Ventolin HFA) shortness of breath or wheezing #25.5 grams levothyroxine 25 mcg tablet 25 mcg PO DAILY #90 tabs 02/17/24 05/31/24 (Euthyrox) tiotropium bromide 2.5 See Rx Instructions .Route 02/17/24 05/31/24 mcg/actuation mist for inhalation .COMPLEX #4 grams (Spiriva Respimat) latanoprost 0.005 % eye drops 1 drp ophthalmic (eye) QPM 05/26/24 05/31/24 azithromycin 250 mg tablet 250 mg PO DAILY #3 tabs 05/29/24 05/31/24 prednisone 20 mg tablet 20 mg PO DAILY #7 tabs 05/29/24 05/31/24 Previous Rx's ?Medication ?Instructions ?Recorded BRITT POUCH See Rx Instructions topical 07/20/21 .COMPLEX #30 units mupirocin 2 % topical ointment 1 applic topical BID #30 grams 07/10/22 triamcinolone acetonide 0.1 % 1 applic topical BID #80 grams 08/07/22 topical cream collagenase clostridium histo. 250 1 applic topical DAILY #90 grams 01/04/23 unit/gram topical ointment mirtazapine 7.5 mg tablet 7.5 mg PO QHS #90 tabs 04/04/23 Symbicort 160 mcg-4.5 2 puff inhalation BID #30.6 grams 06/07/23 mcg/actuation HFA aerosol inhaler (budesonide-formoterol) cyanocobalamin (vitamin B-12) 1,000 mcg IM MONTHLY #3 vials 10/03/23 1,000 mcg/mL injection solution syringe with cannula,disposabl 17 ##12 10/03/23 x 3 mL (BD Blunt Plastic Cannula) alprazolam 0.5 mg tablet 0.5 mg PO DIRECTED #180 tab-caps 10/24/23 folic acid 1 mg tablet 1 mg PO EVERY OTHER DAY #45 11/14/23 tab-caps ergocalciferol (vitamin D2) 1,250 50,000 unit PO QWEEK #13 caps 01/17/24 mcg (50,000 unit) capsule acetaminophen 300 mg-codeine 30 mg 1 tab PO Q6H diarrhea #120 tabs 02/17/24 tablet albuterol sulfate 90 mcg/actuation 2 puff inhalation QID PRN 02/17/24 aerosol inhaler (Ventolin HFA) shortness of breath or wheezing #25.5 grams levothyroxine 25 mcg tablet 25 mcg PO DAILY #90 tabs 02/17/24 (Euthyrox) tiotropium bromide 2.5 See Rx Instructions .Route 02/17/24 mcg/actuation mist for inhalation .COMPLEX #4 grams (Spiriva Respimat) azithromycin 250 mg tablet 250 mg PO DAILY #3 tabs 05/29/24 prednisone 20 mg tablet 20 mg PO DAILY #7 tabs 05/29/24 Allergies Allergy/AdvReac Type Severity Reaction Status Date / Time Penicillins Allergy Intermediate redness Verified 05/31/24 10:25 and shaking clindamycin AdvReac Mild stomach Verified 05/31/24 10:25 pains doxycycline AdvReac Mild stomach Verified 05/31/24 10:25 pains levofloxacin AdvReac Other (See Verified 05/31/24 10:25 Comment) nitrofurazone AdvReac Stomach Verified 05/31/24 10:25 pains Tetanus Vaccines and Toxoid AdvReac Contraindic Verified 05/31/24 10:25 ated General Stated Complaint: Recheck KAVEH: 3 Review of Systems Constitutional Constitutional: Reports as per HPI, Denies chills, Denies fever(s) and Denies headache(s) Eyes Eyes: Denies change in vision ENT Ears, Nose, Mouth, and Throat: Denies dizziness and Denies headache(s) Cardiovascular Cardiovascular: Reports as per HPI Respiratory Respiratory: Reports as per HPI, Denies chest congestion, Denies cough, Denies pain on inspiration and Denies pain with cough Gastrointestinal Gastrointestinal: Reports as per HPI, Denies abdominal pain, Denies diarrhea, Denies nausea and Denies vomiting Integumentary/Breasts Skin/Breast: Reports as per HPI and Denies rash Neurologic Neurologic: Reports as per HPI, Denies dizziness and Denies headache(s) Exam Const General: cooperative, comfortable, no acute distress, well developed and ill appearing chronically Nutritional Appearance: average body habitus and well nourished Orientation: alert, awake and oriented x3 HENMT Head: normal to inspection Resp Effort & Inspection: normal respiratory effort, able to speak in complete sentences and no respiratory distress Auscultation: no rales, no rhonchi and wheezes (few, scattered) Cardio Rate: regular rate Rhythm: regular rhythm Heart Sounds: S1 normal and S2 normal Back/Spine/Pelvis Back: no CVA tenderness Thoracic/Lumbar Spine: thoracic and lumbar spine normal to inspection Skin General skin exam: no rashes or lesions noted Trauma: no lacerations or abrasions Neuro General: patient alert, patient awake and patient oriented x3 Cognition: normal cognition Speech: speech normal Extrem General: normal to inspection, capillary refill normal, no pedal edema and no calf tenderness Course Vital Signs Vital signs: Vital Signs Temperature 36.7 C 05/31/24 10:21 Pulse 104 H 05/31/24 10:21 Respiratory Rate 16 05/31/24 10:21 Blood Pressure 157/69 H 05/31/24 10:21 Pulse Oximetry 94 05/31/24 10:21 Temperature 36.7 C 05/31/24 10:21 Pulse 104 H 05/31/24 10:21 Respiratory Rate 16 05/31/24 10:21 Blood Pressure 157/69 H 05/31/24 10:21 Pulse Oximetry 94 05/31/24 10:21 Oxygen Delivery Method Nasal Cannula 05/31/24 10:21 Oxygen Flow Rate 3 05/31/24 10:21 Medical Decision Making Patient is a pleasant 83 year old female, accompanied by daughter, with PMH significant for hearing loss, COPD, colostomy, anemia, shortness of breath, recent mission for pneumonia and hyponatremia, seizure, CLL, Crohn's disease, anxiety, presenting today with chief complaint of weakness and failing at home. Patient was recently discharged after being admitted for hyponatremia and pneumonia. She has been taking her antibiotics as prescribed. Took her azithromycin yesterday. She is supposed to have home health coming to the house but states that she declined their services. Patient has typically been very independent and wished to continue to do so. On exam, patient appears nontoxic but she does appear chronically ill. It appears that she is more wasting thin acutely ill at this point. She is slightly hypertensive and tachycardic. She is quite hard of hearing but does have hearing aids and available. Normal cardiac exam. I did note few scant wheezes but otherwise lungs sound clear at this point. She is not in any respiratory distress. Doing well on her typical 2 L nasal cannula, oxygen is in the mid to high 90s. No lower extremity edema. Patient does report that she has some chronic calf pain but no acute pain with palpation or change in this recently. Patient not having any chest pain. No significant change in her respiratory symptoms. Primary concern at this point is weakness at home. She also fell yesterday while trying to take care of her cat. Struck the posterior aspect of her head. She denies any loss of consciousness but does report a very mild headache still persisting, will obtain imaging to evaluate for any potential bleed. States that this is a mechanical fall and did not suffer any syncopal episodes or presyncopal symptoms. She has not had any chest pain or palpitations, symptoms seem much more in line with chronic weakness associated with her comorbidities as well as recent admission rather than acute ACS. Patient's not consistent with her medical care and has declined at home health. Her daughter is quite concerned that she needs to regain her strength and will not be able to do so without in-home help. Patient's not having symptoms or exam findings consistent with pulmonary embolism, AAA, sepsis. Patient seen by respiratory therapy was able to explain the transition to the new respiratory protocol and devices. Patient seen by care management reassured patient and daughter that referrals for physical therapy, Occupational Therapy, administrator social welfare as well as home health are already established they will ensure that these continue to go through despite the patient having declined services previously. Sounds like some of the services had been declined due to patient being concerned they may not be covered by insurance which care management was able to clarify for them. Imaging without any significant abnormality. Labs unchanged from patient's baseline. Despite the patient feeling slightly short of breath, her oxygen being used been well-controlled here on her baseline 2 L. She was able to ambulate with a walker which she will send home with her. We also discussed how to utilize the home oxygen device is better so that she is able to be more ambulatory and work on her physical therapy. Daughter is also assisting with this. Sounds like there is significant miscommunication or misunderstanding at the time of her recent discharge. They do feel safe going home and well supported. Patient will continue with previous discharge instructions, will complete her antibiotics. She will continue with her continuous oxygen and begin her CPAP once again. Patient will work with PT, OT and home health. Daughter is also aware of these referrals and will help to ensure that these are completed. Return precautions were discussed. Better feels she is able to get into the home well, has done well on the stairs at home going slowly. Patient going home with a walker. All of their questions and concerns were addressed and they are in agreement this plan. This documentation was generated using [employer] dictation system, please disregard any oddities of phrase or misspellings. Quality:SDOH Health Related Social Needs: Health related social needs problems with daily activities (Z73.9), feeling lonely/isolated (Z60.8) PFSH All Active Problems (Updated 05/31/24 @ 14:18 by NAE Hendrickson) Fall (Acute) Acute on chronic respiratory failure with hypoxia (Acute) Pneumonia (Acute) Pneumonia (Acute) Basal cell carcinoma of dorsum of nose (Acute) Lesion of skin of nose (Acute) Arm skin lesion, right (Acute) Incontinence (Acute) Impacted cerumen, left ear (Acute) Open wound of right knee (Acute) Closed fracture of right patella (Chronic 12/06/22) COPD (chronic obstructive pulmonary disease) (Chronic) Pulmonary hypertension (Chronic) Former smoker (Acute) Breast discharge (Acute) Infection (Acute) Hypothyroid (Chronic) Anxiety (Chronic) CLL (chronic lymphocytic leukemia) (Chronic) Hyponatremia (Acute) High output ileostomy (Acute) CHF exacerbation (Acute) Conductive hearing loss, external ear (Acute) Physician orders for life-sustaining treatment (POLST) form indicates patient wish for limited interventions status (Acute) DO NOT INTUBATE ok with chest compressions and shock DNI (do not intubate) (Acute) per discussion 08/25/2019 Dysphonia (Acute 03/18/14) Nodule of right lung (Acute 04/05/14) Vitamin D deficiency (Chronic 03/19/09) Urinary incontinence (Chronic 09/09/14) Shoulder pain (Chronic 04/18/04) frozen shoulder Pernicious anemia (Chronic) B12 injections Osteopenia (Chronic) T-scores-2.0, -1.3, -1.0; 09/23 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 Only med which works. ENds up in hospital if diarrhea not well controlled Mixed hearing loss, 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) Karyna TOLEDO (R: [id number]) out of warranty, fit September 2009. Impaired renal function disorder (Chronic) Gastro-esophageal reflux disease with esophagitis (Chronic) nodule mid portion of vocal cord Depressive disorder (Chronic 01/21/13) Chronic night sweats (Chronic 09/16/17) Chronic diarrhea (Chronic) CONTROLLED SUBSTANCE AGREEMENT 09/05/15-USES CODEINE 02/18/17 CONTROLLED SUBSTANCE AGREEMENT~RENEWED Balance disorder (Chronic 06/02/15) Essential hypertension (Chronic 04/17/13) Medical History Mixed hearing loss, bilateral Edema Bronchitis COPD exacerbation Asthma exacerbation in COPD Cat bite of right hand Colostomy care Pain Cellulitis of right upper extremity Hypomagnesemia Hypokalemia Respiratory failure with hypoxia Impacted cerumen, bilateral Chronic rhinitis Leukocytosis Thrombocytopenia Anemia DNI (do not intubate) Shortness of breath Conductive hearing loss, external ear Bilateral impacted cerumen (03/24/15) Elevation of level of transaminase and lactic acid dehydrogenase (LDH) External ear conductive hearing loss (03/24/15) Pyloric ulcer associated with Helicobacter pylori (04/18/06) Hyponatremia (11/16/05) Impacted cerumen (03/18/14) Mucous polyp of cervix Pneumonia Seizure Smoker COPD with exacerbation Mucous polyp of cervix Pneumonia HX of LLL 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 Smoker quit smoking-2001 Elev transaminase/LDH 05/20/83 Hyponatremia 11/16/05 w/hospitalization Pyloric ulcer associated with Helicobacter pylori 04/18/06 Pulmonary nodule, right 04/05/14 repeat negative External ear conductive hearing loss 03/24/15 Hypothyroidism Subclinical hypothyroidism (06/07/15) NIGHT SWEATS ON MED-JMD Sensorineural hearing loss, bilateral (11/10/13) Phonak Ana S V SP (R: [id number]) out of warranty, fit September 2009. Peripheral vertigo (03/26/13) Impacted cerumen of both ears (03/24/15) Hyponatremia syndrome (06/27/15) Fatigue (10/27/13) Dysphonia (03/18/14) Hoarseness Crohns disease (01/21/13) surgery in 1975 w/ removal of intestines and colostomy on codeine tid chronically to control diarrhea Cramps, extremity (02/18/17) Chronic pain syndrome Anxiety (02/04/13) CAP (community acquired pneumonia) Surgical History History of colectomy Status post cholecystectomy History of colon resection Chron's disease; colostomy in place S/P cholecystectomy 05/20/96 Colostomy (~1983) CHRON'S DISEASE Cholecystectomy (~1996) Family History Mother , 76 Neoplasm OVARIAN Asthma Cancer Sister Asthma Breast cancer Maternal Grandmother Stroke AT CHILDBIRTH Daughter No problems noted. Social History Smoking/Tobacco Use Status: Former Tobacco Use tobacco type: cigarettes Quit Date: 06/21/01 Second Hand Exposure: Yes Smoking risk assessment performed?: Yes Alcohol Intake: current Alcohol Intake frequency: holidays/special occasions only Alcohol type: wine Drug use: Never Substance use type: does not use Household members: spouse Housing: house Communication Needs: Hard of Hearing Do you need help understanding health information?: Never Pets and animals: Yes Pets and animals: cat(s) Sexually active: No Do you think of yourself as: straight/heterosexual Current gender identity: female What is your relationship status?: How often do you talk on the phone with friends or family?: once per week How often do you get together with friends or relatives?: once per week How often do you attend faith or restorationism services?: decline to answer Do you belong to any clubs or organized social groups?: no Panel score (0-1 are the most socially isolated patients): 1 What type of physical activity do you participate in: walking Duration: 60-90 minutes/day Frequency: daily Conecpción/Adventist: Zoroastrianism Special concepción needs: No Seatbelt use: always Helmet use: No Drive intox or ride w/intox peg driver: No Do you feel safe at home: Yes Do you feel safe in your relationship?: Yes Victim of physical abuse: No Victim of emotional abuse: Yes (sometimes)
[2024-05-31 11:41] LABS: Absolute Basophil Count 0.14 10^3/uL (0.0-0.2)
[2024-05-31 12:00] LABS: ALT 25 U/L (14-59); AST 23 U/L (15-37); Albumin 3.1 g/dL (3.4-5.0); Alkaline Phosphatase 115 U/L (46-116); Anion Gap 5.7 mmol/L (3-11); BUN 34 mg/dL (7-18); CO2 31.3 mmol/L (21.0-32.0); CREATININE 1.1 mg/dL (0.55-1.02); Calcium 10.3 mg/dL (8.5-10.1); Chloride 98 mmol/L (98-107); Estimated GFR 50.17 (mL/min/1.73m2); Glucose 130 mg/dL (74-106); Magnesium 1.7 mg/dL (1.8-2.4); Potassium 4.6 mmol/L (3.5-5.1); Sodium 135 mmol/L (136-145); Total Protein 6.7 g/dL (6.4-8.2)
[2024-05-31 12:07] LABS: Diff Comment Agrees w/ Instrument; RBC Morphology Normal
[2024-05-31 12:08] LABS: Lymphocytes % 62.3 %
[2024-05-31 12:53] LABS: Troponin I 12 ng/L (<or=51)
[2024-05-31] MEDS: Albuterol/Ipratropium 3 ML UPD VIAL UPD (13:30)
[2024-05-31 13:31] LABS: Troponin I 7 ng/L (<or=51)
--- NOTE | 2024-05-31 15:00 | RESPIRATORY ---
On last admission, pt walked by RTs with pulse dose Inogen portable concentrator. Pt was unable to maintain adequate SpO2 88% or greater on 5L pulse dose. For patient's safety and health, prescription changed to 2.5L continuous oxygen flow during ambulation. Due to the change, portable Inogen concentrator discontinued by [email or web address]. New prescription of 2.5L continuous oxygen delivered to patient with portable oxygen tanks and carrying bag similar in weight and size to Inogen concentrator. Pt arrived to ED today with C/C SOB. RT met with patient and patient's daughter to go over the change in home O2 equipment and prescription. Pt maintained adequate SpO2 in the ED on her new prescription liter flow for the duration of this ED visit. To help ease confusion from the transition from previous oxygen equipment to new equipment, RT typed up and provided a large print synopsis for patient and patient's daughter that included name of DME company, phone number to contact company, current oxygen prescription settings, explanation of why previous portable oxygen was inadequate, and explanation of adequacy and reasoning for new equipment.
== END 2024-05-31 14:33 | disposition home or self-care (01) ==
PROVIDERS: Emergency Provider Physician Assistant; PCP Family Medicine
DX: R26.81 Unsteadiness on feet (principal); J44.9 Chronic obstructive pulmonary disease, unspecified; J45.909 Unspecified asthma, uncomplicated; E03.9 Hypothyroidism, unspecified; Z99.81 Dependence on supplemental oxygen
CPT/HCPCS: 80053; 94640; 99285; 70450; 71046; 83605; 83735; 84484; 85025; 99284; J7620

== ENCOUNTER → 2024-07-15 12:24 | Outpatient (BNVA) | payer MEDICARE, OTHER, SELFPAY | PROVIDERS: PCP Family Medicine; Referring Provider Family Medicine; Visit Provider Physician Assistant Surgical | DX: J43.2 Centrilobular emphysema (principal); Z87.891 Personal history of nicotine dependence; I27.20 Pulmonary hypertension, unspecified | CPT/HCPCS: 99214 ==

== ENCOUNTER 2024-07-22 03:30 | Outpatient (CLI) | payer MEDICARE, OTHER, SELFPAY ==
[2024-07-22 09:09] LABS: Abs Immature Grans 0.08 10^3/uL (0.0-0.06); Absolute Lymphocyte Count 18.42 10^3/uL (1.2-3.4); Absolute Monocyte Count 0.65 10^3/uL (0.1-0.8); Basophils % 0.4 %; Eosinophils % 0.5 %; HCT 39.9 % (36.0-46.0); Immature Grans % 0.3 %; Lymphocytes % 70.8 %; MCH 31.7 pg (27.0-33.0); MCHC 32.6 % (32.0-36.0); MCV 97 fL (80-95); MPV 10.2 fL (8.0-11.0); Monocytes % 2.5 %; Neutrophils % 25.5 %; Platelet Count 114 10^3/uL (130-400); RDW 13.9 % (11.7-14.6); RDW-SD 49.9 fL
[2024-07-22 09:27] LABS: ALT 13 U/L (14-59); AST 22 U/L (15-37); Albumin 3.6 g/dL (3.4-5.0); Alkaline Phosphatase 125 U/L (46-116); Anion Gap 10.7 mmol/L (3-11); BUN 14 mg/dL (7-18); Bilirubin, Total 0.83 mg/dL (0.2-1.0); CO2 24.3 mmol/L (21.0-32.0); CREATININE 1.2 mg/dL (0.55-1.02); Calcium 9.9 mg/dL (8.5-10.1); Chloride 106 mmol/L (98-107); Estimated GFR 44.91 (mL/min/1.73m2); Glucose 101 mg/dL (74-106); Potassium 3.7 mmol/L (3.5-5.1); Sodium 141 mmol/L (136-145); Total Protein 6.8 g/dL (6.4-8.2)
[2024-07-22 09:30] LABS: Absolute Eosinophil Count 0.13 10^3/uL (0.0-0.7); Absolute Neutrophil Count 6.63 10^3/uL (1.2-6.7)
[2024-07-22 09:35] LABS: Diff Comment Agrees w/ Instrument; RBC Morphology Normal; WBC 26.01 10^3/uL (4.4-10.8)
== END 2024-07-22 03:31 | disposition home or self-care (01) ==
LOC: LBO 03:30
PROVIDERS: PCP Family Medicine; Visit Provider Internal Medicine Hematology & Oncology
DX: C91.10 Chronic lymphocytic leukemia of B-cell type not having achieved remission (principal)
CPT/HCPCS: 36415; 80053; 85025

== ENCOUNTER 2024-08-07 16:48 | Outpatient (REF) | payer MEDICARE, OTHER, SELFPAY ==
[2024-08-07 21:10] LABS: Bilirubin Negative (Negative); Blood Moderate (Negative); Clarity Turbid (Clear); Glucose Negative (Negative); Ketones Negative (Negative); Leukocyte Esterase Small (Negative); Nitrite Negative (Negative); Urobilinogen 0.2 mg/dL (Up to 0.2)
[2024-08-07 21:20] LABS: C & S Indicated? Yes; WBC >50 HPF (0-5)
== END 2024-08-07 16:49 | disposition home or self-care (01) ==
LOC: LBN 16:48
PROVIDERS: PCP Family Medicine; Visit Provider Physician Assistant
DX: N39.0 Urinary tract infection, site not specified (principal); R82.89 Other abnormal findings on cytological and histological examination of urine
CPT/HCPCS: 87077; 81003; 81015; 87086; 87186

== ENCOUNTER → 2024-10-15 10:50 | Outpatient (BNVA) | payer MEDICARE, OTHER, SELFPAY | PROVIDERS: PCP Family Medicine; Referring Provider Family Medicine; Visit Provider Physician Assistant Surgical | DX: J43.2 Centrilobular emphysema (principal); Z87.891 Personal history of nicotine dependence; I27.20 Pulmonary hypertension, unspecified | CPT/HCPCS: 99214 ==

== ENCOUNTER 2024-10-23 01:07 | Outpatient (CLI) | payer MEDICARE, OTHER, SELFPAY ==
[2024-10-23 11:17] LABS: HCT 32.3 % (36.0-46.0); HGB 10.9 g/dL (11.2-15.7); MCH 31.1 pg (27.0-33.0); MCHC 33.7 % (32.0-36.0); MCV 92 fL (80-95); MPV 9.9 fL (8.0-11.0); Platelet Count 114 10^3/uL (130-400); RBC 3.51 10^6/uL (3.93-5.22); RDW 12.2 % (11.7-14.6); RDW-SD 41.1 fL; WBC 21.94 10^3/uL (4.4-10.8)
[2024-10-23 11:40] LABS: Absolute Eosinophil Count 0.22 10^3/uL (0.0-0.7); Absolute Lymphocyte Count 13.16 10^3/uL (1.2-3.4); Absolute Monocyte Count 0.88 10^3/uL (0.1-0.8); Absolute Neutrophil Count 7.68 10^3/uL (1.2-6.7); Atypical Lymphocytes % 1 %; Diff Comment Manual Differential; RBC Morphology Normal
[2024-10-23 12:43] LABS: Vitamin B12 1092 pg/mL (193-986); Vitamin D 25 Total 62 ng/mL (30-100)
[2024-10-23 13:10] LABS: Anion Gap 9.8 mmol/L (3-11); BUN 14 mg/dL (7-18); CO2 26.2 mmol/L (21.0-32.0); CREATININE 0.9 mg/dL (0.55-1.02); Calcium 9.2 mg/dL (8.5-10.1); Chloride 91 mmol/L (98-107); Estimated GFR 63.43 (mL/min/1.73m2); Glucose 95 mg/dL (74-106); NT-proBNP 258 pg/mL (<300); Potassium 4.3 mmol/L (3.5-5.1); Sodium 127 mmol/L (136-145)
[2024-10-23 19:57] LABS: Lab Add On Test DONE
[2024-10-23 20:05] LABS: Albumin 3.5 g/dL (3.4-5.0)
== END 2024-10-23 01:08 | disposition home or self-care (01) ==
PROVIDERS: Nurse Practitioner Family; PCP Family Medicine; Visit Provider Nurse Practitioner Family
DX: D51.0 Vitamin B12 deficiency anemia due to intrinsic factor deficiency (principal); E55.9 Vitamin D deficiency, unspecified; C91.10 Chronic lymphocytic leukemia of B-cell type not having achieved remission; R60.9 Edema, unspecified
CPT/HCPCS: 36415; 80048; 82306; 71046; 82040; 82607; 83880; 85025

== ENCOUNTER 2024-10-23 17:52 | Outpatient (CLI) | payer MEDICARE, OTHER, SELFPAY ==
--- NOTE | 2024-10-23 17:00 | DI.RAD_ITS ---
Exam(s) XR CHEST 2V PA LATERAL EXAM: XR CHEST 2V PA LATERAL CLINICAL HISTORY: R06.02 SOB eval pathology ?CHF TECHNIQUE: 2D digital imaging was performed of the chest. Two images were obtained. PA and lateral views were obtained. COMPARISON: CR XR PORTABLE CHEST AP from 05/25/2024 CR XR CHEST 2V PA LATERAL from 05/31/2024 FINDINGS: MEDIASTINUM: Normal. HEART: Normal. PULMONARY VASCULATURE: Normal. LUNGS: No focal consolidating infiltrates. PLEURAL SPACE: No pleural effusion or pneumothorax. BONE:Within normal limits for the patient's age. OTHER FINDINGS:Normal. IMPRESSION: 1. No acute pulmonary findings. 2. No findings of congestive heart failure. DATA REPOSITORY: RADIATION DOSE DELIVERED:
--- NOTE | 2024-10-23 18:36 | DI.VRAD_ITS ---
PROCEDURE INFORMATION: Exam: XR Chest Exam date and time: 10/23/2024 5:44 PM Age: 84 years old Clinical indication: Shortness of breath TECHNIQUE: Imaging protocol: Radiologic exam of the chest. Views: 2 views. COMPARISON: CR XR CHEST 2V PA LATERAL 05/31/2024 12:06 PM FINDINGS: Lungs: Lungs are hyperaerated. No consolidation. No vascular congestion. Pleural spaces: Unremarkable. No pleural effusion. No pneumothorax. Heart/Mediastinum: Unremarkable. No cardiomegaly. Bones/joints: Severe thoracolumbar dextroscoliosis. IMPRESSION: Chronic lung disease. No acute cardiopulmonary abnormality. Dictated and Authenticated by: Ernie Leyva MD. Orderin Akash Escobar MD
== END 2024-10-23 18:12 ==
LOC: DI 17:52
PROVIDERS: PCP Family Medicine; Visit Provider Nurse Practitioner Family
DX: R06.02 Shortness of breath (principal)
CPT/HCPCS: 71046

== ENCOUNTER 2024-10-24 12:48 | Outpatient (REF) | payer MEDICARE, OTHER, SELFPAY ==
[2024-10-24 16:18] LABS: ALT 25 U/L (14-59); AST 29 U/L (15-37); Albumin 3.5 g/dL (3.4-5.0); Alkaline Phosphatase 124 U/L (46-116); Anion Gap 6.4 mmol/L (3-11); BUN 11 mg/dL (7-18); Bilirubin, Total 0.8 mg/dL (0.2-1.0); CO2 30.6 mmol/L (21.0-32.0); CREATININE 0.9 mg/dL (0.55-1.02); Calcium 9.1 mg/dL (8.5-10.1); Chloride 91 mmol/L (98-107); Estimated GFR 63.43 (mL/min/1.73m2); Glucose 97 mg/dL (74-106); Magnesium 1.1 mg/dL (1.8-2.4); Potassium 3.9 mmol/L (3.5-5.1); Sodium 128 mmol/L (136-145); Total Protein 5.8 g/dL (6.4-8.2)
== END 2024-10-24 12:49 | disposition home or self-care (01) ==
LOC: LBN 12:48
PROVIDERS: PCP Family Medicine; Visit Provider Nurse Practitioner Family
DX: E87.1 Hypo-osmolality and hyponatremia (principal)
CPT/HCPCS: 80053; 82310; 83735

== ENCOUNTER 2024-10-26 09:16 | Outpatient (CLI) | payer MEDICARE, OTHER, SELFPAY ==
[2024-10-26 10:06] LABS: ALT 21 U/L (14-59); AST 24 U/L (15-37); Albumin 3.5 g/dL (3.4-5.0); Alkaline Phosphatase 116 U/L (46-116); Anion Gap 5.3 mmol/L (3-11); BUN 14 mg/dL (7-18); Bilirubin, Total 0.9 mg/dL (0.2-1.0); CO2 28.7 mmol/L (21.0-32.0); Calcium 9.4 mg/dL (8.5-10.1); Chloride 93 mmol/L (98-107); Glucose 125 mg/dL (74-106); Magnesium 1.3 mg/dL (1.8-2.4); Potassium 3.6 mmol/L (3.5-5.1); Sodium 127 mmol/L (136-145); Total Protein 6.1 g/dL (6.4-8.2)
== END 2024-10-26 09:17 | disposition home or self-care (01) ==
LOC: LBO 09:17
PROVIDERS: PCP Family Medicine; Visit Provider Nurse Practitioner Family
DX: E87.1 Hypo-osmolality and hyponatremia (principal)
CPT/HCPCS: 36415; 80053; 82310; 83735

== ENCOUNTER 2024-10-27 17:00 | Outpatient (REF) | payer MEDICARE, OTHER, SELFPAY ==
[2024-10-28 16:27] LABS: Bilirubin Negative (Negative); Blood Small (Negative); C & S Indicated? Yes; Clarity Cloudy (Clear); Glucose Negative (Negative); Ketones Negative (Negative); Leukocyte Esterase Large (Negative); Nitrite Negative (Negative); Urobilinogen 0.2 mg/dL (Up to 0.2); WBC >50 HPF (0-5)
== END 2024-10-27 17:01 | disposition home or self-care (01) ==
LOC: LBN 17:00
PROVIDERS: PCP Family Medicine; Visit Provider Family Medicine
DX: R35.0 Frequency of micturition (principal); B96.29 Other Escherichia coli [E. coli] as the cause of diseases classified elsewhere
CPT/HCPCS: 87077; 81003; 81015; 87086; 87186

== ENCOUNTER 2024-10-29 01:52 | Outpatient (CLI) | payer MEDICARE, OTHER, SELFPAY ==
[2024-10-29 11:04] LABS: HCT 33.4 % (36.0-46.0); HGB 10.9 g/dL (11.2-15.7); MCH 31.1 pg (27.0-33.0); MCHC 32.6 % (32.0-36.0); MCV 95 fL (80-95); MPV 10.1 fL (8.0-11.0); Platelet Count 104 10^3/uL (130-400); RBC 3.51 10^6/uL (3.93-5.22); RDW 13.1 % (11.7-14.6); RDW-SD 45.2 fL; WBC 16.46 10^3/uL (4.4-10.8)
[2024-10-29 11:16] LABS: Anion Gap 5.9 mmol/L (3-11); BUN 17 mg/dL (7-18); CO2 28.1 mmol/L (21.0-32.0); CREATININE 0.9 mg/dL (0.55-1.02); Calcium 9.3 mg/dL (8.5-10.1); Chloride 102 mmol/L (98-107); Estimated GFR 63.43 (mL/min/1.73m2); Glucose 100 mg/dL (74-106); Magnesium 1.7 mg/dL (1.8-2.4); Potassium 3.7 mmol/L (3.5-5.1); Sodium 136 mmol/L (136-145)
[2024-10-29 11:33] LABS: Absolute Eosinophil Count 0.49 10^3/uL (0.0-0.7); Absolute Lymphocyte Count 10.37 10^3/uL (1.2-3.4); Absolute Monocyte Count 0.16 10^3/uL (0.1-0.8); Absolute Neutrophil Count 5.43 10^3/uL (1.2-6.7); Diff Comment Manual Differential; RBC Morphology Normal
== END 2024-10-29 01:53 | disposition home or self-care (01) ==
LOC: LBO 01:52
PROVIDERS: Nurse Practitioner Family; PCP Family Medicine; Visit Provider Family Medicine
DX: E87.8 Other disorders of electrolyte and fluid balance, not elsewhere classified (principal); C91.10 Chronic lymphocytic leukemia of B-cell type not having achieved remission
CPT/HCPCS: 36415; 80048; 82310; 83735; 85025

== ENCOUNTER 2024-11-03 03:29 | Outpatient (CLI) | payer MEDICARE, OTHER, SELFPAY ==
[2024-11-03 13:49] LABS: ALT 25 U/L (14-59); AST 19 U/L (15-37); Albumin 3.3 g/dL (3.4-5.0); Alkaline Phosphatase 132 U/L (46-116); Anion Gap 7.1 mmol/L (3-11); BUN 21 mg/dL (7-18); Bilirubin, Total 0.8 mg/dL (0.2-1.0); CO2 30.9 mmol/L (21.0-32.0); CREATININE 1.2 mg/dL (0.55-1.02); Calcium 9.7 mg/dL (8.5-10.1); Chloride 103 mmol/L (98-107); Estimated GFR 44.91 (mL/min/1.73m2); Glucose 109 mg/dL (74-106); Magnesium 1.6 mg/dL (1.8-2.4); Sodium 141 mmol/L (136-145); Total Protein 6.3 g/dL (6.4-8.2)
== END 2024-11-03 03:30 | disposition home or self-care (01) ==
LOC: LBO 03:30
PROVIDERS: PCP Family Medicine; Visit Provider Family Medicine
DX: R79.0 Abnormal level of blood mineral (principal); I10 Essential (primary) hypertension
CPT/HCPCS: 36415; 80053; 83735

== ENCOUNTER 2024-12-02 02:43 | Outpatient (CLI) | payer MEDICARE, OTHER, SELFPAY ==
[2024-12-02 12:20] LABS: Anion Gap 5.1 mmol/L (3-11); BUN 13 mg/dL (7-18); CO2 32.9 mmol/L (21.0-32.0); Calcium 9.4 mg/dL (8.5-10.1); Chloride 103 mmol/L (98-107); Estimated GFR 73.06 (mL/min/1.73m2); Glucose 87 mg/dL (74-106); Potassium 3.5 mmol/L (3.5-5.1); Sodium 141 mmol/L (136-145)
== END 2024-12-02 02:44 | disposition home or self-care (01) ==
LOC: LBO 02:43
PROVIDERS: PCP Family Medicine; Visit Provider Family Medicine
DX: E87.1 Hypo-osmolality and hyponatremia (principal); I10 Essential (primary) hypertension
CPT/HCPCS: 36415; 80048

== ENCOUNTER → 2025-01-13 11:17 | Outpatient (BNVA) | payer MEDICARE, OTHER, SELFPAY | PROVIDERS: PCP Family Medicine; Referring Provider Family Medicine; Visit Provider Physician Assistant Surgical | DX: J43.2 Centrilobular emphysema (principal); Z87.891 Personal history of nicotine dependence; I27.20 Pulmonary hypertension, unspecified | CPT/HCPCS: 99214 ==

== ENCOUNTER 2025-01-13 15:03 | Outpatient (CLI) | payer MEDICARE, OTHER, SELFPAY ==
[2025-01-13 12:46] LABS: HCT 36.0 % (36.0-46.0); HGB 11.9 g/dL (11.2-15.7); Immature Grans % 0.3 %; MCH 31.6 pg (27.0-33.0); MCHC 33.1 % (32.0-36.0); MCV 96 fL (80-95); MPV 11.2 fL (8.0-11.0); RBC 3.76 10^6/uL (3.93-5.22); RDW 13.4 % (11.7-14.6); RDW-SD 47.3 fL; WBC 19.06 10^3/uL (4.4-10.8)
[2025-01-13 12:47] LABS: Abs Immature Grans 0.06 10^3/uL (0.0-0.06)
[2025-01-13 13:08] LABS: Platelet Count 88 10^3/uL (130-400); RBC Morphology Normal
== END 2025-01-13 15:04 | disposition home or self-care (01) ==
LOC: LBO 15:05
PROVIDERS: PCP Family Medicine; Visit Provider Physician Assistant Surgical
DX: J45.909 Unspecified asthma, uncomplicated (principal); J43.2 Centrilobular emphysema
CPT/HCPCS: 36415; 99214; 82785; 85025

== ENCOUNTER 2025-01-20 12:59 | Outpatient (CLI) | payer MEDICARE, OTHER, SELFPAY ==
[2025-01-20 11:45] LABS: Abs Immature Grans 0.06 10^3/uL (0.0-0.06); HCT 36.5 % (36.0-46.0); HGB 12.2 g/dL (11.2-15.7); MCH 32.0 pg (27.0-33.0); MCHC 33.4 % (32.0-36.0); MCV 96 fL (80-95); MPV 10.4 fL (8.0-11.0); Platelet Count 121 10^3/uL (130-400); RBC 3.81 10^6/uL (3.93-5.22); RDW 13.2 % (11.7-14.6); RDW-SD 46.7 fL; WBC 20.25 10^3/uL (4.4-10.8)
[2025-01-20 11:59] LABS: ALT 19 U/L (14-59); AST 19 U/L (15-37); Albumin 3.5 g/dL (3.4-5.0); Alkaline Phosphatase 151 U/L (46-116); Anion Gap 7.1 mmol/L (3-11); BUN 27 mg/dL (7-18); Bilirubin, Total 0.7 mg/dL (0.2-1.0); CO2 28.9 mmol/L (21.0-32.0); Calcium 9.9 mg/dL (8.5-10.1); Chloride 103 mmol/L (98-107); Estimated GFR 37.33 (mL/min/1.73m2); Glucose 107 mg/dL (74-106); Potassium 4.1 mmol/L (3.5-5.1); Sodium 139 mmol/L (136-145); Total Protein 6.6 g/dL (6.4-8.2)
[2025-01-20 12:09] LABS: Immature Grans % 0.0 %; RBC Morphology Normal
== END 2025-01-20 13:00 | disposition home or self-care (01) ==
LOC: LBO 12:59
PROVIDERS: PCP Family Medicine; Visit Provider Nurse Practitioner Family
DX: C91.10 Chronic lymphocytic leukemia of B-cell type not having achieved remission (principal)
CPT/HCPCS: 36415; 80053; 85025